=== PATIENT | male | born 1930 | race Two or more races ===

== ENCOUNTER 2016-09-01 13:35 | Inpatient (IN) | payer MEDICARE, OTHER ==
[~2016-09-01] VITALS: Ht 167.6 cm; Wt 75.0 kg
[~2016-09-01 13:35] MED LIST: ACET-2047 PO; ASPI81TA3 PO; CHOL2000 PO; CYAN500T46 PO; DOCU-144 PO; FER325 PO; FURO20TA3 PO; HYDR-3672 PO; INSU100V23 SC; LANT3I SC; LEVO25TA59 PO; METO-448 PO; MIRT15TA5 PO; MULT1CAP20 PO; NIFE30TA60 PO; ONDA4TAB8 PO; PANT40TA4 PO; POLY15DR42 BOTH EYES; SITA50TA2 PO; TAMS0.4C2 PO; ZOLP5TAB7 PO
--- NOTE | 2016-09-01 15:12 | ERA ---
ER Documentation Chief Complaint Date/Time DATE: 09/01/16 TIME: 15:12 Chief Complaint LOW H&H SENT FROM [facility] The patient is a 85-year-old male, presenting to the ER because of low hemoglobin 7, low hematocrit 21.3 from the detention. 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 Medications Home Meds Reported Medications Acetaminophen* (Acetaminophen*) 325 Mg Tablet, 650 MG PO Q6H Y for PAIN, #30 TAB FOR TEMP>100 DEGREES 09/01/16 Aripiprazole* (Abilify*) 2 Mg Tablet, 2 MG PO QHS, #30 TAB 09/01/16 Hydralazine Hcl* (Hydralazine Hcl*) 100 Mg Tablet, 100 MG PO Q8, #90 TAB HOLD FOR SBP<120 09/01/16 Metoprolol Tartrate* (Lopressor*) 25 Mg Tab, 25 MG PO BID, #60 TAB HOLD FOR SBP<120 HR<60 09/01/16 Diltiazem Hcl* (Cardizem CD*) 120 Mg Cap.sr.24h, 120 MG PO DAILY, #30 CAP HOLD IF SBP<120 HR<60 09/01/16 Levothyroxine Sodium* (Levothyroxine Sodium*) 25 Mcg Tablet, 25 MCG PO BEFORE BREAKFAST, #30 TAB 09/01/16 Omeprazole* (Omeprazole*) 20 Mg Capsule.dr, 20 MG PO QAM, #30 CAP 09/01/16 Ferrous Sulfate* (Ferrous Sulfate*) 325 Mg Tabec, 325 MG PO DAILY, TAB 09/01/16 Linagliptin (TRADJENTA) 5 Mg Tablet, 5 MG PO DAILY, TAB 09/01/16 Cyanocobalamin* (Vitamin B-12*) 1,000 Mcg Tablet.sa, 1000 MCG PO DAILY, TAB 09/01/16 Mirtazapine* (Mirtazapine*) 15 Mg Tablet, 15 MG PO HS, TAB 09/10/15 Artificial Tears* (Artificial Tears* Ophth) 15 ml Opht, 1 DROP BOTH EYES BID, EA 09/10/15 Docusate Sodium* (Colace*) 100 Mg Capsule, 100 MG PO Q12H Y for CONSTIPATION, # 30 CAP 09/10/15 Aspirin* (Aspirin* Chew) 81 Mg Tab.chew, 81 MG PO DAILY, TAB.CHEW 09/10/15 Ondansetron Hcl* (Zofran*) 4 Mg Tablet, 4 MG PO Q6H Y for NAUSEA AND OR VOMITING , TAB 04/02/15 Multivitamins* (Multivitamin*) 1 Udcap Capsule, 1 TAB PO DAILY, TAB 04/02/15 Cholecalciferol* (Vitamin D3*) 2,000 Unit Cap, 2000 UNIT PO DAILY, CAP 03/07/14 Zolpidem Tartrate* (Zolpidem Tartrate*) 5 Mg Tablet, 5 MG PO HS Y, TAB 03/07/14 Tamsulosin Hcl* (Tamsulosin Hcl*) 0.4 Mg Cap.er.24h, 0.4 MG PO BID, CAP 03/07/14 Discontinued Reported Medications Acetaminophen* (Acetaminophen*) 650 Mg Tablet, 650 MG PO Q6H Y for MILD PAIN LEVEL 1-3, #30 TAB 09/10/15 Insulin Glargine* (Lantus*) 100 Unit/Ml Soln, 20 UNIT SC DAILY, #1 VIAL 09/10/15 Ferrous Sulfate* (Ferrous Sulfate*) 325 Mg Tabec, 325 MG PO BID, TAB 09/10/15 Metoprolol Tartrate* (Lopressor*) 25 Mg Tab, 25 MG PO BID, #60 TAB 09/10/15 Levothyroxine Sodium* (Synthroid*) 25 Mcg Tablet, 25 MCG PO BEFORE BREAKFAST, # 30 TAB 09/10/15 Cyanocobalamin* (Vitamin B12*) 500 Mcg Tab, 1000 MCG PO DAILY, TAB 09/10/15 Sitagliptin* (Januvia*) 50 Mg Tablet, 50 MG PO DAILY, #30 TAB 09/10/15 Nifedipine* (Nifedipine ER*) 30 Mg Tablet.sa, 30 MG PO DAILY, TAB.SA 09/10/15 Furosemide* (Furosemide*) 20 Mg Tablet, 20 MG PO DAILY, #60 TAB 09/10/15 Insulin Regular, Human* (Novolin R*) 100 U/Ml Vial, 0 SC SLIDING SCALE AC, VIAL 09/10/15 Hydralazine Hcl* (Hydralazine Hcl*) 50 Mg Tab, 50 MG PO Q8, #90 TAB 04/02/15 Pantoprazole* (Pantoprazole*) 40 Mg Tablet.dr, 40 MG PO DAILY, TAB 04/02/15 Allergies Allergies: Coded Allergies: No Known Allergy (Unverified , 09/01/16) PMhx/Soc History of Surgery: Yes (UTI, ESBL, CVA, DM, HTN, DLP, ANEMIA, CKD, DIABETIC NEUROPATHY, RT KNEE SX.) Anesthesia Reaction: No Hx Neurological Disorder: Yes (CONFUSED) Hx Respiratory Disorders: Yes (PNEUMONIA) Hx Cardiac Disorders: Yes (CHF,) Hx Psychiatric Problems: Yes Hx Miscellaneous Medical Probl: Yes (UTI, ESBL, CVA, DM, HTN, DLP, ANEMIA, CKD , DIABETIC NEUROPATHY, RT KNEE SX.) Hx Alcohol Use: No Hx Substance Use: No Hx Tobacco Use: No Physical Exam Vitals Vital Signs Date Time Temp Pulse Resp B/P Pulse Ox O2 Delivery O2 Flow Rate FiO2 09/01/16 17:00 47 16 142/51 100 Room Air 09/01/16 16:19 45 17 143/50 100 Room Air 09/01/16 13:38 97.4 43 17 127/59 97 Physical Exam Const: No acute distress. Head: Atraumatic. Eyes: Normal Conjunctiva. ENT: Normal External Ears, Nose and Mouth. Neck: Full range of motion. No meningismus. Resp: Clear to auscultation bilaterally. Cardio: Irregularly irregular bradycardic Abd: Soft, non distended, normal bowel sounds, non tender. Skin: No petechiae or rashes. Back: No midline or flank tenderness. Ext: No cyanosis, or edema. Neur: Limited due to his condition Psych: Limited due to his condition Result Diagram: 09/01/16 1530 09/01/16 1530 Results 24 hrs Laboratory Tests Test 09/01/16 15:30 White Blood Count 7.910^3/ul Red Blood Count 2.9410^6/ul Hemoglobin 7.8g/dl Hematocrit 24.9% Mean Corpuscular Volume 84.7fl Mean Corpuscular Hemoglobin 26.5pg Mean Corpuscular Hemoglobin Concent 31.3g/dl Red Cell Distribution Width 17.6% Platelet Count 46437^3/UL Mean Platelet Volume 10.1fl Neutrophils % 73.5% Lymphocytes % 15.7% Monocytes % 8.2% Eosinophils % 1.7% Basophils % 0.5% Nucleated Red Blood Cells % 0.0/100WBC Neutrophils # 5.810^3/ul Lymphocytes # 1.210^3/ul Monocytes # 0.610^3/ul Eosinophils # 0.110^3/ul Basophils # 0.010^3/ul Nucleated Red Blood Cells # 0.010^3/ul Prothrombin Time 14.5Sec Prothrombin Time Ratio 1.1 INR International Normalized Ratio 1.13 Activated Partial Thromboplast Time 29.5Sec Sodium Level 138mmol/L Potassium Level 4.2mmol/L Chloride Level 111mmol/L Carbon Dioxide Level 20mmol/L Anion Gap 11 Blood Urea Nitrogen 51mg/dl Creatinine 4.40mg/dl Glucose Level 182mg/dl Calcium Level 7.8mg/dl Total Bilirubin 0.0mg/dl Direct Bilirubin 0.00mg/dl Indirect Bilirubin 0.0mg/dl Aspartate Amino Transf (AST/SGOT) < 8IU/L Alanine Aminotransferase (ALT/SGPT) 22IU/L Alkaline Phosphatase 131IU/L Troponin I < 0.012ng/ml Total Protein 6.2g/dl Albumin 3.3g/dl Globulin 2.90g/dl Albumin/Globulin Ratio 1.13 Current Medications Medications (Trade) Dose Ordered Sig/Ant Route PRN Reason Start Time Stop Time Status Last Admin Dose Admin IV Flush (NS 3 ml) 3 ml PER PROTOCOL IV 09/01/16 18:30 UNV Ondansetron HCl (Zofran Inj) 4 mg Q6H PRN IV NAUSEA AND/OR VOMITING 09/01/16 18:30 UNV Acetaminophen (Tylenol Tab) 650 mg Q6H PRN PO PAIN LEVEL 1-3 OR FEVER 09/01/16 18:30 UNV Docusate Sodium (Colace) 100 mg Q12H PRN PO CONSTIPATION 09/01/16 18:30 UNV Magnesium Hydroxide (Milk Of Mag) 30 ml DAILY PRN PO CONSTIPATION 09/01/16 18:30 UNV Pantoprazole (Protonix Tab) 40 mg DAILY@06 PO 09/02/16 06:00 UNV Acetaminophen (Tylenol Tab) 650 mg Q6H PRN PO PAIN 09/01/16 18:30 UNV Aripiprazole (Abilify) 2 mg QHS PO 09/01/16 21:00 UNV Eye Lubricant (Artificial Tears Oph) 1 drop BID BOTH EYES 09/01/16 21:00 UNV Aspirin (Aspirin) 81 mg DAILY PO 09/02/16 09:00 UNV Cholecalciferol (Vitamin D) 2,000 unit DAILY PO 09/02/16 09:00 UNV Cyanocobalamin (Vitamin B12) 1,000 mcg DAILY PO 09/02/16 09:00 UNV Diltiazem HCl (Cardizem Cd) 120 mg DAILY PO 09/02/16 09:00 UNV Docusate Sodium (Colace) 100 mg Q12H PRN PO CONSTIPATION 09/01/16 18:30 UNV Ferrous Sulfate (Ferrous Sulfate (Ec)) 325 mg DAILY PO 09/02/16 09:00 UNV Hydralazine HCl (Apresoline) 100 mg Q8 PO 09/01/16 22:00 UNV Levothyroxine Sodium (Synthroid) 25 mcg BEFORE BREAKFAST PO 09/02/16 07:00 UNV Linagliptin (Tradjenta) 5 mg DAILY PO 09/02/16 09:00 UNV Metoprolol Tartrate (Lopressor) 25 mg BID PO 09/01/16 21:00 UNV Mirtazapine (Remeron) 15 mg HS PO 09/01/16 21:00 UNV Multivitamins Therapeutic (Theragran) 1 tab DAILY PO 09/02/16 09:00 UNV Tamsulosin HCl (Flomax) 0.4 mg BID PO 09/01/16 21:00 UNV Zolpidem Tartrate (Ambien) 5 mg HS PRN PO insomnia 09/01/16 18:30 UNV Insulin Aspart (Novolog Insulin Pen) NOVOLOG *MILD* ALGORITHM WITH MEALS BEDTIME SC 09/01/16 21:00 UNV Miscellaneous Information (* Miscellaneous Pharmacy Order) HYPOGLYCEMIA PROTOCOL w... ONCE ONCE XX 09/01/16 19:00 09/01/16 19:01 UNV Miscellaneous Information (* Miscellaneous Pharmacy Order) Discontinue Glyburide, Glipizide,... ONCE ONCE XX 09/01/16 19:00 09/01/16 19:01 UNV Miscellaneous Information (* Miscellaneous Pharmacy Order) Discontinue all previ... ONCE ONCE XX 09/01/16 19:00 09/01/16 19:01 UNV Procedures/MDM EK hrs. read by emergency physician Rate/Rhythm: Atrial fibrillation 41 beats/min QRS, ST, T-waves: No ST elevation, no T inversion Impression: Abnormal EKG EK hrs. read by emergency physician Rate/Rhythm: Atrial fibrillation 44 beats/min QRS, ST, T-waves: No ST elevation, no T inversion Impression: Abnormal EKG MEDICAL MAKING DECISION: The patient is a 85-year-old male, presenting with probable acute GI bleed, acute bradycardia arrhythmia, acute on chronic kidney disease, acute atrial fibrillation. He was treated with 1 unit of packed red blood cells over 4 hours due to probable acute GI bleed. The differential diagnoses considered include but are not limited to gastritis, peptic ulcer disease, esophageal varices, Sherlyn-Chaparro tear, carcinoma, polyp, hemorrhoid, fissure, diverticulosis, angiodysplasia. Departure Diagnosis: Primary Impression: GI bleed Additional Impressions: Bradyarrhythmia Acute kidney injury superimposed on chronic kidney disease Atrial fibrillation Condition: Stable Comments I discussed the findings with the patient. I discussed the patient with his physician Dr. Montes at 5 PM who was made aware of the lab, the treatment, the patient condition. The patient is admitted to [facility] Dasilva MD Sep 01, 2016 15:12
[2016-09-01 15:43] LABS: ADD SCAN DIFF NO
[2016-09-01 15:47] LABS: BASOPHILS % 0.5 % (0.0-2.0); EOSINOPHILS # 0.1 10^3/ul (0.0-0.5); EOSINOPHILS % 1.7 % (0.0-7.0); HEMATOCRIT 24.9 % (42.0-52.0); HEMOGLOBIN 7.8 g/dl (14.0-18.0); LYMPHOCYTES # 1.2 10^3/ul (0.8-2.9); LYMPHOCYTES % 15.7 % (15.0-51.0); MEAN CORPUSCULAR HEMOGLOBIN 26.5 pg (29.0-33.0); MEAN CORPUSCULAR HGB CONC 31.3 g/dl (32.0-37.0); MEAN CORPUSCULAR VOLUME 84.7 fl (82.0-101.0); MEAN PLATELET VOLUME 10.1 fl (7.4-10.4); MONOCYTE # 0.6 10^3/ul (0.3-0.9); MONOCYTES % 8.2 % (0.0-11.0); NEUTROPHIL # 5.8 10^3/ul (1.6-7.5); NEUTROPHILS % 73.5 % (39.0-77.0); PLATELET COUNT 142 10^3/UL (140-415); RED BLOOD COUNT 2.94 10^6/ul (4.70-6.10); RED CELL DISTRIBUTION WIDTH 17.6 % (11.5-14.5); WHITE BLOOD COUNT 7.9 10^3/ul (4.8-10.8)
[2016-09-01] MEDS ORDERED: CYAN100080 PO (15:52)
[2016-09-01] MEDS ORDERED: LINA5TAB PO (15:53)
[2016-09-01] MEDS ORDERED: FER325 PO (15:53)
[2016-09-01] MEDS ORDERED: OMEP20CA16 PO (15:54)
[2016-09-01] MEDS ORDERED: LEVO25TA53 PO (15:54)
[2016-09-01] MEDS ORDERED: DILT120C77 PO (15:56)
[2016-09-01] MEDS ORDERED: HYDR100T7 PO (15:57)
[2016-09-01] MEDS ORDERED: METO-448 PO (15:57)
[2016-09-01] MEDS ORDERED: ARIP2TAB8 PO (15:58)
[2016-09-01] MEDS ORDERED: ACET325T45 PO (16:01)
[2016-09-01 16:02] LABS: INR 1.13; PROTIME 14.5 Sec (12.2-14.2); PT RATIO 1.1
[2016-09-01 16:03] LABS: PARTIAL THROMBOPLASTIN TIME 29.5 Sec (25.0-35.0)
[2016-09-01 16:05] LABS: ALANINE AMINOTRANSFERASE 22 IU/L (13-69); ALBUMIN 3.3 g/dl (3.3-4.9); ALBUMIN/GLOBULIN RATIO 1.13; ALKALINE PHOSPHATASE 131 IU/L (42-121); ANION GAP 11 (8-16); ASPARTATE AMINO TRANSFERASE < 8 IU/L (15-46); BLOOD UREA NITROGEN 51 mg/dl (7-20); CALCIUM 7.8 mg/dl (8.4-10.2); CARBON DIOXIDE 20 mmol/L (21-31); CHLORIDE 111 mmol/L (97-110); GLUCOSE 182 mg/dl (70-220); POTASSIUM 4.2 mmol/L (3.5-5.1); SODIUM 138 mmol/L (135-144); TOTAL PROTEIN 6.2 g/dl (6.1-8.1)
[2016-09-01 16:21] LABS: TROPONIN-I < 0.012 ng/ml (0.00-0.12)
[2016-09-01] MEDS ORDERED: NACL 0.9% 3 ML SYG IV SCH (18:30)
[2016-09-01] MEDS ORDERED: DOCUSATE SODIUM 100 MG CAP PO PRN ×2 (18:30)
[2016-09-01] MEDS ORDERED: ONDANSETRON 4 MG INJ IV PRN (18:30)
[2016-09-01] MEDS ORDERED: ACETAMINOPHEN 325 MG TAB PO PRN (18:30)
[2016-09-01] MEDS ORDERED: ZOLPIDEM 5 MG TAB PO PRN (18:30)
--- NOTE | 2016-09-01 19:36 | RADRPT ---
PROCEDURE: Portable chest x-ray. CLINICAL INDICATION: CHF. TECHNIQUE: Portable AP view of the chest. COMPARISON: 12/29/2015. FINDINGS: There are mildly prominent interstitial lung markings, not significantly changed. Subtle patchy biba silar opacities are noted. The cardiac silhouette is magnified. There are aortic calcifications. N o pleural effusion is seen. There is no pneumothorax. There is degenerative arthrosis of the right glenohumeral joint. IMPRESSION: 1. Mildly prominent interstitial lung markings, not significantly changed. These are nonspecific bu t could represent interstitial edema, a viral chest infection, and/or chronic lung changes. 2. Subtle patchy bibasilar opacities, possibly representing atelectasis, edema, and/or pneumonia. 3. Aortic atherosclerosis. RPTAT: HTAR .Sebastien Delgado MD, Date Time Electronically viewed and signed by .Sebastien Delgado MD, on 09/01/2016 19:36 .R/
[2016-09-01] MEDS ORDERED: GLUCOSE GEL 15 GRAM TUBE PO PRN ×2 (20:00)
[2016-09-01] MEDS ORDERED: GLUCOSE GEL 15 GRAM TUBE BUCCAL PRN (20:00)
[2016-09-01] MEDS ORDERED: GLUCAGON 1 MG INJ IM PRN (20:00)
[2016-09-01] MEDS ORDERED: DEXTROSE 50% 50 ML SYRINGE IV PRN ×2 (20:00)
--- NOTE | 2016-09-01 20:08 | HP ---
DATE OF ADMISSION: 09/01/2016 REASON FOR ADMISSION: Anemia, acute on chronic renal failure, bradycardia. HISTORY OF PRESENT ILLNESS: The patient is an 85-year-old male very well known to me, over all debilitated, not ambulatory, who currently resides at [facility]. Previously admitted for ESBL UTI bacteremia. He has a history of diabetes mellitus, hypertension, dyslipidemia, anemia, CKD stage IV, diabetic neuropathy, osteoarthritis, arteriosclerotic cardiovasc ular disease, BPH, depression, hypothyroidism, diastolic dysfunction heart failure. The patient on followup labs at the facility was noted to have hemoglobin of 7 and increasing BUN and creatinine wi th a BUN of 50 and a creatinine around 4.2. This is definitely worse than baseline. I did start hi m recently on Epogen for anemia of chronic disease, but despite that, his hemoglobin has been worsen ing. We decided to send him to the emergency department for evaluation and possible transfusion. I n the ER, initial vital signs showed a temperature of 97.4, patient bradycardic to the low 40s, resp irations 17, blood pressure 127/59, saturation 97% on room air. The patient was found to be in AFib with slow ventricular rate on EKG, and labs revealed hemoglobin slightly better than the nursing ho me at 7.8 with hematocrit of 24.9, BUN and creatinine elevated at 51 over 4.4. Overall, it was deci ded to admit the patient for further care as patient will be transfused. The patient is very close to being on dialysis, especially in the setting of a history of CHF and fluid overload state in the past. Upon questioning, the patient denies any fever or chills. He denies any chest pain or shortn ess of breath. The patient is somewhat poor historian as he does have mild vascular dementia. The patient is nonambulatory. PAST MEDICAL HISTORY: Includes diabetes mellitus, history of CVA, hypertension, dyslipidemia, anemi a, CKD, diabetic neuropathy, osteoarthritis, arteriosclerotic cardiovascular disease, BPH, depressio n, hypothyroidism, diastolic dysfunction heart failure. ALLERGIES: NO KNOWN DRUG ALLERGIES. SOCIAL HISTORY: The patient denies tobacco, alcohol, IV drug use. The patient is . He is originally from [place]. The patient is nonambulatory. FAMILY HISTORY: Noncontributory. MEDICATIONS: The patient's medications include the followin. His diet mechanical soft, finely chopped, low-carb and renal diet with nectar-thickened liquid. 2. Hypoglycemia protocol. 3. Insulin sliding scale. 4. Aspirin 81 mg daily. 5. Vitamin D 2000 units daily. 6. Vitamin B12 1000 daily. 7. Multivitamin 1 tablet daily. 8. Tradjenta 5 mg daily. 9. Ferrous sulfate 325 daily. 10. Omeprazole 20 mg daily. 11. Synthroid 25 mcg daily. 12. Cardizem-CD 120 mg daily. 13. Metoprolol tartrate 25 b.i.d. 14. Artificial tears as directed. 15. Flomax 0.4 b.i.d. 16. Hydralazine 100 mg q.8 hours with always holding parameters. 17. Procrit 10,000 units every Sunday, Sunday and Sunday. 18. Albuterol as directed. 19. Colace 100 q.12 p.r.n. 20. Ipratropium p.r.n. 21. Zofran p.r.n. 22. Mirtazapine 15 mg at bedtime. 23. Zolpidem 5 mg at bedtime p.r.n. for insomnia. REVIEW OF SYSTEMS: See above. PHYSICAL EXAMINATION: VITAL SIGNS: Temperature 97.4, pulse 47, respirations 16, blood pressure 142/51. Saturation is 100 %. GENERAL: The patient is in no acute distress. HEENT: The patient is pale. No facial ____. Decreased dentition. CARDIOVASCULAR: Positive S1 and S2, slow rate. LUNGS: Actually clear bilaterally. ABDOMEN: Soft, nontender. EXTREMITIES: +1 edema, left greater than right. I would say left is +1, right is trace edema. Upp er extremities, no edema. LABORATORY DATA: White count is 7.9, hemoglobin 7.8, hematocrit 25, platelet count is 142. Neutrop hils 74%, lymphocytes 16%. Chemistry: Sodium 138, potassium 4.2, chloride 111, bicarbonate 20, BUN is 51, creatinine 4.4, glucose of 182, AST is less than 80, ALT 22, alkaline phosphatase 131. Trop onin negative. Albumin is 3.3. INR is 1.13. IMAGING: Renal ultrasound done last year at this hospital on 09/10/2015 at that time showed mild bi lateral cortical thinning and echogenicity suggestive of medical renal disease, no hydronephrosis. Layering debris within the bladder may suggest cystitis. Carotid Doppler back in 2013 shows no evidence of hemodynamically significant stenosis. He also had a swallow evaluation on 04/08/2015, showed silent aspiration during swallowing of thin l iquid. EKG, again, shows AFib with slow ventricular rate in the 40s. No radiographic imaging was done today. Urine studies were not done as well. ASSESSMENT AND PLAN: This is an 85-year-old male with history of diabetes mellitus, hypert ension, dyslipidemia, cerebrovascular accident, atherosclerotic cardiovascular disease, atrial fibri llation, osteoarthritis, diabetic neuropathy, anemia, dyslipidemia, hypothyroidism, benign prostatic hypertrophy, chronic kidney disease who presented with anemia, acute on chronic renal insufficiency and atrial fibrillation with slow ventricular rate. 1. Respiratory. Stable, will obtain a baseline chest x-ray. The patient does have history of prev ious methicillin-resistant Staphylococcus aureus of the nares. Continue aspiration precautions as p atient will be placed on soft, finely chopped food with nectar-thickened liquid. Will monitor. 2. Cardiovascular: The patient with slow ventricular rate. As the patient is on calcium channel b locker and beta blockers which may slowly his heart rate, may hold it and put him on holding paramet ers. The patient does not appear to be in congestive heart failure exacerbation. Will continue asp irin, hold full anticoagulation secondary to his severe anemia. 3. Anemia. This may be just anemia of chronic disease. Check iron panel, B12, folic acid, retic a nd send stool for occult blood. 4. Hypothyroidism. Continue Synthroid. Follow up TSH level. 5. Depression. Continue Remeron. 6. Diabetes mellitus. Previously has been overall controlled, observe. In the meantime, put on in sulin sliding scale mild algorithm secondary to his renal insufficiency. 7. The patient will be placed on gastrointestinal prophylaxis. 8. Benign prostatic hypertrophy. Continue Flomax. Again, will make sure he does not have any rete ntion. Follow up with urine studies including UA and urine culture. The patient will be monitored closely in the telemetry unit secondary to atrial fibrillation with slow ventricular rate. 9. Acute on chronic renal insufficiency. This is progressing. The patient may need dialysis in e near future. Nephrology will be consulted. Follow up urine studies. Previously he had significa nt proteinuria. 10. For the anemia, again will transfuse 2 units of PRBC and may continue Epogen as an outpatient. Again, will rule out any acute bleed. We will follow. Dictated By: ERIC PHILLPIS/ALLAN Conf#: [id number] DID#: [id number]
[2016-09-01 20:40] VITALS: TEMP 98.4
[2016-09-01] MEDS: ARTIFICIAL TEARS 15 ML OPH BOTH EYES SCH (21:00)
[2016-09-01] MEDS: ARIPIPRAZOLE 2 MG TAB PO SCH (21:00)
[2016-09-01] MEDS: INSULIN ASPART [NOVOLOG] 3 ML PEN SC SCH (21:00)
[2016-09-01 21:30] VITALS: PULSE 54
[2016-09-01 22:00] VITALS: Ht 167.6 cm; Wt 75.0 kg
[2016-09-01 22:18] VITALS: PULSE 49
[2016-09-01] MEDS: MIRTAZAPINE 15 MG TAB PO SCH (22:39)
[2016-09-01] MEDS: TAMSULOSIN (SR) 0.4 MG CAP PO SCH (22:39)
[2016-09-01] MEDS: METOPROLOL 25 MG TAB PO SCH (22:40)
[2016-09-02] VITALS (14 sets, daily range): BP systolic 168–205; BP diastolic 68–98; PULSE 50–62; RESP 17–19
[2016-09-02] MEDS: ACCUCHECK AT 2AM (Patients on SS coverage) XX SCH (01:37)
[2016-09-02] MEDS: PANTOPRAZOLE (EC) 40 MG TAB PO SCH (05:58)
[2016-09-02] MEDS: LEVOTHYROXINE 25 MCG TAB PO SCH (06:10)
[2016-09-02 06:55] LABS: ADD SCAN DIFF NO
[2016-09-02 07:02] LABS: BASOPHIL # 0.1 10^3/ul (0.0-0.1); EOSINOPHILS # 0.2 10^3/ul (0.0-0.5); EOSINOPHILS % 2.5 % (0.0-7.0); HEMATOCRIT 29.1 % (42.0-52.0); HEMOGLOBIN 9.3 g/dl (14.0-18.0); LYMPHOCYTES % 14.7 % (15.0-51.0); MEAN CORPUSCULAR VOLUME 84.6 fl (82.0-101.0); MEAN PLATELET VOLUME 10.3 fl (7.4-10.4); MONOCYTE # 0.7 10^3/ul (0.3-0.9); MONOCYTES % 9.6 % (0.0-11.0); NEUTROPHIL # 5.1 10^3/ul (1.6-7.5); NEUTROPHILS % 71.6 % (39.0-77.0); PLATELET COUNT 145 10^3/UL (140-415); RED BLOOD COUNT 3.44 10^6/ul (4.70-6.10); RED CELL DISTRIBUTION WIDTH 16.5 % (11.5-14.5); WHITE BLOOD COUNT 7.1 10^3/ul (4.8-10.8)
[2016-09-02 07:13] LABS: ALBUMIN 3.3 g/dl (3.3-4.9); ALBUMIN/GLOBULIN RATIO 1.1; CALCIUM 8.2 mg/dl (8.4-10.2); CREATININE 4.29 mg/dl (0.61-1.24); TOTAL PROTEIN 6.3 g/dl (6.1-8.1)
[2016-09-02 07:15] LABS: POTASSIUM 4.1 mmol/L (3.5-5.1)
[2016-09-02 07:43] LABS: THYROID STIMULATING HORMONE 2.6 MIU/L (0.465-4.680)
[2016-09-02] MEDS: INSULIN ASPART [NOVOLOG] 3 ML PEN SC SCH ×4 (07:55→20:58)
[2016-09-02 08:16] LABS: IRON 34 ug/dl (35-150)
[2016-09-02 08:25] LABS: TOTAL IRON BINDING CAPACITY 210 ug/dl (241-421)
[2016-09-02] MEDS: ASPIRIN 81 MG TAB PO SCH (09:13)
[2016-09-02] MEDS: CYANOCOBALAMIN 500 MCG TAB PO SCH (09:13)
[2016-09-02] MEDS: LINAGLIPTIN 5 MG TABLET PO SCH (09:14)
[2016-09-02] MEDS: TAMSULOSIN (SR) 0.4 MG CAP PO SCH ×2 (09:14→20:48)
[2016-09-02] MEDS: METOPROLOL 25 MG TAB PO SCH ×2 (09:14→20:47)
[2016-09-02] MEDS: CHOLECALCIFEROL 2,000 UNIT CAP PO SCH (09:14)
[2016-09-02] MEDS: FERROUS SULFATE (EC) 325 MG TAB PO SCH (09:14)
[2016-09-02] MEDS: DILTIAZEM (CD) 120 MG CAP PO SCH (09:14)
[2016-09-02] MEDS: MULTIVITAMINS THERAPEUTIC TAB PO SCH (09:14)
[2016-09-02] MEDS: ARTIFICIAL TEARS 15 ML OPH BOTH EYES SCH ×2 (09:15→20:48)
--- NOTE | 2016-09-02 12:18 | RADRPT ---
PROCEDURE: Retroperitoneal US. CLINICAL INDICATION: Renal insufficiency TECHNIQUE: Multiple sonographic images of the kidneys and retroperitoneum were obtained. The imag es were reviewed on a PACS workstation. COMPARISON: 09/10/2015 FINDINGS: The right kidney measures 10.7 cm. The left kidney measures 9.8 cm. There is increased echogenicity of the kidneys. There is no evidence of hydronephrosis. The urinary bladder has a lobulated wall with multiple diverticula. The visualized portions of the aorta and IVC are within normal limits. IMPRESSION: Echogenic kidneys, consistent with medical renal disease. No evidence of hydronephrosis. Lobulated wall of the urinary bladder with multiple small diverticula. RPTAT: AA .Jesus Rosen MD, MD Date Time Electronically viewed and signed by .Jesus Rosen MD, MD on 09/02/2016 12:18 .S/
[2016-09-02] MEDS: CLONIDINE 0.1 MG/24 HR PATCH TRANSDERM SCH (15:51)
[2016-09-02] MEDS: ACETAMINOPHEN 325 MG TAB PO PRN (15:54)
[2016-09-02] MEDS ORDERED: hydrALAzine 20 MG INJ IV ONE (18:30)
[2016-09-02] MEDS: MIRTAZAPINE 15 MG TAB PO SCH (20:47)
[2016-09-02] MEDS: ARIPIPRAZOLE 2 MG TAB PO SCH (20:48)
[2016-09-02] MEDS ORDERED: hydrALAzine 20 MG INJ IV STA (21:58)
[2016-09-03] VITALS (13 sets, daily range): BP systolic 166–189; BP diastolic 55–91; PULSE 51–57; RESP 15–20
[2016-09-03 01:31] LABS: ADD UMIC YES; UR BILIRUBIN (Dip) NEGATIVE (NEGATIVE); UR BLOOD (Dip) TRACE (NEGATIVE); UR CLARITY CLEAR (CLEAR); UR COLOR LT. YELLOW (YELLOW); UR GLUCOSE (Dip) NEGATIVE (NEGATIVE); UR KETONES (Dip) NEGATIVE (NEGATIVE); UR LEUKOCYTE ESTERASE (Dip) NEGATIVE (NEGATIVE); UR NITRITE (Dip) NEGATIVE (NEGATIVE); UR TOTAL PROTEIN (Dip) 2+ (NEGATIVE); UR UROBILINOGEN (Dip) 0.2 E.U./dL (0.1-1.0)
[2016-09-03 01:45] LABS: UR SQUAMOUS EPITHELIAL CELL OCCASIONAL
[2016-09-03] MEDS: ACCUCHECK AT 2AM (Patients on SS coverage) XX SCH (02:00)
[2016-09-03 02:39] LABS: PROTEIN/CREAT RATIO 10.21 RATIO
[2016-09-03] MEDS: LEVOTHYROXINE 25 MCG TAB PO SCH (06:16)
[2016-09-03] MEDS: PANTOPRAZOLE (EC) 40 MG TAB PO SCH (06:16)
[2016-09-03 07:10] LABS: ADD SCAN DIFF NO
[2016-09-03 07:20] LABS: BASOPHIL # 0.1 10^3/ul (0.0-0.1); BASOPHILS % 0.7 % (0.0-2.0); EOSINOPHILS # 0.1 10^3/ul (0.0-0.5); EOSINOPHILS % 1.3 % (0.0-7.0); HEMATOCRIT 30.1 % (42.0-52.0); HEMOGLOBIN 9.7 g/dl (14.0-18.0); LYMPHOCYTES # 0.9 10^3/ul (0.8-2.9); LYMPHOCYTES % 10.6 % (15.0-51.0); MEAN CORPUSCULAR HEMOGLOBIN 27.5 pg (29.0-33.0); MEAN CORPUSCULAR HGB CONC 32.2 g/dl (32.0-37.0); MEAN CORPUSCULAR VOLUME 85.3 fl (82.0-101.0); MEAN PLATELET VOLUME 9.9 fl (7.4-10.4); MONOCYTE # 0.6 10^3/ul (0.3-0.9); MONOCYTES % 7.5 % (0.0-11.0); NEUTROPHIL # 6.6 10^3/ul (1.6-7.5); NEUTROPHILS % 79.5 % (39.0-77.0); PLATELET COUNT 160 10^3/UL (140-415); RED BLOOD COUNT 3.53 10^6/ul (4.70-6.10); RED CELL DISTRIBUTION WIDTH 17.2 % (11.5-14.5); WHITE BLOOD COUNT 8.3 10^3/ul (4.8-10.8)
[2016-09-03 07:31] LABS: PHOSPHORUS 4.2 mg/dl (2.5-4.9)
[2016-09-03 07:32] LABS: CALCIUM 8.4 mg/dl (8.4-10.2); CREATININE 4.24 mg/dl (0.61-1.24); POTASSIUM 4.2 mmol/L (3.5-5.1)
[2016-09-03] MEDS: ASPIRIN 81 MG TAB PO SCH (08:35)
[2016-09-03] MEDS: CYANOCOBALAMIN 500 MCG TAB PO SCH (08:35)
[2016-09-03] MEDS: TAMSULOSIN (SR) 0.4 MG CAP PO SCH ×2 (08:35→20:39)
[2016-09-03] MEDS: DILTIAZEM (CD) 120 MG CAP PO SCH (08:35)
[2016-09-03] MEDS: METOPROLOL 25 MG TAB PO SCH ×2 (08:36→20:45)
[2016-09-03] MEDS: MULTIVITAMINS THERAPEUTIC TAB PO SCH (08:36)
[2016-09-03] MEDS: ARTIFICIAL TEARS 15 ML OPH BOTH EYES SCH ×2 (08:36→23:40)
[2016-09-03] MEDS: LINAGLIPTIN 5 MG TABLET PO SCH (08:36)
[2016-09-03] MEDS: FERROUS SULFATE (EC) 325 MG TAB PO SCH (08:36)
[2016-09-03] MEDS: CHOLECALCIFEROL 2,000 UNIT CAP PO SCH (08:36)
[2016-09-03] MEDS: INSULIN ASPART [NOVOLOG] 3 ML PEN SC SCH ×4 (08:44→20:44)
--- NOTE | 2016-09-03 09:31 | CONS ---
Date/Time of Note Date/Time of Note DATE: 09/03/16 TIME: 09:21 Consult Date/Type/Reason Admit Date/Time Sep 01, 2016 at 17:29 Initial Consult Date Subjective 85-year-old male with history of diabetes mellitus, hypertension, dyslipidemia, cerebrovascular accident, atherosclerotic cardiovascular disease, atrial fibrillation, osteoarthritis, diabetic neuropathy, anemia, dyslipidemia, hypothyroidism, benign prostatic hypertrophy, chronic kidney disease who presented with anemia, acute on chronic renal insufficiency and atrial fibrillation with slow ventricular rate. continues adequate uo. bp has been difficult to control. POC reviewed with dr. reed. Objective Vital Signs Date Time Temp Pulse Resp B/P Pulse Ox O2 Delivery O2 Flow Rate FiO2 09/03/16 08:06 54 09/03/16 07:28 97.8 20 188/84 96 09/01/16 20:40 Room Air Intake and Output 09/02/16 09/02/16 09/03/16 15:00 23:00 07:00 Intake Total 250 ml 300 ml Balance 250 ml 300 ml Results/Medications Result Diagram: 09/03/16 0603 09/03/16 0603 Results 24 hrs Laboratory Tests Test 09/02/16 11:58 09/02/16 17:21 09/02/16 18:20 09/02/16 20:56 Bedside Glucose 110 177 125 Urine Color LT. YELLOW Urine Clarity CLEAR Urine pH 5.5 Urine Specific [place] 1.020 Urine Ketones NEGATIVE Urine Nitrite NEGATIVE Urine Bilirubin NEGATIVE Urine Urobilinogen 0.2 E.U./dL Urine Leukocyte Esterase NEGATIVE Urine Microscopic RBC 5-10 Urine Microscopic WBC 0-2 Urine Squamous Epithelial Cells OCCASIONAL Urine Hyaline Casts OCCASIONAL Urine Hemoglobin TRACE Urine Random Creatinine 40.53 Urine Protein/Creatinine Ratio 10.21 Urine Glucose NEGATIVE Urine Total Protein 2+ H Test 09/03/16 06:03 09/03/16 07:47 White Blood Count 8.3 Red Blood Count 3.53 L Hemoglobin 9.7 L Hematocrit 30.1 L Mean Corpuscular Volume 85.3 Mean Corpuscular Hemoglobin 27.5 L Mean Corpuscular Hemoglobin Concent 32.2 Red Cell Distribution Width 17.2 H Platelet Count 160 Mean Platelet Volume 9.9 Neutrophils % 79.5 H Lymphocytes % 10.6 L Monocytes % 7.5 Eosinophils % 1.3 Basophils % 0.7 Nucleated Red Blood Cells % 0.0 Neutrophils # 6.6 Lymphocytes # 0.9 Monocytes # 0.6 Eosinophils # 0.1 Basophils # 0.1 Nucleated Red Blood Cells # 0.0 Sodium Level 140 Potassium Level 4.2 Chloride Level 111 H Carbon Dioxide Level 20 L Anion Gap 13 Blood Urea Nitrogen 50 H Creatinine 4.24 H Glucose Level 120 Calcium Level 8.4 Phosphorus Level 4.2 Magnesium Level 2.0 Bedside Glucose 197 Medications Current Medications Ondansetron HCl (Zofran Inj) 4 mg Q6H PRN IV NAUSEA AND/OR VOMITING; Start 09/01 at 18:30 Acetaminophen (Tylenol Tab) 650 mg Q6H PRN PO PAIN LEVEL 1-3 OR FEVER Last administered on 09/02/16 15:54; Admin Dose 650 MG; Start 09/01/16 at 18:30 Docusate Sodium (Colace) 100 mg Q12H PRN PO CONSTIPATION; Start 09/01/16 at 18: 30 Magnesium Hydroxide (Milk Of Mag) 30 ml DAILY PRN PO CONSTIPATION; Start at 18:30 Pantoprazole (Protonix Tab) 40 mg DAILY@06 PO Last administered on 09/03/16 06: 16; Admin Dose 40 MG; Start 09/02/16 at 06:00 Acetaminophen (Tylenol Tab) 650 mg Q6H PRN PO PAIN; Start 09/01/16 at 18:30 Aripiprazole (Abilify) 2 mg QHS PO Last administered on 09/02/16 20:48; Admin Dose 2 MG; Start 09/01/16 at 21:00 Eye Lubricant (Artificial Tears Oph) 1 drop BID BOTH EYES Last administered on 09/03/16 08:36; Admin Dose 1 DROP; Start 09/01/16 at 21:00 Aspirin (Aspirin) 81 mg DAILY PO Last administered on 09/03/16 08:35; Admin Dose 81 MG; Start 09/02/16 at 09:00 Cholecalciferol (Vitamin D) 2,000 unit DAILY PO Last administered on 09/03/16 08:36; Admin Dose 2,000 UNIT; Start 09/02/16 at 09:00 Cyanocobalamin (Vitamin B12) 1,000 mcg DAILY PO Last administered on 09/03/16 08:35; Admin Dose 1,000 MCG; Start 09/02/16 at 09:00 Diltiazem HCl (Cardizem Cd) 120 mg DAILY PO Last administered on 09/03/16 08:35 ; Admin Dose 120 MG; Start 09/02/16 at 09:00 Docusate Sodium (Colace) 100 mg Q12H PRN PO CONSTIPATION; Start 09/01/16 at 18: 30 Ferrous Sulfate (Ferrous Sulfate (Ec)) 325 mg DAILY PO Last administered on 09/03 08:36; Admin Dose 325 MG; Start 09/02/16 at 09:00 Hydralazine HCl (Apresoline) 100 mg Q8 PO Last administered on 09/03/16 06:16; Admin Dose 100 MG; Start 09/01/16 at 22:00 Linagliptin (Tradjenta) 5 mg DAILY PO Last administered on 09/03/16 08:36; Admin Dose 5 MG; Start 09/02/16 at 09:00 Metoprolol Tartrate (Lopressor) 25 mg BID PO Last administered on 09/03/16 08: 36; Admin Dose 25 MG; Start 09/01/16 at 21:00 Mirtazapine (Remeron) 15 mg HS PO Last administered on 09/02/16 20:47; Admin Dose 15 MG; Start 09/01/16 at 21:00 Multivitamins Therapeutic (Theragran) 1 tab DAILY PO Last administered on 08:36; Admin Dose 1 TAB; Start 09/02/16 at 09:00 Tamsulosin HCl (Flomax) 0.4 mg BID PO Last administered on 09/03/16 08:35; Admin Dose 0.4 MG; Start 09/01/16 at 21:00 Zolpidem Tartrate (Ambien) 5 mg HS PRN PO insomnia; Start 09/01/16 at 18:30 Diagnostic Test (Pha) (Accu-Chek) 1 ea 02 XX ; Start 09/02/16 at 02:00 Miscellaneous Information 1 ea NOTE XX ; Start 09/01/16 at 20:00 Glucose (Glutose) 15 gm Q15M PRN PO DECREASED GLUCOSE; Start 09/01/16 at 20:00 Glucose (Glutose) 22.5 gm Q15M PRN PO DECREASED GLUCOSE; Start 09/01/16 at 20:00 Dextrose (D50w Syringe) 25 ml Q15M PRN IV DECREASED GLUCOSE; Start 09/01/16 at 20:00 Dextrose (D50w Syringe) 50 ml Q15M PRN IV DECREASED GLUCOSE; Start 09/01/16 at 20:00 Glucagon (Glucagen) 1 mg Q15M PRN IM DECREASED GLUCOSE; Start 09/01/16 at 20:00 Glucose (Glutose) 15 gm Q15M PRN BUCCAL DECREASED GLUCOSE; Start 09/01/16 at 20: 00 Epoetin Pierce (Epogen (Non Esrd/Non Oncology)) 8,000 units MoWeFr@17 SC ; Start 09/04/16 at 17:00 Clonidine HCl (Catapres-Tts 1 Patch) 1 patch Q7D TRANSDERM Last administered on 09/02/16t 15:51; Admin Dose 1 PATCH; Start 09/02/16 at 15:30 Clonidine (Catapres) 0.1 mg Q4 PRN PO FOR SYSTOLIC BP >160; Start 09/02/16 at 22 :00 Assessment/Plan Chief Complaint/Hosp Course 85-year-old male with history of diabetes mellitus, hypertension, dyslipidemia, cerebrovascular accident, atherosclerotic cardiovascular disease, atrial fibrillation, osteoarthritis, diabetic neuropathy, anemia, dyslipidemia, hypothyroidism, benign prostatic hypertrophy, chronic kidney disease who presented with anemia, acute on chronic renal insufficiency and atrial fibrillation with slow ventricular rate. 1. Nonoliguric acute kidney injury with previous baseline creatinine around 2 mg/dL in 01/15. Etiology of acute kidney injury is secondary to hemodynamics vs progression of underlying disease (likely dm nephropathy). Renal qasim shows Echogenic kidneys, consistent with medical renal disease. No evidence of hydronephrosis. - estimated 10 gms of proteinuria. - no acute indication for hd but nearing - Continue supportive care, renally dose all medications and avoid nephrotoxins. 2. atrial fibrillation with slow ventricular rate. cards fu. consider dcing b -lauro and/or cardizem. 3. Hypoxemic respiratory failure - mild chf on cxray. 4. Acute congestive heart failure exacerbation. The patient near euvolemic status. The patient is status post diuretic therapy, continue to monitor. 5. Anemia. Continue to monitor hemoglobin and hematocrit levels. sp prbc. cont epo as outpatient. 6. Mineral bone disorder. Continue to monitor calcium and phosphorus levels. 7. Hypothyroidism. Continue Synthroid. 8. Diabetes, continue Accu-Cheks and insulin sliding scale. 9. Depression. Continue Remeron. 10. Gastrointestinal and deep vein thrombosis prophylaxis. Continue proton pump inhibitor and heparin. 11. Hypertension. Blood pressure remains elevated, will discontinue Norvasc, start Procardia 30 XL b.i.d. and will continue hydralazine, consider adding Imdur. Problems: KAMARI JACOB MD Sep 03, 2016 09:31
[2016-09-03] MEDS: ISOSORBIDE MONONITRATE(SR)30 MG TAB PO SCH (12:40)
--- NOTE | 2016-09-03 16:08 | PN ---
DATE: 09/03/2016 Appreciate nephrology input. SUBJECTIVE: The patient's blood pressure has been running high up to the 200s. It has been challen ging to control it. Patient overall with no specific complaints. I spoke yesterday with the hayen mark's family in detail regarding the patient's condition. As I informed them, the patient is nearing a need for dialysis. PHYSICAL EXAMINATION: VITAL SIGNS: Temperature 98, pulse 60, respirations 18, blood pressure 176/79, saturation 98%. GENERAL: The patient is in no acute distress. The patient is pale. CARDIOVASCULAR: S1, S2, regular rate. LUNGS: Decreased bilaterally. ABDOMEN: Soft, obese. EXTREMITIES: Trace edema lower extremities. LABORATORY DATA: White count is 8.3, hemoglobin 9.7, hematocrit 30, platelet count is 116, neutroph ils 80%, lymphocytes at 11%. Chemistry: Sodium is 140, potassium is 4.2, chloride 111, bicarbonate 20, BUN is 50, creatinine 4.24 and glucose of 120. Last glucose level was 197. UA essentially did show +2 protein, quantification of the protein is 414. MEDICATIONS: Include: 1. Epogen 8000 every Sunday, Sunday and Sunday. 2. Clonidine patch TTS 1 q. weekly. 3. Clonidine 0.1 q.4h. for systolic greater than 160. 4. Aspirin 81 mg daily. 5. Vitamin D 2000 units daily. 6. Vitamin B12 1000 mg daily. 7. Cardizem-CD 120 mg daily. 8. daily. 9. Tradjenta 5 mg daily. 10. Multivitamin 1 tablet daily. 11. Synthroid 25 mcg daily. 12. Protonix 40 mg daily. 13. Accu-Chek q.a.c. and at bedtime. 14. Hydralazine 100 mg q.8 hours. 15. Abilify 2 mg at bedtime. 16. Eye lubricants b.i.d. to the eyes. 17. Lopressor 25 b.i.d. 18. Remeron 15 at bedtime. 19. Flomax 0.4 b.i.d. 20. Hypoglycemia protocol as directed. 21. Tylenol p.r.n. 22. Milk of magnesia p.r.n. 23. Colace p.r.n. 24. Ambien p.r.n. ASSESSMENT AND PLAN: This is an 85-year-old male with history of diabetes mellitus, hypert ension, dyslipidemia, CVA, atherosclerotic cardiovascular disease, atrial fibrillation, osteoarthrit is, diabetic neuropathy, anemia, dyslipidemia, hypothyroidism, BPH, CKD, who presented with anemia, worsening kidney function and atrial fibrillation with slow ventricular rate. 1. Respiratory. Stable. No roselyn evidence of fluid overload status. The patient denies any short ness of breath. Continue O2 support. Continue aspiration precautions. 2. Cardiovascular. Continue above medications. Add Imdur, titrate clonidine up and observe. Avoi d nephrotoxic medication. Patient slightly bradycardic but not that significant maybe to hold his b eta blockers or Cardizem 4. Anemia, status post 2 units of PRBC. This is likely anemia of chronic disease secondary to system admin lady kidney and due to iron deficiency anemia. Stool occult blood is pending. The patient to be pre scribed iron supplements as well. 5. Acute on chronic renal insufficiency. The patient is nearing dialysis and he is in stage IV to V. I would say his GFR is below 10. The family was informed. Nephrology is following. Overall, c urrently no urgent indication for dialysis. 6. Diabetes mellitus. Patient with hemoglobin A1c of 6.0, previously controlled with diet. Contin ue to monitor. 7. Benign prostatic hypertrophy. Continue Flomax. 8. Goal is to control his blood pressure, monitor his kidney function and discharge planning soon b ack to the care home facility. We will follow. Dictated By: ERIC PHILLIPS/ALLAN Conf#: [id number] DID#: [id number]
[2016-09-03] MEDS: ARIPIPRAZOLE 2 MG TAB PO SCH (20:39)
[2016-09-03] MEDS: MIRTAZAPINE 15 MG TAB PO SCH (20:45)
[2016-09-03] MEDS: hydrALAzine 20 MG INJ IV PRN (23:44)
[2016-09-04] VITALS (17 sets, daily range): BP systolic 154–228; BP diastolic 69–91; PULSE 40–51; RESP 18–19
[2016-09-04] MEDS: ACCUCHECK AT 2AM (Patients on SS coverage) XX SCH (02:00)
--- NOTE | 2016-09-04 05:03 | CONS ---
DATE OF ADMISSION: 09/01/2016 DATE OF CONSULTATION: 09/02/2016 RENAL CONSULTATION HISTORY OF PRESENT ILLNESS: The patient is an 85-year-old male with past medical history o f diabetes, hypertension, dyslipidemia, cerebrovascular accident, atherosclerotic cardiovascular dis ease, atrial fibrillation, osteoarthritis, diabetic neuropathy, anemia, dyslipidemia, benign prostat ic hypertrophy, and chronic kidney disease. The patient presents with anemia, acute on chronic, and atrial fibrillation with slow ventricular rate. The patient's previous baseline creatinine was beth und 2 in January 2016. He has been proteinuric in the past. Denies history of frequent urinary tra ct infections or kidney stones. He is noted to have significant high blood pressure. There may hav e been some progression to his kidney disease in the interim as he has been staying in a facility. Labs are unavailable to me. The patient has been compliant with taking his diabetic medications but is unaware if he has diabetic retinopathy. PAST MEDICAL HISTORY: Significant for the above. MEDICATIONS: From home include: 1. Tylenol. 2. Abilify. 3. Hydralazine. 4. Metoprolol. 5. Diltiazem. 6. Synthroid. 7. Omeprazole. 8. Ferrous sulfate. 9. Tradjenta. 10. Vitamin B12. 11. Remeron. 12. Colace. 13. Aspirin. 14. Zofran. 15. Vitamin D3. 16. Ambien. ALLERGIES: THE PATIENT HAS NO KNOWN ALLERGIES. SOCIAL HISTORY: Does not smoke, drink, or use IV drugs. FAMILY HISTORY: History of kidney disease. REVIEW OF SYSTEMS: A 14-point review of systems is attempted and negative. PHYSICAL EXAMINATION: VITAL SIGNS: We see temperature 97.4, blood pressure 166/88. HEENT: Normocephalic, atraumatic. Pupils equal and reactive to light. Oropharynx shows moist muco us membranes. NECK: Supple. HEART: Johnny but regular. LUNGS: Clear to auscultation. ABDOMEN: Soft, nontender, nondistended. Bowel sounds present. EXTREMITIES: No clubbing, cyanosis, or edema. LABORATORY EVALUATION: White count 7.1, hemoglobin 9.3, hematocrit 29. Sodium is 141, potassium 4. 1, BUN 50, creatinine 4.29. T sat of 16%. TSH is 2.6. UA is reviewed on microscopy. Chest x-ray is reviewed with the radiologist showing prominent interstitial markings, a little patchy bibasilar opacities, aortic atherosclerosis. IMPRESSION: 1. Renal failure, acute, underlying chronic with worsening from previous laboratory here at [facility]. By report, may have been progressing as an outpatient. The patient has significant p roteinuria, probably consistent with diabetes. Consideration to glomerulonephritis is possible. I also had a discussion with family regarding starting dialysis. Consider kidney biopsy, but would child ve limited interventions. ____ appropriately for renal function. 2. Atrial fibrillation with slow ventricular rate, on beta lauro and Cardizem, may be medication related. Consider stopping one or the other. Consider cardiology evaluation. 3. Hypoxemic respiratory failure with mild CHF on chest x-ray. Gentle diuresis may be indicated. We will hold for now in light of worsening renal insufficiency. 4. Acute congestive heart failure, ____ systolic. The patient has received diuretics already, appe ars fairly euvolemic at the present time. 5. Anemia, status post packed red blood cells. Continue Epogen as an outpatient. 6. Mineral bone disorder. Continue to monitor calcium, phosphorus, and PTH ____. ____ within norm al. Continue to monitor on Synthroid. 7. Diabetes. Continue Accu-Chek and insulin sliding scale. 8. Depression. Continue ____. 9. Hypertension. Started on Procardia. Agree with potentially adding Imdur. Dictated By: KAMARI JACOB MD DF/NTS Conf#: [id number] DID#: [id number]
[2016-09-04] MEDS: hydrALAzine 20 MG INJ IV PRN ×3 (05:13→16:06)
[2016-09-04] MEDS: LEVOTHYROXINE 25 MCG TAB PO SCH (05:17)
[2016-09-04] MEDS: PANTOPRAZOLE (EC) 40 MG TAB PO SCH (05:17)
[2016-09-04 06:57] LABS: ADD SCAN DIFF NO
[2016-09-04 07:07] LABS: BASOPHIL # 0.1 10^3/ul (0.0-0.1); BASOPHILS % 1.1 % (0.0-2.0); EOSINOPHILS # 0.2 10^3/ul (0.0-0.5); EOSINOPHILS % 3.2 % (0.0-7.0); HEMATOCRIT 29.4 % (42.0-52.0); HEMOGLOBIN 9.4 g/dl (14.0-18.0); LYMPHOCYTES # 1.1 10^3/ul (0.8-2.9); LYMPHOCYTES % 16.8 % (15.0-51.0); MEAN CORPUSCULAR HEMOGLOBIN 26.9 pg (29.0-33.0); MEAN CORPUSCULAR VOLUME 84.2 fl (82.0-101.0); MEAN PLATELET VOLUME 9.8 fl (7.4-10.4); MONOCYTE # 0.6 10^3/ul (0.3-0.9); MONOCYTES % 9.5 % (0.0-11.0); NEUTROPHIL # 4.6 10^3/ul (1.6-7.5); NEUTROPHILS % 68.9 % (39.0-77.0); PLATELET COUNT 152 10^3/UL (140-415); RED BLOOD COUNT 3.49 10^6/ul (4.70-6.10); RED CELL DISTRIBUTION WIDTH 17.3 % (11.5-14.5); WHITE BLOOD COUNT 6.6 10^3/ul (4.8-10.8)
[2016-09-04 07:19] LABS: PHOSPHORUS 4.2 mg/dl (2.5-4.9)
[2016-09-04 07:29] LABS: CALCIUM 8.4 mg/dl (8.4-10.2); CREATININE 4.19 mg/dl (0.61-1.24); POTASSIUM 4.1 mmol/L (3.5-5.1)
[2016-09-04] MEDS: INSULIN ASPART [NOVOLOG] 3 ML PEN SC SCH ×4 (07:55→20:27)
[2016-09-04] MEDS: FERROUS SULFATE (EC) 325 MG TAB PO SCH (09:00)
[2016-09-04] MEDS: MULTIVITAMINS THERAPEUTIC TAB PO SCH (09:00)
[2016-09-04] MEDS: CHOLECALCIFEROL 2,000 UNIT CAP PO SCH (09:00)
[2016-09-04] MEDS: TAMSULOSIN (SR) 0.4 MG CAP PO SCH ×2 (09:00→20:29)
[2016-09-04] MEDS: ASPIRIN 81 MG TAB PO SCH (09:00)
[2016-09-04] MEDS: METOPROLOL 25 MG TAB PO SCH ×2 (09:00→20:29)
[2016-09-04] MEDS: DILTIAZEM (CD) 120 MG CAP PO SCH ×2 (09:00→11:30)
[2016-09-04] MEDS: ISOSORBIDE MONONITRATE(SR)30 MG TAB PO SCH ×2 (09:00→11:29)
[2016-09-04] MEDS: LINAGLIPTIN 5 MG TABLET PO SCH (09:00)
[2016-09-04] MEDS: CYANOCOBALAMIN 500 MCG TAB PO SCH (09:00)
--- NOTE | 2016-09-04 09:04 | PN ---
DATE: 09/01/2016 The patient is seen. No specific complaints. Kidney function is slightly improved as he is status post 2 units of packed red blood cells. Hemoglobin went up from 7.8 to 9.3. PHYSICAL EXAMINATION: VITAL SIGNS: Temperature 98.6, pulse 58, respirations 19, blood pressure is elevated at 181/93. Sa turation 98%. GENERAL: The patient is in no acute distress. The patient is pale. NECK: Slight JVD, about 3 cm. LUNGS: Clear. ABDOMEN: Soft, nontender. EXTREMITIES: Trace edema, lower extremities. The patient is moving all extremities. LABORATORY: White count is 7.1, hemoglobin 9.3, hematocrit 29.1, platelet count 145, neutrophils 72 %, lymphocytes 15%. Chemistry: Sodium is 141, potassium 4.1, chloride 112, bicarbonate 22, BUN is 50, creatinine 4.29, glucose of 89. Cholesterol 106, LDL 67, HDL 26. TSH is 2.6, INR is 1.13. Chest x-ray was read as follows: Mild prominent interstitial lung markings, not significantly hope ed. These are nonspecific, but could represent interstitial edema or chronic lung changes. __ ___ bibasilar opacities, possibly representing atelectasis, edema and/or pneumonia. There is aortic atherosclerosis. Renal ultrasound shows echogenic kidneys consistent with medical renal disease. No evidence of hydronephrosis. There is lobulated of the urinary bladder with multiple small d iverticula. MEDICATIONS: 1. Aspirin 81 mg daily. 2. Vitamin D 2000 mg daily. 3. Vitamin B12 1000 daily. 4. Cardizem-CD 120 daily. 5. Ferrous sulfate 25 daily. 6. Tradjenta 5 mg daily. 7. Multivitamin 1 tablet daily. 8. Synthroid 25 daily. 9. Protonix 20 mg daily. 10. Accu-Chek before meals and at bedtime. 11. Hydralazine 100 mg q.8 hours. 12. Abilify 2 mg at bedtime. 13. Eye lubricant b.i.d. 14. Lopressor 25 b.i.d. 15. Remeron 15 at bedtime. 16. Flomax 0.4 b.i.d. 17. Insulin Aspart per sliding scale and hypoglycemia protocol. 18. Zofran p.r.n. 19. Tylenol p.r.n. 20. Colace p.r.n. 21. Milk of Magnesia p.r.n. ASSESSMENT AND PLAN: This is an 85-year-old male with a history of diabetes mellitus, hype rtension, dyslipidemia, CVA, atherosclerotic cardiovascular disease, atrial fibrillation, osteoarthr itis, diabetic neuropathy, anemia, dyslipidemia, hypothyroidism, BPH, CKD, who presented with anemia and also was found to have acute on chronic renal insufficiency and atrial fibrillation with slow v entricular rate. 1. Respiratory. Stable. Noted chest x-ray results. Will watch for now, unless he has any fever o r symptoms of pneumonia, then we may consider antibiotics. Will monitor for fluid overload. Hold di uretic therapy in the setting of ongoing worsening kidney function, as the patient appears to be lexii athing comfortably. Continue aspiration precautions with soft mechanical nectar thickened liquids. 2. Cardiovascular. Patient with atrial fibrillation with slow ventricular rate, likely attributed partly to his Cardizem and beta blockers. Will titrate medication up. May consider a clonidine patc h. 3. Anemia. This is secondary to anemia of chronic disease and iron deficiency anemia. Will obtain stool occult blood. Again, status post 2 units of PRBC. May benefit from Epogen. 4. Hypothyroidism. Continue Synthroid. TSH is 2.6. 5. Diabetes mellitus. Controlled off medications. Glucose is good 110, 113 and 102. 6. Benign prostatic hypertrophy. Continue Flomax. No evidence of hydronephrosis or urinary retent ion on ultrasound. Awaiting urine studies, especially in the setting of worsening kidney function. Would like to quantify his protein in the urine as well 7. Again, I would like his blood pressure to be better controlled and nephrology to follow. Dictated By: ERIC PHILLIPS/ALLAN Conf#: [id number] DID#: [id number]
[2016-09-04] MEDS: ARTIFICIAL TEARS 15 ML OPH BOTH EYES SCH ×2 (09:40→20:29)
--- NOTE | 2016-09-04 11:55 | PN ---
DATE: 09/04/2016 SUBJECTIVE: The patient this morning is lethargic, arousable only to only deep painful stimuli. Pe r sitter the patient has been lethargic all evening. No other acute events noted. No hemoptysis, he matemesis, hematochezia. OBJECTIVE: VITAL SIGNS: Blood pressure 183/75, respirations 19, pulse 54, temperature 98.2. HEENT: Head is normocephalic. NECK: Supple. HEART: Regular rate. LUNGS: Show diminished breath sounds at the base. ABDOMEN: Soft, nontender to palpation. No rebound or guarding. EXTREMITIES: Negative for clubbing, cyanosis, no edema. DERMATOLOGIC: No rashes. MUSCULOSKELETAL: No joint effusions. NEUROLOGIC: Limited exam due to lack of patient cooperation. MEDICATIONS: Have been reviewed. LABORATORY DATA: Shows sodium 141, potassium 4.1, BUN 48, creatinine 4.19. White count 6.6, hemogl obin 9.4, hematocrit 29.4, platelet count 152. ASSESSMENT AND PLAN: 1. Nonoliguric acute kidney injury on top of chronic kidney disease stage IV with previous baseline creatinine around 2.6 mg/dL in December of 2015. The patient currently appears to be in acute kid melina injury with possible progression of underlying CKD. The patient's urinalysis shows evidence of hyaline casts and the patient has significant proteinuria with approximately 4 grams per gram of cre atinine. Renal ultrasound shows no evidence of obstructions and increased echogenicity consistent w ith chronic kidney disease. The patient is confused, unclear if this is due to medications or uremi c symptoms. I attempted to contact the patient's family in order to ascertain if they are agreeable to initiate hemodialysis. Plan at this point would be to continue current treatment plan. Continu e supportive care, renally dose meds, avoid nephrotoxins. Will discuss the case with Dr. Montes, the patient's primary care physician and will try again to get in touch with the patient's family to di scuss goals of care. 2. Hypertension. Continue current blood pressure regimen. We will adjust medications as needed. 3. Anemia of chronic disease. Continue to monitor H and H levels. Continue Epogen. 4. Mineral bone disorder. Continue to monitor calcium and phosphorus levels. Will give phosphate binders as needed. 5. Encephalopathy, unclear if this is a component of uremia, toxic metabolic. Will continue to mon itor closely. 6. Atrial fibrillation, currently rate controlled. Continue medical management. 7. Diabetes. Continue Accu-Cheks and insulin sliding scale. 8. Benign prostatic hypertrophy. Continue Flomax. 9. History of coronary artery disease. Continue medical management. Dictated By: TRACE PETE DO NR/NTS Conf#: [id number] DID#: [id number]
[2016-09-04] MEDS ORDERED: hydrALAzine 20 MG INJ IV ONE (12:00)
[2016-09-04] MEDS ORDERED: ERTAPENEM SODIUM 0.5 GM in SOD CHLORIDE 0.9% 100 ML IVPB SCH (14:30)
--- NOTE | 2016-09-04 14:32 | PN ---
DATE: 09/04/2016 SUBJECTIVE: The patient seen, unfortunately we are struggling to control his blood pressure as we a re tightening his medications. The patient was noted to be slightly more lethargic this morning, bu t now is back to himself. Daughter is at bedside. I noted that the patient's urine culture came ba ck positive with 2 organisms, one gram-negative rods greater than 100,000. Previously had history o f ESBL E coli urinary tract infection. I appreciate nephrology input as the patient is very close t o being on dialysis. Family and patient wants to defer it as much as possible. The patient with ba seline bradycardia and he is taking medication that may cause it. PHYSICAL EXAMINATION: VITAL SIGNS: Temperature 98.2, pulse 61, respirations 19, blood pressure 199/84, saturation 95% on room air. The patient's current blood pressure is in the 160s as we checked it at bedside. GENERAL: The patient is pale. CARDIOVASCULAR: S1 and S2. LUNGS: Decreased bilaterally. ABDOMEN: Soft, nontender. EXTREMITIES: No clubbing, cyanosis, or edema of the lower extremities. LABORATORIES: White count is 6.6, hemoglobin 9.4, hematocrit 29, platelet count is 152, neutrophils 69%, lymphocytes 17%. Chemistry: Sodium 141, potassium 4.1, chloride 112, bicarbonate 20, BUN is 48, creatinine 4.19, and glucose of 99, last glucose level is 109, 120, 112. Again, urine culture i s positive. MEDICATIONS: 1. Epogen 8000 units every Sunday, Sunday, and Sunday. 2. Imdur 30 mg daily. 3. Hydralazine 10 mg IV q.4h. p.r.n. 4. Clonidine 0.1 q.4h. p.r.n. 5. Clonidine patch q.7 hours. 6. TTS 1. 7. Aspirin 81 mg daily. 8. The patient refused Vitamin D 1000 daily. 9. Vitamin B12 1000 daily. 10. Cardizem-CD 120 mg daily. 11. Ferrous sulfate 325 daily. 12. Tradjenta 5 mg daily. 13. Multivitamin 1 tablet daily. 14. Synthroid 25 mcg daily. 15. Protonix 40 mg daily. 16. Accu-Chek before every meal and at bedtime. 17. Hydralazine 100 q.8 hours. 18. Abilify 2 mg at bedtime. 19. Lopressor 25 b.i.d. 20. Remeron 15 at bedtime. 21. Flomax 0.4 b.i.d. 22. Hypoglycemia protocol. 23. Insulin sliding scale as directed. ASSESSMENT AND PLAN: This is an 85-year-old male with history of diabetes mellitus, hypert ension, dyslipidemia, cerebrovascular accident, atherosclerotic cardiovascular disease, atrial fibri llation, osteoarthritis, diabetic neuropathy, anemia, dyslipidemia, hypothyroidism, BPH, chronic kid melina disease who presented with anemia, also was found to have acute on chronic renal insufficiency, atrial fibrillation with slow ventricular rate. 1. Anemia, status post 2 units of PRBCs. The patient has anemia of chronic disease and iron defici ency anemia. Awaiting stool occult blood. Hemoglobin and hematocrit is now stable. Continue Epoge n. Continue iron supplements. 2. Respiratory. The patient is coughing at times. The patient is high risk for aspiration as he i s placed on a puree thickened liquids. The patient will be treated for urinary tract infection. Co ntinue oxygen support as needed and observe. 3. Cardiovascular. The patient with atrial fibrillation with slow ventricular rate and hypertensio n. Continue titrating medication up. We will consult cardiology. Remains on aspirin for cardiac p rotection. Consider starting him on Eliquis for anticoagulation, but we have to again be concerned somewhat because of his frequent anemia. Cardiology to give their input. 4. Diabetes mellitus, controlled off medication. Continue insulin sliding scale. 5. Hypothyroidism. Continue Synthroid. TSH is 2.6. 6. Benign prostatic hypertrophy. Continue Flomax. 7. Infectious disease. The patient with urinary tract infection despite negative UA. The patient has been somewhat more weak this morning, so I am concerned about possible infection causing all thi s. The patient was started on ertapenem 0.5 IV daily, dose renally. Follow up urine culture result s. 8. Continue Protonix for gastrointestinal prophylaxis. I spoke with the daughter at bedside. Her phone number is [phone] or [phone]. She is aware of patient's condition. 9. Acute renal failure. The patient is predialysis. Currently, no indication for urgent dialysis as the patient family want to defer it as much as possible. Again, will continue to follow. Monito r electrolytes, monitor acidosis, and fluid overload state. We will follow. Dictated By: ERIC PHILLIPS/ALLAN Conf#: [id number] DID#: [id number]
[2016-09-04] MEDS ORDERED: AMLODIPINE 5 MG TAB PO SCH (15:30)
[2016-09-04] MEDS: EPOETIN 4000 UNITS/ML (NON ESRD/NON ONCOLOGY) SC SCH (17:12)
--- NOTE | 2016-09-04 18:07 | RADRPT ---
Echocardiogram Report Patient Name: SUMMER ARTHUR Gender: Male Date: 1930 Study Date: 04-Sep-2016 Gelatin Powder Mixer: Enio De Paz [facility] Location: 505 Ref. Physician: ISH LAINEZ Quality: Good Procedures: Transthoracic echocardiogram with complete 2D, M-Mode, and doppler examination. Indications: Atrial Fibrillation. 2D/M Mode Doppler Measurement Value Normal Ranges Measurement Value Normal Ranges LVIDd 2D 4.9 3.5 - 5.6 cm AV Peak Tye 1.3 m/sec LVIDs 2D 2.3 2.1 - 4.1 cm AV Peak PG 7.2 mmHg LVPWd 2D 1.1 0.6 - 1.1 cm AI Peak PG 23.2 mmHg IVSd 2D 1.1 0.6 - 1.1 cm AI Peak Tye 2.4 m/sec AoR Diam 2D 2.7 2.0 - 3.7 cm AI PHT 642.6 msec EDV 2D 113.4 cm3 LVOT Peak Tye 1.1 m/sec ESV 2D 12.4 cm3 LVOT Peak PG 5.1 mmHg LA Dimen 2D 3.7 2.3 - 4.0 cm MV E Peak Tye 1.0 m/sec MV A Peak Tye 0.6 m/sec MV E/A 1.6 MV Decel Time 277 msec MV Decel Montgomery 4 MV E/A 1.6 TR Peak Tye 3.0 m/sec TR Peak PG 36.1 mmHg RVSP 39.1 mmHg Findings Left Ventricle: Mild concentric left ventricular hypertrophy. Ejection fraction is visually estimated at 55 %. Tissue Doppler/Mitral Doppler indices are consistent with impaired relaxation (Stage I diastolic dysfunction). Right Ventricle: Normal right ventricular size. Normal right ventricular systolic function. Left Atrium: The left atrium is normal in size. Right Atrium: The right atrium is normal in size. Mitral Valve: Mitral valve leaflets appear mildly thickened. Mild mitral annular calcification. Mild to moderate mitral valve regurgitation. Aortic Valve: Aortic sclerosis without stenosis. Trace aortic valve regurgitation. Tricuspid Valve: Normal appearance and function of the tricuspid valve with trace physiologic regurgitation. Estimated peak PA systolic pressure 46 mmHg. Pulmonic Valve: Pulmonic valve not well visualized. There is trace to mild pulmonic regurgitation. Pericardium: Pleural effusion seen. Aorta: Normal aortic root. IVC: Normal size and normal respiratory collapse consistent with normal right atrial pressure. Conclusions 1.Mild concentric left ventricular hypertrophy. Ejection fraction is visually estimated at 55 %. Tissue Doppler/Mitral Doppler indices are consistent with impaired relaxation (Stage I diastolic dysfunction). 2.The left atrium is normal in size. 3.Mitral valve leaflets appear mildly thickened. Mild mitral annular calcification. Mild to moderate mitral valve regurgitation. 4.Aortic sclerosis without stenosis. Trace aortic valve regurgitation. 5.Normal appearance and function of the tricuspid valve with trace physiologic regurgitation. Estimated peak PA systolic pressure 46 mmHg. Electronically Signed By: Ish Lainez 04-Sep-2016 18:06:17 -0700 Patient Name: SUMMER ARTHUR Study Date: 04-Sep-2016 [id number]
[2016-09-04] MEDS: MIRTAZAPINE 15 MG TAB PO SCH (20:29)
[2016-09-04] MEDS: ARIPIPRAZOLE 2 MG TAB PO SCH (20:29)
[2016-09-05] VITALS (15 sets, daily range): BP systolic 147–188; BP diastolic 69–86; PULSE 34–54; RESP 13–21
[2016-09-05] MEDS: ACCUCHECK AT 2AM (Patients on SS coverage) XX SCH (02:00)
[2016-09-05] MEDS: LEVOTHYROXINE 25 MCG TAB PO SCH (04:12)
[2016-09-05] MEDS: PANTOPRAZOLE (EC) 40 MG TAB PO SCH (04:12)
--- NOTE | 2016-09-05 06:20 | CONS ---
DATE OF ADMISSION: 09/01/2016 DATE OF CONSULTATION: 09/04/2016 REASON FOR CONSULTATION: Bradycardia, hypertension. CHIEF COMPLAINT: Anemia, renal failure and bradycardia. HISTORY OF PRESENT ILLNESS: Thank you for this referral. History obtained from the patient's chart mostly, review of the old chart, discussion with staff and physicians. The patient himself is erich curry. The patient is an 85-year-old gentleman with multiple complicated medical history, overall d ebilitated. He lives in a care home. Patient was brought in because of above complaints with re nal failure, worsening renal function, anemia, severe bradycardia and was also noted to be severely hypertensive. The blood pressure has been as high as 200. The patient denies any chest pain or pre ssure to me. Denies any palpitation to me. Denies any syncope or presyncope. He has mostly been l callie in bed. Rhythm strip was reviewed, initially was atrial fibrillation with slow ventricular res ponse and has converted to sinus rhythm, sinus bradycardia with____. There is no report of clear bl eeding; however, again, patient is a poor historian and cannot report history to me. 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 ALLERGIES: NO REPORTED ALLERGIES. SOCIAL HISTORY: Does not smoke or drink. Origin from [place]. He is . Lives in a care home. FAMILY HISTORY: No reported coronary artery disease. MEDICATIONS PRIOR TO ADMISSION: Includes: 1. Insulin sliding scale. 2. Aspirin. 3. Vitamins. 4. Tradjenta. 5. Iron. 6. Synthroid 25. 7. Cardizem-CD 120. 8. Metoprolol 25 b.i.d. 9. Flomax. 10. Hydralazine 100 q.8h. 11. Colace. 12. Zolpidem p.r.n. REVIEW OF SYSTEMS: As above mentioned. Otherwise, all negative except for above-mentioned. PHYSICAL EXAMINATION: VITAL SIGNS: Temperature 98.4, heart rate of 50, blood pressure 160/72, respiration rate of 19, sat urating 95%. HEENT: Normocephalic, atraumatic. Elderly gentleman in no acute distress. Pupils equal and round. CARDIOVASCULAR: Bradycardic, systolic murmur. PULMONARY: Anteriorly with no wheezes. GASTROINTESTINAL: Soft, nontender. EXTREMITIES: With trivial lower extremity edema. NEUROLOGIC: Awake, slightly drowsy. Responds appropriately. Alert to person. Could not tell me t he place. PSYCHIATRIC: Appears to be calm. DIAGNOSTIC DATA: The old chart showed echocardiogram done a year ago which showed normal ejection f raction of 60% with grade I diastolic dysfunction. LABORATORY: WBC of 6.6, hemoglobin 9.4, platelet 152. Hemoglobin initially was 7.8. Sodium 141, p otassium 4.1, BUN of 48, creatinine of 4.19, glucose of 99. Chest x-ray on admission showed mild pr ominent interstitial lung markings, not significantly changed. EKG was personally reviewed, showed atrial fibrillation with slow ventricular response. ASSESSMENT AND PLAN: 1. Hypertension level. 2. Marked bradycardia including atrial fibrillation with slow ventricular response and intermittent sinus bradycardia. 3. Renal failure, acute on chronic. 4. Anemia, questionable gastrointestinal bleed. 5. Diabetes. 6. Dyslipidemia. 7. Thyroid disorder. RECOMMENDATIONS: I will add Norvasc to his regimen. I will discontinue the metoprolol due to his m arked bradycardia. Follow the renal recommendations regarding renal workup. TSH was checked on which was normal at 2.6. Echocardiogram will be ordered and reviewed as well. Will continu e to monitor on telemetry. Dictated By: ISH DICKEY/ALLAN Conf#: [id number] DID#: [id number]
[2016-09-05 07:32] LABS: ADD SCAN DIFF NO
[2016-09-05 07:39] LABS: BASOPHIL # 0.1 10^3/ul (0.0-0.1); BASOPHILS % 0.8 % (0.0-2.0); EOSINOPHILS # 0.2 10^3/ul (0.0-0.5); EOSINOPHILS % 2.3 % (0.0-7.0); HEMATOCRIT 30.1 % (42.0-52.0); HEMOGLOBIN 9.5 g/dl (14.0-18.0); LYMPHOCYTES # 0.9 10^3/ul (0.8-2.9); LYMPHOCYTES % 11.3 % (15.0-51.0); MEAN CORPUSCULAR HGB CONC 31.6 g/dl (32.0-37.0); MEAN CORPUSCULAR VOLUME 85.5 fl (82.0-101.0); MEAN PLATELET VOLUME 10.1 fl (7.4-10.4); MONOCYTE # 0.6 10^3/ul (0.3-0.9); MONOCYTES % 7.8 % (0.0-11.0); NEUTROPHIL # 6.2 10^3/ul (1.6-7.5); NEUTROPHILS % 77.4 % (39.0-77.0); PLATELET COUNT 157 10^3/UL (140-415); RED BLOOD COUNT 3.52 10^6/ul (4.70-6.10); RED CELL DISTRIBUTION WIDTH 17.3 % (11.5-14.5)
[2016-09-05] MEDS: INSULIN ASPART [NOVOLOG] 3 ML PEN SC SCH ×4 (07:55→21:57)
[2016-09-05 08:11] LABS: CALCIUM 8.1 mg/dl (8.4-10.2); CREATININE 4.26 mg/dl (0.61-1.24); MAGNESIUM 2.1 mg/dl (1.7-2.5); PHOSPHORUS 4.8 mg/dl (2.5-4.9)
[2016-09-05] MEDS: ASPIRIN 81 MG TAB PO SCH (08:55)
[2016-09-05] MEDS: ARTIFICIAL TEARS 15 ML OPH BOTH EYES SCH ×2 (08:55→21:51)
[2016-09-05] MEDS: MULTIVITAMINS THERAPEUTIC TAB PO SCH (08:55)
[2016-09-05] MEDS: CYANOCOBALAMIN 500 MCG TAB PO SCH (08:55)
[2016-09-05] MEDS: METOPROLOL 25 MG TAB PO SCH (08:56)
[2016-09-05] MEDS: FERROUS SULFATE (EC) 325 MG TAB PO SCH (08:56)
[2016-09-05] MEDS: CHOLECALCIFEROL 2,000 UNIT CAP PO SCH (08:56)
[2016-09-05] MEDS: TAMSULOSIN (SR) 0.4 MG CAP PO SCH ×2 (08:56→21:50)
[2016-09-05] MEDS: ISOSORBIDE MONONITRATE(SR)30 MG TAB PO SCH (08:56)
[2016-09-05] MEDS: hydrALAzine 20 MG INJ IV PRN ×2 (08:57→17:12)
[2016-09-05] MEDS: DILTIAZEM (CD) 120 MG CAP PO SCH (09:02)
[2016-09-05] MEDS: LINAGLIPTIN 5 MG TABLET PO SCH (09:53)
--- NOTE | 2016-09-05 09:55 | PN ---
DATE: 09/05/2016 SUBJECTIVE: The patient is stable, no acute events overnight. No fevers, chills, nausea, vomiting. Please note I spoke with the patient's daughter, discussing dialysis, and per patient and patient' s family, they wish to defer dialysis until absolutely necessary. No other events noted. OBJECTIVE: VITAL SIGNS: Blood pressure is 180/84, respirations 18, pulse 48, temperature 98.7. HEENT: Head is normocephalic. NECK: Supple. HEART: Regular rate. LUNGS: Show diminished breath sounds at the base. ABDOMEN: Soft, nontender to palpation. No rebound or guarding. EXTREMITIES: Negative for clubbing, cyanosis, no edema. DERMATOLOGIC: No rashes. MUSCULOSKELETAL: No joint effusions. NEUROLOGIC: No change in exam. MEDICATIONS: The patient's medications have been reviewed. LABORATORY DATA: Shows a white count of 8.0, hemoglobin 9.5, hematocrit 30.1, platelet count is 57. Sodium 140, potassium 4.0, BUN 50, creatinine 4.26. ASSESSMENT AND PLAN: 1. Nonoliguric acute kidney injury on top of chronic kidney disease stage IV with previous baseline creatinine around 2.6 mg/dL. Etiology of acute kidney injury appears to be hemodynamics with possi ble underlying progression of chronic kidney disease. The patient's renal function appears to be st abilizing around a creatinine of 4.2 mg/dL. At this point, the patient may have some possible uremi c symptoms, mild. I did speak with the patient's family and daughter regarding dialysis. They woul d like to defer until absolutely necessary. Would otherwise continue supportive care, renally dose all medications, avoid nephrotoxins. 2. Hypertension. Blood pressure remains elevated. Will increase Norvasc to 5 mg b.i.d. Continue c urrent blood pressure regimen. 3. Anemia of chronic disease. Monitor hemoglobin and hematocrit levels. Continue Epogen. 4. Mineral bone disorder. Continue to monitor calcium and phosphorus levels. Will give phosphate binders as needed. 5. Encephalopathy, possibly secondary to urinary tract infection. Continue current antibiotic eneida men. There may also be a component of uremia, monitor closely. 6. Atrial fibrillation, rate controlled. Continue medical management. 7. Diabetes. Continue Accu-Cheks and insulin sliding scale. 8. BPH. Continue Flomax. 9. History of coronary artery disease. Continue current treatment plan. Dictated By: TRACE LEVI/ALLAN Conf#: [id number] DID#: [id number]
--- NOTE | 2016-09-05 12:22 | PN ---
DATE: 09/05/2016 CARDIOLOGY FOLLOWUP SUBJECTIVE: Discussed with the staff. Rhythm strip was reviewed. The patient is still confused an d unable to provide much of a history to me. He denies any chest pain or pressure. Denies shortnes s of breath, palpitation. He remains in sinus rhythm, sinus bradycardia. No more atrial fibrillati on. No long pauses, but he has been mostly tristan. MEDICATIONS: Reviewed, which include: 1. Amlodipine 5 b.i.d. 2. Imdur 30. 3. Clonidine patch 0.1. 4. Aspirin. 5. Vitamins. 6. Cardizem-CD 120. 7. Tradjenta. 8. Multivitamins. 9. Synthroid. 10. Protonix. 11. Hydralazine 100 q.8h. 12. Abilify. 13. Metoprolol, which had to be held. 14. Insulin. PHYSICAL EXAMINATION: VITAL SIGNS: Temperature 98.7, heart rate of 52, blood pressure 178/69, respiratory rate of 18. HEENT: Normocephalic, atraumatic. No acute distress. Thin gentleman, elderly. CARDIOVASCULAR: Bradycardic. PULMONARY: With no wheezes or rhonchi. GASTROINTESTINAL: Soft, nontender. EXTREMITIES: No significant edema. NEUROLOGIC: Awake, oriented to person. PSYCHIATRIC: Appears to be calm. LABORATORY DATA: WBC of 8, hemoglobin 9.5, platelet 157. Sodium 140, potassium 4, BUN of 50, creat inine 4.26, glucose 106. Echocardiogram was done and personally reviewed, which showed ejection fraction about 55%. PA press ure elevated at 46 mmHg. ASSESSMENT AND PLAN: 1. Hypertension. 2. Marked sinus bradycardia. 3. Sick sinus syndrome with episode of marked bradycardia. 4. Paroxysmal atrial fibrillation. 5. Renal failure, acute on chronic. 6. Anemia, question overt gastrointestinal bleed. 7. Diabetes. 8. Thyroid disorder. RECOMMENDATIONS: I will continue with the Norvasc b.i.d. We will discontinue the metoprolol given his marked bradycardia, it had to be held anyway. We will add clonidine p.r.n. as well. Continue t o monitor on telemetry. Follow renal recommendations. Dictated By: IHS DICKEY/ALLAN Conf#: [id number] DID#: [id number] CC: ERIC STEVENS MD;*[facility]*
[2016-09-05] MEDS: CEFTRIAXONE 1 GM/50 ML (PMX) 50 ML IVPB SCH (14:49)
--- NOTE | 2016-09-05 15:11 | PN ---
DATE: 09/05/2016 SUBJECTIVE: The patient unfortunately had urinary retention about 600 mL was bladder scanned and we decided to put a Bradley in the setting of renal failure, UTI. Urine culture came back positive as c ultures and sensitivities were reviewed. Daughter is at bedside. Case discussed. I also spoke wit h Dr. De La Paz, the brewery representative, as we asked the family history if we could initiate dialysis but marci mancera wants to defer that unless it is urgent, which it is not. PHYSICAL EXAMINATION: VITAL SIGNS: Temperature 97.6, pulse 51, respirations 13, blood pressure remains elevated at 170/76 , saturation 96%. GENERAL: Patient is in no acute distress. HEENT: Patient is frail, pale. CARDIOVASCULAR: S1 and S2. LUNGS: Decreased bilaterally. ABDOMEN: Soft. EXTREMITIES: Trace edema lower extremities. LABORATORY DATA: White count is 8, hemoglobin 9.5, hematocrit 30, platelets 157, neutrophils 77, ly mphocytes 11%. Chemistry: Sodium is 140, potassium 4.0, chloride 110, bicarbonate 22, BUN is 50, c reatinine 4.26, glucose of 106. Last glucose level 173 and 182 and 128. Urine culture shows Provid encia stuartii and Klebsiella pneumonia, both sensitive to cefotaxime. MEDICATIONS: 1. Amlodipine 5 mg t.i.d. 2. Rocephin just switched from ertapenem to Rocephin 1 gram q.24h. 3. Clonidine 0.1 q.6h. p.r.n. 4. Epogen 8000 every Sunday, Sunday and Sunday. 5. Imdur 30 mg daily. 6. Hydralazine 10 mg p.r.n. 7. Catapres p.r.n. 8. Clonidine TTS 1 weekly. 9. Aspirin 81 mg daily. 10. Vitamin D 2000 daily. 11. Vitamin B12 1000 daily. 12. Cardizem-CD 120 daily. 13. Ferrous sulfate 325 daily. 14. Tradjenta 5 mg daily. 15. Multivitamin 1 tablet daily. 16. Synthroid 25 mcg daily. 17. Protonix 40 mg daily. 18. Accu-Chek q.a.c. and at bedtime. 19. Hydralazine on a q.8h. 20. Abilify 2 mg q.h.s. 21. Eye lubricant b.i.d. 22. Remeron 15 mg at bedtime. 23. Flomax 0.4 b.i.d. 24. Hypoglycemia protocol. 25. Zofran p.r.n. 26. Tylenol p.r.n. 27. Colace p.r.n. 28. Milk of magnesia p.r.n. 29. Tylenol ____ p.r.n. Echocardiogram shows preserved ejection fraction of 55% with grade I diastolic dysfunction. See rep ort. ASSESSMENT AND PLAN: This is an unfortunate 85-year-old male with history of diabetes jaime itus, hypertension, dyslipidemia, CVA, atherosclerotic cardiovascular disease, atrial fibrillation, osteoarthritis, diabetic neuropathy, anemia, dyslipidemia, hypothyroidism, BPH, CKD, who presented w ith anemia, was found to have also acute on chronic renal failure, UTI, atrial fibrillation with slo w ventricular rate, and hypertension, difficult to manage. 1. Anemia, status post 2 units of PRBC. Continue with Epogen. H and H remain stable. No evidence of bleeding. Awaiting stool occult blood. 2. Respiratory. Continue aspiration precautions. Continue puree thickened liquid diet. O2 support as needed. 3. Cardiovascular. Patient with atrial fibrillation with slow ventricular rate. Beta blockers sebas l stop. Remains hypertensive. I will add minoxidil 2.5 mg daily and titrate medication up as need ed, off blood thinners because of his anemia. 4. Acute on chronic renal failure. No evidence of hydronephrosis. Overall, will likely need to me started on dialysis soon. Continue to monitor electrolytes, monitor for any fluid overload state o r uremic symptoms. Patient for nephrology input. 5. Urinary retention. Bradley currently in place. Continue Flomax. Will consult urology, treat unde rlying urinary tract infection. 6. Urinary tract infection. Start the patient on Rocephin. Follow up all other cultures, adjust a ntibiotics as needed. 7. Case discussed with family members. 8. Diabetes mellitus. Continue Tradjenta and insulin sliding scale. Glucose levels are in the 100 s. 9. Depression. Continue Remeron. We will follow. Dictated By: ERIC PHILLIPS/ALLAN Conf#: [id number] DID#: [id number]
[2016-09-05] MEDS: MINOXIDIL 2.5 MG TAB PO SCH (17:11)
[2016-09-05] MEDS: AMLODIPINE 5 MG TAB PO SCH ×2 (21:00→22:15)
[2016-09-05] MEDS: MIRTAZAPINE 15 MG TAB PO SCH (21:49)
[2016-09-05] MEDS: ARIPIPRAZOLE 2 MG TAB PO SCH (21:50)
[2016-09-06] VITALS (12 sets, daily range): BP systolic 150–170; BP diastolic 66–76; PULSE 50–65; RESP 17–20
[2016-09-06] MEDS: hydrALAzine 20 MG INJ IV PRN (01:19)
[2016-09-06] MEDS: ACCUCHECK AT 2AM (Patients on SS coverage) XX SCH (01:27)
[2016-09-06] MEDS: PANTOPRAZOLE (EC) 40 MG TAB PO SCH (05:45)
[2016-09-06] MEDS: LEVOTHYROXINE 25 MCG TAB PO SCH (06:08)
[2016-09-06 07:04] LABS: ADD SCAN DIFF NO
--- NOTE | 2016-09-06 07:07 | CONS ---
DATE OF ADMISSION: 09/01/2016 DATE OF CONSULTATION: UROLOGY CONSULTATION REQUESTING PHYSICIAN: Eric Stevens MD Dear Eric: Thank you for asking me to see this patient in urological consultation. HISTORY OF PRESENT ILLNESS: This is an 85-year-old male who was admitted to the hospital because of anemia and acute on chronic renal failure and bradycardia. The patient has a high creatinine of about 4.4 and the assisted where he lives he had a creatinine of 4.2 and his hemoglobin was about 7, therefore the patient was admitted and is being treated. It appears yesterday he was noted to be lethargic and he was more lethargic than before and he was noted to have a urinary retention and when the Bradley catheter was inserted he had over 600 mL were seen on the bladder scan and therefore a Bradley catheter was put in. The patient also did have a urine culture that was positive and therefore the patient has been on antibiotic for that. A urological consultation was requested. The patient himself is not capable of giving any accurate history. I, however, did review his record and his past medical history and the patient does have a history of diabetes mellitus, history of cerebrovascular accident, hypertension, dyslipidemia, anemia, chronic kidney disease, acute kidney disease, and diabetic neuropathy, osteoarthritis, arteriosclerotic heart disease, atrial fibrillation,a history of depression, hypothyroidism and diastolic heart failure. There is also a history of BPH. The patient was admitted to this hospital on different occasions and last year he did have a renal ultrasound which showed that both kidneys are echogenic suggestive of chronic kidney disease. The bladder was not distended, but was full and it has some sediment in it which basically may indicate that he has had a urinary tract infection. ALLERGIES: THE PATIENT HAS NO KNOWN DRUG ALLERGIES. SOCIAL HISTORY: Includes no history of drug abuse. No alcohol and no smoking. MEDICATIONS: That he is presently on includes: 1. Amlodipine. 2. Minoxidil. 3. Ceftriaxone. 4. Epogen. 5. Imdur. 6. Hydralazine 10mg. q4h prn 7. Clonidine 0.1 mg p.r.n. and also is on clonidine patch. 8. Aspirin 81 mg. 9. Vitamin D 2000 units. 10. Vitamin B12 1000 mcg p.o. daily. 11. Cardizem 120 mg p.o. daily. 12. Ferrous sulfate 325 mg daily. 13. Tradjenta 5 mg daily. 14. Multivitamin. 15. Synthroid 25 mcg daily. 16. Protonix 40 mg daily. 17. hydralazine 100mg q 8h. 18. Abilify 2 mg at bedtime. 19. Eye lubricant. 20. He is also on Remeron 15 mg. 21. Tamsulosin 0.4 mg twice a day. 22. Insulin coverage. 23. Zofran p.r.n. 24. Tylenol p.r.n. 25. Colace 100 mg twice a day p.r.n. 26. Ambien 5 mg p.r.n. PHYSICAL EXAMINATION: GENERAL: Reveals an elderly male. He has a sitter because he was confused. His weight, he weighs 75 kilograms. He is 66 inches tall. VITAL SIGNS: His temperature is 97.9, the pulse is 49, respiration 14, blood pressure 164/75. ABDOMEN: Soft. There is no abdominal mass palpable. EXTERNAL GENITALIA: Normal. He does have an indwelling Bradley catheter that is draining clear urine. RECTAL: Examination revealed a mildly enlarged prostate. EXTREMITIES: Revealed no edema. LABORATORY DATA: His CBC today shows a white count of 8.0, hemoglobin 9.5, hematocrit 30.1. BUN is 50, creatinine of 4.26. His creatinine has been running between 4.40 on admission and now 4.26. The sodium 140, potassium 4.0, chloride 110, CO2 22, BUN is 20 and the BUN has been stable between 51 to 48. A urine culture did show Providencia stuartii and Klebsiella pneumoniae, both are sensitive to cefotaxime and he is on ceftriaxone. IMPRESSION: Urinary retention and urinary tract infection. Prostate is enlarged, but is not much to explain his retention. His retention could be also related to his encephalopathy and also the fact that he is in bedrest and also diabetic neuropathy. PLAN: To keep the Bradley catheter in for now. Continue him on the Flomax and see if his renal function does improve at all and then we may discontinue the Bradley catheter in a day or two and then do a pelvic ultrasound again to reassess his prostate as well as his pre and post-void bladder volume. I will follow his urological problem with you. I do thank you for allowing me to help in his care. Dictated By: PAULIE BAILEY MD BB/ALLAN Conf#: [id number] DID#: [id number] CC: ERIC STEVENS MD; PAULIE BAILEY MD;*End[facility]* MTDD
[2016-09-06 07:10] LABS: BASOPHIL # 0.1 10^3/ul (0.0-0.1); BASOPHILS % 0.9 % (0.0-2.0); EOSINOPHILS # 0.2 10^3/ul (0.0-0.5); EOSINOPHILS % 2.5 % (0.0-7.0); HEMATOCRIT 30.8 % (42.0-52.0); HEMOGLOBIN 9.8 g/dl (14.0-18.0); LYMPHOCYTES # 0.9 10^3/ul (0.8-2.9); LYMPHOCYTES % 11.2 % (15.0-51.0); MEAN CORPUSCULAR HEMOGLOBIN 27.1 pg (29.0-33.0); MEAN CORPUSCULAR HGB CONC 31.8 g/dl (32.0-37.0); MEAN CORPUSCULAR VOLUME 85.3 fl (82.0-101.0); MEAN PLATELET VOLUME 9.4 fl (7.4-10.4); MONOCYTE # 0.6 10^3/ul (0.3-0.9); NEUTROPHIL # 5.8 10^3/ul (1.6-7.5); NEUTROPHILS % 77.1 % (39.0-77.0); PLATELET COUNT 156 10^3/UL (140-415); RED BLOOD COUNT 3.61 10^6/ul (4.70-6.10); RED CELL DISTRIBUTION WIDTH 17.2 % (11.5-14.5); WHITE BLOOD COUNT 7.6 10^3/ul (4.8-10.8)
[2016-09-06] MEDS: INSULIN ASPART [NOVOLOG] 3 ML PEN SC SCH ×4 (07:41→20:55)
[2016-09-06 07:44] LABS: CALCIUM 8.1 mg/dl (8.4-10.2); CREATININE 4.29 mg/dl (0.61-1.24); PHOSPHORUS 5.1 mg/dl (2.5-4.9); POTASSIUM 3.9 mmol/L (3.5-5.1)
[2016-09-06] MEDS: ARTIFICIAL TEARS 15 ML OPH BOTH EYES SCH ×2 (08:37→20:48)
[2016-09-06] MEDS: ASPIRIN 81 MG TAB PO SCH (08:38)
[2016-09-06] MEDS: CYANOCOBALAMIN 500 MCG TAB PO SCH (08:38)
[2016-09-06] MEDS: ISOSORBIDE MONONITRATE(SR)30 MG TAB PO SCH (08:38)
[2016-09-06] MEDS: CHOLECALCIFEROL 2,000 UNIT CAP PO SCH (08:38)
[2016-09-06] MEDS: TAMSULOSIN (SR) 0.4 MG CAP PO SCH ×2 (08:39→20:47)
[2016-09-06] MEDS: FERROUS SULFATE (EC) 325 MG TAB PO SCH (08:39)
[2016-09-06] MEDS: AMLODIPINE 5 MG TAB PO SCH ×2 (08:39→20:47)
[2016-09-06] MEDS: MULTIVITAMINS THERAPEUTIC TAB PO SCH (08:39)
[2016-09-06] MEDS: DILTIAZEM (CD) 120 MG CAP PO SCH (08:40)
[2016-09-06] MEDS: MINOXIDIL 2.5 MG TAB PO SCH (08:40)
[2016-09-06] MEDS: LINAGLIPTIN 5 MG TABLET PO SCH (08:45)
--- NOTE | 2016-09-06 09:38 | PN ---
DATE: 09/06/2016 SUBJECTIVE: The patient is stable. No acute events overnight. No hemoptysis, hematemesis or hemat ochezia. The patient this morning is alert and oriented x2, mildly confused. No other events noted . The patient was seen by Dr. Ramirez yesterday for urinary retention. OBJECTIVE: VITAL SIGNS: Blood pressure 150/71, respiration is 20, pulse 65, temperature 97.8. HEENT: Head is normocephalic. NECK: Supple. HEART: Regular rate. LUNGS: Show diminished breath sounds at base. ABDOMEN: Soft, nontender to palpation. No rebound or guarding. EXTREMITIES: Negative for clubbing, cyanosis, or edema. DERMATOLOGIC: No rashes. MUSCULOSKELETAL: No joint effusions. NEUROLOGIC: No change in exam. MEDICATIONS: The patient's medications have been reviewed. LABORATORY DATA: Shows sodium 137, potassium 3.9, chloride 108, BUN 48, creatinine 4.29, calcium 8. 1, phosphorus 5.1. White count 7.6, hemoglobin 9, hematocrit 30.8, platelet count 156. ASSESSMENT AND PLAN: 1. Nonoliguric acute kidney injury on top of chronic kidney disease stage IV with previous baseline creatinine around 2.6 mg/dL. Etiology of current acute kidney injury may be secondary to tubular i njury versus progression of underlying chronic kidney disease. The patient's renal function appears to be stabilized around a creatinine of 1.2 to 1.3 mg/dL. This gives an estimated EGFR around 13 m L per minute. Please note, I spoke with the patient's daughter about dialysis. The patient's famil y wishes to defer dialysis until absolutely necessary. At this point, will continue to monitor. Co ntinue supportive care, renally dose all medications. 2. Hypertension. Blood pressure better controlled. Continue current blood pressure regimen. 3. Anemia of chronic disease. Continue to monitor hemoglobin and hematocrit levels. Continue Epog en. 4. ____. Continue to monitor calcium and phosphorus levels. Will consider starting phosphate bind ers. 5. Encephalopathy secondary to urinary tract infection and possible mild uremia. At this point, co ntinue to monitor closely. Continue current antibiotic regimen. 6. Atrial fibrillation, rate controlled. Continue medical management. 7. Diabetes. Continue Accu-Cheks and sliding scale. 8. Benign prostatic hypertrophy. Continue Flomax. 9. History of coronary artery disease. Continue current treatment plan. 10. Urinary retention. The patient has been seen by Dr. Ramirez. Bradley catheter in place. Jono gill follow up recommendations. Dictated By: TRACE LEVI/ALLAN Conf#: [id number] DID#: [id number]
[2016-09-06] MEDS: CEFTRIAXONE 1 GM/50 ML (PMX) 50 ML IVPB SCH (14:14)
--- NOTE | 2016-09-06 14:21 | PN ---
DATE: 09/06/2016 SUBJECTIVE: Urinary retention. The patient had a Bradley catheter put in yesterday, and the catheter is draining clear urine. The patient himself is comfortable, and the patient has a sitter because he also has been confused. The patient is already on tamsulosin 0.4 mg twice a day. LABORATORY DATA: CBC shows a white count of 7.6, hemoglobin 9.8, hematocrit 30.8, platelet count 15 6,000. BUN is 48 and creatinine is 4.29. The patient does have an acute on chronic kidney injury. The urine culture did show Providencia stuartii and Proteus mirabilis, and a bolus is sensitive to cefotaxime, and the patient is on ceftriaxone for that. IMPRESSION: Urinary tract infection and urinary retention. PLAN: To continue his tamsulosin and also keep the Bradley catheter in and maybe in a day or two will take the catheter out and see if he is able to urinate on his own. Dictated By: PAULIE LARIOS/ALLAN Conf#: [id number] DID#: [id number]
--- NOTE | 2016-09-06 16:36 | PN ---
DATE: 09/06/2016 SUBJECTIVE: Patient seen, and he does not like the food much. I appreciate Dr. Ramirez's inputs. The patient has urinary retention. An attempt to remove the Bradley will be attempted and to monitor his post void residual. The patient's blood pressure is slightly better controlled, as we added Min oxidil. PHYSICAL EXAMINATION: VITAL SIGNS: Temperature 98.1, pulse 65, respirations 20, blood pressure 165/74, saturation 98%. GENERAL: The patient is in no acute distress. The patient is pale. CARDIOVASCULAR: S1 and S2, regular rate. LUNGS: Clear. ABDOMEN: Soft, nontender. EXTREMITIES: Trace edema, right upper extremity, likely from recent IV line. LABORATORY DATA: White count is 7.6, hemoglobin 9.8, hematocrit 31, platelet count is 156, neutroph ils 77%, lymphocytes 11%. Chemistry: Sodium is 137, potassium 3.9, chloride 108, bicarbonate 22, B UN is 48, creatinine 4.29 and glucose 131. Last glucose levels 193 and 123. Urine culture showed 3 organisms, Proteus mirabilis, Klebsiella pneumoniae and Providencia stuartii, all sensitive to cefo taxime. The patient is on Rocephin. MEDICATIONS: 1. Amlodipine 5 mg b.i.d. 2. Minoxidil 2.5 daily. 3. Rocephin 1 gram q.24h. 4. Catapres p.r.n. 5. Epogen 8000 q. Sunday, Sunday and Sunday. 6. Imdur 30 mg daily. 7. Hydralazine 10 q.4h. p.r.n. 8. Clonidine patch TTS 1 q. weekly. 9. Aspirin 81 mg daily. 10. Vitamin D 2000 daily. 11. Vitamin B12 1000 daily. 12. Cardizem-CD 120 daily. 13. Ferrous sulfate 325 daily. 14. Tradjenta 5 mg daily. 15. Multivitamin 1 tablet daily. 16. Synthroid 25 daily. 17. Protonix 40 mg daily. 18. Accu-Chek q.a.c. and at bedtime. 19. Hydralazine 100 q.8h. 20. Abilify 2 mg. 21. Artificial tears b.i.d. 22. Remeron 15 mg at bedtime. 23. Flomax 0.4 b.i.d. 24. Insulin aspart per sliding scale. 25. Hypoglycemia protocol as directed. ASSESSMENT AND PLAN: This is an unfortunate 85-year-old male with history of diabetes jaime itus, hypertension, dyslipidemia, cerebrovascular accident, arteriosclerotic cardiovascular disease, atrial fibrillation, osteoarthritis, diabetic neuropathy, anemia, dyslipidemia, hypothyroidism, keily ign prostatic hypertrophy, chronic kidney disease, who presented with anemia, was found to have also acute on chronic renal insufficiency, and also urinary tract infection, atrial fibrillation with s low ventricular rate, and elevated blood pressure. Overall, difficult to manage the blood pressure. 1. Anemia, status post 2 units of packed red blood cells, hemoglobin and hematocrit stable. Contin ue Epogen. 2. Respiratory stable, no evidence of respiratory distress. Continue aspiration precautions. The patient is in a special dysphagia diet. 3. Cardiovascular. Patient with atrial fibrillation. Blood thinners are on hold because of his ane vito. Cardiology is following. Titrate blood pressure medication up. Will increase Minoxidil to 5 mg daily. 4. Acute on chronic renal insufficiency. Kidney function remains the same overall as his glomerul ar filtration rate calculated at 13, patient is predialysis. Family wants to defer it for now. José Miguel l continue to monitor. 5. Urinary retention. Bradley to be attempted to be removed. Continue Flomax for now. 6. Urinary tract infection. Continue Rocephin. 7. We will arrange physical therapy. 8. Depression. Continue Remeron. 9. Diabetes mellitus. Continue insulin sliding scale. Continue Tradjenta. DISPOSITION: Back to [facility] facility soon. Dictated By: ERIC PHILLIPS/ALLAN Conf#: [id number] DID#: [id number]
[2016-09-06] MEDS: EPOETIN 4000 UNITS/ML (NON ESRD/NON ONCOLOGY) SC SCH (18:16)
[2016-09-06] MEDS: ARIPIPRAZOLE 2 MG TAB PO SCH (20:46)
[2016-09-06] MEDS: MIRTAZAPINE 15 MG TAB PO SCH (20:47)
[2016-09-07] VITALS (12 sets, daily range): BP systolic 114–148; BP diastolic 52–67; PULSE 54–70; RESP 2–65
[2016-09-07] MEDS: ACCUCHECK AT 2AM (Patients on SS coverage) XX SCH (02:00)
[2016-09-07] MEDS: PANTOPRAZOLE (EC) 40 MG TAB PO SCH (05:38)
[2016-09-07] MEDS: LEVOTHYROXINE 25 MCG TAB PO SCH (06:00)
--- NOTE | 2016-09-07 06:28 | PN ---
DATE: 09/06/2016 CARDIOLOGY FOLLOWUP PROGRESS NOTE SUBJECTIVE: Discussed with the staff. Rhythm strip was reviewed. The patient remains in sinus rhy thm. Heart rate has remained stable without reported fever, chills, chest pressure. MEDICATIONS: Reviewed. PHYSICAL EXAMINATION: VITAL SIGNS: Temperature 97.8, heart rate of 65, blood pressure 150/71, respiration rate of 20, sat urating 98%. HEENT: Normocephalic, atraumatic. No acute distress. CARDIOVASCULAR: Regular rate and rhythm. Systolic murmur. PULMONARY: With no wheezes and rhonchi. GASTROINTESTINAL: Soft, nontender. EXTREMITIES: With no significant lower extremity edema. NEUROLOGIC: Awake, oriented to person. PSYCHIATRIC: Appears to be calm. LABORATORY: Sodium 137, potassium 3.9, BUN of 48, creatinine of 4.29, glucose 131. ASSESSMENT AND PLAN: 1. Resistant hypertension. 2. Renal failure, acute on chronic. 3. Marked sinus bradycardia. 4. Sick sinus syndrome with paroxysmal atrial fibrillation. 5. Anemia from possible gastrointestinal bleed. 6. Diabetes. 7. History of thyroid disorder. RECOMMENDATIONS: Blood pressure currently better controlled. Amlodipine will be continued 2.5 mg b .i.d. Minoxidil will be continued daily, and increase as needed. Clonidine as needed will be given as well. Off beta lauro due to bradycardia. Cardizem will be continued for now. Isordil will b e continued. Follow the renal function. ____ will be continued as well. Dictated By: ISH DICKEY/ALLAN Conf#: [id number] DID#: [id number]
[2016-09-07 06:45] LABS: CALCIUM 8.2 mg/dl (8.4-10.2); CREATININE 4.59 mg/dl (0.61-1.24); PHOSPHORUS 4.8 mg/dl (2.5-4.9); POTASSIUM 3.6 mmol/L (3.5-5.1)
[2016-09-07] MEDS: INSULIN ASPART [NOVOLOG] 3 ML PEN SC SCH ×4 (07:48→21:00)
[2016-09-07] MEDS: TAMSULOSIN (SR) 0.4 MG CAP PO SCH ×2 (08:27→21:26)
[2016-09-07] MEDS: FERROUS SULFATE (EC) 325 MG TAB PO SCH (08:28)
[2016-09-07] MEDS: AMLODIPINE 5 MG TAB PO SCH ×2 (08:29→21:26)
[2016-09-07] MEDS: ASPIRIN 81 MG TAB PO SCH (08:30)
[2016-09-07] MEDS: DILTIAZEM (CD) 120 MG CAP PO SCH (08:31)
[2016-09-07] MEDS: LINAGLIPTIN 5 MG TABLET PO SCH (08:31)
[2016-09-07] MEDS: CHOLECALCIFEROL 2,000 UNIT CAP PO SCH (08:32)
[2016-09-07] MEDS: CYANOCOBALAMIN 500 MCG TAB PO SCH (08:32)
[2016-09-07] MEDS: ISOSORBIDE MONONITRATE(SR)30 MG TAB PO SCH (08:33)
[2016-09-07] MEDS: MULTIVITAMINS THERAPEUTIC TAB PO SCH (08:34)
[2016-09-07] MEDS: MINOXIDIL 2.5 MG TAB PO SCH (08:34)
[2016-09-07] MEDS: ARTIFICIAL TEARS 15 ML OPH BOTH EYES SCH ×2 (08:36→21:27)
--- NOTE | 2016-09-07 09:47 | PN ---
DATE: 09/07/2016 SUBJECTIVE: The patient is stable . I spoke with the patient today. I asked him if necessary would he want hemodialysis. He agreed to dialysis, when and if necessary. No other acute events n oted. OBJECTIVE: VITAL SIGNS: Blood pressure 135/61, respirations 20, pulse 73, temperature 98.4. HEENT: Head is normocephalic. NECK: Supple. HEART: Regular rate. LUNGS: Show diminished breath sounds at the bases. ABDOMEN: Soft, nontender to palpation. No rebound or guarding. EXTREMITIES: Negative for clubbing, cyanosis. No edema. DERMATOLOGIC: No rashes. MUSCULOSKELETAL: No joint effusions. NEUROLOGIC: No change in exam. MEDICATIONS: The patient's medications have been reviewed. LABORATORY DATA: Shows sodium 139, potassium 3.6, BUN 50, creatinine 4.51. White count 7.6, hemogl obin 9.8, hematocrit 30.8, platelet count is 156. ASSESSMENT AND PLAN: 1. Nonoliguric acute kidney injury on top of chronic kidney disease stage IV with a previous baseli ne creatinine of 2.6 mg/dL. Etiology of acute kidney injury is secondary to tubular injury was poss ible progression of underlying CKD. The patient's renal function appears to have stabilized around a creatinine of 4.3 mg/dL. The patient's creatinine is mildly higher today. Overall, patient's EGF R is around 13 mL/minute. The patient and the patient's family are agreeable to dialysis when neces abril. At this point, we will monitor closely. 2. Access. We will place a vascular surgery consult with Dr. Hannah to evaluate for possible AV fistula placement if okay with Dr. Montes. 3. Hypertension. Continue current blood pressure regimen. 4. Anemia. Continue to monitor hemoglobin and hematocrit levels. 5. Mineral bone disorder. Continue to monitor calcium and phosphorus levels. 6. Encephalopathy. Etiology is multifactorial secondary to urinary tract infection, possible mild uremia. At this point, continue to monitor closely. 7. Atrial fibrillation, rate controlled. Continue medical management. 8. Diabetes. Continue Accu-Cheks and insulin sliding scale. 9. Benign prostatic hypertrophy. Continue Flomax. 10. Coronary artery disease. Continue current treatment plan. 11. Urinary retention. We will continue to monitor. Follow up with Dr. Ramirez. Dictated By: TRACE LEVI/ALLAN Conf#: [id number] DID#: [id number]
--- NOTE | 2016-09-07 13:55 | PN ---
DATE: 09/07/2016 SUBJECTIVE: The patient's kidney function unfortunately continues to worsen as his creatinine is no w 4.59. Bradley was removed. Per nursing staff, the patient is having difficulty urinating. Patient to be monitored closely and he will have a possible in and out catheter placed. Neurology is follo wing closely. PHYSICAL EXAMINATION: VITAL SIGNS: Temperature 97.8, pulse 64, respirations 20, blood pressure 148/65, saturation 92%. GENERAL: The patient is in no acute distress. The patient is pale. CARDIOVASCULAR: S1 and S2. LUNGS: Decreased bilaterally. ABDOMEN: Soft, nontender. EXTREMITIES: No clubbing, cyanosis or edema. LABORATORY: White count is 7.6, hemoglobin 9.8; that was yesterday. Sodium 138, potassium 3.6, chl oride 109, bicarbonate 21, BUN is 50, creatinine 4.59 and glucose of 111. Last glucose levels of 16 5 and 119. Urine culture shows 3 organisms, Providencia stuartii, Klebsiella pneumoniae and Proteus mirabilis, all sensitive to cefotaxime. MEDICATIONS: 1. Minoxidil 5 mg daily. 2. Norvasc 5 b.i.d. 3. Rocephin 1 g q.24h. 4. Clonidine p.r.n. 5. Epogen every Sunday, Sunday, Sunday. 6. Imdur 30 mg daily. 7. Hydralazine p.r.n. 8. Catapres p.r.n. 9. Clonidine TTS 1 q. weekly. 10. Aspirin 81 mg daily. 11. Vitamin D 2000 daily. 12. Vitamin B12 1000 daily. 13. Cardizem-CD 120 daily. 14. Ferrous sulfate daily. 15. Tradjenta 5 mg daily. 16. Multivitamin 1 tablet daily. 17. Synthroid 25 mcg daily. 18. Protonix 40 mg daily. 19. Accu-Chek before meals and at bedtime. 20. Hydralazine 100 q.8h. 21. Abilify 10 mg at bedtime. 22. Eye lubricant as directed. 23. Remeron 15 at bedtime. 24. Flomax 0.4 b.i.d. 25. Hypoglycemia protocol as directed. P.r.n. meds were reviewed. ASSESSMENT AND PLAN: This is an unfortunate 85-year-old male with a history of diabetes me llitus, hypertension, dyslipidemia, CVA, atherosclerotic cardiovascular disease, atrial fibrillation , osteoarthritis, diabetic neuropathy, anemia, dyslipidemia, hypothyroidism, BPH, and chronic kidney disease who presented with anemia and was found to have also acute on chronic renal insufficiency, a UTI, atrial fibrillation with slow ventricular rate, and elevated blood pressure. 1. Anemia, stable. Continue Epogen. 2. Respiratory. No evidence of fluid overload. Stay to observe. 3. Dysphagia. Continue aspiration precautions. The patient is a very picky on what to eat. 4. Cardiovascular. Patient with atrial fibrillation, rate controlled. Blood pressure is now contr olled as I added Minoxidil. The patient is currently taking 2 calcium channel blockers. May need to discontinue one. 5. Acute on chronic renal insufficiency. Patient will undergo vein napping. Discussed with Dr. Enio lopez. May consider placement of AV fistula. Monitor electrolytes. May consider fluid challenge in the setting of acute renal failure. 6. Urinary retention. The patient may need to have his Bradley placed back in. Urology to follow. 7. Urinary tract infection. Continue Rocephin. 8. Physical therapy as tolerated. 9. Depression. Continue Remeron. 10. Diabetes mellitus. Glucose levels are in the low 100s. Continue Tradjenta. I spoke yesterday with the daughter and I informed her of the patient's plan of care. Dictated By: ERIC PHILLIPS/ALLAN Conf#: [id number] DID#: [id number]
[2016-09-07] MEDS: CEFTRIAXONE 1 GM/50 ML (PMX) 50 ML IVPB SCH (14:14)
--- NOTE | 2016-09-07 20:31 | HP ---
DATE OF ADMISSION: 09/01/2016 Dear Doctors: Mr. Paz is an 85-year-old gentleman with a plethora of medical conditions who has had chronic kidney disease stage IV, has been progressing to end-stage renal disease. Patient need s to be admitted for bradycardia, anemia and acute on chronic renal failure that seems his renal fun ction has worsened, requiring likely dialysis. Vascular surgery consultation was obtained for evalu ation of access creation. At the moment, it seems the patient is not able to comprehend with a cert ified loop tender and answering questions correctly, therefore will plan to schedule the patient for a family discussion in terms of eventual access creation. REVIEW OF SYSTEMS: A 14-point review was attempted; however, unable to ascertain as the patient is not able to answer questions; however, the patient reports not in any discomfort. PAST MEDICAL HISTORY: Entails diabetes, stroke, hypertension, dyslipidemia, anemia of chronic disea se, chronic kidney disease stage IV, diabetic neuropathy, diabetic nephropathy, osteoarthritis, spenser nary artery disease, BPH, depression, hypothyroidism, diastolic congestive heart failure. PAST SURGICAL HISTORY: None has been reported so far. ALLERGIES: NO KNOWN DRUG ALLERGIES. SOCIAL HISTORY: Denies current tobacco, alcohol or illicit drug use. FAMILY HISTORY: Hypertension. PHYSICAL EXAMINATION: GENERAL: Patient is awake and alert to questions; however, unable to respond to time and place. HEENT: Normocephalic, atraumatic. EOMI. Poor dentition. Mucosa moist. NECK: Supple. No carotid bruit. CARDIOVASCULAR: S1, S2 present. Irregularly irregular. PULMONARY: Clear to auscultation bilaterally. No crackles. ABDOMEN: Soft, nontender, nondistended. Bowel sounds positive. EXTREMITIES: Right lower extremity palpable femoral pulse, nonpalpable pedal pulse. Motor, sensory intact. Cap refill 3 seconds. Left lower extremity palpable femoral pulse, nonpalpable pedal puls e. Motor, sensory intact. Capillary refill 3 seconds. Bilateral lower extremities 1+ edema. ASSESSMENT AND PLAN: Chronic kidney disease stage IV, impending end-stage renal disease: It seems the patient's renal function has worsened and will likely require an access creation. We will plan to obtain noninvasive vascular studies in order to delineate which superficial vein can be used for his access. We will also plan to schedule the patient for permanent catheter. We will discuss our findings with our nephrology colleagues and plan accordingly. We will likely inquire cardiology laurita arance prior to an intervention. Optimize vascular status (BP meds, diet, nutrition, exercise, sugar control, antiplatelets). Discuss findings, plan and management with the patient, schedule with the patient's research professor of biostatistics, wi ll schedule a family discussion. Thank you for allowing us to partake in the care of your patient. Please call with any questions. Dictated By: SAMSON MUNOZ/ALLAN Conf#: [id number] DID#: [id number]
[2016-09-07] MEDS: MIRTAZAPINE 15 MG TAB PO SCH (21:26)
[2016-09-07] MEDS: ARIPIPRAZOLE 2 MG TAB PO SCH (21:26)
[2016-09-08] VITALS (11 sets, daily range): BP systolic 121–161; BP diastolic 58–71; PULSE 63–72; RESP 17–20
--- NOTE | 2016-09-08 00:51 | PN ---
DATE: 09/07/2016 SUBJECTIVE: The patient has had an indwelling Bradley catheter, and that was removed this morning. Arpit guevara has been watched to see if he voids, and he has not voided all day. A bladder scan was done and s howed that he only had a small amount of urine, but he was catheterized and only about 100 mL were d rained. The patient's renal function is bad and his creatinine is high, and plan is being made to g et him on hemodialysis. OBJECTIVE FINDINGS: VITAL SIGNS: Temperature is 97.8, pulse is 64, respirations 20, blood pressure 129/59. ABDOMEN: Soft. LABORATORY DATA: CBC shows a white count of 7.6, hemoglobin 9.8, and hematocrit 30.8. BUN is 50, c reatinine 4.59. Sodium 138, potassium 3.6, chloride 109, CO2 of 21. IMPRESSION: Acute renal failure, and the patient is not making much urine; he made all day long, ab out 100 mL; therefore, he is being prepared to undergo hemodialysis. Dictated By: PAULIE LARIOS/ALLAN Conf#: [id number] DID#: [id number]
[2016-09-08] MEDS: ACCUCHECK AT 2AM (Patients on SS coverage) XX SCH (02:55)
[2016-09-08] MEDS: LEVOTHYROXINE 25 MCG TAB PO SCH (06:44)
[2016-09-08] MEDS: PANTOPRAZOLE (EC) 40 MG TAB PO SCH (06:44)
--- NOTE | 2016-09-08 07:39 | PN ---
DATE: 09/07/2016 CARDIOLOGY FOLLOWUP SUBJECTIVE: Discussed with the staff. Rhythm strip was reviewed. The patient has converted back t o atrial fibrillation overnight. Has been in and out of atrial fibrillation. Heart rate overall on the low side but appeared to be stable. Denies any chest pain or pressure. MEDICATIONS: Reviewed. PHYSICAL EXAMINATION: VITAL SIGNS: Temperature 98.4, heart rate of 54, blood pressure 135/61, respiration rate of 20, sat urating 96%. HEENT: Normocephalic, atraumatic. Thin gentleman in no acute distress. Pupils equal, round. CARDIOVASCULAR: Irregularly irregular, systolic murmur. PULMONARY: With no wheezes heard. GASTROINTESTINAL: Soft, nontender. EXTREMITIES: With no significant lower extremity edema. NEUROLOGIC: Awake. Does not answer my questions. LABORATORY: Sodium 138, potassium 3.6, BUN of 50, creatinine of 4.59, glucose 111. ASSESSMENT AND PLAN: 1. Hypertension, currently better controlled. 2. Renal failure, acute on chronic. 3. Sinus bradycardia, sick sinus syndrome with episodes of marked sinus bradycardia as well as atri al fibrillation with slow ventricular response, but currently stable. 4. Paroxysmal atrial fibrillation. 5. Anemia and possible gastrointestinal bleed. 6. Encephalopathy. RECOMMENDATIONS: Continue with the current blood pressure medication. Aspirin as long as he can to lerate it. Given the concern about GI bleed and severe anemia, the patient is not fully anticoagula hansa. Monitor on telemetry. Dictated By: ISH CARDENAS MD AV/ALLAN Conf#: [id number] DID#: [id number] CC: ERIC STEVENS MD;*End*
[2016-09-08] MEDS: INSULIN ASPART [NOVOLOG] 3 ML PEN SC SCH ×4 (07:55→22:25)
--- NOTE | 2016-09-08 08:14 | RADRPT ---
PROCEDURE: US upper extremity arterial. CLINICAL INDICATION: Pain, ESRD TECHNIQUE: Multiple sonographic images of the bilateral upper extremity arteries was obtained util izing grayscale, color-flow, compressive sonography and doppler imaging. The images were reviewed o n a PACS workstation. COMPARISON: None. FINDINGS: Velocities and waveforms were obtained as described below. Right arm Right subclavian artery: 119 cm/s; biphasic waveforms Right axillary artery: 109 cm/s; triphasic waveforms Right brachial artery: 164 cm/s; triphasic waveforms Right radial artery: 102 cm/s; triphasic waveforms Right ulnar artery: 103 cm/s; triphasic waveforms Left arm Left subclavian artery: 112 cm/s; biphasic waveforms Left axillary artery: 136 cm/s; biphasic waveforms Left brachial artery: 126 cm/s; biphasic waveforms Left radial artery: 93 cm/s; biphasic waveforms Left ulnar artery: 116 cm/s; triphasic waveforms IMPRESSION: Unremarkable bilateral upper extremity arterial Doppler ultrasound. RPTAT: AA .Jesus Rosen MD, MD Date Time Electronically viewed and signed by .Jesus Rosen MD, on 09/08/2016 08:14 .S/
--- NOTE | 2016-09-08 08:15 | RADRPT ---
PROCEDURE: US bilateral upper extremity Venous. CLINICAL INDICATION: End-stage renal disease, vein mapping TECHNIQUE: Multiple sonographic images of the bilateral upper lower extremity deep an superficial venous system was obtained utilizing grayscale, color-flow, compressive sonography and doppler imagi ng with augmentation. Measurements were performed. The images were reviewed on a PACS workstation. COMPARISON: None. FINDINGS: RIGHT Right basilic vein size: Proximal: 4.7 mm Mid aspect: 2.0 mm Distal: 3.0 mm Right basilic vein size in the forearm: Proximal: 2.4 mm Mid aspect: 2.1 mm Distal: 2.2 mm Right cephalic vein size: Proximal: 3.2 mm Mid aspect: 3.7 mm Distal: 3.4 mm Right cephalic vein size in the forearm: Proximal: 3.2 mm Mid aspect: 3.7 mm Distal: 2.5 mm LEFT Left basilic vein size: Proximal: 3.6 mm Mid aspect: 2.7 mm Distal: 2.2 mm Left basilic vein size in the forearm: Proximal: 1.7 mm Mid aspect: 1.5 mm Distal: 1.3 mm Left cephalic vein size: Proximal: 2.3 mm Mid aspect: 3.3 mm Distal: 2.4 mm Left cephalic vein size in the forearm: Proximal: 2.1 mm Mid aspect: 2.6 mm Distal: 1.7 mm IMPRESSION: Vein mapping as described. RPTAT: AA .Jesus Rosen MD, Date Time Electronically viewed and signed by .Jesus Rosen MD, on 09/08/2016 08:15 .S/
--- NOTE | 2016-09-08 08:59 | PN ---
DATE: 09/08/2016 SUBJECTIVE: Yesterday I spoke with the patient's daughter, informing her about pending dialysis and recommendations for venous mapping and placement of AV fistula. The patient's daughter agreed. I also spent a great amount of time discussing the various options for the patient including to defer dialysis until necessary as well as to not to do dialysis. The patient's daughter appears to unders tand and is aware that the patient will likely need to be placed on dialysis in the upcoming weeks a nd months if not possibly sooner. No other acute events noted overnight. No hemoptysis, hematemesis, or hematochezia. OBJECTIVE: VITAL SIGNS: Blood pressure is 159/71, respirations 18, pulse 78, temperature 98.0. HEENT: Head is normocephalic. NECK: Supple. HEART: Regular rate. LUNGS: Show diminished breath sounds at the base. ABDOMEN: Soft, nontender to palpation, no rebound or guarding. EXTREMITIES: Negative for clubbing, cyanosis. No edema. DERMATOLOGIC: No rashes. MUSCULOSKELETAL: No joint effusions. NEUROLOGIC: No change in exam. MEDICATIONS: The patient's medications have been reviewed. LABORATORY DATA: Pending. ASSESSMENT AND PLAN: 1. Nonoliguric acute kidney injury on top of chronic kidney disease stage IV with previous baseline creatinine of 2.6 mg/dL. Etiology of acute kidney injury is secondary to tubular injury with possi ble progression of underlying chronic kidney disease. The patient's renal function has declined in the last 24 hours. This may be due to hemodynamics. Awaiting renal panel this morning. If there i s worsening renal function, would consider fluid challenge. Otherwise, continue supportive care, re desire dose all meds. 2. Access. The patient was evaluated by Dr. Hannah, is undergoing venous mapping for possible a rteriovenous fistula placement. Continue to monitor. 3. Hypertension. Continue current blood pressure regimen. 4. Anemia. Continue to monitor H and H levels. 5. Mineral bone disorder. Continue to monitor calcium and phosphorus levels. 6. Encephalopathy, etiology is toxic metabolic, possible mild uremic. Continue to monitor. 7. Atrial fibrillation, currently rate controlled. Continue medical management. 8. Diabetes, continue Accu-Cheks and insulin sliding scale. 9. BPH. Continue Flomax. Ascaris 10. Coronary artery disease. Continue current treatment plan. 11. Urinary retention. Continue medical management. Follow up with Dr. Ramirez. Dictated By: TRACE LEVI/ALLAN Conf#: [id number] DID#: [id number]
[2016-09-08] MEDS: ASPIRIN 81 MG TAB PO SCH (09:48)
[2016-09-08] MEDS: TAMSULOSIN (SR) 0.4 MG CAP PO SCH ×2 (09:49→21:33)
[2016-09-08] MEDS: ARTIFICIAL TEARS 15 ML OPH BOTH EYES SCH ×2 (09:49→21:33)
[2016-09-08] MEDS: AMLODIPINE 5 MG TAB PO SCH ×2 (09:49→21:41)
[2016-09-08] MEDS: DILTIAZEM (CD) 120 MG CAP PO SCH (09:49)
[2016-09-08] MEDS: MINOXIDIL 2.5 MG TAB PO SCH (09:49)
[2016-09-08] MEDS: FERROUS SULFATE (EC) 325 MG TAB PO SCH (09:49)
[2016-09-08] MEDS: MULTIVITAMINS THERAPEUTIC TAB PO SCH (09:50)
[2016-09-08] MEDS: CYANOCOBALAMIN 500 MCG TAB PO SCH (09:50)
[2016-09-08] MEDS: ISOSORBIDE MONONITRATE(SR)30 MG TAB PO SCH (09:50)
[2016-09-08] MEDS: CHOLECALCIFEROL 2,000 UNIT CAP PO SCH (09:50)
[2016-09-08] MEDS: LINAGLIPTIN 5 MG TABLET PO SCH (09:50)
[2016-09-08 10:22] LABS: CALCIUM 8.3 mg/dl (8.4-10.2); CREATININE 4.58 mg/dl (0.61-1.24); POTASSIUM 3.7 mmol/L (3.5-5.1)
--- NOTE | 2016-09-08 14:00 | PN ---
Date/Time of Note Date/Time of Note DATE: 09/08/16 TIME: 13:52 Assessment/Plan Lines/Catheters IV Catheter Type (from [facility]): Saline Lock Bradley in Place (from [facility]): Yes Assessment/Plan Chief Complaint/Hosp Course -Chronic kidney disease stage IV, impending end-stage renal disease: It seems the patient's renal function has worsened and will likely require an access creation. Upon his noninvasive vascular studies will plan to create a Brachio- cephalic/basilic fistula on Sunday. Further will schedule for Perm Catheter in the near future if needed -Will await cardiology clearance prior to an intervention. Will perform surgery on Regional block -Optimize vascular status (BP meds, diet, nutrition, exercise, sugar control, antiplatelets). -Discuss findings, plan and management with the patient's rural mail carrier, will schedule a family discussion for further questions -Thank you for allowing us to partake in the care of your patient. Please call with any questions. Problems: Subjective 24 Hr Interval Summary no new vascular events overnight Exam/Review of Systems Vital Signs Vitals Vital Signs Date Time Temp Pulse Resp B/P Pulse Ox O2 Delivery O2 Flow Rate FiO2 09/08/16 12:12 71 09/08/16 11:50 99.0 17 121/58 99 Intake and Output 09/07/16 09/07/16 09/08/16 15:00 23:00 07:00 Intake Total 400 ml Output Total 130 ml 630 ml Balance -130 ml -230 ml Exam Free Text/Dictation GENERAL: Patient is awake and alert to questions; however, unable to respond to time and place. CARDIOVASCULAR: S1, S2 present. Irregularly irregular. PULMONARY: Clear to auscultation bilaterally ABDOMEN: Soft, nontender, nondistended. Bowel sounds positive. EXTREMITIES: Right lower extremity palpable femoral pulse, nonpalpable pedal pulse. Motor, sensory intact. Cap refill 3 seconds. Left lower extremity palpable femoral pulse, nonpalpable pedal pulse. Motor, sensory intact. Capillary refill 3 seconds. Bilateral lower extremities 1+ edema. Results Result Diagram: 09/06/16 0618 09/08/16 0930 SAMSON MOELLER MD Sep 08, 2016 14:00
[2016-09-08] MEDS: CEFTRIAXONE 1 GM/50 ML (PMX) 50 ML IVPB SCH (14:18)
[2016-09-08] MEDS: SOD CHLORIDE 0.9% 1,000 ML IV SCH (15:49)
--- NOTE | 2016-09-08 15:49 | PN ---
DATE: 09/08/2016 SUBJECTIVE: The patient did not make much urine per report and patient did not have high postvoid r esidual. The patient also, appetite is not very good, eating about less than 40% of his meal the . We will the nephrology input as we are trying to possibly initiate hemodialysis as po ssible placement of AV fistula. Further decision per family. We will try fluid challenge to see if kidney function improves and maybe his appetite will improve as well. The patient maybe clinically dry but again we are concerned about fluid overload state. PHYSICAL EXAMINATION: VITAL SIGNS: The patient's temperature is 99. Pulse is 71, respirations 17, blood pressure 121/58, saturation 99%. GENERAL: The patient is frail, pale, slightly confused. CARDIOVASCULAR: S1 and S2. LUNGS: Faint rhonchi bilaterally. ABDOMEN: Soft. EXTREMITIES: There is no clubbing, cyanosis, or edema. LABORATORY DATA: White count is 7.6 and hemoglobin 9.8 that was on 09/06/2016. Today, sodium is 13 6, potassium 3.7, chloride 106, bicarb 20. BUN is 50, creatinine 4.5, and then glucose of 120. Las t glucose level 131. Upper extremity arterial ultrasound shows unremarkable bilateral upper extremi ty arterial Doppler ultrasound. Venous ultrasound shows vein mapping as described, this was done. MEDICATIONS: 1. Minoxidil 5 mg daily. Since we started that blood pressure is controlled. 2. Norvasc 5 mg b.i.d. 3. Rocephin 1 gram q.24 hours. 4. Clonidine patch p.r.n. 5. Epogen 10,000 units every Sunday, Sunday, and Sunday. 6. Imdur 30 mg daily. 7. Hydralazine p.r.n. 8. Catapres p.r.n. 9. Clonidine every 7 days. 10. Aspirin 81 mg daily. 11. Vitamin D 2000 daily. 12. Vitamin B12 1000 daily. 13. Cardizem CD 120 daily. 14. Ferrous sulfate 325 daily. 15. Tradjenta 5 mg daily. 16. Multivitamin 1 tablet daily. 17. Synthroid 25 mcg daily. 18. Protonix 40 mg daily. 19. Accu-Chek q.a.c. and at bedtime. 20. Abilify 2 mg at bedtime. 21. Hydralazine 100 q.8. 22. Remeron 15 at bedtime, 23. Eye lubricant b.i.d. 24. Flomax 0.5 b.i.d. 25. Hypoglycemia protocol as directed P.r.n. meds were all reviewed. ASSESSMENT AND PLAN: This is an 85-year-old male with history of diabetes mellitus, hypert ension, dyslipidemia, cerebrovascular accident, atherosclerotic cardiovascular disease, atrial fibri llation, osteoarthritis, diabetic neuropathy, anemia, dyslipidemia, hypothyroidism, benign prostatic hypertrophy, chronic kidney disease, who presented with anemia, was found to have also acute on chr onic renal insufficiency, urinary tract infection, atrial fibrillation with slow ventricular rate an d elevated blood pressure. 1. Anemia. Continue Epogen. Monitor H and H. 2. Respiratory: Currently, no evidence clinical fluid overload state. Again, we will give him a f luid challenge, observe, oxygen support p.r.n. 3. Dysphagia. Continue current diet. 4. Cardiovascular: Blood pressure is now under control. May stop one of the calcium channel block ers. 5. Acute on chronic renal insufficiency. We will try fluid challenge. Anyway, I think the patient probably needs to be initiated on dialysis or at least place an arteriovenous fistula. I appreciat e vascular and nephrology input and recommendations. 6. Urinary tract infection. Remains on Rocephin. 7. Physical therapy as tolerated. 8. The patient needs close monitoring and he needs feeding. He is full assistance. 9. Depression, on Remeron. 10. Diabetes mellitus, controlled. Currently on Tradjenta. 11. Disposition: Soon back to the [facility] facility. 12. Urinary retention. Continue to monitor postvoid residual. In and out catheterization will be done p.r.n. We will follow. Dictated By: ERIC PHILLIPS/ALLAN Conf#: [id number] DID#: [id number]
[2016-09-08] MEDS: EPOETIN 4000 UNITS/ML (NON ESRD/NON ONCOLOGY) SC SCH (17:30)
--- NOTE | 2016-09-08 20:12 | PN ---
DATE: 09/08/2016 SUBJECTIVE: Urinary retention. The patient is in renal failure, and he initially had hematuria and urinary retention. However, after the Bradley was removed and the patient has been put on intermitte nt catheterization, he has not been making much urine. He appeared to be comfortable. OBJECTIVE: VITAL SIGNS: His temperature is 99.0, pulse 73, respiration 18, blood pressure 127/61. ABDOMEN: Soft. GENITOURINARY: The patient's urine output is very little. He had about 30 mL. The bladder scan on ly was 230 mL, and prior to that it was 230, then later on was 100, therefore not requiring any in-a nd-out catheterization. His CBC shows a white count of 7.6, hemoglobin 9.8. The BUN is 50, creatinine 4.58, sodium 136, po tassium 3.7, chloride 106, CO2 20. IMPRESSION: Renal failure and the patient has not been able to urinate, but he is not making much u rine now that he will need intermittent catheterization. However, we shall continue monitoring his voiding if he does, and if he does urinate and the postvoid residual on the bladder scan is over 300 mL will do in-and-out catheterization, and if he does not urinate and the bladder volume is over 50 0, do also straight catheterization on him. Dictated By: PAULIE LARIOS/ALLAN Conf#: [id number] DID#: [id number]
[2016-09-08] MEDS: ARIPIPRAZOLE 2 MG TAB PO SCH (21:33)
[2016-09-08] MEDS: MIRTAZAPINE 15 MG TAB PO SCH (21:33)
[2016-09-09] MEDS: ACCUCHECK AT 2AM (Patients on SS coverage) XX SCH (02:00)
[2016-09-09 02:09] VITALS: BP 137/65; RESP 20
[2016-09-09] MEDS: SOD CHLORIDE 0.9% 1,000 ML IV SCH ×3 (06:03→20:58)
[2016-09-09] MEDS: PANTOPRAZOLE (EC) 40 MG TAB PO SCH (06:04)
[2016-09-09] MEDS: LEVOTHYROXINE 25 MCG TAB PO SCH (06:05)
[2016-09-09 06:06] LABS: ADD SCAN DIFF NO
[2016-09-09 06:27] LABS: BASOPHIL # 0.1 10^3/ul (0.0-0.1); BASOPHILS % 0.7 % (0.0-2.0); EOSINOPHILS # 0.2 10^3/ul (0.0-0.5); EOSINOPHILS % 1.8 % (0.0-7.0); HEMATOCRIT 28.2 % (42.0-52.0); LYMPHOCYTES # 1.2 10^3/ul (0.8-2.9); LYMPHOCYTES % 14.2 % (15.0-51.0); MEAN CORPUSCULAR HEMOGLOBIN 27.1 pg (29.0-33.0); MEAN CORPUSCULAR HGB CONC 31.9 g/dl (32.0-37.0); MEAN CORPUSCULAR VOLUME 84.9 fl (82.0-101.0); MEAN PLATELET VOLUME 9.5 fl (7.4-10.4); MONOCYTE # 0.6 10^3/ul (0.3-0.9); MONOCYTES % 7.8 % (0.0-11.0); NEUTROPHIL # 6.1 10^3/ul (1.6-7.5); PLATELET COUNT 146 10^3/UL (140-415); RED BLOOD COUNT 3.32 10^6/ul (4.70-6.10); RED CELL DISTRIBUTION WIDTH 16.8 % (11.5-14.5); WHITE BLOOD COUNT 8.2 10^3/ul (4.8-10.8)
[2016-09-09 07:49] VITALS: BP 131/63; RESP 18
--- NOTE | 2016-09-09 07:57 | PN ---
Date/Time of Note Date/Time of Note DATE: 09/09/16 TIME: 07:54 Assessment/Plan VTE Prophylaxis VTE Prophylaxis Intervention: ambulation Lines/Catheters IV Catheter Type (from [facility]): Saline Lock Urinary Cath still in place: Yes Reason Cath still needed: urinary retention Assessment/Plan Assessment/Plan 1. Nonoliguric acute kidney injury on top of chronic kidney disease stage IV with previous baseline creatinine of 2.6 mg/dL. Etiology of acute kidney injury is secondary to tubular injury with possible progression of underlying chronic kidney disease. The patient's renal function has declined in the last 24 hours. This may be due to hemodynamics. - currently on fluid challenge -f/u renal panel -Otherwise, continue supportive care, renally dose all meds. 2. Access. The patient was evaluated by Dr. Hannah, is undergoing venous mapping for possible arteriovenous fistula placement. Continue to monitor. 3. Hypertension. Continue current blood pressure regimen. 4. Anemia. Continue to monitor H and H levels. give epogen as needed 5. Mineral bone disorder. Continue to monitor calcium and phosphorus levels. 6. Encephalopathy, etiology is toxic metabolic, possible mild uremic. Continue to monitor. 7. Atrial fibrillation, currently rate controlled. Continue medical management. 8. Diabetes, continue Accu-Cheks and insulin sliding scale. 9. BPH. Continue Flomax. Ascaris 10. Coronary artery disease. Continue current treatment plan. 11. Urinary retention. Continue medical management. Follow up with Dr. Ramirez. Subjective 24 Hr Interval Summary Free Text/Dictation Pt is stable. no acute events overnight. Pt on fluid challenge. Pending possible avf placement Exam/Review of Systems Vital Signs Vitals Vital Signs Date Time Temp Pulse Resp B/P Pulse Ox O2 Delivery O2 Flow Rate FiO2 09/09/16 07:49 97.6 66 18 131/63 96 Intake and Output 09/08/16 09/08/16 09/09/16 15:00 23:00 07:00 Intake Total 1660 ml 860 ml Output Total 200 ml 50 ml Balance -200 ml 1610 ml 860 ml Exam HEENT: Head is normocephalic. NECK: Supple. HEART: Regular rate. LUNGS: Show diminished breath sounds at the base. ABDOMEN: Soft, nontender to palpation, no rebound or guarding. EXTREMITIES: Negative for clubbing, cyanosis. No edema. DERMATOLOGIC: No rashes. MUSCULOSKELETAL: No joint effusions. NEUROLOGIC: No change in exam. Results Result Diagram: 09/09/16 0545 09/08/16 0930 Results 24 hrs Laboratory Tests Test 09/08/16 08:01 09/08/16 09:30 09/08/16 12:16 09/08/16 17:28 Bedside Glucose 118 131 176 Sodium Level 136 Potassium Level 3.7 Chloride Level 106 Carbon Dioxide Level 20 L Anion Gap 14 Blood Urea Nitrogen 50 H Creatinine 4.58 H Glucose Level 120 Calcium Level 8.3 L Test 09/08/16 21:40 09/09/16 02:54 09/09/16 05:45 Bedside Glucose 238 H 109 White Blood Count 8.2 Red Blood Count 3.32 L Hemoglobin 9.0 L Hematocrit 28.2 L Mean Corpuscular Volume 84.9 Mean Corpuscular Hemoglobin 27.1 L Mean Corpuscular Hemoglobin Concent 31.9 L Red Cell Distribution Width 16.8 H Platelet Count 146 Mean Platelet Volume 9.5 Neutrophils % 75.0 Lymphocytes % 14.2 L Monocytes % 7.8 Eosinophils % 1.8 Basophils % 0.7 Nucleated Red Blood Cells % 0.0 Neutrophils # 6.1 Lymphocytes # 1.2 Monocytes # 0.6 Eosinophils # 0.2 Basophils # 0.1 Nucleated Red Blood Cells # 0.0 Medications Medications Current Medications Ondansetron HCl (Zofran Inj) 4 mg Q6H PRN IV NAUSEA AND/OR VOMITING; Start 09/01 at 18:30 Acetaminophen (Tylenol Tab) 650 mg Q6H PRN PO PAIN LEVEL 1-3 OR FEVER Last administered on 09/02/16 15:54; Admin Dose 650 MG; Start 09/01/16 at 18:30 Docusate Sodium (Colace) 100 mg Q12H PRN PO CONSTIPATION; Start 09/01/16 at 18: 30 Magnesium Hydroxide (Milk Of Mag) 30 ml DAILY PRN PO CONSTIPATION; Start at 18:30 Pantoprazole (Protonix Tab) 40 mg DAILY@06 PO Last administered on 09/09/16 06 :04; Admin Dose 40 MG; Start 09/02/16 at 06:00 Acetaminophen (Tylenol Tab) 650 mg Q6H PRN PO PAIN; Start 09/01/16 at 18:30 Aripiprazole (Abilify) 2 mg QHS PO Last administered on 09/08/16 21:33; Admin Dose 2 MG; Start 09/01/16 at 21:00 Eye Lubricant (Artificial Tears Oph) 1 drop BID BOTH EYES Last administered on 09/08/16 21:33; Admin Dose 1 DROP; Start 09/01/16 at 21:00 Aspirin (Aspirin) 81 mg DAILY PO Last administered on 09/08/16 09:48; Admin Dose 81 MG; Start 09/02/16 at 09:00 Cholecalciferol (Vitamin D) 2,000 unit DAILY PO Last administered on 09/08/16 09:50; Admin Dose 2,000 UNIT; Start 09/02/16 at 09:00 Cyanocobalamin (Vitamin B12) 1,000 mcg DAILY PO Last administered on 09/08/16 09:50; Admin Dose 1,000 MCG; Start 09/02/16 at 09:00 Diltiazem HCl (Cardizem Cd) 120 mg DAILY PO Last administered on 09/08/16 09:49 ; Admin Dose 120 MG; Start 09/02/16 at 09:00 Docusate Sodium (Colace) 100 mg Q12H PRN PO CONSTIPATION; Start 09/01/16 at 18: 30 Ferrous Sulfate (Ferrous Sulfate (Ec)) 325 mg DAILY PO Last administered on 09/08 09:49; Admin Dose 325 MG; Start 09/02/16 at 09:00 Hydralazine HCl (Apresoline) 100 mg Q8 PO Last administered on 09/09/16 06:05 ; Admin Dose 100 MG; Start 09/01/16 at 22:00 Linagliptin (Tradjenta) 5 mg DAILY PO Last administered on 09/08/16 09:50; Admin Dose 5 MG; Start 09/02/16 at 09:00 Mirtazapine (Remeron) 15 mg HS PO Last administered on 09/08/16 21:33; Admin Dose 15 MG; Start 09/01/16 at 21:00 Multivitamins Therapeutic (Theragran) 1 tab DAILY PO Last administered on 09:50; Admin Dose 1 TAB; Start 09/02/16 at 09:00 Tamsulosin HCl (Flomax) 0.4 mg BID PO Last administered on 09/08/16 21:33; Admin Dose 0.4 MG; Start 09/01/16 at 21:00 Zolpidem Tartrate (Ambien) 5 mg HS PRN PO insomnia Last administered on 22:37; Admin Dose 5 MG; Start 09/01/16 at 18:30 Diagnostic Test (Pha) (Accu-Chek) 1 ea 02 XX Last administered on 09/08/16 02: 55; Admin Dose 1 EA; Start 09/02/16 at 02:00 Miscellaneous Information 1 ea NOTE XX ; Start 09/01/16 at 20:00 Glucose (Glutose) 15 gm Q15M PRN PO DECREASED GLUCOSE; Start 09/01/16 at 20:00 Glucose (Glutose) 22.5 gm Q15M PRN PO DECREASED GLUCOSE; Start 09/01/16 at 20:00 Dextrose (D50w Syringe) 25 ml Q15M PRN IV DECREASED GLUCOSE; Start 09/01/16 at 20:00 Dextrose (D50w Syringe) 50 ml Q15M PRN IV DECREASED GLUCOSE; Start 09/01/16 at 20:00 Glucagon (Glucagen) 1 mg Q15M PRN IM DECREASED GLUCOSE; Start 09/01/16 at 20:00 Glucose (Glutose) 15 gm Q15M PRN BUCCAL DECREASED GLUCOSE; Start 09/01/16 at 20: 00 Epoetin Pierce (Epogen (Non Esrd/Non Oncology)) 8,000 units MoWeFr@17 SC Last administered on 09/08/16 17:30; Admin Dose 8,000 UNITS; Start 09/04/16 at 17:00 Clonidine HCl (Catapres-Tts 1 Patch) 1 patch Q7D TRANSDERM Last administered on 09/02/16 15:51; Admin Dose 1 PATCH; Start 09/02/16 at 15:30 Clonidine (Catapres) 0.1 mg Q4 PRN PO FOR SYSTOLIC BP >160 Last administered on 09/05/16 11:13; Admin Dose 0.1 MG; Start 09/02/16 at 22:00 Isosorbide Mononitrate (Imdur) 30 mg DAILY PO Last administered on 09/08/16 09: 50; Admin Dose 30 MG; Start 09/03/16 at 12:30 Hydralazine HCl (Apresoline) 10 mg Q4H PRN IV hypertension Last administered on 09/06/16 01:19; Admin Dose 10 MG; Start 09/03/16 at 12:30 Amlodipine Besylate (Norvasc) 5 mg BID PO Last administered on 09/08/16 21:41; Admin Dose 5 MG; Start 09/05/16 at 21:00 Clonidine 0.1 mg 0.1 mg Q6H PRN PO sbp > 170; Start 09/05/16 at 12:00 Ceftriaxone Sodium (Rocephin) 50 ml @ 100 mls/hr Q24H IVPB Last administered on 09/08/16 14:18; Admin Dose 100 MLS/HR; Start 09/05/16 at 14:30 Minoxidil 5 mg 5 mg DAILY PO Last administered on 09/08/16 09:49; Admin Dose 5 MG; Start 09/07/16 at 09:00 Sodium Chloride (NS) 1,000 ml @ 70 mls/hr [id number] IV Last administered on 09/09 06:03; Admin Dose 70 MLS/HR; Start 09/08/16 at 15:00 TRACE PETE DO Sep 09, 2016 07:57
[2016-09-09] MEDS: INSULIN ASPART [NOVOLOG] 3 ML PEN SC SCH ×4 (08:15→22:27)
[2016-09-09 08:18] LABS: POTASSIUM 3.9 mmol/L (3.5-5.1)
[2016-09-09 08:19] LABS: CALCIUM 8.4 mg/dl (8.4-10.2); CREATININE 4.91 mg/dl (0.61-1.24); MAGNESIUM 2.1 mg/dl (1.7-2.5); PHOSPHORUS 5.3 mg/dl (2.5-4.9)
[2016-09-09] MEDS: ARTIFICIAL TEARS 15 ML OPH BOTH EYES SCH ×2 (09:00→12:12)
[2016-09-09] MEDS: MULTIVITAMINS THERAPEUTIC TAB PO SCH (09:47)
[2016-09-09] MEDS: LINAGLIPTIN 5 MG TABLET PO SCH (09:47)
[2016-09-09] MEDS: CYANOCOBALAMIN 500 MCG TAB PO SCH (09:47)
[2016-09-09] MEDS: TAMSULOSIN (SR) 0.4 MG CAP PO SCH ×2 (09:47→22:28)
[2016-09-09] MEDS: ISOSORBIDE MONONITRATE(SR)30 MG TAB PO SCH (09:47)
[2016-09-09] MEDS: CHOLECALCIFEROL 2,000 UNIT CAP PO SCH (09:47)
[2016-09-09] MEDS: ASPIRIN 81 MG TAB PO SCH (09:47)
[2016-09-09] MEDS: FERROUS SULFATE (EC) 325 MG TAB PO SCH (09:47)
[2016-09-09] MEDS: MINOXIDIL 2.5 MG TAB PO SCH (09:48)
[2016-09-09] MEDS: AMLODIPINE 5 MG TAB PO SCH ×2 (09:48→22:28)
[2016-09-09] MEDS: DILTIAZEM (CD) 120 MG CAP PO SCH (12:12)
[2016-09-09] MEDS: CEFTRIAXONE 1 GM/50 ML (PMX) 50 ML IVPB SCH (14:18)
[2016-09-09] MEDS: CLONIDINE 0.1 MG/24 HR PATCH TRANSDERM SCH (16:11)
--- NOTE | 2016-09-09 19:23 | RADRPT ---
PROCEDURE: XR Chest. CLINICAL INDICATION: Pneumonia. Rule out aspiration. TECHNIQUE: Single frontal chest x-ray. COMPARISON: 09/01/2016 FINDINGS: Low lung volumes with diffuse interstitial infiltrates are present unchanged. Bilateral basilar ate lectasis or alveolar infiltrates are present unchanged. . Calcific atherosclerosis of the aorta is present.. The cardiomediastinal silhouette is unremarkable. The osseous structures are intact. IMPRESSION: Low lung volumes with diffuse interstitial infiltrates and bibasilar alveolar infiltrates unchanged since previous exam.. RPTAT: QQ .Gigi Sanchez MD, MD Date Time Electronically viewed and signed by .Gigi Sanchez MD, MD on 09/09/2016 19:23 .L/
[2016-09-09 20:04] VITALS: BP 142/68; RESP 20
[2016-09-09 22:00] VITALS: BP 139/65; PULSE 70
[2016-09-09] MEDS: ARIPIPRAZOLE 2 MG TAB PO SCH (22:28)
[2016-09-09] MEDS: MIRTAZAPINE 15 MG TAB PO SCH (22:28)
[2016-09-10] MEDS: ACCUCHECK AT 2AM (Patients on SS coverage) XX SCH (02:00)
[2016-09-10 06:04] LABS: ADD SCAN DIFF NO
[2016-09-10 06:10] LABS: BASOPHIL # 0.1 10^3/ul (0.0-0.1); EOSINOPHILS # 0.2 10^3/ul (0.0-0.5); EOSINOPHILS % 3.1 % (0.0-7.0); HEMATOCRIT 28.1 % (42.0-52.0); HEMOGLOBIN 8.8 g/dl (14.0-18.0); LYMPHOCYTES % 16.8 % (15.0-51.0); MEAN CORPUSCULAR HEMOGLOBIN 26.8 pg (29.0-33.0); MEAN CORPUSCULAR HGB CONC 31.3 g/dl (32.0-37.0); MEAN CORPUSCULAR VOLUME 85.7 fl (82.0-101.0); MEAN PLATELET VOLUME 9.8 fl (7.4-10.4); MONOCYTE # 0.5 10^3/ul (0.3-0.9); MONOCYTES % 8.3 % (0.0-11.0); NEUTROPHIL # 4.4 10^3/ul (1.6-7.5); NEUTROPHILS % 70.5 % (39.0-77.0); PLATELET COUNT 150 10^3/UL (140-415); RED BLOOD COUNT 3.28 10^6/ul (4.70-6.10); RED CELL DISTRIBUTION WIDTH 16.9 % (11.5-14.5); WHITE BLOOD COUNT 6.2 10^3/ul (4.8-10.8)
[2016-09-10] MEDS: MAGNESIUM HYDROXIDE 30ML CUP PO PRN (06:29)
[2016-09-10] MEDS: LEVOTHYROXINE 25 MCG TAB PO SCH (06:29)
[2016-09-10] MEDS: PANTOPRAZOLE (EC) 40 MG TAB PO SCH (06:29)
[2016-09-10 06:38] LABS: CREATININE 5.25 mg/dl (0.61-1.24); MAGNESIUM 2.2 mg/dl (1.7-2.5); PHOSPHORUS 5.9 mg/dl (2.5-4.9); POTASSIUM 3.8 mmol/L (3.5-5.1)
[2016-09-10 07:36] VITALS: BP 135/64; RESP 16
[2016-09-10] MEDS: INSULIN ASPART [NOVOLOG] 3 ML PEN SC SCH ×4 (08:15→21:00)
[2016-09-10 08:45] VITALS: PULSE 82; PULSE 84
[2016-09-10] MEDS: ARTIFICIAL TEARS 15 ML OPH BOTH EYES SCH ×2 (09:20→20:57)
[2016-09-10] MEDS: FERROUS SULFATE (EC) 325 MG TAB PO SCH (09:21)
[2016-09-10] MEDS: TAMSULOSIN (SR) 0.4 MG CAP PO SCH ×2 (09:21→20:56)
[2016-09-10] MEDS: ASPIRIN 81 MG TAB PO SCH (09:21)
[2016-09-10] MEDS: LINAGLIPTIN 5 MG TABLET PO SCH (09:22)
[2016-09-10] MEDS: MINOXIDIL 2.5 MG TAB PO SCH (09:22)
[2016-09-10] MEDS: CHOLECALCIFEROL 2,000 UNIT CAP PO SCH (09:22)
[2016-09-10] MEDS: DILTIAZEM (CD) 120 MG CAP PO SCH (09:23)
[2016-09-10] MEDS: ISOSORBIDE MONONITRATE(SR)30 MG TAB PO SCH (09:23)
[2016-09-10] MEDS: AMLODIPINE 5 MG TAB PO SCH ×2 (09:23→20:57)
[2016-09-10] MEDS: MULTIVITAMINS THERAPEUTIC TAB PO SCH (09:23)
[2016-09-10] MEDS: SOD CHLORIDE 0.9% 1,000 ML IV SCH ×2 (09:24→12:13)
[2016-09-10] MEDS: CYANOCOBALAMIN 500 MCG TAB PO SCH (09:24)
--- NOTE | 2016-09-10 10:18 | PN ---
DATE: 09/10/2016 SUBJECTIVE: The patient remains lethargic and confused. The patient's renal function has continued to worsen. The patient is scheduled for AV fistula tomorrow and will also ask for Perm-A-Cath plac ement to initiate hemodialysis. No other events noted. OBJECTIVE: VITAL SIGNS: Blood pressure 135/65, respirations 16, pulse 72, temperature 97.6. HEENT: Head is normocephalic. NECK: Supple. HEART: Regular rate. LUNGS: Show diminished breath sounds at the base. ABDOMEN: Soft, nontender to palpation. No rebound or guarding. EXTREMITIES: Negative for clubbing, cyanosis. No edema. DERMATOLOGIC: No rashes. MUSCULOSKELETAL: No joint effusions. NEUROLOGIC: No change in exam. MEDICATIONS: The patient's medications have been reviewed. LABORATORY DATA: Shows white count 6.3, hemoglobin 9.8, hematocrit 28.1, platelet count is 150. So dium 137, potassium 3.8, chloride 109, BUN 50, creatinine 5.25, phosphorus 5.0, calcium 8.0. ASSESSMENT AND PLAN: 1. Nonoliguric acute kidney injury on top of chronic kidney disease stage IV with previous baseline creatinine 2.6 mg/dL. The patient's etiology of current acute kidney injury is secondary to acute tubular necrosis in conjunction with progression of underlying chronic kidney disease. The patient' s renal function is further declined. At this point, would recommend to initiate hemodialysis. José Miguel gill discuss with about placing a Perm-A-Cath for the patient in conjunction with AV fistula placement. Otherwise, continue supportive care, renally dose all medications, continue gentle fluid challenge. 2. Access. The patient is pending AV fistula placement. We will also ask for Perm-A-Cath placemen t tomorrow. 3. Hypertension. Continue current blood pressure regimen. 4. Anemia. Continue to monitor hemoglobin and hematocrit levels. 5. Mineral blood disorder. Continue to monitor calcium and phos levels. 6. Encephalopathy toxic metabolic and uremic. Continue to monitor. 7. Atrial fibrillation, rate controlled. Continue medical management. 8. Diabetes. Continue Accu-Cheks and sliding scale. 9. Benign prostatic hypertrophy. Continue current medical management. 10. Coronary artery disease. Continue current treatment plan. 11. Urinary retention. Continue to monitor. Follow up with . Dictated By: TRACE LEVI/ALLAN Conf#: [id number] DID#: [id number]
--- NOTE | 2016-09-10 10:37 | PN ---
Date/Time of Note Date/Time of Note DATE: 09/10/16 TIME: 10:35 Assessment/Plan Lines/Catheters IV Catheter Type (from [facility]): Peripheral IV Bradley in Place (from [facility]): No Assessment/Plan Chief Complaint/Hosp Course -Chronic kidney disease stage IV, impending end-stage renal disease: It seems the patient's renal function has worsened and will likely require an access creation. Upon his noninvasive vascular studies will plan to create a Brachio- cephalic/basilic fistula on Sunday. Further will also schedule for Perm Catheter -Appreciate cardiology evaluation. Will perform surgery on Regional block -Optimize vascular status (BP meds, diet, nutrition, exercise, sugar control, antiplatelets). -Discuss findings, plan and management with the patient's urologist physician, will schedule a family discussion for further questions -Thank you for allowing us to partake in the care of your patient. Please call with any questions. Problems: Subjective 24 Hr Interval Summary Constitutional: no complaints Exam/Review of Systems Vital Signs Vitals Vital Signs Date Time Temp Pulse Resp B/P Pulse Ox O2 Delivery O2 Flow Rate FiO2 09/10/16 07:36 97.6 72 16 135/64 96 09/09/16 20:00 Room Air Intake and Output 09/09/16 09/09/16 09/10/16 15:00 23:00 07:00 Intake Total 50 ml 1050 ml 640 ml Balance 50 ml 1050 ml 640 ml Exam Free Text/Dictation GENERAL: Patient is awake and alert to questions; however, unable to respond to time and place. CARDIOVASCULAR: S1, S2 present. Irregularly irregular. PULMONARY: Clear to auscultation bilaterally ABDOMEN: Soft, nontender, nondistended. Bowel sounds positive. EXTREMITIES: Right lower extremity palpable femoral pulse, nonpalpable pedal pulse. Motor, sensory intact. Cap refill 3 seconds. Left lower extremity palpable femoral pulse, nonpalpable pedal pulse. Motor, sensory intact. Capillary refill 3 seconds. Bilateral lower extremities 1+ edema. Bilateral upper extremities: palpable brachial pulse, motor/sensory intact Results Result Diagram: 09/10/16 0457 09/10/16 0457 SAMSON MOELLER MD Sep 10, 2016 10:37
[2016-09-10] MEDS: CEFEPIME 1GM/50 ML (PMX) 50 ML IVPB SCH (12:20)
--- NOTE | 2016-09-10 13:41 | PN ---
DATE: 09/10/2016 SUBJECTIVE: Unfortunately, despite fluid challenge patient's kidney function has worsened as creati nine is 5.25. In addition, the patient was seen by the speech therapist who stated that patient is coughing and there is high risk of aspiration. Diet was changed to pureed nectar thick liquids. In addition, chest x-ray shows diffuse interstitial ____ alveolar infiltrates unchanged as patient consuelo anderson upon presentation just presented with anemia with no signs or symptoms of pneumonia, but norberto use of his overall condition we will likely broaden his antibiotic spectrum as he is only on Rocephi n for UTI. OBJECTIVE: The patient lying in bed, overall comfortable. Case discussed with Dr. Brain jama the patient's worsening kidney function. VITAL SIGNS: Temperature 97.6, pulse 72, respirations 16, blood pressure 135/64, saturation 96% on room air. GENERAL: The patient is in no acute distress. Pale. CARDIOVASCULAR: S1 and S2. LUNGS: Mild rhonchi bilaterally. ABDOMEN: Soft, nontender. EXTREMITIES: Trace edema upper extremities. LABORATORY DATA: White count is 6.2, hemoglobin is 8.8, hematocrit 28, platelet count 150, neutroph ils 70%, lymphocytes 17%. Chemistry: Sodium 137, potassium 3.8, ____ 109, bicarbonate 18, BUN 50, creatinine 5.25, glucose of 99. Chest x-ray shows low lung volume with diffuse interstitial infiltr ate ____ which is unchanged since prior exam. MEDICATIONS: 1. Cefepime 1 gram q.12h. I just started that. He remains on normal saline at 50 mL an hour, whic h dose was decreased. 2. Minoxidil 5 mg daily. 3. Norvasc 5 mg b.i.d. 4. Catapres p.r.n. 5. Epogen 8008 q. Sunday, Sunday and Sunday. 6. Imdur 30 mg daily. 7. Hydralazine p.r.n. 8. Clonidine p.r.n. 9. Clonidine patch weekly. 10. Aspirin 81 mg daily. 11. Vitamin D 2000 daily. 12. Vitamin B12 1000 daily. 13. Cardizem-CD 120 daily. 14. Ferrous sulfate 325 daily. 15. Tradjenta 5 mg daily. 16. Multivitamin 1 tablet daily. 17. Synthroid 25 mcg daily. 18. Protonix 40 mg daily. 19. Accu-Chek q.a.c. and at bedtime. 20. Abilify 2 mg at bedtime. 21. Hydralazine 100 q.8h 22. Artificial tears b.i.d. 23. Remeron 15 at bedtime. 24. Flomax 0.4 b.i.d. 25. Hypoglycemic protocol as directed. 26. Zofran p.r.n. 27. Tylenol p.r.n. 28. Colace p.r.n. 29. Milk of magnesia p.r.n. ASSESSMENT AND PLAN: This is a very unfortunate 85-year-old male with history of diabetes mellitus, hypertension, dyslipidemia, CVA, atherosclerotic cardiovascular disease, atrial fibrillati on, osteoarthritis, diabetic neuropathy, anemia, dyslipidemia, hypothyroidism, BPH, CKD, who present ed with anemia and with worsening renal function. Also UTI, atrial fibrillation with slow ventricul ar rate, and elevated blood pressure. 1. Anemia. Continue Epogen as patient has anemia of chronic disease secondary to chronic kidney di sease. 2. Respiratory. The patient failed swallowing evaluation. He will be placed on a pureed nectar th ickened liquids. Will broaden ceftriaxone to more broad spectrum antibiotics to cefepime secondary to patient's immunocompromised state, retirement stay and possible treatment for aspiration pneumo noah. 3. Dysphagia. Continue current diet. 4. Cardiovascular. Blood pressure is now under control, may stop one of the calcium channel blocke r and Imdur as patient's blood pressure is now better with Minoxidil. 5. Physical therapy as tolerated. 6. Aspiration precautions. 7. Depression, on Remeron. 8. Diabetes mellitus, controlled on Tradjenta. 9. Urinary retention, observe possible residual followup is done. Dr. Ramirez is following. 10. Vascular. Patient to undergo likely Perm-A-Cath placement and AV fistula placement as patient will be initiated on dialysis and will definitely benefit from it. INDICATION: Acidosis, possible mild uremia and GFR now approaching less than 10. We will follow. Dictated By: ERIC PHILLIPS/ALLAN Conf#: [id number] DID#: [id number]
[2016-09-10 14:24] VITALS: BP 95/68; PULSE 66
[2016-09-10 14:32] VITALS: BP 122/56; PULSE 65; PULSE 66
[2016-09-10 19:09] VITALS: BP 150/67; RESP 18
[2016-09-10] MEDS: MIRTAZAPINE 15 MG TAB PO SCH (20:56)
[2016-09-10] MEDS: ARIPIPRAZOLE 2 MG TAB PO SCH (20:56)
[2016-09-11] VITALS (13 sets, daily range): BP systolic 98–163; BP diastolic 40–72; PULSE 67–86; RESP 16–20
[2016-09-11] MEDS: ACCUCHECK AT 2AM (Patients on SS coverage) XX SCH (00:34)
[2016-09-11] MEDS: PANTOPRAZOLE (EC) 40 MG TAB PO SCH (05:31)
[2016-09-11] MEDS: SOD CHLORIDE 0.9% 1,000 ML IV SCH (05:32)
[2016-09-11 05:48] LABS: ADD SCAN DIFF NO
[2016-09-11 06:07] LABS: BASOPHIL # 0.1 10^3/ul (0.0-0.1); EOSINOPHILS # 0.2 10^3/ul (0.0-0.5); EOSINOPHILS % 2.1 % (0.0-7.0); HEMATOCRIT 30.1 % (42.0-52.0); HEMOGLOBIN 9.5 g/dl (14.0-18.0); MEAN CORPUSCULAR HEMOGLOBIN 26.6 pg (29.0-33.0); MEAN CORPUSCULAR HGB CONC 31.6 g/dl (32.0-37.0); MEAN CORPUSCULAR VOLUME 84.3 fl (82.0-101.0); MEAN PLATELET VOLUME 9.5 fl (7.4-10.4); MONOCYTE # 0.6 10^3/ul (0.3-0.9); MONOCYTES % 8.5 % (0.0-11.0); NEUTROPHIL # 5.5 10^3/ul (1.6-7.5); PLATELET COUNT 183 10^3/UL (140-415); RED BLOOD COUNT 3.57 10^6/ul (4.70-6.10); RED CELL DISTRIBUTION WIDTH 16.6 % (11.5-14.5); WHITE BLOOD COUNT 7.3 10^3/ul (4.8-10.8)
[2016-09-11] MEDS: LEVOTHYROXINE 25 MCG TAB PO SCH (06:15)
[2016-09-11 06:23] LABS: CALCIUM 8.4 mg/dl (8.4-10.2); CREATININE 5.24 mg/dl (0.61-1.24); MAGNESIUM 2.5 mg/dl (1.7-2.5); PHOSPHORUS 5.6 mg/dl (2.5-4.9)
--- NOTE | 2016-09-11 06:41 | PN ---
DATE: 09/08/2016 CARDIOLOGY FOLLOWUP SUBJECTIVE: Discussed with the staff. Rhythm strip was reviewed. The patient has converted back t o sinus rhythm and remains in sinus rhythm. Heart rate has remained stable. Blood pressure has rem ained stable as well. Denies any chest pain or pressure. Denies palpitations. Discussed with the family at the bedside. MEDICATIONS: Reviewed. PHYSICAL EXAMINATION: VITAL SIGNS: Temperature 99, heart rate of 72, blood pressure 127/61, respiratory rate 18, saturati ng 98%. HEENT: Normocephalic, atraumatic. In no acute distress. CARDIOVASCULAR: Regular rate and rhythm, a systolic murmur. PULMONARY: With no wheezes or rhonchi. GASTROINTESTINAL: Soft, nontender. EXTREMITIES: No significant lower extremity edema. NEUROLOGIC: Awake, responds appropriately to person and place. PSYCHIATRIC: Appears to be calm now. LABORATORY: Sodium 136, potassium 3.7, BUN of 50, creatinine 4.58, glucose of 120. ASSESSMENT AND PLAN: 1. Renal failure, acute on chronic. 2. Hypertension. Currently better controlled, on multiple medications. 3. Paroxysmal atrial fibrillation. 4. Sick sinus syndrome, with sinus tristan. 5. Anemia. Question of upper GI bleed. 6. Encephalopathy. RECOMMENDATIONS: We will continue with the current cardiac care. He is without access and being pl anned by surgery as well. Dictated By: ISH CARDENAS MD AV/ALLAN Conf#: [id number] DID#: [id number] CC: ERIC STEVENS MD;*EndCC*
--- NOTE | 2016-09-11 06:43 | PN ---
DATE: 09/09/2016 CARDIOLOGY FOLLOWUP SUBJECTIVE: The patient has been taken off of telemetry. Denies any chest pressure or palpitation. The patient's blood pressure has remained stable. MEDICATIONS: Reviewed. PHYSICAL EXAMINATION: VITAL SIGNS: Temperature 97.6, heart rate of 66, blood pressure 131/____, respirations 18, saturati ng 96%. HEENT: Normocephalic, atraumatic. Pupils are equal. CARDIOVASCULAR: Regular rate and rhythm. PULMONARY: With no wheezes anteriorly. GASTROINTESTINAL: Soft, nontender. EXTREMITIES: With trivial edema. NEUROLOGIC: Awake, responds appropriately. Oriented to person only. PSYCHIATRIC: Appeared to be calm. LABORATORY: WBC 8.2, hemoglobin 9, platelets of 146. Sodium 137, potassium 3.9, BUN of ____, creat inine of 4.9, glucose of 93. ASSESSMENT AND PLAN: 1. Paroxysmal atrial fibrillation, currently appears to be back in sinus rhythm. 2. Hypertension, currently stable on multiple medications. 3. Acute renal failure on chronic kidney disease. 4. Sick sinus syndrome with episode of marked bradycardia, currently remains stable. 5. Anemia, possible gastrointestinal bleed, off of anticoagulation. 6. Encephalopathy. RECOMMENDATIONS: We will continue with the current blood pressure medication. Aspirin will be cont inued as tolerated. Transfusion p.r.n. will be given. Followup the renal function. Dictated By: ISH CARDENAS MD AV/ALLAN Conf#: [id number] DID#: [id number] CC: ERIC STEVENS MD;*End*
--- NOTE | 2016-09-11 06:44 | PN ---
DATE: 09/10/2016 CARDIOLOGY FOLLOWUP SUBJECTIVE: Discussed with the staff, discussed with Dr. Moeller. The patient with no reported c hest pain or pressure noted. Still confused. MEDICATIONS: Reviewed. PHYSICAL EXAMINATION: VITAL SIGNS: Temperature 97.6, heart rate of 72, blood pressure 135/64, respiratory rate 18. HEENT: Normocephalic, atraumatic. In no acute distress. Thin gentleman. CARDIOVASCULAR: Regular rate and rhythm, systolic murmur. PULMONARY: With no wheezes heard. GASTROINTESTINAL: Soft, nontender. EXTREMITIES: With no significant lower extremity edema. NEUROLOGIC: Awake, responds appropriately, oriented to person. PSYCHIATRIC: Appears to be calm. LABORATORY: WBC of 6.2, hemoglobin 8.8, platelet 150. Sodium 137, potassium 3.8, BUN of 50, creati nine of 5.25, glucose of 98. ASSESSMENT AND PLAN: 1. Cardiovascular preop evaluation for AV fistula placement. 2. Renal failure, acute on chronic. 3. Hypertension, under good control now. 4. Paroxysmal atrial fibrillation. 5. Sick sinus syndrome and episodes of bradycardia, currently stable. 6. Anemia. 7. Dementia, encephalopathy. RECOMMENDATIONS: The patient is optimized and stable from the cardiac standpoint for the AV fistula placement. No further cardiac workup would be indicated. His blood pressure currently ____ good c ontrol and no signs of fluid overload noted. No further cardiac workup would be needed prior to the AV fistula placement. Continue with the current blood pressure medication up to and including the day of surgery. Dictated By: ISH CARDENAS MD AV/NTS Conf#: [id number] DID#: [id number] CC: ERIC STEVENS MD; SAMSON MOELLER MD;*End*
--- NOTE | 2016-09-11 07:49 | PN ---
DATE: 09/09/2016 SUBJECTIVE: The patient's kidney function has improved today. I did give him a fluid challenge. In addition, the nursing staff reports that the patient did not like his soft diet, as it was too dry. Previously he had a history of dysphagia, so I will actually downgrade his diet to pureed diet, wh ich may be more pleasant for him and we will ask speech therapy to follow. I left a message with th e patient's daughter, her name is Angela, her phone number is [phone]. I left a message on this number, . I appreciate Dr. Hannah's vascular input. PHYSICAL EXAMINATION VITAL SIGNS: Temperature 97.6, pulse 66, respirations 18, blood pressure 131/63, saturation 96% on room air. GENERAL: The patient in no acute distress. The patient is pale, overweight. CARDIOVASCULAR: S1 and S2. LUNGS: Faint rhonchi at the bases. ABDOMEN: Soft, nontender. EXTREMITIES: There is trace edema of lower extremities. The patient is overall very weak in the lo wer extremity with limited mobility. LABORATORY DATA: White count is 8.2, hemoglobin is 9, hematocrit is 28, platelet count 146, neutrop hils 75%, lymphocytes 14%. Chemistry: Sodium 137, potassium 3.9, chloride 108, bicarbonate is 18, BUN is 52, creatinine 4.91 and glucose of 93. Last glucose levels 121 and 115. Again, urine cultur e shows multiple organisms, all sensitive to cefotaxime. MEDICATIONS: Reviewed, include the followin. Normal saline at 70 mL an hour. 2. Minoxidil 5 mg daily. 3. Norvasc 5 mg b.i.d. 4. Ceftriaxone 1 gram q.24h. 5. Catapres 0.1 p.r.n. 6. Epogen 8000 q. Sunday, Sunday, Sunday. 7. Imdur 30 mg daily. 8. Hydralazine p.r.n. 9. Catapres p.r.n. 10. Clonidine patch TTS 1 q.7 days. 11. Aspirin 81 mg daily. 12. Vitamin D 2000 daily. 13. Vitamin B12 1000 daily. 14. Cardizem-CD 120 daily. 15. Ferrous sulfate 325 daily. 16. Tradjenta 5 mg daily. 17. Multivitamin 1 tablet daily. 18. Synthroid 25 mcg daily. 19. Protonix 40 mg daily. 20. Hydralazine 100 t.i.d. 21. Abilify 2 mg at bedtime. 22. Eye lubricants b.i.d. 23. Remeron 15 at bedtime. 24. Flomax 0.4 b.i.d. 25. Hypoglycemia protocol as directed. 26. Zofran p.r.n. 27. Tylenol p.r.n. 28. Colace. 29. Milk of magnesia p.r.n. 30. Tylenol p.r.n. 31. Colace p.r.n. 32. Ambien p.r.n. ASSESSMENT AND PLAN: This is an 85-year-old male with history of diabetes mellitus, hypert ension, dyslipidemia, cerebrovascular accident, atherosclerotic cardiovascular disease, atrial fibri llation, osteoarthritis, diabetic neuropathy, anemia, dyslipidemia, hypothyroidism, benign prostatic hypertrophy, chronic kidney disease, who presented with anemia, was found to have acute on chronic renal insufficiency, urinary tract infection, atrial fibrillation with slow ventricular rate and catia vated blood pressure. 1. Anemia, status post transfusion, now on Epogen. Hemoglobin and hematocrit is stable, but overall since he is now receiving fluids, his H and H is dropping, so we will monitor. Currently no eviden ce of bleeding. 2. Respiratory. Monitor fluid overload status The patient is currently receiving fluid challenge. Oxygen p.r.n. as kidney function is improving. 3. Acute renal failure, likely partly secondary to diuresis and dehydration. Responded to fluids, but overall he is predialysis and definitely would benefit from AV fistula placement, as patient has a tendency for congestive heart failure and also has acidosis and possible mild uremia, etc. 4. Hypertension, now controlled with all the above medication, especially with the addition of Rusty xidil. 5. Urinary tract infection, remains on Rocephin. We will treat for at least 7 days. 6. Physical therapy as tolerated. 7. Depression, on Remeron. 8. Diabetes mellitus. Continue Tradjenta. Accu-Cheks are in the low 100s. 9. Downgrade diet to pureed diet to see if he eats it more. Case discussed with nursing staff in d etail. In addition, speech therapy to follow and to monitor for safety. Overall, long-term prognos is remains guarded. Again, patient may need to start dialysis soon. Continue to monitor him closel y. Dictated By: ERIC PHILLIPS/ALLAN Conf#: [id number] DID#: [id number]
[2016-09-11] MEDS: INSULIN ASPART [NOVOLOG] 3 ML PEN SC SCH ×4 (08:15→23:38)
--- NOTE | 2016-09-11 08:47 | PN ---
DATE: 09/11/2016 SUBJECTIVE: The patient is currently n.p.o. and scheduled for a PermCath placement and AV fistula. No other acute events noted. No hemoptysis, hematemesis, or hematochezia. OBJECTIVE: VITAL SIGNS: Blood pressure is 163/72, respirations are 18, pulse 69, temperature 98.8. HEENT: Head is normocephalic. Pupils are reactive to light. NECK: Supple. HEART: Regular rate. LUNGS: Show diminished breath sounds at the base. ABDOMEN: Soft, nontender to palpation, no rebound or guarding. EXTREMITIES: Negative for clubbing, cyanosis, no edema. DERMATOLOGIC: No rashes. MUSCULOSKELETAL: No joint effusions. NEUROLOGIC: No change in exam. MEDICATIONS: Reviewed. LABORATORY DATA: Shows sodium 138, potassium 4.0, chloride 110, BUN 33, creatinine 5.24. White cou nt 7.3, hemoglobin 9.5, hematocrit 30.1, platelet count is 183. ASSESSMENT AND PLAN: 1. Nonoliguric acute kidney injury on top of chronic kidney disease stage IV with previous baseline creatinine 1 year ago of 2.6 mg/dL. Etiology of current acute kidney injury is secondary to acute tubular necrosis with progression of underlying chronic kidney disease. The patient's current EGFR is around 10 mL per minute. Given this patient's confusion and uremic symptoms, the patient would b enefit from initiating hemodialysis. The patient is scheduled for a PermCath and AV fistula placeme nt today. Once PermCath is placed, will initiate the patient on dialysis. We will also arrange for outpatient dialysis at [facility] in front of [facility]. 2. Access. The patient is pending arteriovenous fistula placement and PermCath placement. 3. Hypertension. Continue current blood pressure regimen. 4. Anemia. Continue to monitor hemoglobin and hematocrit levels. 5. Mineral bone disorder. Continue to monitor calcium and phosphorus levels. 6. Encephalopathy, etiology is toxic-metabolic, uremic. Continue to monitor. 7. Atrial fibrillation, rate controlled. Continue medical management. 8. Diabetes. Continue Accu-Cheks and insulin sliding scale. 9. BPH. Continue to monitor. 10. Coronary artery disease. Continue current treatment plan. 11. Urinary retention. Continue to monitor. Follow up with urology. Dictated By: TRACE PETE DO NR/ALLAN Conf#: [id number] [facility]#: [id number]
[2016-09-11] MEDS: ARTIFICIAL TEARS 15 ML OPH BOTH EYES SCH ×2 (08:59→23:38)
[2016-09-11] MEDS: CHOLECALCIFEROL 2,000 UNIT CAP PO SCH (09:00)
[2016-09-11] MEDS: CYANOCOBALAMIN 500 MCG TAB PO SCH (09:00)
[2016-09-11] MEDS: DILTIAZEM (CD) 120 MG CAP PO SCH (09:01)
[2016-09-11] MEDS: FERROUS SULFATE (EC) 325 MG TAB PO SCH (09:02)
[2016-09-11] MEDS: MINOXIDIL 2.5 MG TAB PO SCH (09:02)
[2016-09-11] MEDS: LINAGLIPTIN 5 MG TABLET PO SCH (09:02)
[2016-09-11] MEDS: MULTIVITAMINS THERAPEUTIC TAB PO SCH (09:02)
[2016-09-11] MEDS: ASPIRIN 81 MG TAB PO SCH (09:02)
[2016-09-11] MEDS: TAMSULOSIN (SR) 0.4 MG CAP PO SCH ×2 (09:02→23:37)
[2016-09-11] MEDS: AMLODIPINE 5 MG TAB PO SCH ×2 (09:02→23:37)
[2016-09-11 09:44] LABS: HAAIG REFLEX REFLEX FILED
[2016-09-11] MEDS: CEFEPIME 1GM/50 ML (PMX) 50 ML IVPB SCH (12:29)
[2016-09-11 16:41] LABS: HEPATITIS B CORE ANTIBODY NEGATIVE (NEGATIVE)
[2016-09-11] MEDS ORDERED: LIDOCAINE 1% (MDV) 20 ML INJ ONE (17:39)
[2016-09-11] MEDS ORDERED: FENTAnyl 50 MCG/ML VIAL ONE (17:39)
[2016-09-11] MEDS ORDERED: LIDOCAINE 2% (SDV) 5 ML INJ ONE (17:39)
[2016-09-11] MEDS ORDERED: GELATIN SIZE 100 SPONGE ONE ×2 (17:40→18:09)
[2016-09-11] MEDS ORDERED: LIDOCAINE 1% (STERILE-PAK) 30 ML INJ ONE (17:40)
[2016-09-11] MEDS ORDERED: ROPIVACAINE 0.5 % 30 ML VIAL ONE (17:40)
[2016-09-11] MEDS ORDERED: HEPARIN 1000 UNITS/ML 10 ML INJ ONE ×2 (17:40→19:40)
[2016-09-11] MEDS ORDERED: PROPOFOL 100 ML ONE (17:40)
[2016-09-11] MEDS ORDERED: THROMBIN 5000 UNIT VIAL ONE (17:40)
[2016-09-11] MEDS ORDERED: hydrALAzine 20 MG INJ IV PRN (18:00)
[2016-09-11] MEDS ORDERED: DIPHENHYDRAMINE 50 MG INJ IV PRN (18:00)
[2016-09-11] MEDS ORDERED: EPHEDrine SULFATE 50 MG/5 ML SYG IV PRN (18:00)
[2016-09-11] MEDS ORDERED: PROCHLORPERAZINE 10 MG INJ IV PRN (18:00)
[2016-09-11] MEDS ORDERED: ONDANSETRON 4 MG INJ IV PRN (18:00)
[2016-09-11] MEDS ORDERED: LABETALOL HCL 20MG INJ IV PRN (18:00)
[2016-09-11] MEDS ORDERED: MEPERIDINE 25 MG INJ IV PRN (18:00)
[2016-09-11] MEDS ORDERED: FENTAnyl 50 MCG/ML VIAL IV PRN (18:00)
[2016-09-11] MEDS ORDERED: OXYCODONE/ACETAMINOPHEN (5/325) TAB PO PRN (18:00)
[2016-09-11] MEDS ORDERED: ROCURONIUM 50 MG INJ ONE (18:33)
[2016-09-11] MEDS ORDERED: EPHEDrine SULFATE 50 MG/5 ML SYG ONE (18:33)
[2016-09-11] MEDS ORDERED: ONDANSETRON 4 MG INJ ONE (19:15)
[2016-09-11] MEDS ORDERED: DEXAMETHASONE 4 MG/ML 1 ML INJ ONE (19:16)
[2016-09-11] MEDS ORDERED: PHENYLephrine (100 MCG/ML) 5ML SYG ONE (19:40)
[2016-09-11] MEDS ORDERED: BUPIVACAINE 0.25% (MPF) 30 ML INJ ONE (20:14)
--- NOTE | 2016-09-11 20:34 | OPR ---
Date/Time of Note Date/Time of Note DATE: 09/11/16 TIME: 20:32 Operative Report Free Text/Dictation DATE OF OPERATION: 03/07/2017 SURGEON: Tariq Moeller MD PREOPERATIVE DIAGNOSIS: Chronic kidney disease stage V, impending ESRD POSTOPERATIVE DIAGNOSIS: Tariq PROCEDURE: Creation of a left arm brachiocephalic arteriovenous fistula. ANESTHESIA: MAC and Local COMPLICATIONS: None. ESTIMATED BLOOD LOSS: Minimal. TRANSFUSIONS: None SPECIMEN: None. INDICATIONS: This is a 86-year-old male with a history of impending end-stage renal artery disease. The risks and benefits of the procedure were discussed with the patient and not limited to , [place], pneumonia, stroke, infection, thrombosis of graft and arteriovenous fistula, nerve injury, limb loss, revisions of AVF, steal and she elected to undergo surgical intervention. DESCRIPTION: The patient was placed in supine position on the operating room table. The arms were placed at 80 degrees. The normal bony prominences were padded. The anesthesia team had placed the appropriate lines and anesthesia was induced. Time out performed and the appropriate site was marked and confirmed. The patient's upper extremity prepped and draped in the usual standard sterile fashion. Preoperative antibiotics were administered prior to the skin incision since the patient already had been on antibiotics. A 6 cm transverse skin incision was then performed below the antecubital fossa. The cephalic vein was identified and dissected for a segment of nearly 5 cm. Dissection was then carried as distally as possible through that incision. Attention was then directed to the brachial artery. The tendinous aponeurosis of the biceps muscle was then incised. Location of the brachial artery was then identified by palpation. The soft tissue over the brachial artery was then incised, and the brachial artery was then confirmed. The patient was given 2500 units of heparin intravenously. The cephalic vein was then ligated at its most distal end. Yasargil clamps were then applied on the brachial artery, and a 6 mm incision in the anterior wall of the brachial artery was then performed. The cephalic vein was then gently curved and allowed to lay over the arteriotomy. The end of the vein was spatulated to match the side of the arteriotomy. The anastomosis was then performed using a running 6-0 Prolene suture. At the completion of the suture line the brachial artery was forward-flushed and then allowed to backbleed. The cephalic vein was also allowed to backbleed. The anastomosis was irrigated with heparinized saline solution. The suture was then tied and the suture line evaluated for hemostasis, which was adequate. There was evidence of excellent thrill in the cephalic vein. There was a strong pulse palpable in the brachial, radial, and ulnar arteries at the wrist. There was no evidence of any kinks. The subcutaneous tissue was then closed with a 3-0 Vicryl running suture and the skin closed with paul. There was evidence of excellent thrill in the cephalic vein after the wound closure. The patient tolerated the procedure well, was taken to the postanesthesia care unit in stable condition. All instruments, catheters, sponge, and needles were corrected x2. TARIQ MOELLER MD Sep 11, 2016 20:34
[2016-09-11] MEDS: MIRTAZAPINE 15 MG TAB PO SCH (23:37)
[2016-09-11] MEDS: ARIPIPRAZOLE 2 MG TAB PO SCH (23:38)
[2016-09-12] VITALS (26 sets, daily range): BP systolic 120–167; BP diastolic 58–89; PULSE 68–82; RESP 12–20
[2016-09-12] MEDS: PANTOPRAZOLE (EC) 40 MG TAB PO SCH (06:00)
[2016-09-12] MEDS: ACCUCHECK AT 2AM (Patients on SS coverage) XX SCH (06:05)
[2016-09-12] MEDS: SOD CHLORIDE 0.9% 1,000 ML IV SCH (06:07)
--- NOTE | 2016-09-12 06:35 | PN ---
DATE: 09/11/2016 CARDIOLOGY FOLLOWUP SUBJECTIVE: No new cardiac event. No chest pain or pressure. The patient ____ access placement. Discussed with the staff. MEDICATIONS: Reviewed. PHYSICAL EXAMINATION: VITAL SIGNS: Temperature 98.8, heart rate of 72, blood pressure 149/70, respiration rate of 16. HEENT: Normocephalic. CARDIOVASCULAR: Regular rate and rhythm. PULMONARY: With no wheezes heard. GASTROINTESTINAL: Soft, nontender. EXTREMITIES: No edema. NEUROLOGIC: Awake. PSYCHIATRIC: Calm. LABORATORY: WBC of 7.3, hemoglobin 9.5, platelets 183. Sodium 138, potassium 4, BUN of 53, creatin ine of 5.2____, glucose of 125. ASSESSMENT AND PLAN: 1. Hypertension, currently under good control. 2. Renal failure, pending dialysis. 3. Cardiovascular preoperative evaluation without access placement ____ 4. History of paroxysmal atrial fibrillation, currently in sinus rhythm, marked sinus bradycardia, currently stable. 5. Anemia. 6. Dementia 7. Encephalopathy. RECOMMENDATIONS: We will continue with the current cardiac care. The patient is awaiting hemodialy sis access placement. Blood pressure currently very good control on the current regimen. Dictated By: ISH DICKEY/ALLAN Conf#: [id number] DID#: [id number]
[2016-09-12 06:44] LABS: CALCIUM 8.5 mg/dl (8.4-10.2); CREATININE 5.48 mg/dl (0.61-1.24); MAGNESIUM 2.4 mg/dl (1.7-2.5); PHOSPHORUS 6.8 mg/dl (2.5-4.9)
[2016-09-12] MEDS: LEVOTHYROXINE 25 MCG TAB PO SCH (06:52)
--- NOTE | 2016-09-12 07:06 | PN ---
DATE: 09/11/2016 SUBJECTIVE: Patient seen. The patient is anxious as he is n.p.o. for AV fistula and hemodialysis Pe rm-A-Cath placement. Patient otherwise with no acute distress. PHYSICAL EXAMINATION: VITAL SIGNS: Temperature 98.8, pulse 67, respirations 18, blood pressure 129/70, saturation 96%. GENERAL: The patient is in no acute distress, anxious, pale. CARDIOVASCULAR: S1 and S2. LUNGS: Clear. ABDOMEN: Soft, nontender. EXTREMITIES: Trace edema lower extremities. LABORATORY DATA: White count is 7.3, hemoglobin 9.5, hematocrit 30, platelet count 183, neutrophils 75%, lymphocytes 13%. Chemistry: Sodium 138, potassium 4.0, chloride 110, bicarbonate 18, BUN 53, creatinine 5.24, glucose 125. Last glucose level 113 and 123, good glycemic control. MEDICATIONS: Reviewed include: 1. Cefepime 1 gram every 24 hours with possible pneumonia. 2. Normal saline at 60 mL an hour. 3. Minoxidil 5 mg daily. 4. Norvasc 5 mg b.i.d. 5. Catapres p.r.n. 6. Epogen 8000 units Sunday, Sunday and Sunday. 7. Hydralazine p.r.n. 8. Catapres p.r.n. 9. Clonidine patch TTS 1 every 7 days. 10. Aspirin 81 mg daily. 11. Vitamin D 2000 units daily. 12. Vitamin B12 1000 daily. 13. Cardizem-CD 120 daily. 14. Ferrous sulfate ____ daily. 15. Tradjenta 5 mg daily. 16. Multivitamin 1 tablet daily. 17. Synthroid 25 mcg daily. 18. Protonix 20 mg daily. 19. Accu-Chek q.a.c. and at bedtime. 20. Hydralazine 100 q.8h. 21. Abilify 2 mg at bedtime. 22. Eye lubricants b.i.d. 23. Remeron 15 at bedtime. 24. Flomax 0.4 b.i.d. 25. Hypoglycemia protocol p.r.n. ASSESSMENT AND PLAN: This is an 86-year-old male with history of diabetes mellitus, hypert ension, dyslipidemia, CVA, ____ cardiovascular disease, atrial fibrillation, osteoarthritis, diabet ic neuropathy, anemia, dyslipidemia, hypothyroidism, BPH, CKD, who presented with anemia, acute on c hronic renal failure, UTI, AFib and possible pneumonia. 1. Anemia, status post transfusion. Continue Epogen. 2. Acute renal failure, not improved with fluid challenge as patient unfortunately is progressing a s he is stage V CKD. The patient will be initiated on dialysis. AV fistula to be placed as well as a Perm-A-Cath. The patient has acidosis with tendency for fluid overload. 3. Hypertension. Continue above medications. Blood pressure is better controlled. 4. Urinary tract infection and pneumonia. Continue cefepime. Continue aspiration precautions, now diet is puree nectar thickened liquids secondary to dysphagia. 5. Physical therapy as tolerated. 6. Depression. Continue Remeron. 7. Diabetes mellitus, well controlled. Once dialysis was initiated and the facility is found for dialysis patient can be discharged back to the residential facility. We will follow. Dictated By: ERIC PHILLIPS/ALLAN Conf#: [id number] DID#: [id number]
[2016-09-12] MEDS: INSULIN ASPART [NOVOLOG] 3 ML PEN SC SCH ×4 (08:30→20:42)
[2016-09-12] MEDS: ARTIFICIAL TEARS 15 ML OPH BOTH EYES SCH ×2 (08:34→20:37)
[2016-09-12] MEDS: MULTIVITAMINS THERAPEUTIC TAB PO SCH (09:00)
[2016-09-12] MEDS: CYANOCOBALAMIN 500 MCG TAB PO SCH (09:00)
[2016-09-12] MEDS: MINOXIDIL 2.5 MG TAB PO SCH (09:00)
[2016-09-12] MEDS: CHOLECALCIFEROL 2,000 UNIT CAP PO SCH (09:00)
[2016-09-12] MEDS: AMLODIPINE 5 MG TAB PO SCH ×2 (09:00→22:29)
[2016-09-12] MEDS: ASPIRIN 81 MG TAB PO SCH (09:00)
[2016-09-12] MEDS: LINAGLIPTIN 5 MG TABLET PO SCH (09:00)
[2016-09-12] MEDS: TAMSULOSIN (SR) 0.4 MG CAP PO SCH ×2 (09:00→20:38)
[2016-09-12] MEDS: DILTIAZEM (CD) 120 MG CAP PO SCH (09:00)
[2016-09-12] MEDS: FERROUS SULFATE (EC) 325 MG TAB PO SCH (09:00)
--- NOTE | 2016-09-12 11:27 | PN ---
DATE: 09/12/2016 SUBJECTIVE: The patient had an AV fistula placed. The patient is pending PermCath placement follow ing which the patient will be initiated on hemodialysis. No other acute events noted. OBJECTIVE: VITAL SIGNS: Blood pressure is 138/60, respirations 20, pulse 78, temperature 98.8. HEENT: Head is normocephalic. NECK: Supple. HEART: Regular rate. LUNGS: Show diminished breath sounds at the bases. ABDOMEN: Soft, nontender to palpation. No rebound or guarding. EXTREMITIES: Negative for clubbing, cyanosis. Trace edema. DERMATOLOGIC: No rashes. MUSCULOSKELETAL: No joint effusions. NEUROLOGIC: No change in exam. MEDICATIONS: The patient's medications have been reviewed. LABORATORY DATA: Sodium 139, potassium 5.0, BUN 54, creatinine .48. White count 7.3, hemoglob in 9.5, hematocrit 30.1, platelet count is 183. ASSESSMENT AND PLAN: 1. Nonoliguric acute kidney injury on top of chronic kidney disease stage IV with previous baseline creatinine around 2.6 mg/dL. The etiology of current acute kidney injury is secondary to acute tub ular necrosis with possible progression of underlying CKD. The patient is pending hemodialysis once PermCath is placed as patient has uremic symptoms. The patient is status post AV fistula placement . Plan is for PermCath placement and will start the patient on dialysis for 2 hours once acces s is obtained. We will anticipate dialysis daily for solute clearance and volume removal. 2. Access. The patient is status post AV fistula placement, pending PermCath placement. 3. Hypertension. Continue current blood pressure regimen. 4. Anemia. Continue to monitor hemoglobin and hematocrit levels. 5. Mineral bone disorder. Continue to monitor calcium and phosphorus levels. 6. Encephalopathy. Etiology is toxic metabolic, uremic. Continue to monitor. 7. Atrial fibrillation, rate controlled. Continue medical management. 8. Diabetes. Continue Accu-Cheks and insulin sliding scale. 9. Benign prostatic hypertrophy. Continue to monitor. 10. Coronary artery disease. Continue current treatment plan. 11. Urinary retention. Follow up with urology. Dictated By: TRACE LEVI/ALLAN Conf#: [id number] DID#: [id number]
[2016-09-12] MEDS: CEFEPIME 1GM/50 ML (PMX) 50 ML IVPB SCH (12:13)
[2016-09-12] MEDS ORDERED: HEPARIN 1000 UNITS/ML 10 ML INJ ONE (15:28)
[2016-09-12] MEDS ORDERED: SOD CHLORIDE 0.9% 500 ML ONE ×2 (15:28→18:49)
[2016-09-12] MEDS ORDERED: LIDOCAINE 1% (MDV) 20 ML INJ ONE (15:28)
--- NOTE | 2016-09-12 15:37 | PN ---
DATE: 09/12/2016 Patient is status post left upper extremity brachiocephalic AV fistula. The patient tolerated the p rocedure well. Now awaiting PermCath for initiation of dialysis and after line placement, dialysis will be done. Patient placed in restraints due to danger to hurting himself, to pull his IV line. Case discussed with nursing staff. PHYSICAL EXAMINATION: VITAL SIGNS: Temperature 97.8, pulse 72, respirations 18, blood pressure 147/60, saturation 99% on 2 liters. GENERAL: The patient is in no acute distress. HEENT: Nasal cannula is in place. CARDIOVASCULAR: S1 and S2. LUNGS: Faint rhonchi bilaterally. ABDOMEN: Soft, nontender. EXTREMITIES: Upper extremity +1 edema lower extremity trace edema. LABORATORY DATA: White count is 7.3, hemoglobin is 9.5, hematocrit 30, platelet count 183 and that one was from yesterday. Today, the basic metabolic panel: Sodium 139, potassium 5.0, chloride 111, bicarbonate 14, BUN is 54, creatinine 5.4, glucose of 199. Last glucose level of 175 at 12:20 p.m. MEDICATIONS: Reviewed the followin. Cefepime 1 gram q.24h. 2. Minoxidil 5 mg daily. 3. Norvasc 5 mg b.i.d. 4. Catapres p.r.n. 5. Epogen every Sunday, Sunday and Sunday 8000 units. 6. Hydralazine 10 mg IV q.4h. p.r.n. 7. Clonidine 0.1 q.4h. p.r.n. for systolic greater than 160 and clonidine patch TTS 1 q weekly. 6. Aspirin 81 mg daily. 7. Vitamin D 2000 daily. 8. Vitamin B12 1000 daily. 9. Cardizem-CD 120 daily. 10. Ferrous sulfate 25 daily. 11. Tradjenta 5 mg daily. 12. Multivitamin 1 tablet daily. 13. Synthroid 25 mcg daily. 14. Protonix 40 mg daily. 15. Accu-Chek q.a.c. and at bedtime. 16. Remeron 15 mg at bedtime or as directed. 17. Abilify 2 mg at bedtime. 18. Hydralazine 100 mg q.8 hours. 19. Flomax 0.4 b.i.d. 20. b.i.d. 21. Hypoglycemia protocol p.r.n. meds were all reviewed. Multiple meds were held. This patient is n.p.o. for procedure and dialysis later. ASSESSMENT AND PLAN: This is an 86-year-old male with history of diabetes mellitus, hypert ension, dyslipidemia, cerebrovascular accident, atrial fibrillation, osteoarthritis, diabetic neurop athy, anemia, dyslipidemia, hypothyroidism, benign prostatic hypertrophy and chronic kidney disease who presented with anemia, acute on chronic renal failure, urinary tract infection, atrial fibrillat ion with possible pneumonia, now status post transfusion. 1. Anemia. Monitor hemoglobin and hematocrit, status post transfusion. Continue Epogen. 2. Acute renal failure, unfortunately progressed. Failed fluid challenge and now has acidosis and slight fluid overload state, possible uremia. The patient's arteriovenous fistula was placed, await ing PermCath and patient will start on dialysis. 3. Hypertension. Continue above medications. May hold prior to dialysis and procedure. 4. Urinary tract infection and pneumonia. Continue cefepime. The patient is afebrile. White coun t is normal. May followup chest x-ray in a few days after a few sessions of dialysis. 5. Depression. Continue Remeron. 6. Physical therapy as tolerated. 7. Diabetes mellitus. Continue Tradjenta, insulin sliding scale for now. DISPOSITION: Soon. Dictated By: ERIC PHILLIPS/ALLAN Conf#: [id number] DID#: [id number]
[2016-09-12] MEDS ORDERED: CEFAZOLIN 1 GM/50 ML (PMX) 50 ML IVPB ONE (16:28)
[2016-09-12] MEDS ORDERED: FENTAnyl 50 MCG/ML VIAL ONE (16:28)
[2016-09-12] MEDS ORDERED: MIDAZOLAM 1 MG/ML 2 ML INJ ONE (16:28)
--- NOTE | 2016-09-12 17:42 | RADRPT ---
PROCEDURE: PLACEMENT OF RIGHT INTERNAL JUGULAR VENOUS TUNNELED DIALYSIS CATHETER. CLINICAL INDICATION: Renal failure. TECHNIQUE: Prior to the procedure, informed consent was obtained. Risks including bleeding, infection, and pneu mothorax were explained to the patient and/or the patient's family. The patient and/or the patient's family understood and was willing to proceed. A procedural pause was performed. The patient's name, date of , and procedure to be performed were verified. The central line was inserted with all elements of maximal sterile barrier technique. All of the following were used: head covering, facial mask, sterile gown, sterile gloves, a large sterile sheet, hand hygiene, and 2% chlorhexidine for cutaneous antisepsis. The right neck and anterior/superior chest wall was prepped and draped in usu al sterile fashion. Limited sonography of the right neck was then performed. Noted is a patent right internal jugular ve in. Ultrasound images were recorded and stored in the patient's medical record. Following the local injection of Xylocaine, the right internal jugular vein was punctured under sono graphic guidance with a 20-gauge needle through which a 0.018 inch floppy tip guidewire was advanced into the superior vena cava. The tract was dilated to 5 Telugu and the wire was then replaced with a 0.035 in Amplatz guidewire. A tunnel was then created from the anterior lateral aspect of the sup erior right chest wall to the puncture site in the neck and the catheter was pulled through the trac t. Serial dilatation was then performed and a 16 Telugu peel away sheath was introduced. The 14.5 Telugu 23cm tip to cuff Angiodynamics BioFlo DuraMax dialysis catheter was advanced through the 16 F rench peel-away sheath. The tip of the catheter was confirmed in position within the right atrium. T he peel-away sheath was removed. The 2 ports were each flushed with 2.3 ml of 1:1000 heparin. The c atheter was secured to the skin with 2-0 silk. The wound in the neck was closed with 4-0 Vicryl suture using subcuticular running technique. The site was dressed. The patient tolerated the proce dure well. COMPARISON: None. FINDINGS: Final radiographic images demonstrate the tip of the catheter in the upper right atrium. A total of 19.6 seconds of fluoroscopy time was used. The ultrasound images demonstrate the needle entering t he jugular vein. Ultrasound images were recorded and stored in the patient's medical record. IMPRESSION: 1. Percutaneous insertion of right internal jugular dialysis tunneled dialysis catheter under fluoro scopic and sonographic guidance. RPTAT: QQ .Moody Corona MD, MD Date Time Electronically viewed and signed by .Moody Corona MD, MD on 09/12/2016 17:42 .R/
--- NOTE | 2016-09-12 17:43 | RADRPT ---
PROCEDURE: Ultrasound guidance for placement of needle in right internal jugular vein. CLINICAL INDICATION: Venous access. TECHNIQUE: Prior to the procedure, informed consent was obtained. Risks including bleeding, infection, and pneu mothorax were explained to the patient. The patient understood and was willing to proceed. A procedu ral pause was performed. The patient's name, date of , and procedure to be performed were verif ied. The central line was inserted with all elements of maximal sterile barrier technique. All of th e following were used: head covering, facial mask, sterile gown, sterile gloves, a large sterile she et, hand hygiene, and 2% chlorhexidine for cutaneous antisepsis. The right neck and anterior/super ior chest wall was prepped and draped in usual sterile fashion. Limited sonography of the right neck was then performed. Noted is a patent right internal jugular ve in. Ultrasound images were recorded and stored in the patient's medical record. Following the local injection of Xylocaine, the right internal jugular vein was punctured under sono graphic guidance with a 20-gauge needle through which a 0.018 inch floppy tip guidewire was advanced into the superior vena cava. The patient tolerated the procedure well. The remainder of the proce dure was performed and dictated under separate cover. COMPARISON: None. FINDINGS: The ultrasound images demonstrate a patent right internal jugular vein. The subsequent images demon strate the needle entering the right internal jugular vein. IMPRESSION: 1. Ultrasound guidance for a needle placement in right internal jugular vein. RPTAT: QQ .Moody Corona MD, Date Time Electronically viewed and signed by .Moody Corona MD, on 09/12/2016 17:42 .R/
[2016-09-12] MEDS: ACETAMINOPHEN 325 MG TAB PO PRN (20:36)
[2016-09-12] MEDS: ARIPIPRAZOLE 2 MG TAB PO SCH (20:37)
[2016-09-12] MEDS: MIRTAZAPINE 15 MG TAB PO SCH (20:37)
[2016-09-13] VITALS (16 sets, daily range): BP systolic 127–167; BP diastolic 56–88; PULSE 72–78; RESP 16–18
[2016-09-13] MEDS: ACCUCHECK AT 2AM (Patients on SS coverage) XX SCH (02:00)
[2016-09-13] MEDS: ACETAMINOPHEN 325 MG TAB PO PRN ×2 (05:44→20:32)
[2016-09-13] MEDS: PANTOPRAZOLE (EC) 40 MG TAB PO SCH (05:45)
[2016-09-13 05:53] LABS: ADD SCAN DIFF NO
[2016-09-13 05:59] LABS: BASOPHILS % 0.1 % (0.0-2.0); EOSINOPHILS % 0.1 % (0.0-7.0); HEMATOCRIT 27.9 % (42.0-52.0); HEMOGLOBIN 8.9 g/dl (14.0-18.0); LYMPHOCYTES # 0.6 10^3/ul (0.8-2.9); LYMPHOCYTES % 7.1 % (15.0-51.0); MEAN CORPUSCULAR HEMOGLOBIN 27.1 pg (29.0-33.0); MEAN CORPUSCULAR HGB CONC 31.9 g/dl (32.0-37.0); MEAN CORPUSCULAR VOLUME 84.8 fl (82.0-101.0); MEAN PLATELET VOLUME 9.7 fl (7.4-10.4); MONOCYTE # 0.6 10^3/ul (0.3-0.9); MONOCYTES % 6.7 % (0.0-11.0); NEUTROPHIL # 7.5 10^3/ul (1.6-7.5); NEUTROPHILS % 85.7 % (39.0-77.0); PLATELET COUNT 163 10^3/UL (140-415); RED BLOOD COUNT 3.29 10^6/ul (4.70-6.10); RED CELL DISTRIBUTION WIDTH 17.2 % (11.5-14.5); WHITE BLOOD COUNT 8.7 10^3/ul (4.8-10.8)
[2016-09-13 06:46] LABS: CALCIUM 8.5 mg/dl (8.4-10.2); CREATININE 4.27 mg/dl (0.61-1.24); MAGNESIUM 2.4 mg/dl (1.7-2.5); POTASSIUM 3.6 mmol/L (3.5-5.1)
[2016-09-13] MEDS: INSULIN ASPART [NOVOLOG] 3 ML PEN SC SCH ×4 (08:07→20:34)
[2016-09-13] MEDS: DILTIAZEM (CD) 120 MG CAP PO SCH (08:09)
[2016-09-13] MEDS: AMLODIPINE 5 MG TAB PO SCH ×2 (08:11→20:32)
[2016-09-13] MEDS: MINOXIDIL 2.5 MG TAB PO SCH (08:11)
[2016-09-13] MEDS: LEVOTHYROXINE 25 MCG TAB PO SCH (09:32)
[2016-09-13] MEDS: ARTIFICIAL TEARS 15 ML OPH BOTH EYES SCH ×2 (09:32→20:33)
[2016-09-13] MEDS: MULTIVITAMINS THERAPEUTIC TAB PO SCH (09:32)
[2016-09-13] MEDS: FERROUS SULFATE (EC) 325 MG TAB PO SCH (09:32)
[2016-09-13] MEDS: CYANOCOBALAMIN 500 MCG TAB PO SCH (09:32)
[2016-09-13] MEDS: TAMSULOSIN (SR) 0.4 MG CAP PO SCH ×2 (09:32→20:31)
[2016-09-13] MEDS: CHOLECALCIFEROL 2,000 UNIT CAP PO SCH (09:32)
[2016-09-13] MEDS: LINAGLIPTIN 5 MG TABLET PO SCH (09:32)
[2016-09-13] MEDS: ASPIRIN 81 MG TAB PO SCH (09:34)
--- NOTE | 2016-09-13 09:59 | PN ---
DATE: 09/13/2016 CARDIOLOGY FOLLOWUP SUBJECTIVE: The patient is status post hemodialysis access placement yesterday. No reported chest pain or pressure. MEDICATIONS: Reviewed. PHYSICAL EXAMINATION: VITAL SIGNS: Temperature 98.6, heart rate of 74, blood pressure 127/60, respiratory rate of 18, sat urating 95%. HEENT: Normocephalic, atraumatic. Eyes are closed. CARDIOVASCULAR: Regular rate and rhythm. CHEST: Right-sided hemodialysis access. PULMONARY: With mild rhonchi, mostly on the right. GASTROINTESTINAL: Soft, nontender. EXTREMITIES: With positive lower extremity edema. NEUROLOGIC: Sleeping comfortably. LABORATORY DATA: WBC of 8.7, hemoglobin of 8.9, platelets of 163. Sodium of 143, potassium of 3.4, BUN of 39, creatinine of 4.27 with glucose of 133. ASSESSMENT AND PLAN: 1. Hypertension, currently under better control on the current regimen. 2. Renal failure, currently on dialysis. 3. Encephalopathy. 4. Paroxysmal atrial fibrillation. 5. episode of marked bradycardia, currently appears to be back in sinus rhythm, stable. 6. Anemia. 7. Dementia. RECOMMENDATIONS: Will continue with the current cardiac care. Blood pressure under good control. Dialysis will be deferred to renal recommendations. Dictated By: ISH DICKEY/ALLAN Conf#: [id number] DID#: [id number]
[2016-09-13] MEDS: CEFEPIME 1GM/50 ML (PMX) 50 ML IVPB SCH (11:57)
--- NOTE | 2016-09-13 12:19 | PN ---
DATE: 09/13/2016 SUBJECTIVE: The patient has had urinary retention before and had to be catheterized. Now he has no more catheter and he is in renal failure and has undergone dialysis earlier. The patient himself i s not complaining and he is sleeping. OBJECTIVE: VITAL SIGNS: His temperature is 98.6, pulse is 78, respirations 16, blood pressure 137/65. ABDOMEN: Soft. LABORATORY DATA: His CBC shows a white count of 8.7, hemoglobin 8.9, hematocrit 27.9. The BUN is 3 9, creatinine 4.27, sodium 143, potassium 3.6, chloride 108, CO2 25. IMPRESSION: History of urinary retention in the past. The patient now is on hemodialysis. PLAN: To check his bladder was a bladder scan to make sure that if he still does make some urine th at he does empty his bladder. Dictated By: PAULIE LARIOS/ALLAN Conf#: [id number] DID#: [id number]
--- NOTE | 2016-09-13 13:17 | PN ---
DATE: 09/13/2016 SUBJECTIVE: The patient is stable, no acute events overnight. The patient's confusion is improving . OBJECTIVE: VITAL SIGNS: Blood pressure is 110/76, respiration is 18, temperature 98.6. HEENT: Head is normocephalic. NECK: Supple. HEART: Regular rate. LUNGS: Show diminished breath sounds at the base. ABDOMEN: Soft, nontender to palpation without rebound or guarding. EXTREMITIES: Negative for clubbing, cyanosis, no edema. DERMATOLOGIC: No rashes. MUSCULOSKELETAL: No joint effusions. NEUROLOGIC: No change in exam. MEDICATIONS: Reviewed. LABORATORY DATA: Shows sodium 143, potassium 3.6, chloride 108, BUN 39, creatinine 4.27. White cou nt 8.7, hemoglobin 8.9, hematocrit 37.9, platelet count is 163. ASSESSMENT AND PLAN: 1. Nonoliguric acute kidney injury on top of chronic kidney disease stage IV. The patient has now progressed towards end-stage renal disease. The patient is status post Perm-A-Cath placement, AV fi stula placement. The patient was initiated on hemodialysis yesterday, tolerated well. Plan for milvia lysis again for 3 hours, 4K bath, calcium 2.5, will ultrafiltrate as tolerated. 2. Hypertension. Continue current blood pressure regimen. Continue ultrafiltration dialysis. 3. Anemia. Continue to monitor hemoglobin and hematocrit levels. 4. Mineral bone disorder. Continue to monitor calcium and phosphorus levels. 5. Encephalopathy, in part due to uremia. Continue hemodialysis. 6. Atrial fibrillation, rate controlled. Continue medical management. 7. Diabetes. Continue Accu-Cheks and sliding scale. 8. Benign prostatic hypertrophy. Continue to monitor. 9. Coronary artery disease. 10. Access. The patient is status post AV fistula and Perm-A-Cath placement. Dictated By: TRACE PETE DO NR/ALLAN Conf#: [id number] DID#: [id number]
[2016-09-13] MEDS: EPOETIN 4000 UNITS/ML (NON ESRD/NON ONCOLOGY) SC SCH (17:06)
--- NOTE | 2016-09-13 17:19 | PN ---
DATE: 09/13/2016 SUBJECTIVE: The patient seen status post right chest Perm-A-Cath placement. The patient was dialyz ed yesterday. The patient tolerated the procedure yesterday well but complaining of pain in the lef t recent AV fistula site in the left forearm. Complaining of pain. Planned for dialysis today. OBJECTIVE: VITAL SIGNS: Temperature is 97.6, pulse 68, blood pressure control is 137/65, saturation 98% on 3 l iters. GENERAL: The patient is in no acute distress. The patient is pale. CARDIOVASCULAR: S1, S2, regular rate and rhythm. LUNGS: Clear bilaterally. ABDOMEN: Soft, nontender. UPPER EXTREMITIES: Trace edema. The patient moving all extremities. LABORATORY DATA: White count is 8.3, hemoglobin 8.9, hematocrit 28, platelets 163, neutrophils 66%, lymphocytes 7%. Chemistry: Sodium 142, potassium 3.6, chloride 108, bicarbonate 25, BUN is 39, cr eatinine 4.27, and glucose of 133. Last glucose level was 132. Urine culture shows Providencia teagan artii, Klebsiella pneumoniae, and Proteus mirabilis. MEDICATIONS: 1. Cefepime 1 gram q. 24 hours. 2. Minoxidil 5 mg daily. 3. Norvasc 5 mg b.i.d. 4. Catapres p.r.n. 5. Epogen Sunday, Sunday, and Sunday. 6. Hydralazine p.r.n. 7. Catapres p.r.n. 8. Clonidine patch TTS 1 weekly. 9. Aspirin 81 mg daily. 10. Vitamin D 2000 daily. 11. Vitamin B12 1000 daily. 12. Cardizem-CD 120 daily. 13. Ferrous sulfate 325 daily. 14. Tradjenta 5 mg daily. 15. Multivitamin 1 tab t.i.d. 16. Synthroid 25 mcg daily. 17. Protonix 40 mg daily. 18. Accu-Chek q. a.c. and at bedtime. 19. Hydralazine 100 mg q. 8 hours. 20. Abilify 2 mg at bedtime. 21. Remeron 15 mg at bedtime. 22. Flomax 0.4 b.i.d. 23. Insulin aspart per sliding scale. Hypoglycemia protocol as directed. ASSESSMENT AND PLAN: This is an 86-year-old male with history of diabetes mellitus, hypert ension, dyslipidemia, CVA, atrial fibrillation, osteoarthritis, diabetic neuropathy, anemia, dyslipi demia, hypothyroidism, BPH, and CKD who presented with anemia, worsening kidney function, and also w as diagnosed with possible pneumonia and dysphagia. 1. Respiratory. We will follow up a.m. chest x-ray. The patient remains on Cefepime. Now fluid i s removed by dialysis, so less pulmonary congestion is expected. We will follow with chest x-ray. Continue aspiration precautions. 2. Cardiovascular. The patient with paroxysmal atrial fibrillation, not fully anticoagulated secon jo-ann to significant anemia on aspirin. Blood pressure is controlled with multiple medications which include minoxidil, Norvasc, Hydralazine, and Cardizem. 3. Psychiatric disorder. Continue Abilify. 4. Benign prostatic hypertrophy. Continue Flomax. Bradley was removed. I appreciate luna Reeder input. 5. Depression. Continue Remeron. 6. Physical therapy as tolerated. 7. Diabetes mellitus on Tradjenta. Glucose levels are good in the low 100s. 8. Status post UTI. Remain on cefepime. PLAN: Follow up a.m. chest x-ray. DISPOSITION: When okay with nephrology. Dialysis is arranged for every Sunday, , and . The patient to be discharged to [facility] soon. I spoke with the daughter today in [place] this morning, and she is aware of the patient's plan of care and patient's overall current condi tion. Pain control as the patient is status post left AV fistula placement. We will follow. Dictated By: ERIC PHILLIPS/ALLAN Conf#: [id number] DID#: [id number]
--- NOTE | 2016-09-13 17:26 | PN ---
Date/Time of Note Date/Time of Note DATE: 09/13/16 TIME: 17:24 Assessment/Plan Lines/Catheters IV Catheter Type (from [facility]): permacath Bradley in Place (from [facility]): No Assessment/Plan Chief Complaint/Hosp Course -Chronic kidney disease stage IV, impending end-stage renal disease: S/P LUE brachiocephalic fistula creation, Right IJ perm catheter placement -Appreciate cardiology evaluation. -Optimize vascular status (BP meds, diet, nutrition, exercise, sugar control, antiplatelets). -Discuss findings, plan and management with the patient's skates operator, will schedule a family discussion for further questions -Thank you for allowing us to partake in the care of your patient. Please call with any questions. Problems: Subjective 24 Hr Interval Summary no new vascular events overnight Exam/Review of Systems Vital Signs Vitals Vital Signs Date Time Temp Pulse Resp B/P Pulse Ox O2 Delivery O2 Flow Rate FiO2 09/13/16 14:00 97.6 16 137/65 98 Nasal Cannula 3.0 09/13/16 08:00 78 Intake and Output 09/12/16 09/12/16 09/13/16 15:00 23:00 07:00 Intake Total 50 ml 200 ml 220 ml Output Total 0 ml Balance 50 ml 200 ml 220 ml Exam Free Text/Dictation GENERAL: Patient is awake and alert to questions; however, unable to respond to time and place. CARDIOVASCULAR: S1, S2 present. Irregularly irregular. PULMONARY: Clear to auscultation bilaterally ABDOMEN: Soft, nontender, nondistended. Bowel sounds positive. EXTREMITIES: Left upper extremities: palpable brachial pulse, motor/sensory intact, incision clean and intact, fistula with bruit and thrill Results Result Diagram: 09/13/16 0541 09/13/16 0510 SAMSON MOELLER MD Sep 13, 2016 17:26
[2016-09-13] MEDS: MIRTAZAPINE 15 MG TAB PO SCH (20:31)
[2016-09-13] MEDS: ARIPIPRAZOLE 2 MG TAB PO SCH (20:32)
[2016-09-14] VITALS (10 sets, daily range): BP systolic 105–157; BP diastolic 55–77; PULSE 62–79; RESP 18–20
[2016-09-14] MEDS: ACCUCHECK AT 2AM (Patients on SS coverage) XX SCH (00:56)
[2016-09-14] MEDS: ACETAMINOPHEN 325 MG TAB PO PRN (05:23)
[2016-09-14] MEDS: PANTOPRAZOLE (EC) 40 MG TAB PO SCH (05:24)
[2016-09-14] MEDS: LEVOTHYROXINE 25 MCG TAB PO SCH (05:28)
[2016-09-14 05:46] LABS: ADD SCAN DIFF NO
[2016-09-14 06:03] LABS: BASOPHIL # 0.1 10^3/ul (0.0-0.1); BASOPHILS % 0.9 % (0.0-2.0); EOSINOPHILS # 0.2 10^3/ul (0.0-0.5); EOSINOPHILS % 1.9 % (0.0-7.0); HEMATOCRIT 28.2 % (42.0-52.0); HEMOGLOBIN 8.8 g/dl (14.0-18.0); LYMPHOCYTES % 12.8 % (15.0-51.0); MEAN CORPUSCULAR HEMOGLOBIN 27.2 pg (29.0-33.0); MEAN CORPUSCULAR HGB CONC 31.2 g/dl (32.0-37.0); MEAN CORPUSCULAR VOLUME 87.3 fl (82.0-101.0); MEAN PLATELET VOLUME 9.7 fl (7.4-10.4); MONOCYTE # 0.7 10^3/ul (0.3-0.9); MONOCYTES % 8.7 % (0.0-11.0); NEUTROPHIL # 6.1 10^3/ul (1.6-7.5); NEUTROPHILS % 75.2 % (39.0-77.0); PLATELET COUNT 138 10^3/UL (140-415); RED BLOOD COUNT 3.23 10^6/ul (4.70-6.10); RED CELL DISTRIBUTION WIDTH 17.2 % (11.5-14.5)
[2016-09-14 06:24] LABS: MAGNESIUM 2.2 mg/dl (1.7-2.5); PHOSPHORUS 3.9 mg/dl (2.5-4.9)
[2016-09-14 06:33] LABS: CALCIUM 8.2 mg/dl (8.4-10.2); CREATININE 3.37 mg/dl (0.61-1.24); POTASSIUM 3.6 mmol/L (3.5-5.1)
[2016-09-14] MEDS: INSULIN ASPART [NOVOLOG] 3 ML PEN SC SCH ×4 (08:15→21:00)
[2016-09-14] MEDS: MINOXIDIL 2.5 MG TAB PO SCH (09:00)
[2016-09-14] MEDS: AMLODIPINE 5 MG TAB PO SCH ×2 (09:00→21:10)
[2016-09-14] MEDS: DILTIAZEM (CD) 120 MG CAP PO SCH (09:00)
[2016-09-14] MEDS: ARTIFICIAL TEARS 15 ML OPH BOTH EYES SCH ×2 (09:01→21:09)
[2016-09-14] MEDS: TAMSULOSIN (SR) 0.4 MG CAP PO SCH ×2 (09:01→21:10)
[2016-09-14] MEDS: CHOLECALCIFEROL 2,000 UNIT CAP PO SCH (09:02)
[2016-09-14] MEDS: MULTIVITAMINS THERAPEUTIC TAB PO SCH (09:02)
[2016-09-14] MEDS: CYANOCOBALAMIN 500 MCG TAB PO SCH (09:02)
[2016-09-14] MEDS: LINAGLIPTIN 5 MG TABLET PO SCH (09:03)
[2016-09-14] MEDS: ASPIRIN 81 MG TAB PO SCH (09:03)
[2016-09-14] MEDS: FERROUS SULFATE (EC) 325 MG TAB PO SCH (09:05)
--- NOTE | 2016-09-14 09:19 | PN ---
DATE: 09/14/2016 CARDIOLOGY FOLLOWUP PROGRESS NOTE SUBJECTIVE: Discussed with the staff. Rhythm strip was reviewed. No new cardiac events. The hay ent with no reported chest pain or pressure. MEDICATIONS: Reviewed. PHYSICAL EXAMINATION: VITAL SIGNS: Temperature 98.4, heart rate of 75, blood pressure 130/63, respiratory rate of 18. HEENT: Normocephalic, atraumatic. CARDIOVASCULAR: Regular rate and rhythm. PULMONARY: No wheezes. GASTROINTESTINAL: Soft. EXTREMITIES: No edema. NEUROLOGIC: Sleeping. LABORATORY: WBC of 8, hemoglobin 8.8, platelets of 138. ASSESSMENT AND PLAN: 1. Hypertension, currently better controlled. 2. Acute renal failure, awaiting dialysis. 3. Encephalopathy. 4. History of paroxysmal atrial fibrillation, currently remains in sinus rhythm. RECOMMENDATIONS: We will continue with the current cardiac care. Dialysis as per renal. Dictated By: ISH CARDENAS MD AV/NTS Conf#: [id number] DID#: [id number] CC: ERIC STEVENS MD;*EndCC*
--- NOTE | 2016-09-14 10:45 | PN ---
DATE: 09/14/2016 SUBJECTIVE: The patient is having hemodialysis, tolerated well. No other events noted overnight. OBJECTIVE: VITAL SIGNS: Blood pressure is 133/63, respiration 18, pulse 75, temperature 98.4. HEENT: Head is normocephalic. NECK: Supple. HEART: Regular rate. LUNGS: Show diminished breath sounds at the base, otherwise clear. ABDOMEN: Soft, nontender to palpation without rebound or guarding. EXTREMITIES: Negative for clubbing, cyanosis, no edema. DERMATOLOGIC: No rashes. MUSCULOSKELETAL: No joint effusions. NEUROLOGIC: No change in exam. MEDICATIONS: The patient's medications have been reviewed. LABORATORY DATA: Showed sodium 141, potassium 3.6, hematocrit 24, creatinine 3.37. White count is 8.0, hemoglobin 9.8, hematocrit 28.2, platelet count is 138. ASSESSMENT AND PLAN: 1. End-stage renal disease. The patient is currently on hemodialysis, third session today. Will a nticipate next dialysis on Sunday. The patient's access is Perm-A-Cath as AV fistula is maturing. The patient's outpatient hemodialysis has been arranged at [facility]. 2. Hypertension. Continue current blood pressure regimen. Continue ultrafiltration dialysis. 3. Anemia. Continue to monitor H and H levels. Continue to monitor calcium and phosphorus levels. 4. Encephalopathy, improving. Continue to monitor. 5. Atrial fibrillation. Continue medical management. 6. Diabetes. Continue Accu-Cheks and sliding scale. 7. Benign prostatic hypertrophy. Continue to monitor. 8. Coronary artery disease. Dictated By: TRACE LEVI/ALLAN Conf#: [id number] DID#: [id number]
--- NOTE | 2016-09-14 11:14 | RADRPT ---
PROCEDURE: XR Chest. CLINICAL INDICATION: Pneumonia. TECHNIQUE: Single frontal view of the chest was obtained. COMPARISON: Chest x-ray 12/29/2015 performed at 06:59 a.m. FINDINGS: A large-bore central venous catheter enters from right internal jugular approach with its tip in the right atrium. No pneumothorax is identified. The soft tissues are otherwise unremarkable. . The re are degenerative osteophytes in the thoracic spine. The heart is mildly enlarged. The cardiomed iastinal silhouette and hilar structures are normal. The pulmonary vasculature is increased. There are vascular calcifications aortic arch. There are bilateral perihilar and basilar infiltrates which have worsened as compared to 12/29/2015. There are bilateral pleural effusions. IMPRESSION: 1. Congestive heart failure with interstitial pulmonary edema and bilateral pleural effusions which worsened as compared to 12/29/2015. An underlying pneumonia could coexistent this setting. 2. Atherosclerosis of the aortic arch. 3. Large-bore tunneled catheter entering from right internal jugular approach with its tip in the r ight atrium. 4. Spondylosis of the thoracic spine. RPTAT:AAJJ Physician Anastacio Date Time Electronically viewed and signed by Physician Anastacio on 09/14/2016 11:14 /
[2016-09-14] MEDS: CEFEPIME 1GM/50 ML (PMX) 50 ML IVPB SCH (12:18)
[2016-09-14] MEDS: MIRTAZAPINE 15 MG TAB PO SCH (21:10)
[2016-09-14] MEDS: ARIPIPRAZOLE 2 MG TAB PO SCH (21:10)
[2016-09-15] MEDS: ACCUCHECK AT 2AM (Patients on SS coverage) XX SCH (02:00)
[2016-09-15 05:47] LABS: ADD SCAN DIFF NO
[2016-09-15 06:13] LABS: BASOPHIL # 0.1 10^3/ul (0.0-0.1); BASOPHILS % 1.1 % (0.0-2.0); EOSINOPHILS # 0.2 10^3/ul (0.0-0.5); EOSINOPHILS % 2.1 % (0.0-7.0); HEMATOCRIT 28.4 % (42.0-52.0); HEMOGLOBIN 8.8 g/dl (14.0-18.0); LYMPHOCYTES # 1.1 10^3/ul (0.8-2.9); LYMPHOCYTES % 13.3 % (15.0-51.0); MEAN CORPUSCULAR HEMOGLOBIN 26.9 pg (29.0-33.0); MEAN CORPUSCULAR VOLUME 86.9 fl (82.0-101.0); MEAN PLATELET VOLUME 10.1 fl (7.4-10.4); MONOCYTE # 0.7 10^3/ul (0.3-0.9); MONOCYTES % 8.6 % (0.0-11.0); NEUTROPHIL # 6.3 10^3/ul (1.6-7.5); NEUTROPHILS % 74.5 % (39.0-77.0); PLATELET COUNT 123 10^3/UL (140-415); RED BLOOD COUNT 3.27 10^6/ul (4.70-6.10); RED CELL DISTRIBUTION WIDTH 16.3 % (11.5-14.5); WHITE BLOOD COUNT 8.5 10^3/ul (4.8-10.8)
[2016-09-15 06:15] VITALS: BP 168/70; PULSE 73; RESP 20
[2016-09-15] MEDS: PANTOPRAZOLE (EC) 40 MG TAB PO SCH (06:17)
[2016-09-15] MEDS: ACETAMINOPHEN 325 MG TAB PO PRN (06:18)
[2016-09-15] MEDS: LEVOTHYROXINE 25 MCG TAB PO SCH (06:21)
[2016-09-15 06:52] LABS: PHOSPHORUS 3.1 mg/dl (2.5-4.9)
[2016-09-15 07:00] VITALS: BP 155/67; PULSE 70; RESP 18
[2016-09-15 07:02] LABS: CALCIUM 7.9 mg/dl (8.4-10.2); CREATININE 2.61 mg/dl (0.61-1.24); POTASSIUM 3.5 mmol/L (3.5-5.1)
--- NOTE | 2016-09-15 07:29 | PN ---
DATE: 09/14/2016 SUBJECTIVE: Patient is seen, is alert, in no distress. Case discussed with nursing staff as spencer t ate his breakfast. He is currently undergoing dialysis. Plan to remove 2 liters. Chest x-ray whi ch was done this morning shows CHF with interstitial pulmonary edema and bilateral pleural effusion, which has worsened. The is also a large ____ catheter entering from the right internal jugular arnulfo goode with its tip in the right atrium. There is atherosclerosis of the aortic arch and spondylosis of the thoracic spine. PHYSICAL EXAMINATION: VITAL SIGNS: Patient is afebrile. Temperature 98.4, pulse 75, respirations 18, blood pressure 132/ 63, saturation 100%. GENERAL: The patient is in no acute distress. The patient is frail, pale. CARDIOVASCULAR: S1 and S2. LUNGS: Clear anteriorly. ABDOMEN: Soft, nontender. EXTREMITIES: Trace edema. Left upper extremity had the AV fistula there and then he is complaining of pain at this site. No significant edema is noted. The patient is moving all extremities. NEUROLOGIC: The patient is alert and responsive to me at his baseline. LABORATORY DATA: White count is 8, hemoglobin is 8.8, hematocrit 28, platelet count 138, neutrophil s 75%, lymphocytes 13%. Chemistry: Sodium 141, potassium 3.6, chloride 107, bicarbonate 28, BUN is 24, creatinine 3.37, glucose of 110. Hepatitis A, B and C all negative. Chest x-ray as above. MEDICATIONS: Reviewed include: 1. Cefepime 1 gram q.24h. 2. Minoxidil 5 mg daily. 3. Norvasc 5 mg b.i.d. 4. Catapres 0.1 q.6h. p.r.n. 5. Epogen 8000 every Sunday, Sunday and Sunday. 6. Hydralazine 10 mg IV q.4h. p.r.n. 7. Clonidine 0.1 q.4h. p.r.n. for systolic greater than 160. 8. Clonidine patch TTS 1 q. weekly. 9. Aspirin 81 mg daily. 10. Vitamin D 2000 mg daily. 11. Vitamin B12 1000 daily. 12. Cardizem-CD 120 mg daily. 13. Ferrous sulfate 25 daily. 14. Tradjenta 5 mg daily. 15. Multivitamin 1 tab daily. 16. Synthroid 25 mcg daily. 17. Protonix 40 mg daily. 18. Accu-Chek q.a.c. and at bedtime. 19. Hydralazine 100 mg q.8 hours. 20. Abilify 2 mg at bedtime. 21. Eye lubricants b.i.d. 22. Remeron 15 mg at bedtime. 23. Flomax 0.4 b.i.d. 24. Hypoglycemia protocol p.r.n. 25. Zofran p.r.n. 26. Tylenol p.r.n. 27. Colace p.r.n. 28. Milk of magnesia p.r.n. 29. Colace p.r.n. 30. Ambien p.r.n. ASSESSMENT AND PLAN: This is an 86-year-old male with history of diabetes mellitus, hypert ension, dyslipidemia, CVA, atrial fibrillation, osteoarthritis, diabetic neuropathy, anemia, dyslipi demia, hypothyroidism, BPH and CKD who presented with anemia, worsening kidney function who was diag nosed also with possible pneumonia and fluid overload state manifested by congestive heart failure. 1. Respiratory. Chest x-ray shows he has worsening CHF, despite now being on dialysis. Follow up a .m. chest x-ray. Clinically better. Remains on antibiotics for possible pneumonia as patient does have dysphagia. Further dialysis per Dr. De La Paz. 2. Cardiovascular. The patient with paroxysmal atrial fibrillation. Remains on aspirin. Blood pr essure is better controlled with the above medications currently on hold as the patient is dialyzed. 3. Psychiatric disorder. Continue nighttime Abilify. 4. Benign prostatic hypertrophy on Flomax. Dr. Ramirez is following. Bradley is out. 5. Depression on Remeron. 6. Physical therapy as tolerated. 7. Diabetes mellitus, controlled as patient is on Tradjenta. 8. Will ask physical therapy to follow. Maybe can place in a chair. 9. Pain control as patient has pain in the left AV fistula site, this is normal after surgery. 10. Hypothyroidism. Continue Synthroid 25 mcg daily. 11. Benign prostatic hypertrophy on Flomax. 12. Case discussed with the daughter, her name is Angela. I had a long conversation with her just no w about patient's plan of care and condition. We will follow. Dictated By: ERIC PHILLIPS/ALLAN Conf#: [id number] [facility]#: [id number]
--- NOTE | 2016-09-15 07:40 | RADRPT ---
PROCEDURE: XR Chest. CLINICAL INDICATION: Perma-Cath removal TECHNIQUE: An AP view of the chest was obtained. COMPARISON: Chest x-ray dated 09/14/2016 FINDINGS: There has been interval removal of right chest Perma-Cath. There are diffuse bilateral interstitial opacities with a small left pleural effusion. No pneumothor ax is seen. The cardiomediastinal silhouette is mildly enlarged . Calcifications are seen within t he aortic arch. The osseous structures demonstrate senescent changes. IMPRESSION: 1. Diffuse bilateral interstitial opacities with small left pleural effusion. 2. Mild cardiomegaly and aortic atherosclerosis. RPTAT: HH .Kenyatta Thomas MD, MD Date Time Electronically viewed and signed by .Kenyatta Thomas MD, on 09/15/2016 07:40 .G/
[2016-09-15] MEDS: INSULIN ASPART [NOVOLOG] 3 ML PEN SC SCH ×4 (08:08→20:57)
[2016-09-15 08:15] LABS: ADD SCAN DIFF NO
[2016-09-15 08:28] LABS: BASOPHIL # 0.1 10^3/ul (0.0-0.1); EOSINOPHILS # 0.2 10^3/ul (0.0-0.5); EOSINOPHILS % 1.9 % (0.0-7.0); HEMATOCRIT 30.6 % (42.0-52.0); HEMOGLOBIN 9.5 g/dl (14.0-18.0); LYMPHOCYTES # 1.2 10^3/ul (0.8-2.9); LYMPHOCYTES % 10.3 % (15.0-51.0); MEAN CORPUSCULAR VOLUME 86.9 fl (82.0-101.0); MONOCYTE # 0.9 10^3/ul (0.3-0.9); MONOCYTES % 7.7 % (0.0-11.0); NEUTROPHIL # 8.8 10^3/ul (1.6-7.5); NEUTROPHILS % 78.7 % (39.0-77.0); PLATELET COUNT 139 10^3/UL (140-415); RED BLOOD COUNT 3.52 10^6/ul (4.70-6.10); RED CELL DISTRIBUTION WIDTH 16.7 % (11.5-14.5); WHITE BLOOD COUNT 11.2 10^3/ul (4.8-10.8)
[2016-09-15] MEDS: LINAGLIPTIN 5 MG TABLET PO SCH (09:00)
[2016-09-15 09:13] VITALS: BP 143/65; RESP 16
[2016-09-15] MEDS: MULTIVITAMINS THERAPEUTIC TAB PO SCH (10:08)
[2016-09-15] MEDS: FERROUS SULFATE (EC) 325 MG TAB PO SCH (10:09)
[2016-09-15] MEDS: CYANOCOBALAMIN 500 MCG TAB PO SCH (10:09)
[2016-09-15] MEDS: ASPIRIN 81 MG TAB PO SCH (10:09)
[2016-09-15] MEDS: CHOLECALCIFEROL 2,000 UNIT CAP PO SCH (10:10)
[2016-09-15] MEDS: TAMSULOSIN (SR) 0.4 MG CAP PO SCH ×2 (10:11→20:47)
[2016-09-15] MEDS: DILTIAZEM (CD) 120 MG CAP PO SCH (10:11)
[2016-09-15] MEDS: MINOXIDIL 2.5 MG TAB PO SCH (10:12)
[2016-09-15] MEDS: AMLODIPINE 5 MG TAB PO SCH ×2 (10:12→20:51)
[2016-09-15] MEDS: ARTIFICIAL TEARS 15 ML OPH BOTH EYES SCH ×2 (10:13→20:47)
[2016-09-15] MEDS: CEFEPIME 1GM/50 ML (PMX) 50 ML IVPB SCH (12:23)
--- NOTE | 2016-09-15 13:32 | PN ---
DATE: 09/15/2016 SUBJECTIVE: The patient is stable. Last night the patient pulled out his PermCath. No other acute events noted. No hemoptysis, hematemesis or hematochezia. There is no bleeding from the site. Th patient did receive dialysis yesterday. OBJECTIVE: VITAL SIGNS: Blood pressure 159/69, respirations 18, pulse 78, temperature 97.5. HEENT: Head is normocephalic. NECK: Supple. HEART: Regular rate. LUNGS: Showed diminished breath sounds at the base. ABDOMEN: Soft, nontender to palpation. No rebound or guarding. EXTREMITIES: Negative for clubbing or cyanosis. No edema. DERMATOLOGIC: No rashes. MUSCULOSKELETAL: Have no joint effusion. CHEST EXAM: The patient has a dressing over his PermCath site, clean, dry and intact. MEDICATIONS: The patient's medications were reviewed. LABORATORY DATA: Shows sodium 136, potassium 3.5, BUN 18, creatinine 2.61. White count 11.2, hemog lobin 9.5, hematocrit 38.6, platelet count is 139. IMAGING: The patient's chest x-ray was reviewed. ASSESSMENT AND PLAN: 1. Acute kidney injury on top of chronic kidney disease stage 5, now presumed end-stage renal disea se. The patient is status post PermCath and AV fistula placement. The patient had 3 sessions of he modialysis. The patient pulled out his PermCath yesterday. Will discuss with vascular surgery, Dr. Hannah, about placing a new PermCath. The patient has outpatient hemodialysis arranged at [facility] on a Sunday, , Sunday schedule. At this point, will continue to monitor renal f unction daily. No immediate need for dialysis at this time. 2. Hypertension. Continue the current blood pressure regimen. 3. Anemia. Continue to monitor hemoglobin and hematocrit levels. Will continue Epogen with hemodi alysis. 4. Mineral bone disorder. Will monitor calcium and phosphorus levels. 5. Encephalopathy. No significant change. 6. Atrial fibrillation. Continue the current medical management. 7. Diabetes. Continue Accu-Cheks and insulin sliding scale. 8. Benign prostatic hypertrophy. Continue to monitor. 9. Coronary artery disease. Dictated By: TRACE LEVI/ALLAN Conf#: [id number] [facility]#: [id number]
--- NOTE | 2016-09-15 15:00 | PN ---
DATE: 09/15/2016 SUBJECTIVE: The patient unfortunately pulled his right IJ PermCath out. Bleeding was controlled. Dr. De La Paz and Dr. Hannah, the vascular surgeon, was informed. Likely he will need another PermC ath placement. I just spoke with the patient's daughter, and informed her of the patient's plan of care. PHYSICAL EXAMINATION: VITAL SIGNS: Temperature is 97.8, pulse 73, respirations 16, blood pressure 143/65, oxygen saturati on 97% on room air. GENERAL: The patient is in no acute distress. HEENT: The patient is normocephalic, atraumatic. Pale. CARDIOVASCULAR: S1 and S2, regular rate and rhythm. LUNGS: Clear. ABDOMEN: Soft, nontender. EXTREMITIES: No clubbing, cyanosis, or edema. LABORATORY: White count is slightly high at 11.2. Likely reactive in nature after pulling his Perm Cath line. Hemoglobin 9.5, hematocrit 31, platelet count is 139. Neutrophil count is 79%, lymphocy marciano 10%. A chest x-ray which was done after he pulled his line shows diffuse bilateral interstitial opacities with a small left pleural effusion, mild cardiomegaly and aortic atherosclerosis. MEDICATIONS: 1. Cefepime 1 gram q.24h. 2. Minoxidil 5 mg daily. 3. Norvasc 5 mg b.i.d. 4. Catapres p.r.n. 5. Epogen 8000 every Sunday, Sunday and Sunday. 6. Hydralazine p.r.n. 7. Clonidine p.r.n. 8. Clonidine patch TTS 1 weekly. 9. Aspirin 81 mg daily. 10. Vitamin D 2000 daily. 11. Vitamin B12 1000 daily. 12. Cardizem-CD 120 mg daily. 13. Ferrous sulfate 325 mg daily. 14. Tradjenta 5 mg daily. 15. Multivitamin 1 tablet daily. 16. Synthroid 25 mcg daily. 17. Protonix 40 mg daily. 18. Abilify 2 mg at bedtime. 19. Hydralazine 100 q.8h. 20. Artificial Tears b.i.d. 21. 15 at bedtime. 22. Flomax 0.4 b.i.d. 23. Hypoglycemia protocol. ASSESSMENT AND PLAN: This is an unfortunate 86-year-old male with a history of diabetes me llitus, hypertension, dyslipidemia, CVA, atrial fibrillation, osteoarthritis, diabetic neuropathy, a nemia, dyslipidemia, hypothyroidism, BPH and CKD, who presented with anemia, worsening kidney functi on, and was diagnosed with possible pneumonia, fluid overload state and congestive heart failure exa cerbation. 1. Respiratory. Continue dialysis, as the patient's chest x-ray still shows a fluid overload state and possible infiltrate. Continue antibiotics and dialysis once PermCath is in place. 2. Continue aspiration precautions, as the patient has dysphagia. 3. Cardiovascular. Patient with paroxysmal atrial fibrillation. Remains on aspirin. Blood pressu re is better controlled. 4. Psychiatric disorder. Continue nighttime Abilify. 5. Benign prostatic hypertrophy. On Flomax. 6. Depression. On Remeron. 7. Physical therapy as tolerated. 8. Mild vascular dementia. 9. Diabetes mellitus. On Tradjenta. Accu-Cheks are good. 10. Hypothyroidism. On Synthroid. 11. Access. The patient needs PermCath placement again, as he pulled it out. Dr. Hannah was co nsulted. 12. Renal insufficiency. Again, the patient is now dialysis dependent. Another line is needed. I spoke with the [id number]. She is aware of the plan of care. DISPOSITION: Once a line is placed, we will follow. Dictated By: ERIC PHILLIPS/ALLAN Conf#: [id number] [facility]#: [id number]
--- NOTE | 2016-09-15 18:17 | PN ---
DATE: 09/15/2016 CARDIOLOGY FOLLOWUP SUBJECTIVE: Discussed with the staff. The patient with no reported chest pain or pressure. Still gets confused and agitated. Blood pressure has remained stable. MEDICATIONS: Reviewed. PHYSICAL EXAMINATION: VITAL SIGNS: Temperature 97.8, heart rate of 73, blood pressure 143/65, respiratory rate of 16, sat urating 97%. HEENT: Normocephalic, atraumatic. CARDIOVASCULAR: Regular rate and rhythm. PULMONARY: With no wheezes. CHEST: Status post dialysis access in place. GASTROINTESTINAL: Soft, nontender. EXTREMITIES: No edema. NEUROLOGIC: Awake, oriented to person. PSYCHIATRIC: Appears anxious. LABORATORY DATA: WBC 11.2, hemoglobin 9.5, platelet 139. Sodium 136, potassium 3.5, BUN 18, creati nine 2.61, glucose of 111. ASSESSMENT AND PLAN: 1. Hypertension, currently much better control. 2. Renal failure. 3. Anemia, currently appears to be stable. Plan for Epogen with hemodialysis. 4. Encephalopathy and dementia, he is at baseline. 5. History of paroxysmal atrial fibrillation, currently appears to be in sinus. 6. Diabetes, on insulin. RECOMMENDATIONS: We will continue with the current cardiac care. Dialysis as per renal. Dictated By: ISH CARDENAS MD AV/NTS Conf#: [id number] DID#: [id number] CC: ERIC STEVENS MD;*EndCC*
[2016-09-15] MEDS: EPOETIN 4000 UNITS/ML (NON ESRD/NON ONCOLOGY) SC SCH (18:29)
[2016-09-15 19:42] VITALS: BP 148/67; RESP 20
[2016-09-15] MEDS: ARIPIPRAZOLE 2 MG TAB PO SCH (20:47)
[2016-09-15] MEDS: MIRTAZAPINE 15 MG TAB PO SCH (20:48)
[2016-09-16] VITALS (8 sets, daily range): BP systolic 111–148; BP diastolic 57–67; PULSE 65; RESP 16–18
[2016-09-16] MEDS: ACCUCHECK AT 2AM (Patients on SS coverage) XX SCH (02:00)
[2016-09-16] MEDS: PANTOPRAZOLE (EC) 40 MG TAB PO SCH (05:08)
[2016-09-16 06:06] LABS: ADD SCAN DIFF NO
[2016-09-16] MEDS: LEVOTHYROXINE 25 MCG TAB PO SCH (06:06)
[2016-09-16 06:22] LABS: BASOPHIL # 0.1 10^3/ul (0.0-0.1); BASOPHILS % 0.8 % (0.0-2.0); EOSINOPHILS # 0.1 10^3/ul (0.0-0.5); EOSINOPHILS % 1.4 % (0.0-7.0); HEMATOCRIT 30.4 % (42.0-52.0); HEMOGLOBIN 9.5 g/dl (14.0-18.0); LYMPHOCYTES # 1.1 10^3/ul (0.8-2.9); LYMPHOCYTES % 11.9 % (15.0-51.0); MEAN CORPUSCULAR HEMOGLOBIN 26.9 pg (29.0-33.0); MEAN CORPUSCULAR HGB CONC 31.3 g/dl (32.0-37.0); MEAN CORPUSCULAR VOLUME 86.1 fl (82.0-101.0); MEAN PLATELET VOLUME 9.5 fl (7.4-10.4); MONOCYTE # 0.7 10^3/ul (0.3-0.9); MONOCYTES % 8.1 % (0.0-11.0); NEUTROPHIL # 6.8 10^3/ul (1.6-7.5); NEUTROPHILS % 77.2 % (39.0-77.0); PLATELET COUNT 130 10^3/UL (140-415); RED BLOOD COUNT 3.53 10^6/ul (4.70-6.10); RED CELL DISTRIBUTION WIDTH 16.1 % (11.5-14.5); WHITE BLOOD COUNT 8.8 10^3/ul (4.8-10.8)
[2016-09-16 06:58] LABS: CALCIUM 8.2 mg/dl (8.4-10.2); CREATININE 3.12 mg/dl (0.61-1.24); MAGNESIUM 2.1 mg/dl (1.7-2.5); PHOSPHORUS 2.8 mg/dl (2.5-4.9); POTASSIUM 3.2 mmol/L (3.5-5.1)
[2016-09-16] MEDS: INSULIN ASPART [NOVOLOG] 3 ML PEN SC SCH ×4 (08:15→21:00)
[2016-09-16] MEDS: ARTIFICIAL TEARS 15 ML OPH BOTH EYES SCH ×2 (09:31→21:43)
[2016-09-16] MEDS: LINAGLIPTIN 5 MG TABLET PO SCH (09:33)
[2016-09-16] MEDS: CHOLECALCIFEROL 2,000 UNIT CAP PO SCH (09:33)
[2016-09-16] MEDS: FERROUS SULFATE (EC) 325 MG TAB PO SCH (09:33)
[2016-09-16] MEDS: MULTIVITAMINS THERAPEUTIC TAB PO SCH (09:33)
[2016-09-16] MEDS: CYANOCOBALAMIN 500 MCG TAB PO SCH (09:33)
[2016-09-16] MEDS: ASPIRIN 81 MG TAB PO SCH (09:33)
[2016-09-16] MEDS: TAMSULOSIN (SR) 0.4 MG CAP PO SCH ×2 (09:33→21:44)
[2016-09-16] MEDS: AMLODIPINE 5 MG TAB PO SCH ×2 (09:34→21:44)
[2016-09-16] MEDS: MINOXIDIL 2.5 MG TAB PO SCH (09:35)
[2016-09-16] MEDS: DILTIAZEM (CD) 120 MG CAP PO SCH (09:36)
[2016-09-16] MEDS ORDERED: POTASSIUM CHLORIDE (SR) 20 MEQ TAB PO STA (11:55)
[2016-09-16] MEDS: CEFEPIME 1GM/50 ML (PMX) 50 ML IVPB SCH (12:41)
[2016-09-16] MEDS: MAGNESIUM HYDROXIDE 30ML CUP PO PRN (15:11)
[2016-09-16] MEDS: CLONIDINE 0.1 MG/24 HR PATCH TRANSDERM SCH (15:11)
[2016-09-16] MEDS: ACETAMINOPHEN 325 MG TAB PO PRN (15:14)
[2016-09-16] MEDS: ARIPIPRAZOLE 2 MG TAB PO SCH (21:43)
[2016-09-16] MEDS: MIRTAZAPINE 15 MG TAB PO SCH (21:44)
[2016-09-17] VITALS (11 sets, daily range): BP systolic 105–138; BP diastolic 52–63; PULSE 61–70; RESP 16–20
[2016-09-17] MEDS: ACCUCHECK AT 2AM (Patients on SS coverage) XX SCH (01:10)
[2016-09-17] MEDS: LEVOTHYROXINE 25 MCG TAB PO SCH (06:18)
[2016-09-17] MEDS: PANTOPRAZOLE (EC) 40 MG TAB PO SCH (06:18)
[2016-09-17] MEDS: INSULIN ASPART [NOVOLOG] 3 ML PEN SC SCH ×4 (08:15→23:08)
--- NOTE | 2016-09-17 09:09 | CONS ---
Date/Time of Note Date/Time of Note DATE: 09/16/16 TIME: 09:03 Consult Date/Type/Reason Admit Date/Time Sep 01, 2016 at 17:29 Subjective The patient unfortunately pulled his right IJ PermCath out. Bleeding was controlled. PHYSICAL EXAMINATION: VITAL SIGNS: Temperature is 97.8, pulse 73, respirations 16, blood pressure 143 /65, oxygen saturation 97% on room air. GENERAL: The patient is in no acute distress. HEENT: The patient is normocephalic, atraumatic. Pale. CARDIOVASCULAR: S1 and S2, regular rate and rhythm. LUNGS: Clear. ABDOMEN: Soft, nontender. EXTREMITIES: No clubbing, cyanosis, or edema. hematoma over fistula site but cdi. paul wnl. Objective Vital Signs Date Time Temp Pulse Resp B/P Pulse Ox O2 Delivery O2 Flow Rate FiO2 09/16/16 08:12 97.8 62 18 138/63 95 09/16/16 06:00 Room Air 09/13/16 14:00 3.0 Intake and Output 09/16/16 09/16/16 09/17/16 15:00 23:00 07:00 Intake Total 50 ml 960 ml Balance 50 ml 960 ml Results/Medications Result Diagram: 09/16/16 0519 09/16/16 0519 Results 24 hrs Laboratory Tests Test 09/16/16 12:35 09/16/16 21:39 09/17/16 08:32 Bedside Glucose 151 168 129 Medications Current Medications Ondansetron HCl (Zofran Inj) 4 mg Q6H PRN IV NAUSEA AND/OR VOMITING; Start 09/01 at 18:30 Acetaminophen (Tylenol Tab) 650 mg Q6H PRN PO PAIN LEVEL 1-3 OR FEVER Last administered on 09/16/16 15:14; Admin Dose 650 MG; Start 09/01/16 at 18:30 Docusate Sodium (Colace) 100 mg Q12H PRN PO CONSTIPATION Last administered on 15:10; Admin Dose 100 MG; Start 09/01/16 at 18:30 Magnesium Hydroxide (Milk Of Mag) 30 ml DAILY PRN PO CONSTIPATION Last administered on 09/16/16 15:11; Admin Dose 30 ML; Start 09/01/16 at 18:30 Pantoprazole (Protonix Tab) 40 mg DAILY@06 PO Last administered on 09/17/16 06 :18; Admin Dose 40 MG; Start 09/02/16 at 06:00 Acetaminophen (Tylenol Tab) 650 mg Q6H PRN PO PAIN; Start 09/01/16 at 18:30 Aripiprazole (Abilify) 2 mg QHS PO Last administered on 09/16/16 21:43; Admin Dose 2 MG; Start 09/01/16 at 21:00 Eye Lubricant (Artificial Tears Oph) 1 drop BID BOTH EYES Last administered on 09/16/16 21:43; Admin Dose 1 DROP; Start 09/01/16 at 21:00 Aspirin (Aspirin) 81 mg DAILY PO Last administered on 09/16/16 09:33; Admin Dose 81 MG; Start 09/02/16 at 09:00 Cholecalciferol (Vitamin D) 2,000 unit DAILY PO Last administered on 09/16/16 09:33; Admin Dose 2,000 UNIT; Start 09/02/16 at 09:00 Cyanocobalamin (Vitamin B12) 1,000 mcg DAILY PO Last administered on 09/16/16 09:33; Admin Dose 1,000 MCG; Start 09/02/16 at 09:00 Diltiazem HCl (Cardizem Cd) 120 mg DAILY PO Last administered on 09/16/16 09: 36; Admin Dose 120 MG; Start 09/02/16 at 09:00 Docusate Sodium (Colace) 100 mg Q12H PRN PO CONSTIPATION; Start 09/01/16 at 18: 30 Ferrous Sulfate (Ferrous Sulfate (Ec)) 325 mg DAILY PO Last administered on 09:33; Admin Dose 325 MG; Start 09/02/16 at 09:00 Hydralazine HCl (Apresoline) 100 mg Q8 PO Last administered on 09/17/16 06:18 ; Admin Dose 100 MG; Start 09/01/16 at 22:00 Linagliptin (Tradjenta) 5 mg DAILY PO Last administered on 09/16/16 09:33; Admin Dose 5 MG; Start 09/02/16 at 09:00 Mirtazapine (Remeron) 15 mg HS PO Last administered on 09/16/16 21:44; Admin Dose 15 MG; Start 09/01/16 at 21:00 Multivitamins Therapeutic (Theragran) 1 tab DAILY PO Last administered on 09:33; Admin Dose 1 TAB; Start 09/02/16 at 09:00 Tamsulosin HCl (Flomax) 0.4 mg BID PO Last administered on 09/16/16 21:44; Admin Dose 0.4 MG; Start 09/01/16 at 21:00 Zolpidem Tartrate (Ambien) 5 mg HS PRN PO insomnia Last administered on 22:37; Admin Dose 5 MG; Start 09/01/16 at 18:30 Diagnostic Test (Pha) (Accu-Chek) 1 ea 02 XX Last administered on 09/08/16 02: 55; Admin Dose 1 EA; Start 09/02/16 at 02:00 Miscellaneous Information 1 ea NOTE XX ; Start 09/01/16 at 20:00 Glucose (Glutose) 15 gm Q15M PRN PO DECREASED GLUCOSE; Start 09/01/16 at 20:00 Glucose (Glutose) 22.5 gm Q15M PRN PO DECREASED GLUCOSE; Start 09/01/16 at 20:00 Dextrose (D50w Syringe) 25 ml Q15M PRN IV DECREASED GLUCOSE; Start 09/01/16 at 20:00 Dextrose (D50w Syringe) 50 ml Q15M PRN IV DECREASED GLUCOSE; Start 09/01/16 at 20:00 Glucagon (Glucagen) 1 mg Q15M PRN IM DECREASED GLUCOSE; Start 09/01/16 at 20:00 Glucose (Glutose) 15 gm Q15M PRN BUCCAL DECREASED GLUCOSE; Start 09/01/16 at 20: 00 Epoetin Pierce (Epogen (Non Esrd/Non Oncology)) 8,000 units MoWeFr@17 SC Last administered on 09/15/16 18:29; Admin Dose 8,000 UNITS; Start 09/04/16 at 17:00 Clonidine HCl (Catapres-Tts 1 Patch) 1 patch Q7D TRANSDERM Last administered on 09/16/16 15:11; Admin Dose 1 PATCH; Start 09/02/16 at 15:30 Clonidine (Catapres) 0.1 mg Q4 PRN PO FOR SYSTOLIC BP >160 Last administered on 09/05/16 11:13; Admin Dose 0.1 MG; Start 09/02/16 at 22:00 Hydralazine HCl (Apresoline) 10 mg Q4H PRN IV hypertension Last administered on 09/06/16 01:19; Admin Dose 10 MG; Start 09/03/16 at 12:30 Amlodipine Besylate (Norvasc) 5 mg BID PO Last administered on 09/16/16 21:44 ; Admin Dose 5 MG; Start 09/05/16 at 21:00 Clonidine (Catapres) 0.1 mg Q6H PRN PO sbp > 170; Start 09/05/16 at 12:00 Minoxidil 5 mg 5 mg DAILY PO Last administered on 09/16/16 09:35; Admin Dose 5 MG; Start 09/07/16 at 09:00 Cefepime HCl (Maxipime 1gm/50 ml (Pmx)) 50 ml @ 100 mls/hr Q24H IVPB Last administered on 09/16/16 12:41; Admin Dose 100 MLS/HR; Start 09/10/16 at 12:00 Assessment/Plan Chief Complaint/Hosp Course 85-year-old male with history of diabetes mellitus, hypertension, dyslipidemia, cerebrovascular accident, atherosclerotic cardiovascular disease, atrial fibrillation, osteoarthritis, diabetic neuropathy, anemia, dyslipidemia, hypothyroidism, benign prostatic hypertrophy, chronic kidney disease who presented with anemia, acute on chronic renal insufficiency and atrial fibrillation with slow ventricular rate. Progressed to what appears to be end stage renal disease. pulled out his permcath. 1. End-stage renal disease. The patient is currently on hemodialysis, third session yesterday. Will anticipate next dialysis once permcath reestablished. The patient's access was Perm-A-Cath while AV fistula is maturing. The patient' s outpatient hemodialysis has been arranged at [facility]. will need to have new permcath maybe tomorrow or next day. 2. Hypertension. Continue current blood pressure regimen. Continue ultrafiltration dialysis. 3. Anemia. Continue to monitor H and H levels. Continue to monitor calcium and phosphorus levels. 4. Encephalopathy, improving. Continue to monitor. 5. Atrial fibrillation. Continue medical management. 6. Diabetes. Continue Accu-Cheks and sliding scale. 7. Benign prostatic hypertrophy. Continue to monitor. 8. Coronary artery disease. Problems: KAMARI JACOB MD Sep 17, 2016 09:09
[2016-09-17] MEDS: CYANOCOBALAMIN 500 MCG TAB PO SCH (09:11)
[2016-09-17] MEDS: LINAGLIPTIN 5 MG TABLET PO SCH (09:11)
[2016-09-17] MEDS: CHOLECALCIFEROL 2,000 UNIT CAP PO SCH (09:11)
[2016-09-17] MEDS: TAMSULOSIN (SR) 0.4 MG CAP PO SCH ×2 (09:11→23:08)
[2016-09-17] MEDS: MULTIVITAMINS THERAPEUTIC TAB PO SCH (09:11)
[2016-09-17] MEDS: FERROUS SULFATE (EC) 325 MG TAB PO SCH (09:12)
[2016-09-17] MEDS: ASPIRIN 81 MG TAB PO SCH (09:12)
[2016-09-17] MEDS: ARTIFICIAL TEARS 15 ML OPH BOTH EYES SCH ×2 (09:12→23:09)
[2016-09-17] MEDS: DILTIAZEM (CD) 120 MG CAP PO SCH (09:12)
--- NOTE | 2016-09-17 09:12 | CONS ---
Date/Time of Note Date/Time of Note DATE: 09/17/16 TIME: 09:09 Consult Date/Type/Reason Admit Date/Time Sep 01, 2016 at 17:29 Subjective The patient unfortunately pulled his right IJ PermCath out. Bleeding was controlled. no new events. currently calm. poc reviewed with dr. reed. PHYSICAL EXAMINATION: GENERAL: The patient is in no acute distress. HEENT: The patient is normocephalic, atraumatic. Pale. CARDIOVASCULAR: S1 and S2, regular rate and rhythm. LUNGS: Clear. ABDOMEN: Soft, nontender. EXTREMITIES: No clubbing, cyanosis, or edema. hematoma around fistula site but cdi. paul wnl. Objective Vital Signs Date Time Temp Pulse Resp B/P Pulse Ox O2 Delivery O2 Flow Rate FiO2 09/17/16 08:12 97.8 62 18 138/63 95 09/17/16 06:00 Room Air 09/13/16 14:00 3.0 Intake and Output 09/16/16 09/16/16 09/17/16 15:00 23:00 07:00 Intake Total 50 ml 960 ml Balance 50 ml 960 ml Results/Medications Result Diagram: 09/16/16 0519 09/16/16 0519 Results 24 hrs Laboratory Tests Test 09/16/16 12:35 09/16/16 21:39 09/17/16 08:32 Bedside Glucose 151 168 129 Medications Current Medications Ondansetron HCl (Zofran Inj) 4 mg Q6H PRN IV NAUSEA AND/OR VOMITING; Start 09/01 at 18:30 Acetaminophen (Tylenol Tab) 650 mg Q6H PRN PO PAIN LEVEL 1-3 OR FEVER Last administered on 09/16/16 15:14; Admin Dose 650 MG; Start 09/01/16 at 18:30 Docusate Sodium (Colace) 100 mg Q12H PRN PO CONSTIPATION Last administered on 15:10; Admin Dose 100 MG; Start 09/01/16 at 18:30 Magnesium Hydroxide (Milk Of Mag) 30 ml DAILY PRN PO CONSTIPATION Last administered on 09/16/16 15:11; Admin Dose 30 ML; Start 09/01/16 at 18:30 Pantoprazole (Protonix Tab) 40 mg DAILY@06 PO Last administered on 09/17/16 06 :18; Admin Dose 40 MG; Start 09/02/16 at 06:00 Acetaminophen (Tylenol Tab) 650 mg Q6H PRN PO PAIN; Start 09/01/16 at 18:30 Aripiprazole (Abilify) 2 mg QHS PO Last administered on 09/16/16 21:43; Admin Dose 2 MG; Start 09/01/16 at 21:00 Eye Lubricant (Artificial Tears Oph) 1 drop BID BOTH EYES Last administered on 09/16/16 21:43; Admin Dose 1 DROP; Start 09/01/16 at 21:00 Aspirin (Aspirin) 81 mg DAILY PO Last administered on 09/16/16 09:33; Admin Dose 81 MG; Start 09/02/16 at 09:00 Cholecalciferol (Vitamin D) 2,000 unit DAILY PO Last administered on 09/16/16 09:33; Admin Dose 2,000 UNIT; Start 09/02/16 at 09:00 Cyanocobalamin (Vitamin B12) 1,000 mcg DAILY PO Last administered on 09/16/16 09:33; Admin Dose 1,000 MCG; Start 09/02/16 at 09:00 Diltiazem HCl (Cardizem Cd) 120 mg DAILY PO Last administered on 09/16/16 09: 36; Admin Dose 120 MG; Start 09/02/16 at 09:00 Docusate Sodium (Colace) 100 mg Q12H PRN PO CONSTIPATION; Start 09/01/16 at 18: 30 Ferrous Sulfate (Ferrous Sulfate (Ec)) 325 mg DAILY PO Last administered on 09:33; Admin Dose 325 MG; Start 09/02/16 at 09:00 Hydralazine HCl (Apresoline) 100 mg Q8 PO Last administered on 09/17/16 06:18 ; Admin Dose 100 MG; Start 09/01/16 at 22:00 Linagliptin (Tradjenta) 5 mg DAILY PO Last administered on 09/16/16 09:33; Admin Dose 5 MG; Start 09/02/16 at 09:00 Mirtazapine (Remeron) 15 mg HS PO Last administered on 09/16/16 21:44; Admin Dose 15 MG; Start 09/01/16 at 21:00 Multivitamins Therapeutic (Theragran) 1 tab DAILY PO Last administered on 09:33; Admin Dose 1 TAB; Start 09/02/16 at 09:00 Tamsulosin HCl (Flomax) 0.4 mg BID PO Last administered on 09/16/16 21:44; Admin Dose 0.4 MG; Start 09/01/16 at 21:00 Zolpidem Tartrate (Ambien) 5 mg HS PRN PO insomnia Last administered on 22:37; Admin Dose 5 MG; Start 09/01/16 at 18:30 Diagnostic Test (Pha) (Accu-Chek) 1 ea 02 XX Last administered on 09/08/16 02: 55; Admin Dose 1 EA; Start 09/02/16 at 02:00 Miscellaneous Information 1 ea NOTE XX ; Start 09/01/16 at 20:00 Glucose (Glutose) 15 gm Q15M PRN PO DECREASED GLUCOSE; Start 09/01/16 at 20:00 Glucose (Glutose) 22.5 gm Q15M PRN PO DECREASED GLUCOSE; Start 09/01/16 at 20:00 Dextrose (D50w Syringe) 25 ml Q15M PRN IV DECREASED GLUCOSE; Start 09/01/16 at 20:00 Dextrose (D50w Syringe) 50 ml Q15M PRN IV DECREASED GLUCOSE; Start 09/01/16 at 20:00 Glucagon (Glucagen) 1 mg Q15M PRN IM DECREASED GLUCOSE; Start 09/01/16 at 20:00 Glucose (Glutose) 15 gm Q15M PRN BUCCAL DECREASED GLUCOSE; Start 09/01/16 at 20: 00 Epoetin Pierce (Epogen (Non Esrd/Non Oncology)) 8,000 units MoWeFr@17 SC Last administered on 09/15/16 18:29; Admin Dose 8,000 UNITS; Start 09/04/16 at 17:00 Clonidine HCl (Catapres-Tts 1 Patch) 1 patch Q7D TRANSDERM Last administered on 09/16/16 15:11; Admin Dose 1 PATCH; Start 09/02/16 at 15:30 Clonidine (Catapres) 0.1 mg Q4 PRN PO FOR SYSTOLIC BP >160 Last administered on 09/05/16 11:13; Admin Dose 0.1 MG; Start 09/02/16 at 22:00 Hydralazine HCl (Apresoline) 10 mg Q4H PRN IV hypertension Last administered on 09/06/16 01:19; Admin Dose 10 MG; Start 09/03/16 at 12:30 Amlodipine Besylate (Norvasc) 5 mg BID PO Last administered on 09/16/16 21:44 ; Admin Dose 5 MG; Start 09/05/16 at 21:00 Clonidine (Catapres) 0.1 mg Q6H PRN PO sbp > 170; Start 09/05/16 at 12:00 Minoxidil 5 mg 5 mg DAILY PO Last administered on 09/16/16 09:35; Admin Dose 5 MG; Start 09/07/16 at 09:00 Cefepime HCl (Maxipime 1gm/50 ml (Pmx)) 50 ml @ 100 mls/hr Q24H IVPB Last administered on 09/16/16 12:41; Admin Dose 100 MLS/HR; Start 09/10/16 at 12:00 Assessment/Plan Chief Complaint/Hosp Course 85-year-old male with history of diabetes mellitus, hypertension, dyslipidemia, cerebrovascular accident, atherosclerotic cardiovascular disease, atrial fibrillation, osteoarthritis, diabetic neuropathy, anemia, dyslipidemia, hypothyroidism, benign prostatic hypertrophy, chronic kidney disease who presented with anemia, acute on chronic renal insufficiency and atrial fibrillation with slow ventricular rate. Progressed to what appears to be end stage renal disease. pulled out his permcath. 1. End-stage renal disease. The patient is currently on hemodialysis, three sessions. Will anticipate next dialysis once permcath reestablished. check labs today. The patient's access was Perm-A-Cath while AV fistula is maturing. The patient's outpatient hemodialysis has been arranged at [facility]. will need to have new permcath maybe tomorrow. 2. Hypertension. Continue current blood pressure regimen. Continue ultrafiltration dialysis. 3. Anemia. Continue to monitor H and H levels. Continue to monitor calcium and phosphorus levels. 4. Encephalopathy, improving. Continue to monitor. 5. Atrial fibrillation. Continue medical management. 6. Diabetes. Continue Accu-Cheks and sliding scale. 7. Benign prostatic hypertrophy. Continue to monitor. 8. Coronary artery disease. Problems: KAMARI JACOB MD Sep 17, 2016 09:12
[2016-09-17] MEDS: MINOXIDIL 2.5 MG TAB PO SCH (09:13)
[2016-09-17] MEDS: AMLODIPINE 5 MG TAB PO SCH ×2 (09:13→23:08)
[2016-09-17 12:19] LABS: ADD SCAN DIFF NO
[2016-09-17 12:22] LABS: BASOPHIL # 0.1 10^3/ul (0.0-0.1); BASOPHILS % 0.7 % (0.0-2.0); EOSINOPHILS # 0.2 10^3/ul (0.0-0.5); HEMATOCRIT 28.2 % (42.0-52.0); HEMOGLOBIN 8.9 g/dl (14.0-18.0); MEAN CORPUSCULAR HEMOGLOBIN 27.4 pg (29.0-33.0); MEAN CORPUSCULAR HGB CONC 31.6 g/dl (32.0-37.0); MEAN CORPUSCULAR VOLUME 86.8 fl (82.0-101.0); MEAN PLATELET VOLUME 10.4 fl (7.4-10.4); MONOCYTE # 0.6 10^3/ul (0.3-0.9); MONOCYTES % 7.5 % (0.0-11.0); NEUTROPHIL # 5.6 10^3/ul (1.6-7.5); NEUTROPHILS % 75.5 % (39.0-77.0); PLATELET COUNT 126 10^3/UL (140-415); RED BLOOD COUNT 3.25 10^6/ul (4.70-6.10); WHITE BLOOD COUNT 7.4 10^3/ul (4.8-10.8)
[2016-09-17] MEDS: CEFEPIME 1GM/50 ML (PMX) 50 ML IVPB SCH (12:40)
[2016-09-17 12:50] LABS: ALBUMIN/GLOBULIN RATIO 1.07; CALCIUM 7.9 mg/dl (8.4-10.2); CREATININE 3.95 mg/dl (0.61-1.24); POTASSIUM 3.8 mmol/L (3.5-5.1); TOTAL PROTEIN 5.8 g/dl (6.1-8.1)
--- NOTE | 2016-09-17 13:21 | PN ---
DATE: 09/17/2016 SUBJECTIVE: The patient is resting comfortably, no acute events. Awaiting Perm-A-Cath placement. PHYSICAL EXAMINATION: VITAL SIGNS: Temperature 97.8, pulse 62, respirations 18, blood pressure 130/63, saturation 95% on room air. GENERAL: The patient is in no acute distress. The patient is pale. CARDIOVASCULAR: Positive S1 and S2. Distant heart sounds. LUNGS: Mild expiratory rhonchi. ABDOMEN: Soft, nontender. EXTREMITIES: Upper trace to +1 edema; lower extremity, no edema. LABORATORY DATA: No new labs today, actually pending. Last glucose levels 129, 168 to 151. MEDICATIONS: 1. Cefepime 1 gram q.24h. 2. Minoxidil 5 mg daily. 3. Norvasc 5 mg b.i.d. 4. Clonidine 0.1 q.6h. p.r.n. 5. Epogen 8000 units q. Sunday, Sunday and Sunday. 6. Hydralazine p.r.n. 7. Clonidine p.r.n. 8. Clonidine patch TTS 1 weekly. 9. Aspirin 81 mg daily. 10. Vitamin D 2000 units daily. 11. Vitamin B12 1000 daily. 12. Cardizem-CD 120 daily. 13. Ferrous sulfate 325 daily. 14. Tradjenta 5 mg daily. 15. Multivitamin 1 tablet daily. 16. Synthroid 25 mcg daily. 17. Protonix 40 mg daily. 18. Accu-Chek q.a.c. and at bedtime. 19. Hydralazine 100 mg q.8h. 20. Abilify 2 mg at bedtime. 21. Remeron 15 mg at bedtime. 22. Flomax 0.4 b.i.d. 23. Insulin aspart per sliding scale. Hypoglycemia protocol as directed; p.r.n. medications all re viewed. ASSESSMENT AND PLAN: This is an 86-year-old male with history of diabetes mellitus, hypert ension, dyslipidemia, CVA, atrial fib, osteoarthritis, diabetic neuropathy, anemia, dyslipidemia, hy pothyroidism, BPH, CKD, who presented with anemia, worsening kidney function, was diagnosed with pos sible pneumonia, fluid overload state and congestive heart failure exacerbation. 1. Respiratory, awaiting dialysis; we are waiting for line placement, no urgent indication for dial ysis currently. Continue cefepime for pneumonia. Continue aspiration precautions. 2. Dysphagia. The patient remains on pureed nectar thickened liquids. The patient unfortunately child s been progressively more weak. 3. Vascular dementia. Continue supportive care. 4. Paroxysmal atrial fibrillation on aspirin, blood pressure is now better controlled with the abov e meds. 5. Psychiatric disorder. Continue Abilify. 6. Benign prostatic hypertrophy, on Flomax. 7. Depression, on Remeron. 8. Appreciate physical therapy attempt. 9. Diabetes mellitus. Continue Tradjenta. Glucose levels are in the mid- 100s. 10. Hypothyroidism, on Synthroid. 11. Awaiting Perm-A-Cath placement. 12. Follow up electrolytes per nephrology. 13. We will follow. Dictated By: ERIC PHILLIPS/ALLAN Conf#: [id number] DID#: [id number]
[2016-09-17] MEDS: ARIPIPRAZOLE 2 MG TAB PO SCH (23:07)
[2016-09-17] MEDS: MIRTAZAPINE 15 MG TAB PO SCH (23:08)
[2016-09-18] VITALS (19 sets, daily range): BP systolic 130–154; BP diastolic 60–79; PULSE 70–81; RESP 12–18
[2016-09-18] MEDS: ACCUCHECK AT 2AM (Patients on SS coverage) XX SCH (01:57)
[2016-09-18] MEDS: LEVOTHYROXINE 25 MCG TAB PO SCH (06:37)
[2016-09-18] MEDS: PANTOPRAZOLE (EC) 40 MG TAB PO SCH (06:38)
[2016-09-18 07:21] LABS: CALCIUM 8.3 mg/dl (8.4-10.2); CREATININE 4.37 mg/dl (0.61-1.24); POTASSIUM 3.6 mmol/L (3.5-5.1)
[2016-09-18 07:24] LABS: MAGNESIUM 2.6 mg/dl (1.7-2.5); PHOSPHORUS 3.1 mg/dl (2.5-4.9)
[2016-09-18] MEDS: INSULIN ASPART [NOVOLOG] 3 ML PEN SC SCH ×5 (08:00→20:57)
[2016-09-18] MEDS: MULTIVITAMINS THERAPEUTIC TAB PO SCH (08:23)
[2016-09-18] MEDS: MINOXIDIL 2.5 MG TAB PO SCH (08:23)
[2016-09-18] MEDS: CHOLECALCIFEROL 2,000 UNIT CAP PO SCH (08:24)
[2016-09-18] MEDS: CYANOCOBALAMIN 500 MCG TAB PO SCH (08:24)
[2016-09-18] MEDS: TAMSULOSIN (SR) 0.4 MG CAP PO SCH ×2 (08:24→20:44)
[2016-09-18] MEDS: LINAGLIPTIN 5 MG TABLET PO SCH (08:24)
[2016-09-18] MEDS: FERROUS SULFATE (EC) 325 MG TAB PO SCH (08:24)
[2016-09-18] MEDS: ASPIRIN 81 MG TAB PO SCH (08:24)
[2016-09-18] MEDS: ARTIFICIAL TEARS 15 ML OPH BOTH EYES SCH ×2 (08:24→20:45)
[2016-09-18] MEDS: DILTIAZEM (CD) 120 MG CAP PO SCH (08:24)
[2016-09-18] MEDS: AMLODIPINE 5 MG TAB PO SCH ×2 (08:24→20:44)
--- NOTE | 2016-09-18 08:49 | PN ---
DATE: 09/16/2016 SUBJECTIVE: The patient seen resting comfortably. The patient is awaiting PermCath placement as peter fabio unfortunately pulled his line 2 days ago. No acute events overnight. The patient unfortunate ly remains on restraints as the patient is in danger to hurting himself as the patient remains confu sed. PHYSICAL EXAMINATION: VITAL SIGNS: Temperature 98.1, pulse 70, respirations 18, blood pressure 148/67, saturation 97%. GENERAL: The patient is in no acute distress, resting comfortably. The patient is pale. CARDIOVASCULAR: S1, S2. LUNGS: Mild rhonchi bilaterally. ABDOMEN: Soft, nontender. EXTREMITIES: Trace edema left upper extremity as he has mid elbow paul from his recent AV fistul a placement. LABORATORY DATA: White count is now normal at 8.8, hemoglobin 9.5, hematocrit 30, platelet count 13 0, neutrophils 77%, lymphocytes 12%. Chemistry: Sodium 133, potassium is low at 3.2, chloride 99, bicarbonate 27, BUN is 23, creatinine 3.12, glucose of 102. Glucose level most recent is 106 with g ood glycemic control. The patient's hepatitis A, B, C negative. Chest x-ray done yesterday revealed diffuse bilateral interstitial opacities with small left pleural effusion. There is mild cardiomegaly and aortic atherosclerosis. MEDICATIONS: Reviewed, include: 1. Cefepime 1 gram daily. 2. Minoxidil 5 mg daily. 3. Norvasc 5 mg b.i.d. 4. Clonidine 0.1 q.6h. p.r.n. 5. Epogen 8000 q. Sunday, Sunday and Sunday. 6. Hydralazine p.r.n. 7. Clonidine 0.1 q.4h. p.r.n. 8. Clonidine patch TTS-1 weekly. 9. Aspirin 81 mg daily. 10. Vitamin D 2000 daily. 11. Vitamin B12 1000 daily. 12. Cardizem-CD 120 daily. 13. Ferrous sulfate 325 daily. 14. Tradjenta 5 mg daily. 15. Multivitamin 1 tab daily. 16. Synthroid 25 mcg daily. 17. Protonix 40 mg daily. 18. Accu-Chek before meals and at bedtime. 19. Hydralazine 100 q.8h. 20. Abilify 2 mg at bedtime. 21. Eye lubricant b.i.d. 22. Remeron 15 mg at bedtime. 23. Flomax 0.4 b.i.d. 24. Insulin aspart per sliding scale. 25. Hypoglycemia protocol as directed. 26. Zofran p.r.n. 27. Tylenol p.r.n. 28. Colace p.r.n. 29. Milk of magnesia p.r.n. 30. Tylenol p.r.n. 31. Ambien p.r.n. ASSESSMENT AND PLAN: This is a very unfortunate 86-year-old male with history of diabetes mellitus, hypertension, dyslipidemia, CVA, atrial fibrillation, osteoarthritis, diabetic neuropathy, asthma, dyslipidemia, hypothyroidism, BPH, CKD, who presented with anemia, worsening kidney functio n and was diagnosed with possible pneumonia, fluid overload state, congestive heart failure exacerba tion. 1. Respiratory. Remains stable. Chest x-ray does show diffuse bilateral infiltrates and fluid ove rload state. Continue antibiotics with cefepime. MRSA of the nares was negative. Continue dialysi s once PermCath line is placed. Clinically stable. 2. Continue aspiration precautions as the patient has dysphagia. 3. The patient with paroxysmal atrial fibrillation, on aspirin. Blood pressure is controlled. 4. Psychiatric disorder. Continue Abilify. 5. Benign prostatic hypertrophy. Continue Flomax. 6. Depression, on Remeron. 7. Diabetes mellitus. Continue Tradjenta. Glucose levels are good. 8. Hypothyroidism. Continue current dose of Synthroid 25 mcg daily. 9. Anemia. Continue iron supplement and Epogen. No need for transfusion. 10. Awaiting PermCath placement by Dr. Hannah as outpatient hemodialysis was already arranged. 11. Monitor patient's p.o. intake. We will follow. Dictated By: ERIC PHILLIPS/ALLAN Conf#: [id number] DID#: [id number]
[2016-09-18] MEDS: CEFEPIME 1GM/50 ML (PMX) 50 ML IVPB SCH ×2 (12:00→13:27)
[2016-09-18] MEDS ORDERED: HEPARIN 1000 UNITS/ML 10 ML INJ ONE (12:09)
--- NOTE | 2016-09-18 12:43 | OPR ---
Date/Time of Note Date/Time of Note DATE: 09/18/16 TIME: 12:42 Operative Report Free Text/Dictation DATE OF OPERATION: 09/18/2016 SURGEON: Tariq Moeller MD PREOPERATIVE DIAGNOSIS: ESRD POSTOPERATIVE DIAGNOSIS: same ANESTHESIA: Local BLOOD LOSS: minimal COMPLICATIONS: None. ACCESS: Right common femoral vein INDICATIONS: This is a 86 year-old female with ESRD requiring dialysis. Patient and family have been informed of the alternatives, risks, and benefits. Risks including but not limited to bleeding, thrombosis, embolization, myocardial infarction, , device malfunction, infection, pneumothorax, nephrotoxicity and patient has agreed to proceed. PROCEDURE: 1. Ultrasound guided access of right common femoral vein 2. Right common femoral vein non-tunneled hemodialysis catheter placement DESCRIPTION: The patient was in supine position in his bed. Bed was placed in slight Trendelenburg position and the groin was prepped and draped with sterile technique. The central catheter was flushed with heparin to ensure function of each port. Landmarks were identified and the skin entry site was chosen using ultrasound guidance. The skin And subcutaneous tissue were anesthetized with 1% lidocaine. The vein was then located with a needle with a 10 mL syringe using ultrasound guidance. The needle was then directed towards the vein and was entered. The needle position was secured and syringe was removed. The hub was occluded to prevent venous air embolus. The guidewire was passed easily and the needle was removed while the wire was held in place. A small incision was then made at the point of the wire entry. The dilator was placed over the wire and the tract gently dilated. The catheter was fed over the wire, ensuring the wire exited from the port before advancing the catheter. The catheter was inserted to the desired depth and the wire removed. Each port was aspirated to ensure adequate blood flow and then flushed with heparinized saline solution. The catheter was secured in place with a 2-0 nylon suture and a sterile dressing was applied. The patient tolerated the procedure well and was in stable condition. All instrument, sponge and needle counts were correct 2. TARIQ MOELLER MD Sep 18, 2016 12:43
--- NOTE | 2016-09-18 13:13 | PN ---
DATE: 09/18/2016 SUBJECTIVE: Patient is stable, no acute events overnight. The patient is pending Perm-A-Cath place ment at this time. OBJECTIVE: VITAL SIGNS: Blood pressure is 143/60, respiration 18, pulse 72, temperature 97.7. HEENT: Head is normocephalic. NECK: Supple. HEART: Regular rate. LUNGS: Show diminished breath sounds at the base. ABDOMEN: Soft, nontender to palpation. No rebound or guarding. EXTREMITIES: Negative for clubbing, cyanosis, edema. DERMATOLOGIC: No rashes. MUSCULOSKELETAL: No joint effusions. NEUROLOGIC: No change in exam. MEDICATIONS: Reviewed. LABORATORY DATA: Showed sodium 133, potassium 3.6, chloride 98, BUN 30, creatinine 4.37. White cou nt 7.4, hemoglobin 8.9, hematocrit 20.2, platelet count is 126. ASSESSMENT AND PLAN: 1. Nonoliguric acute kidney injury on top of chronic kidney disease stage V, now presumed end-stage renal disease. The patient is status post Perm-A-Cath, AV fistula placement. The patient had 3 se ssions of dialysis. The patient's Perm-A-Cath was pulled out by patient. The patient is pending re peat placement of Perm-A-Cath. Plan for dialysis once Perm-A-Cath has been reinserted. The patient 's outpatient hemodialysis been . 2. Access. The patient is pending PermCath placement. 3. Hypertension. Continue current blood pressure regimen. 4. Anemia. Continue to monitor hemoglobin and hematocrit levels. Continue Epogen. 5. Mineral bone disorder. Continue to monitor calcium and phosphorus levels. 6. Encephalopathy. No significant change. Continue to monitor. 7. Atrial fibrillation, continue current medical management. 8. Diabetes. Continue Accu-Cheks, insulin sliding scale. 9. Benign prostatic hypertrophy. Continue to monitor. 10. Coronary artery disease. Dictated By: TRACE LEVI/ALLAN Conf#: [id number] DID#: [id number]
--- NOTE | 2016-09-18 15:37 | PN ---
DATE: 09/18/2016 SUBJECTIVE: Patient seen, status post right common femoral vein Aldo catheter placement. The pa jacquelynnt now undergoing dialysis. The patient appears comfortable in bed, no complaints. PHYSICAL EXAMINATION: VITAL SIGNS: Temperature 97.5, pulse 76, respirations 12 to 18, blood pressure 142/66, saturation 9 7% on 2 liters. GENERAL: The patient is pale. CARDIOVASCULAR: S1, S2, regular rate. LUNGS: Clear. ABDOMEN: Soft, nontender. EXTREMITIES: No clubbing, cyanosis. There is trace edema lower and upper extremities. LABORATORY DATA: White count 7.4, hemoglobin 8.9, hematocrit 28, this was yesterday. Sodium is 133 . CBC today, potassium 3.6, chloride 98, bicarbonate 28, BUN is 30, creatinine 4.37, glucose of 108 . Last glucose levels 120 and 114. MEDICATIONS: Reviewed and include: 1. Cefepime 1 gram q.24h. 2. Minoxidil 5 mg daily. 3. Norvasc 5 mg b.i.d. 4. Clonidine 0.1 q.6h. p.r.n. 5. Epogen 8000 units q. Sunday, Sunday and Sunday. 6. Hydralazine p.r.n. 7. Clonidine p.r.n. 8. TTS 1 patch q. weekly. 9. Aspirin 81 mg daily. 10. Vitamin D 2000 daily. 11. Vitamin B12 1000 daily. 12. Diltiazem CD 120 daily. 13. Ferrous sulfate 325 mg daily 14. Tradjenta 5 mg daily. 15. Multivitamin 1 tablet daily. 16. Synthroid 25 mcg daily. 17. Protonix 40 mg daily. 18. Accu-Chek q.a.c. and at bedtime. 19. Hydralazine 100 q.8h. 20. Abilify 2 mg at bedtime. 21. Eye lubricants b.i.d. 22. Remeron 15 at bedtime. 23. Flomax 0.4 b.i.d. 24. Hypoglycemia protocol as directed. 25. Zofran p.r.n. 26. Tylenol p.r.n. 27. Colace p.r.n. 28. Ambien p.r.n. ASSESSMENT AND PLAN: This is an unfortunate 86-year-old male with history of diabetes jaime itus, hypertension, dyslipidemia, CVA, atrial fibrillation, osteoarthritis, diabetic neuropathy, ast hma, dyslipidemia, hypothyroidism, benign prostatic hypertrophy, chronic kidney disease, who present ed with anemia and worsening kidney function. He was diagnosed with possible pneumonia, fluid over load state and congestive heart failure exacerbation. 1. Respiratory. Chest x-ray suggests fluid overload state and infiltrate. Continue antibiotics, c ontinue aspiration precautions, fluid to be removed now with dialysis. Clinically stable. 2. Infectious disease. Remains on antibiotics for pneumonia. Continue aspiration precautions, pur eed nectar thickened and liquidy diet. 3. Paroxysmal atrial fibrillation. Remains on aspirin and blood pressure is better controlled. 4. Psychiatric disorder. Continue Abilify and Remeron. 5. Benign prostatic hypertrophy on Flomax. 6. Diabetes mellitus, controlled Tradjenta. 7. Hypothyroidism, continue Synthroid. 8. Anemia. Continue iron supplement and Epogen and no need for transfusion. DISPOSITION: Hopefully soon, now that we have hemodialysis access, we will give it some time until the AV fistula matures. Follow up Dr. De La Paz's nephrology recommendations and dialysis schedule an d discharge planning soon. We will follow. Dictated By: ERIC PHILLIPS/ALLAN Conf#: [id number] DID#: [id number]
[2016-09-18] MEDS: EPOETIN 4000 UNITS/ML (NON ESRD/NON ONCOLOGY) SC SCH (17:17)
[2016-09-18] MEDS: ARIPIPRAZOLE 2 MG TAB PO SCH (20:43)
[2016-09-18] MEDS: MIRTAZAPINE 15 MG TAB PO SCH (20:43)
[2016-09-19] VITALS (12 sets, daily range): BP systolic 103–141; BP diastolic 51–65; PULSE 68–84; RESP 18–19
[2016-09-19] MEDS: ACCUCHECK AT 2AM (Patients on SS coverage) XX SCH (02:00)
[2016-09-19 06:04] LABS: ADD SCAN DIFF NO; BASOPHIL # 0.1 10^3/ul (0.0-0.1); BASOPHILS % 0.7 % (0.0-2.0); EOSINOPHILS # 0.1 10^3/ul (0.0-0.5); EOSINOPHILS % 1.1 % (0.0-7.0); HEMATOCRIT 29.5 % (42.0-52.0); LYMPHOCYTES # 0.9 10^3/ul (0.8-2.9); LYMPHOCYTES % 12.2 % (15.0-51.0); MEAN CORPUSCULAR HGB CONC 30.5 g/dl (32.0-37.0); MEAN CORPUSCULAR VOLUME 88.6 fl (82.0-101.0); MEAN PLATELET VOLUME 10.4 fl (7.4-10.4); MONOCYTE # 0.7 10^3/ul (0.3-0.9); NEUTROPHIL # 5.6 10^3/ul (1.6-7.5); NEUTROPHILS % 75.5 % (39.0-77.0); PLATELET COUNT 136 10^3/UL (140-415); RED BLOOD COUNT 3.33 10^6/ul (4.70-6.10); RED CELL DISTRIBUTION WIDTH 16.1 % (11.5-14.5); WHITE BLOOD COUNT 7.4 10^3/ul (4.8-10.8)
[2016-09-19 06:33] LABS: CALCIUM 8.8 mg/dl (8.4-10.2); CREATININE 3.04 mg/dl (0.61-1.24); MAGNESIUM 2.5 mg/dl (1.7-2.5); PHOSPHORUS 2.8 mg/dl (2.5-4.9); POTASSIUM 3.5 mmol/L (3.5-5.1)
[2016-09-19] MEDS: PANTOPRAZOLE (EC) 40 MG TAB PO SCH (06:48)
[2016-09-19] MEDS: LEVOTHYROXINE 25 MCG TAB PO SCH (06:48)
[2016-09-19] MEDS: INSULIN ASPART [NOVOLOG] 3 ML PEN SC SCH ×4 (08:15→20:26)
--- NOTE | 2016-09-19 09:16 | PN ---
DATE: 09/18/2016 CARDIOLOGY FOLLOWUP SUBJECTIVE: No new cardiac event. No reported chest pain or pressure. The patient does answer my questions. MEDICATIONS: Reviewed. PHYSICAL EXAMINATION: VITAL SIGNS: Temperature 98.6, heart rate of 78, blood pressure 143/65, respiratory rate of 18. HEENT: No acute distress. CARDIOVASCULAR: Regular rate and rhythm. PULMONARY: With no wheezes. GASTROINTESTINAL: Soft, nontender. EXTREMITIES: With trivial edema. NEUROLOGIC: Awake, but does not answer my questions. LABORATORY: WBC of 7.4, hemoglobin 8.9, platelet 126, sodium 133, potassium 3.6, BUN of 30, creatin ine 4.37, glucose 108. ASSESSMENT AND PLAN: 1. Renal failure. 2. Hypertension, under good control now. 3. Anemia. 4. Paroxysmal atrial fibrillation, currently appears to be in sinus rhythm. 5. Diabetes 6. Encephalopathy. RECOMMENDATIONS: We will continue with the current cardiac care. dialysis access. Blood pre ssure under good control now. Dictated By: ISH DICKEY/ALLAN Conf#: [id number] DID#: [id number]
--- NOTE | 2016-09-19 11:02 | PN ---
DATE: 09/19/2016 SUBJECTIVE: The patient had hemodialysis yesterday, tolerated it well. No other events noted. OBJECTIVE: VITAL SIGNS: Blood pressure is 120/59, respirations 18, pulse 64, temperature 98.3. I's and O's re viewed. HEENT: Head is normocephalic. NECK: Supple. HEART: Regular rate. LUNGS: Show diminished breath sounds at the bases. ABDOMEN: Soft, nontender to palpation. No rebound or guarding. EXTREMITIES: Negative for clubbing, cyanosis. No edema. DERMATOLOGIC: No rashes. MUSCULOSKELETAL: No joint effusions. NEUROLOGIC: No change in exam. MEDICATIONS: The patient's medications have been reviewed. LABORATORY DATA: Shows sodium 146, potassium 3.5, chloride 109, BUN 17, creatinine 3.04. White cou nt 7.4, hemoglobin 9.0, hematocrit 29.5, platelet count is 136. ASSESSMENT AND PLAN: 1. Nonoliguric acute kidney injury on top of chronic kidney disease stage V, now progressed to end- stage renal disease. The patient is status post arteriovenous fistula placement. A Aldo cathete r was placed yesterday. The patient had hemodialysis, tolerated it well. Anticipate next hemodialy sis tomorrow. We will dialyze for 3 hours, 3 K bath, calcium 2.5. 2. Access. The patient is status post AV fistula placement. The patient is pending PermCath place d. We will follow up with Dr. Hannah. 3. Hypertension. Continue current blood pressure regimen. 4. Anemia. Continue to monitor hemoglobin and hematocrit levels. Continue Epogen. 5. Mineral bone disorder. Continue to monitor calcium and phosphorus levels. 6. Encephalopathy, mildly improved. Continue to monitor. 7. Atrial fibrillation, continue current medical management. 8. Diabetes. Continue Accu-Cheks and insulin sliding scale. 9. Benign prostatic hypertrophy. Continue to monitor. 10. Coronary artery disease. 11. Hypernatremia, mild. We will encourage free water intake. DISPOSITION: The patient has outpatient dialysis arranged at [facility]. Pending PermCath place ment. Dictated By: TRACE LEVI/NTS Conf#: [id number] DID#: [id number]
[2016-09-19] MEDS: ASPIRIN 81 MG TAB PO SCH (11:23)
[2016-09-19] MEDS: LINAGLIPTIN 5 MG TABLET PO SCH (11:24)
[2016-09-19] MEDS: CHOLECALCIFEROL 2,000 UNIT CAP PO SCH (11:24)
[2016-09-19] MEDS: AMLODIPINE 5 MG TAB PO SCH ×2 (11:25→20:30)
[2016-09-19] MEDS: CYANOCOBALAMIN 500 MCG TAB PO SCH (11:25)
[2016-09-19] MEDS: MINOXIDIL 2.5 MG TAB PO SCH (11:26)
[2016-09-19] MEDS: FERROUS SULFATE (EC) 325 MG TAB PO SCH (11:26)
[2016-09-19] MEDS: TAMSULOSIN (SR) 0.4 MG CAP PO SCH ×2 (11:26→20:29)
[2016-09-19] MEDS: MULTIVITAMINS THERAPEUTIC TAB PO SCH (11:26)
[2016-09-19] MEDS: DILTIAZEM (CD) 120 MG CAP PO SCH (11:27)
[2016-09-19] MEDS: ARTIFICIAL TEARS 15 ML OPH BOTH EYES SCH ×2 (11:28→20:30)
[2016-09-19] MEDS: CEFEPIME 1GM/50 ML (PMX) 50 ML IVPB SCH (12:41)
--- NOTE | 2016-09-19 16:51 | PN ---
DATE: 09/19/2016 SUBJECTIVE: The patient is seen with no specific complaints. Remains on restraints. Last dialysis was yesterday through the right femur Aldo. The patient is awaiting PermCath placement to be do ne by Dr. Hannah. OBJECTIVE: VITAL SIGNS: Temperature 97.7, pulse 62, respirations 18, blood pressure 117/59, saturation is 100% . GENERAL: The patient is in no acute distress. HEENT: Normocephalic, atraumatic. The patient is pale. CARDIOVASCULAR: S1, S2, regular rate. LUNGS: Clear. ABDOMEN: Soft, nontender. EXTREMITIES: Trace edema of lower extremities. LABORATORY DATA: White count 7.4, hemoglobin 9, hematocrit 30, platelet count 136 with normal diffe rential. Chemistry: Sodium 146, potassium 3.5, chloride 109, bicarbonate 28, BUN is 17, creatinine 3.04, glucose of 117. MEDICATIONS: 1. Cefepime 1 gram q. 24 hours. 2. Minoxidil 5 mg daily. 3. Amlodipine 5 mg b.i.d. 4. Clonidine p.r.n. 5. Epogen 8000 q. Sunday, Sunday, and Sunday. 6. Hydralazine p.r.n. 7. Clonidine p.r.n. 8. Clonidine patch weekly. 9. Aspirin 81 mg daily. 10. Vitamin D 2000 daily. 11. Vitamin B12 1000 daily. 12. Cardizem-CD 120 daily. 13. Ferrous sulfate 325 daily. 14. Tradjenta 5 mg daily. 15. Multivitamin 1 tablet daily. 16. Synthroid 25 mcg daily. 17. Protonix 40 mg daily. 18. Accu-Chek as directed. 19. Hydralazine 100 q. 8 hours. 20. Abilify 2 mg at bedtime. 21. Remeron 15 mg at bedtime. 22. Flomax 0.4 b.i.d. 23. Hypoglycemia protocol as directed. 24. Zofran p.r.n. 25. Tylenol p.r.n. 26. Colace p.r.n. 27. Milk of magnesia p.r.n. 28. Ambien p.r.n. ASSESSMENT AND PLAN: This is an 86-year-old male with history of diabetes mellitus, hypert ension, dyslipidemia, CVA, atrial fibrillation, osteoarthritis, diabetic neuropathy, asthma, dyslipi demia, hypothyroidism, BPH, and chronic kidney disease who presented with anemia and worsening kidne y function. He was diagnosed with pneumonia, fluid overload status, plus congestive heart failure e xacerbation. 1. Respiratory: Stable. Remain on antibiotics. The patient is having fluid removal by dialysis. 2. Infectious disease: Remains on antibiotics for pneumonia. Continue aspiration precaution. 3. Paroxysmal atrial fibrillation on aspirin. 4. Psychiatric disorder. Continue Abilify and Remeron. 5. Benign prostatic hypertrophy on Flomax. 6. Diabetes mellitus on Tradjenta 7. Hypothyroidism on Synthroid. 8. Anemia. Continue Epogen. Monitor H and H, p.r.n. transfusion. DISPOSITION: PermCath line placed per Dr. De La Paz. The patient remains stable. Observe. We will follow. Dictated By: ERIC PHILLIPS/ALLAN Conf#: [id number] DID#: [id number]
[2016-09-19] MEDS: ARIPIPRAZOLE 2 MG TAB PO SCH (20:29)
[2016-09-19] MEDS: MIRTAZAPINE 15 MG TAB PO SCH (20:30)
[2016-09-20] VITALS (18 sets, daily range): BP systolic 112–167; BP diastolic 54–73; PULSE 60–88; RESP 17–22
[2016-09-20] MEDS: ACCUCHECK AT 2AM (Patients on SS coverage) XX SCH (01:45)
[2016-09-20] MEDS: PANTOPRAZOLE (EC) 40 MG TAB PO SCH (06:12)
[2016-09-20] MEDS: LEVOTHYROXINE 25 MCG TAB PO SCH (06:12)
--- NOTE | 2016-09-20 06:38 | PN ---
DATE: 09/19/2016 CARDIOLOGY FOLLOWUP SUBJECTIVE: Discussed with the staff. The patient remained nonverbal, does not answer my questions . He gets agitated. MEDICATIONS: Reviewed. PHYSICAL EXAMINATION: VITAL SIGNS: Temperature 97.8, heart of 76, blood pressure 120/68, respiratory rate of 18. HEENT: Normocephalic, atraumatic. CARDIOVASCULAR: Regular rate and rhythm, nonsystolic murmur. PULMONARY: With no wheezes. GASTROINTESTINAL: Soft. No rebound. EXTREMITIES: Positive lower extremity edema. NEUROLOGIC: Opens his eyes, does not answer my questions though. LABORATORY: WBC of 7.4, hemoglobin 9, platelets of 136. Sodium 146, potassium 3.5, BUN of 17, creat inine 3.04, glucose 117. ASSESSMENT AND PLAN: 1. Renal failure, end-stage, status post AV fistula placement. Status post dialysis, essential hyp ertension, currently under much better control on multiple medications. 2. Anemia 3. Encephalopathy. 4. History of paroxysmal atrial fibrillation, currently appears to be clinically in sinus. 5. Diabetes. RECOMMENDATIONS: We will continue with the current cardiac care. Blood pressure currently under go od control. Unable to anticoagulate due to severe anemia and concern about the bleeding. Dialysis as per renal will be continued. Dictated By: ISH DICKEY/ALLAN Conf#: [id number] DID#: [id number]
[2016-09-20] MEDS: INSULIN ASPART [NOVOLOG] 3 ML PEN SC SCH ×4 (08:15→20:56)
[2016-09-20] MEDS: DILTIAZEM (CD) 120 MG CAP PO SCH (09:00)
[2016-09-20] MEDS: AMLODIPINE 5 MG TAB PO SCH ×2 (09:00→20:57)
[2016-09-20] MEDS: MINOXIDIL 2.5 MG TAB PO SCH (09:00)
--- NOTE | 2016-09-20 10:04 | PN ---
DATE: 09/20/2016 SUBJECTIVE: The patient is stable. No fevers, chills overnight. No other events noted. OBJECTIVE: VITAL SIGNS: Blood pressure 112/56, respirations 22, pulse 64, temperature 97.9. HEENT: Head is normocephalic. NECK: Supple. HEART: Regular rate. LUNGS: Show diminished breath sounds at the bases. ABDOMEN: Soft, nontender to palpation. No rebound or guarding. EXTREMITIES: Negative for clubbing, cyanosis. No edema. DERMATOLOGIC: No rashes. MUSCULOSKELETAL: No joint effusions. NEUROLOGIC: No change in exam. MEDICATIONS: The patient's medications have been reviewed. LABORATORY DATA: Has been reviewed. No new labs. ASSESSMENT AND PLAN: 1. Nonoliguric acute kidney injury on top of chronic kidney disease stage V, now progressed to end- stage renal disease. The patient is status post arteriovenous fistula placement. The patient has a Aldo catheter. The patient is receiving hemodialysis. Plan for dialysis today for 3 hours, 3 K bath. 2. Access. The patient is status post AV fistula placement, pending PermCath placement. We will f ollow up with Dr. Hannah. 3. Hypertension. Continue current blood pressure regimen. 4. Anemia. Continue to monitor hemoglobin and hematocrit levels. Continue Epogen. 5. Mineral bone disorder. Continue to monitor calcium and phosphorus levels. 6. Encephalopathy, mild. Continue to monitor. 7. Atrial fibrillation, continue current medical management. 8. Diabetes. Continue Accu-Cheks and insulin sliding scale. 9. Benign prostatic hypertrophy. Continue to monitor. 10. Coronary artery disease. 11. Hyponatremia, mild, improved. Dictated By: TRACE LEVI/ALLAN Conf#: [id number] DID#: [id number]
[2016-09-20] MEDS: ASPIRIN 81 MG TAB PO SCH (11:39)
[2016-09-20] MEDS: FERROUS SULFATE (EC) 325 MG TAB PO SCH (11:39)
[2016-09-20] MEDS: ARTIFICIAL TEARS 15 ML OPH BOTH EYES SCH ×2 (11:39→20:55)
[2016-09-20] MEDS: MULTIVITAMINS THERAPEUTIC TAB PO SCH (11:40)
[2016-09-20] MEDS: TAMSULOSIN (SR) 0.4 MG CAP PO SCH ×2 (11:40→20:56)
[2016-09-20] MEDS: CHOLECALCIFEROL 2,000 UNIT CAP PO SCH (11:40)
[2016-09-20] MEDS: LINAGLIPTIN 5 MG TABLET PO SCH (11:40)
[2016-09-20] MEDS: CYANOCOBALAMIN 500 MCG TAB PO SCH (11:40)
[2016-09-20] MEDS: CEFEPIME 1GM/50 ML (PMX) 50 ML IVPB SCH (11:41)
[2016-09-20] MEDS: EPOETIN 4000 UNITS/ML (NON ESRD/NON ONCOLOGY) SC SCH (17:55)
[2016-09-20] MEDS: ARIPIPRAZOLE 2 MG TAB PO SCH (20:56)
[2016-09-20] MEDS: MIRTAZAPINE 15 MG TAB PO SCH (20:56)
[2016-09-21] VITALS (24 sets, daily range): BP systolic 144–175; BP diastolic 48–78; PULSE 64–86; RESP 14–21
[2016-09-21] MEDS: ACCUCHECK AT 2AM (Patients on SS coverage) XX SCH (02:00)
[2016-09-21] MEDS: PANTOPRAZOLE (EC) 40 MG TAB PO SCH (05:32)
[2016-09-21] MEDS: LEVOTHYROXINE 25 MCG TAB PO SCH (06:12)
--- NOTE | 2016-09-21 06:50 | PN ---
DATE: 09/20/2016 CARDIOLOGY FOLLOWUP PROGRESS NOTE SUBJECTIVE: Discussed with the staff. No unusual cardiac event. No reported chest pain or pressur e. The patient still becomes agitated and has to be subdued intermittently. Denies any chest pain or pressure to me ____. MEDICATIONS: Reviewed. PHYSICAL EXAMINATION: VITAL SIGNS: Temperature 98.4, heart rate of 62, blood pressure 112/56, respiratory rate of 18, sat urating 98%. HEENT: Normocephalic, atraumatic. No acute distress. Pupils are equal. CARDIOVASCULAR: Regular rate and rhythm, systolic murmur. PULMONARY: With no wheezes heard. GASTROINTESTINAL: Soft, nontender. EXTREMITIES: With trivial edema. ____. LABORATORY: Shows glucose of 117. ASSESSMENT AND PLAN: 1. Hypertension, under good control and on multiple medications. 2. Renal failure, on dialysis now. 3. Anemia. 4. Encephalopathy and dementia. 5. History of paroxysmal atrial fibrillation, currently remains in sinus rhythm. 6. Sick-sinus syndrome, marked bradycardia, currently has been stable on the adjustment of medicati on. 7. Diabetes, under control. RECOMMENDATIONS: We will continue with the current cardiac care. Dialysis as per renal will be con tinued. Blood pressure medication will be continued and adjusted as needed. Dictated By: ISH DICKEY/ALLAN Conf#: [id number] DID#: [id number]
[2016-09-21] MEDS ORDERED: HEPARIN 1000 UNITS/ML 10 ML INJ ONE (06:54)
[2016-09-21] MEDS ORDERED: LIDOCAINE 1% (MDV) 20 ML INJ ONE (06:54)
--- NOTE | 2016-09-21 07:58 | PN ---
DATE: 09/20/2016 SUBJECTIVE: Patient seen resting comfortably, awaiting PermCath placement. Dialysis is planned for today. Patient resting in bed comfortably PHYSICAL EXAMINATION: VITAL SIGNS: Temperature 97.9, pulse 57, respirations 16, blood pressure 112/56, saturation 96% on 2 liter nasal cannula. GENERAL: No acute distress. HEENT: Normocephalic. The patient is pale. CARDIOVASCULAR: S1, S2, regular rate. LUNGS: Clear. ABDOMEN: Soft, nontender. EXTREMITIES: Upper extremity trace edema. He is status post left upper extremity AV fistula placem ent. LABORATORY DATA: No new labs today. Last glucose level of 151, 117 and 153. Patient's medications reviewed: Include: 1. Cefepime 1 gram q.24h. This is now 10 days of antibiotics and we can probably discontinue it. 2. Minoxidil 5 mg daily. 3. Norvasc 5 mg b.i.d. 4. Catapres 0.1 q.6h. p.r.n. 5. Epogen 8000 every Sunday, Sunday, Sunday. 6. Hydralazine p.r.n. 7. Clonidine p.r.n. 8. Clonidine patch TTS 1 weekly. 9. Aspirin 81 mg daily. 10. Vitamin D 2000 daily. 11. Vitamin B12 1000 daily. 12. Cardizem-CD 120 daily. 13. Ferrous sulfate 325 daily. 14. Tradjenta 5 mg daily. 15. Multivitamin 1 tablet daily. 16. Synthroid 25 mcg daily. 17. Protonix 40 mg daily. 18. Accu-Chek q.a.c. and at bedtime. 19. Hydralazine 100 q.8h. 20. Abilify 2 mg at bedtime. 21. Remeron 15 mg at bedtime. 22. Flomax 0.4 b.i.d. 23. Hypoglycemia protocol as directed. ASSESSMENT AND PLAN: This is an 86-year-old male with history of diabetes mellitus, hypert ension, dyslipidemia, CVA, atrial fibrillation, osteoarthritis, diabetic neuropathy, aspirin, dyslip idemia, hypothyroidism, BPH, CKD, presented with anemia, worsening kidney function was diagnosed wit h pneumonia, fluid overload state. 1. Respiratory. Stable, we may discontinue antibiotics. The patient finished treatment for pneumo noah. Continue fluid removal with dialysis. Clinically better. 2. Infectious disease. Will discontinue above antibiotics. 3. Paroxysmal atrial fibrillation. Continue aspirin. 4. Psychiatric disorder, on Abilify and Remeron. 5. Awaiting Perm-A-Cath line placement. 6. End-stage renal disease. Continue hemodialysis 3 times a week per Dr. De La Paz. 7. Hypothyroidism. Remains on Synthroid. 8. Anemia p.r.n. transfusion. Continue Epogen. DISPOSITION: Soon once Perm-A-Cath is in place with outpatient hemodialysis arranged. We will foll ow. Dictated By: ERIC PHILLIPS/ALLAN Conf#: [id number] DID#: [id number]
[2016-09-21] MEDS: INSULIN ASPART [NOVOLOG] 3 ML PEN SC SCH ×3 (08:15→18:00)
--- NOTE | 2016-09-21 08:35 | RADRPT ---
PROCEDURE: XR Abdomen 1 View. CLINICAL INDICATION: Status post dialysis catheter placement. TECHNIQUE: AP abdomen x-ray. COMPARISON: None. FINDINGS: Dialysis catheter has its tip at the expected location of the junction of the inferior vena cava wit h the right atrium. Large amount of formed stool is seen throughout the colon. No dilated loops of small bowel are observed. No organomegaly is identified. No abnormal calculi are observed. Degener ative changes are identified in the hips and spine. Vascular calcifications are seen in both inguin al regions. IMPRESSION: Dialysis catheter with its tip at the expected location of the junction of the inferior vena cava an d right atrium. Large amount of formed stool throughout the colon, suggesting constipation. If further characterization of the abdomen is needed CT should be considered. RPTAT: AA .Osmin Dumont MD, Date Time Electronically viewed and signed by .Osmin Dumont MD, on 09/21/2016 08:34 .P/
[2016-09-21] MEDS: ASPIRIN 81 MG TAB PO SCH (09:00)
--- NOTE | 2016-09-21 09:44 | PN ---
DATE: 09/21/2016 SUBJECTIVE: The patient is stable, no acute events overnight. The patient had a PermCath placed th is morning. No other events noted. The patient had hemodialysis yesterday. OBJECTIVE: VITAL SIGNS: Blood pressure 167/72, respirations 18, pulse 80, temperature 98.7. HEENT: Head is normocephalic. NECK: Supple. HEART: Regular rate. LUNGS: Show diminished breath sounds at the bases. ABDOMEN: Soft, nontender to palpation. No rebound or guarding. EXTREMITIES: Negative for clubbing, cyanosis. Trace edema. DERMATOLOGIC: No rashes. MUSCULOSKELETAL: No joint effusions. NEUROLOGIC: No change in exam. MEDICATIONS: The patient's medications have been reviewed. LABORATORY DATA: Has been reviewed. No new labs. ASSESSMENT AND PLAN: 1. Nonoliguric acute kidney injury on top of chronic kidney disease stage V, now progressing to end -stage renal disease. The patient is on hemodialysis. We will plan for dialysis tomorrow for 3 pat rs, 3 K bath, calcium 2.5. 2. Access. The patient is status post PermCath placement. The patient is status post arteriovenou s fistula. We will continue to monitor. Follow up with Dr. Hannah. 3. Hypertension. Continue current blood pressure regimen. 4. Anemia. Continue to monitor hemoglobin and hematocrit levels. Continue Epogen. 5. Mineral bone disorder. Continue to monitor calcium and phosphorus levels. 6. Encephalopathy. Continue to monitor. 7. Atrial fibrillation. Continue current medical management. 8. Diabetes. Continue Accu-Cheks and insulin sliding scale. 9. Benign prostatic hypertrophy. Continue to monitor. 10. Coronary artery disease. 11. Mild hyponatremia. Continue to monitor. Dictated By: TRACE LEVI/NTS Conf#: [id number] DID#: [id number]
[2016-09-21] MEDS: DILTIAZEM (CD) 120 MG CAP PO SCH (10:08)
[2016-09-21] MEDS: ARTIFICIAL TEARS 15 ML OPH BOTH EYES SCH (10:08)
[2016-09-21] MEDS: CYANOCOBALAMIN 500 MCG TAB PO SCH (10:09)
[2016-09-21] MEDS: FERROUS SULFATE (EC) 325 MG TAB PO SCH (10:09)
[2016-09-21] MEDS: CHOLECALCIFEROL 2,000 UNIT CAP PO SCH (10:09)
[2016-09-21] MEDS: AMLODIPINE 5 MG TAB PO SCH (10:09)
[2016-09-21] MEDS: MULTIVITAMINS THERAPEUTIC TAB PO SCH (10:09)
[2016-09-21] MEDS: MINOXIDIL 2.5 MG TAB PO SCH (10:09)
[2016-09-21] MEDS: TAMSULOSIN (SR) 0.4 MG CAP PO SCH (10:09)
[2016-09-21] MEDS: LINAGLIPTIN 5 MG TABLET PO SCH (10:10)
--- NOTE | 2016-09-21 11:21 | PDOCDIS ---
Discharge Instructions CONDITION Patient Condition: Stable HOME CARE INSTRUCTIONS: Special Diet: Pureed ACTIVITY: Activity Restrictions: Slowly Increase Activity FOLLOW UP/APPOINTMENTS Follow-up Plan see reconciliation ERIC STEVENS MD Sep 21, 2016 11:21
--- NOTE | 2016-09-21 12:17 | DS ---
DATE OF ADMISSION: 09/01/2016 DATE OF DISCHARGE: 09/21/2016 REASON FOR ADMISSION: Anemia, acute on chronic renal failure, bradycardia. HOSPITAL COURSE: The patient is an 85-year-old male, very well known to me with history of dementia, diabetes mellitus, CKD, hypertension, dyslipidemia, diabetic neuropathy, arteriosclerotic cardiovascular disease, BPH, depression, hypothyroidism, diastolic dysfunction heart failure, who c urrently resides at [facility]. The patient noted to have increasing BUN and creatinine and hemoglobin of 7, I decided to send him to the hospital for evaluation. Upon arrival, hemoglobin was 7.8, BUN and creatinine of 51/4.4. It was decided to admit the patient for further care as patient received a transfusion. I consulted Dr. De La Paz, the turkish line attendant, also Dr. Ramirez, the urologist, secondary to urinary retention. The patient was found to have a urinary tr act infection, organisms Providencia stuartii, Klebsiella pneumoniae and Proteus mirabilis. The pat ient was placed on antibiotic management with cephalosporins with good results, but unfortunately ki dney function did not improve much and there was evidence of acidosis, fluid overload state with alexy ma and congestive heart failure and patient has been confused, suggestive of uremia. The patient wa s initiated on hemodialysis as a right IJ PermCath was placed. Unfortunately, the patient pulled it out and today a new line was placed, a right femoral PermCath. We placed it there as there is less risk of the patient pulling it out, and less risk of causing pneumothorax as patient would move dur ing the procedure. The patient overall improved. He completed a course of antibiotics for both pne umonia and UTI. Currently, breathing comfortably, not coughing. Temperature 98.5, pulse 80, respir ations 16, blood pressure 151/77. He initially had elevated blood pressure, difficult to control bu t once I started him on minoxidil, blood pressure has been much better. The patient is alert, eatin g, he is a feeder. He is on a pureed diet as the patient was seen by both speech therapy and physic al therapy. Overall he is weak, but overall improved after initiation of dialysis, antibiotic manag ement and transfusion. The patient was also seen by Dr. Lainez and Dr. Hannah during this hospitalization. DISCHARGE MEDICATIONS: The patient will be discharged back to the long-term facility with the following medications: 1. Accu-Cheks before meals and at bedtime. 2. Tylenol q.6h. p.r.n. 3. Norvasc 5 mg b.i.d. 4. Abilify 2 mg at bedtime. 5. Artificial Tears as directed. 6. Aspirin 81 mg daily. 7. Vitamin D 2000 units daily. 8. Clonidine patch q. weekly and p.r.n. 9. Vitamin B12 1000 daily. 10. Hypoglycemia protocol. 11. Diltiazem CD 120 daily. 12. Colace 100 q.12h. p.r.n. and routine b.i.d. 13. Epogen 8000 every Sunday, Sunday and Sunday. 14. Ferrous sulfate 325 daily. 15. Hydralazine 100 mg q.8h. 16. NovoLog per sliding scale. 17. Synthroid 25 mcg daily. 18. Tradjenta 5 mg daily. 19. Milk of magnesia as directed. 20. Minoxidil 5 mg daily. 21. Remeron 15 mg at bedtime. 22. Treatment of hypoglycemia 23. Multivitamin 1 tab daily, we can do with Nephro-Celeste. 24. Zofran p.o. q.4h. p.r.n. 25. Protonix 40 mg daily. 26. Flomax 0.4 b.i.d. 27. Ambien 5 mg at bedtime p.r.n. for insomnia. FINAL DIAGNOSES: 1. Anemia. 2. Acute on chronic renal failure. 3. Urinary tract infection. 4. Pneumonia. 5. Congestive heart failure exacerbation, more of diastolic dysfunction, acute on chronic exacerbat ion. 6. Vascular dementia. 7. Anxiety disorder. 8. Hypertension, difficult to control. 9. Hypothyroidism. 10. Diabetes mellitus. 11. Depression. 12. Benign prostatic hypertrophy. 13. Urinary retention. 14. Debilitated state. 15. Generalized weakness. The patient definitely would benefit from physical therapy which we will request. He needs assistance with feeding. We will also put him on fall precautions. 16. Constipation. We will put him on MiraLax 17 grams p.o. daily and senna 1 tab p.o. at bedtime. I have been in touch with the patient's daughter, her name is Angela, phone number [phone]. We discussed his condition on a regular basis. CONDITION: The patient will be discharged in fair condition. PROGNOSIS: Long-term prognosis remains guarded secondary to multiple medical issues and overall barby ilitated state. DIET: Pureed diet, nectar thickened. ACTIVITY: With physical therapy. Dictated By: ERIC PHILLIPS/ALLAN Conf#: [id number] DID#: [id number]
--- NOTE | 2016-09-22 06:35 | PN ---
DATE: 09/21/2016 CARDIOLOGY FOLLOWUP PROGRESS NOTE SUBJECTIVE: Discussed with the staff. The patient denies any chest pain or pressure to me. Still has been very agitated and confused. MEDICATIONS: Reviewed. PHYSICAL EXAMINATION: VITAL SIGNS: Temperature 98.7, heart rate of 80, blood pressure 167/72, respiratory rate of 18. HEENT: Normocephalic, atraumatic. Thin gentleman. Pupils are equal. CARDIOVASCULAR: Regular rate and rhythm. Systolic murmur. PULMONARY: With no wheezes now. GASTROINTESTINAL: Soft, nontender. EXTREMITIES: With positive trivial lower extremity edema. NEUROLOGIC: Awake, does not want to answer my questions, though. PSYCHIATRIC: Appears to be anxious. LABORATORY: Glucose is 107 today. Abdominal x-ray done this morning showed a large amount of forme d stool throughout the colon. ASSESSMENT AND PLAN: 1. Hypertension, currently under better control. 2. Renal failure, on dialysis now. 3. Anemia, appeared to be chronic. 4. Encephalopathy. 5. History of paroxysmal atrial fibrillation, sick-sinus syndrome, and marked bradycardia, currentl y appear to be under control. 6. Diabetes, on insulin. RECOMMENDATIONS: We will continue with the current cardiac care. Dialysis as per renal. Blood pre ssure control will be continued. Dictated By: ISH CARDENAS MD AV/NTS Conf#: [id number] DID#: [id number] CC: ERIC STEVENS MD;*EndCC*
== END 2016-09-21 19:10 | DRG 264 ==
LOC: E/R 13:35 → TEL 17:29 → MS2 09-09 02:01
PROVIDERS: ADMIT Internal Medicine; ATTEND Internal Medicine
PROC: 30233N1 Transfusion of Nonautologous Red Blood Cells into Peripheral Vein, Percutaneous Approach (ICD-10-PCS; 2016-09-01)
PROC: 031809F Bypass Left Brachial Artery to Lower Arm Vein with Autologous Venous Tissue, Open Approach (ICD-10-PCS; principal; 2016-09-11 17:30)
PROC: 05HM33Z Insertion of Infusion Device into Right Internal Jugular Vein, Percutaneous Approach (ICD-10-PCS; 2016-09-12)
PROC: 5A1D60Z (ICD-10-PCS; 2016-09-12)
PROC: 06HM33Z Insertion of Infusion Device into Right Femoral Vein, Percutaneous Approach (ICD-10-PCS; 2016-09-18)
DX: I13.2 Hypertensive heart and chronic kidney disease with heart failure and with stage 5 chronic kidney disease, or end stage renal disease (principal); N17.0 Acute kidney failure with tubular necrosis; J18.9 Pneumonia, unspecified organism; G92 Toxic encephalopathy; G93.40 Encephalopathy, unspecified; K92.2 Gastrointestinal hemorrhage, unspecified; I49.5 Sick sinus syndrome; N18.6 End stage renal disease; E11.40 Type 2 diabetes mellitus with diabetic neuropathy, unspecified; I50.33 Acute on chronic diastolic (congestive) heart failure; N39.0 Urinary tract infection, site not specified; F01.50 Vascular dementia, unspecified severity, without behavioral disturbance, psychotic disturbance, mood disturbance, and anxiety; D63.1 Anemia in chronic kidney disease; D50.9 Iron deficiency anemia, unspecified; Z86.73 Personal history of transient ischemic attack (TIA), and cerebral infarction without residual deficits; E03.9 Hypothyroidism, unspecified; I48.91 Unspecified atrial fibrillation; N40.0 Benign prostatic hyperplasia without lower urinary tract symptoms; F32.9 Major depressive disorder, single episode, unspecified; I25.10 Atherosclerotic heart disease of native coronary artery without angina pectoris; R33.9 Retention of urine, unspecified; B96.4 Proteus (mirabilis) (morganii) as the cause of diseases classified elsewhere; B96.89 Other specified bacterial agents as the cause of diseases classified elsewhere; B96.1 Klebsiella pneumoniae [K. pneumoniae] as the cause of diseases classified elsewhere; Z99.2 Dependence on renal dialysis; Z78.1 Physical restraint status
CPT/HCPCS: 36430; 36558; 71010; 74000; 76775; 76942; 80048; 80053; 80061; 81001; 81003; 82570; 82962; 83036; 83540; 83735; 84100; 84443; 84484; 85025; 85610; 85730; 86704; 86709; 86803; 86850; 86900; 86901; 86920; 87081; 87086; 87340; 90935; 92526; 92610; 93005; 93306; 93923; 93970; A4310; J0360; J0690; J0692; J0696; J0885; J1100; J1335; J1644; J1815; J2250; J2370; J2405; J2795; J3010; J7030; J7040; P9016

== ENCOUNTER 2017-01-02 15:10 | Inpatient (IN) | payer MEDICARE, OTHER ==
[~2017-01-02] VITALS: Ht 167.6 cm; Wt 59.0 kg
[~2017-01-02 15:10] MED LIST changes: -ACET-2047 PO; +ACET325T45 PO; +ARIP2TAB8 PO; +CYAN100080 PO; -CYAN500T46 PO; +DILT120C77 PO; -FURO20TA3 PO; -HYDR-3672 PO; +HYDR100T25 PO; -INSU100V23 SC; -LANT3I SC; +LEVO25TA53 PO; -LEVO25TA59 PO; +LINA5TAB PO; -NIFE30TA60 PO; +OMEP20CA16 PO; -PANT40TA4 PO; -SITA50TA2 PO
[2017-01-02] MEDS ORDERED: ONDANSETRON 4 MG INJ IV STA (15:21)
[2017-01-02] MEDS ORDERED: SODIUM CHLORIDE 0.9% 1L BAG IV* STA (15:32)
[2017-01-02] MEDS ORDERED: CEFEPIME 2GM/50 ML (PMX) 50 ML IVPB STA (15:32)
[2017-01-02] MEDS ORDERED: CYAN500T46 PO (16:01)
[2017-01-02] MEDS ORDERED: AMIN30LI PO (16:03)
[2017-01-02] MEDS ORDERED: CLON-379 PO (16:05)
[2017-01-02] MEDS ORDERED: PANT40TA4 PO (16:06)
[2017-01-02] MEDS ORDERED: CATTTS1 TD (16:06)
[2017-01-02] MEDS ORDERED: SENN-53 PO (16:07)
[2017-01-02 16:13] LABS: ABNORMAL IP MESSAGE 1; BASOPHILS % 0.5 % (0.0-2.0); HEMATOCRIT 35.7 % (42.0-52.0); HEMOGLOBIN 11.9 g/dl (14.0-18.0); LYMPHOCYTES # 0.2 10^3/ul (0.8-2.9); LYMPHOCYTES % 3.2 % (15.0-51.0); MEAN CORPUSCULAR HEMOGLOBIN 27.4 pg (29.0-33.0); MEAN CORPUSCULAR HGB CONC 33.3 g/dl (32.0-37.0); MEAN CORPUSCULAR VOLUME 82.3 fl (82.0-101.0); MEAN PLATELET VOLUME 9.3 fl (7.4-10.4); MONOCYTES % 0.4 % (0.0-11.0); NEUTROPHIL # 5.4 10^3/ul (1.6-7.5); NEUTROPHILS % 95.7 % (39.0-77.0); PLATELET COUNT 83 10^3/UL (140-415); POSITIVE DIFF @See below; RED BLOOD COUNT 4.34 10^6/ul (4.70-6.10); RED CELL DISTRIBUTION WIDTH 14.7 % (11.5-14.5); WHITE BLOOD COUNT 5.6 10^3/ul (4.8-10.8)
--- NOTE | 2017-01-02 16:25 | RADRPT ---
PROCEDURE: XR Chest. CLINICAL INDICATION: Shortness of breath. TECHNIQUE: A single portable view of the chest was obtained. COMPARISON: 09/15/2016 FINDINGS: The aorta is tortuous and atherosclerotic. The cardiomediastinal silhouette is otherwise mildly enl arged and is unchanged. Mild bibasilar atelectasis is seen. No dense consolidation or discrete pleur al effusion is seen. The soft tissues and osseous structures demonstrate benign age related senesce nt changes. IMPRESSION: No acute cardiopulmonary disease. Stable mild cardiomegaly. RPTAT: HPNM Physician Danilo Date Time Electronically viewed and signed by Physician Danilo on 01/02/2017 16:25 /
[2017-01-02 16:28] LABS: INR 1.16; PROTIME 14.9 Sec (12.2-14.2); PT RATIO 1.2
[2017-01-02 16:29] LABS: PARTIAL THROMBOPLASTIN TIME 31.2 Sec (25.0-35.0)
[2017-01-02 16:39] LABS: CALCIUM 8.2 mg/dl (8.4-10.2); CREATININE 2.46 mg/dl (0.61-1.24); POTASSIUM 3.2 mmol/L (3.5-5.1)
[2017-01-02 16:50] LABS: TROPONIN-I 0.063 ng/ml (0.00-0.12)
[2017-01-02 17:00] VITALS: TEMP 101.4
[2017-01-02] MEDS ORDERED: ACETAMINOPHEN 650 MG SUPP PR ONE (17:00)
[2017-01-02 17:42] LABS: ADD UMIC YES; UR ASCORBIC ACID NEGATIVE (NEGATIVE); UR BILIRUBIN (Dip) NEGATIVE (NEGATIVE); UR BLOOD (Dip) 2+ mg/dL (NEGATIVE); UR CLARITY CLEAR (CLEAR); UR COLOR YELLOW (YELLOW); UR GLUCOSE (Dip) 1+ mg/dL (NEGATIVE); UR KETONES (Dip) NEGATIVE (NEGATIVE); UR LEUKOCYTE ESTERASE (Dip) NEGATIVE Leu/ul (NEGATIVE); UR NITRITE (Dip) NEGATIVE (NEGATIVE); UR RBC 65 /HPF (0-5); UR SPECIFIC GRAVITY (Dip) 1.013 (1.003-1.030); UR TOTAL PROTEIN (Dip) 3+ mg/dl (NEGATIVE); UR UROBILINOGEN (Dip) 1+ mg/dL (NEGATIVE)
--- NOTE | 2017-01-02 18:58 | ERA ---
ER Documentation Chief Complaint Date/Time DATE: 01/02/17 TIME: 18:44 Chief Complaint BIB EMS FOR VOMITING PRIOR TO DIALYSIS ENDING. HPI 86-year-old male sent from dialysis for vomiting and transient increase in blood pressure .. Said unfortunate elderly male with multiple comorbidities and severe debility. Is febrile and tachycardic on arrival. Patient is only verbal but says he does make urine. Denies chest pain. He is febrile and tachycardic on triage. ROS All systems reviewed and are negative except as per history of present illness, however patient is unreliable historian as he does not speak very much.. Medications Home Meds Reported Medications Sennosides* (Senna Lax*) 8.6 Mg Tablet, 1 TAB PO QHS Y for CONSTIPATION, TAB 01/02/17 Pantoprazole* (Pantoprazole*) 40 Mg Tablet.dr, 40 MG PO AC BREAKFAST, TAB 01/02/17 Clonidine Patch (CATAPRES PATCH) 0.1 Mg/24 Hr Patch, 1 PATCH TD QFRIDAY, #4 PATCH.WK 01/02/17 Clonidine Hcl* (Clonidine Hcl*) 0.1 Mg Tab, 0.1 MG PO Q4H Y for FOR SBP>160, TAB 01/02/17 Amino Acids/Protein Hydrolys (PRO-STAT LIQUID) 30 Ml Liquid.pkt, 30 ML PO BID SUGAR FREE 01/02/17 Cyanocobalamin* (Vitamin B12*) 500 Mcg Tab, 1000 MCG PO DAILY, TAB 01/02/17 Hydralazine Hcl* (Hydralazine Hcl*) 100 Mg Tablet, 100 MG PO Q8, #90 TAB HOLD FOR SBP<120 09/01/16 Diltiazem Hcl* (Cardizem CD*) 120 Mg Cap.sr.24h, 120 MG PO DAILY, #30 CAP HOLD IF SBP<120 HR<60 09/01/16 Levothyroxine Sodium* (Levothyroxine Sodium*) 25 Mcg Tablet, 25 MCG PO BEFORE BREAKFAST, #30 TAB 09/01/16 Ferrous Sulfate* (Ferrous Sulfate*) 325 Mg Tabec, 325 MG PO DAILY, TAB 09/01/16 Linagliptin (TRADJENTA) 5 Mg Tablet, 5 MG PO DAILY, TAB 09/01/16 Docusate Sodium* (Colace*) 100 Mg Capsule, 100 MG PO Q12H Y for CONSTIPATION, # 30 CAP 09/10/15 Aspirin* (Aspirin* Chew) 81 Mg Tab.chew, 81 MG PO DAILY, TAB.CHEW 09/10/15 Ondansetron Hcl* (Zofran*) 4 Mg Tablet, 4 MG PO Q6H Y for NAUSEA AND OR VOMITING , TAB 04/02/15 Cholecalciferol* (Vitamin D3*) 2,000 Unit Cap, 2000 UNIT PO DAILY, CAP 03/07/14 Zolpidem Tartrate* (Zolpidem Tartrate*) 5 Mg Tablet, 5 MG PO HS Y, TAB 03/07/14 Tamsulosin Hcl* (Tamsulosin Hcl*) 0.4 Mg Cap.er.24h, 0.4 MG PO BID, CAP 03/07/14 Discontinued Reported Medications Acetaminophen* (Acetaminophen*) 325 Mg Tablet, 650 MG PO Q6H Y for PAIN, #30 TAB FOR TEMP>100 DEGREES 09/01/16 Aripiprazole* (Abilify*) 2 Mg Tablet, 2 MG PO QHS, #30 TAB 09/01/16 Metoprolol Tartrate* (Lopressor*) 25 Mg Tab, 25 MG PO BID, #60 TAB HOLD FOR SBP<120 HR<60 09/01/16 Omeprazole* (Omeprazole*) 20 Mg Capsule.dr, 20 MG PO QAM, #30 CAP 09/01/16 Cyanocobalamin* (Vitamin B-12*) 1,000 Mcg Tablet.sa, 1000 MCG PO DAILY, TAB 09/01/16 Mirtazapine* (Mirtazapine*) 15 Mg Tablet, 15 MG PO HS, TAB 09/10/15 Artificial Tears* (Artificial Tears* Ophth) 15 ml Opht, 1 DROP BOTH EYES BID, EA 09/10/15 Multivitamins* (Multivitamin*) 1 Udcap Capsule, 1 TAB PO DAILY, TAB 04/02/15 Allergies Allergies: Coded Allergies: No Known Allergy (Unverified , 01/02/17) PMhx/Soc History of Surgery: Yes (Right Knee) Anesthesia Reaction: No Hx Neurological Disorder: Yes (CVA, occassional confusion) Hx Respiratory Disorders: Yes (pneumonia) Hx Cardiac Disorders: Yes (CHF, HTN) Hx Psychiatric Problems: No Hx Miscellaneous Medical Probl: Yes (ESRD ON HD) Hx Alcohol Use: No Hx Substance Use: No Hx Tobacco Use: No Smoking Status: Never smoker Physical Exam Vitals Vital Signs Date Time Temp Pulse Resp B/P Pulse Ox O2 Delivery O2 Flow Rate FiO2 01/02/17 17:00 101.4 96 16 138/65 98 Room Air 01/02/17 15:27 103.5 109 27 197/74 94 Physical Exam Const: [] Mild distress Head: Atraumatic Eyes: Normal Conjunctiva the EOMI, PRL ENT: Normal External Ears, Nose and Mouth. Neck: Full range of motion..~ No meningismus. Resp: Clear to auscultation bilaterally, tachypnea Cardio: Regular tachycardia no murmurs Abd: Soft, non tender, non distended. Normal bowel sounds Skin: No petechiae or rashes, very warm to the touch Back: No midline or flank tenderness Ext: No cyanosis, or edema, patient holds arms and contractures Neur: Awake and alert, unable to assess for orientation questions, moves all 4 extremities with no apparent deficits Psych: Normal Mood and Affect Result Diagram: 01/02/17 1555 01/02/17 1555 Results 24 hrs Laboratory Tests Test 01/02/17 15:55 01/02/17 17:05 White Blood Count 5.610^3/ul Red Blood Count 4.3410^6/ul Hemoglobin 11.9g/dl Hematocrit 35.7% Mean Corpuscular Volume 82.3fl Mean Corpuscular Hemoglobin 27.4pg Mean Corpuscular Hemoglobin Concent 33.3g/dl Red Cell Distribution Width 14.7% Platelet Count 8310^3/UL Mean Platelet Volume 9.3fl Neutrophils % 95.7% Lymphocytes % 3.2% Monocytes % 0.4% Eosinophils % 0.0% Basophils % 0.5% Nucleated Red Blood Cells % 0.0/100WBC Neutrophils # 5.410^3/ul Lymphocytes # 0.210^3/ul Monocytes # 0.010^3/ul Eosinophils # 0.010^3/ul Basophils # 0.010^3/ul Nucleated Red Blood Cells # 0.010^3/ul Prothrombin Time 14.9Sec Prothrombin Time Ratio 1.2 INR International Normalized Ratio 1.16 Activated Partial Thromboplast Time 31.2Sec Sodium Level 136mmol/L Potassium Level 3.2mmol/L Chloride Level 98mmol/L Carbon Dioxide Level 29mmol/L Anion Gap 12 Blood Urea Nitrogen 21mg/dl Creatinine 2.46mg/dl Glucose Level 89mg/dl Lactic Acid Level 1.3mmol/L Calcium Level 8.2mg/dl Troponin I 0.063ng/ml Urine Color YELLOW Urine Clarity CLEAR Urine pH 7.0 Urine Specific [place] 1.013 Urine Ketones NEGATIVEmg/dL Urine Nitrite NEGATIVEmg/dL Urine Bilirubin NEGATIVEmg/dL Urine Urobilinogen 1+mg/dL Urine Leukocyte Esterase NEGATIVELeu/ul Urine Microscopic RBC 65/HPF Urine Microscopic WBC 5/HPF Urine Hemoglobin 2+mg/dL Urine Glucose 1+mg/dL Urine Total Protein 3+mg/dl Current Medications Medications (Trade) Dose Ordered Sig/Ant Route PRN Reason Start Time Stop Time Status Last Admin Dose Admin Ondansetron HCl (Zofran Inj) 4 mg ONCE STAT IV 01/02/17 15:21 01/02/17 15:24 DC 01/02/17 16:06 Sodium Chloride 1830 ml 1,830 ml BOLUS OVER 2 HOURS STAT IV* 01/02/17 15:32 01/02/17 15:36 DC 01/02/17 16:24 Cefepime HCl (Maxipime 2gm/50 ml (Pmx)) 50 ml @ 100 mls/hr ONCE STAT IVPB 01/02/17 15:32 01/02/17 16:01 DC 01/02/17 16:24 Acetaminophen 650 mg 650 mg ONCE ONCE [place] 01/02/17 17:00 01/02/17 17:01 DC 01/02/17 17:15 Vancomycin HCl (Vancocin) 250 ml @ 125 mls/hr ONCE IVPB 01/02/17 19:00 01/02/17 20:59 Procedures/MDM Elderly male dialysis patient with sepsis without obvious source. UTI is possible other some red blood cells however leukocyte esterase is negative. Patient was given cefepime immediately and given 30 cc/kg gram of IV fluid. Mildly depressed potassium. Thrombocytopenia. No signs of respiratory infection. Stable vital signs corrected with antibiotics fluid administration and Tylenol. Was given rectally. Spoke with Dr. Montes who admitting the patient to med surgical floor. CT abdomen pelvis is pending EKG interpretation: Sinus rhythm rate of 80, normal axis, no ST or T-wave changes concerning for acute ischemia. Rate monitor interpretation: Sinus tachycardia followed by normal sinus rhythm no other arrhythmias Chest x-ray interpretation: See no acute process. I see no infiltrates, no pneumothorax, no pulmonary edema, no fractures Critical care time greater than 35 minutes: This does not include billable procedures but does include treatment of his septic patient with early fluid antibiotic therapy, careful fluid administration, multiple visits the patient's bedside to reassess status, chart review, discussion with admitting doctor. This does not include billable procedures Departure Diagnosis: Primary Impression: Sepsis Additional Impressions: Thrombocytopenia Renal insufficiency Condition: Serious JONAS WORTHINGTON DO Jan 02, 2017 18:55
[2017-01-02] MEDS ORDERED: VANCOMYCIN 1 GM (PMX) 250 ML IVPB SCH (19:00)
[2017-01-02] MEDS ORDERED: ONDANSETRON 4 MG INJ IV PRN ×2 (19:30→20:30)
[2017-01-02] MEDS ORDERED: ACETAMINOPHEN 325 MG TAB PO PRN ×2 (19:30→20:30)
[2017-01-02] MEDS ORDERED: VANCOMYCIN IV PER PHARMACY XX SCH (20:30)
[2017-01-02] MEDS ORDERED: ONDANSETRON 4 MG TAB PO PRN (20:30)
[2017-01-02] MEDS ORDERED: Discontinue current oral sulfonylureas (glyburide, glipizide, and/or glimepiride) prior to XX ONE (20:30)
[2017-01-02] MEDS ORDERED: NACL 0.9% 3 ML SYG IV SCH (20:30)
[2017-01-02] MEDS ORDERED: BISACODYL (EC) 5 MG TAB PO PRN (20:30)
[2017-01-02] MEDS ORDERED: DOCUSATE SODIUM 100 MG CAP PO PRN ×2 (20:30)
[2017-01-02] MEDS ORDERED: SENNA TAB PO PRN (20:30)
[2017-01-02] MEDS ORDERED: HYPOGLYCEMIA PROTOCOL when Glucose is <70 mg/dL or symptomatic <90 mg/dL. XX ONE (20:30)
[2017-01-02] MEDS ORDERED: ZOLPIDEM 5 MG TAB PO PRN (20:30)
[2017-01-02] MEDS ORDERED: HYDROCODONE/APAP (5/325) TAB PO PRN (20:30)
[2017-01-02] MEDS ORDERED: MAGNESIUM HYDROXIDE 30ML CUP PO PRN (20:30)
[2017-01-02 21:00] VITALS: BP 169/76
[2017-01-02] MEDS: TAMSULOSIN (SR) 0.4 MG CAP PO SCH (21:00)
[2017-01-02] MEDS ORDERED: HEPARIN 5,000 UNIT/0.5 ML VIAL SC SCH (21:00)
[2017-01-02] MEDS: INSULIN ASPART [NOVOLOG] 3 ML PEN SC SCH (21:00)
[2017-01-02] MEDS ORDERED: DEXTROSE 50% 50 ML SYRINGE IV PRN ×2 (21:00)
[2017-01-02] MEDS ORDERED: GLUCOSE GEL 15 GRAM TUBE PO PRN ×2 (21:00)
[2017-01-02] MEDS ORDERED: GLUCAGON 1 MG INJ IM PRN (21:00)
[2017-01-02] MEDS ORDERED: GLUCOSE GEL 15 GRAM TUBE BUCCAL PRN (21:00)
--- NOTE | 2017-01-02 21:14 | HP ---
DATE OF ADMISSION: 01/02/2017 REASON FOR ADMISSION: Sepsis, high-grade fever, rule out line sepsis. HISTORY OF PRESENT ILLNESS: Patient is an unfortunate 86 years old male, very well known to me who has a history of end- stage renal disease on dialysis, history of diabetes mellitus, hypertension, dyslipidemia, anemia, diabetic neuropathy, osteoarthritis, atherosclerotic cardiovascular disease, BPH, depression, hypothyroidism, and diastolic dysfunction heart failure. Patient is dialyzed three times a week. Previously admitted to the hospital secondary to ESBL UTI bacteremia. Patient was in usual state of health up until today when he went to the dialysis center. He was noted to have hypertension and fevers. Upon presentation to the ER, patient had a high-grade temperature up to 103.5. Patient underwent extensive workup. He was deleon cultured and started on cefepime and vancomycin. Patient underwent a CT scan of the abdomen and pelvis as well, results are pending. Chest x-ray shows no acute cardiopulmonary disease. Urinalysis was overall unremarkable. I am concerned about possible line sepsis as patient has right femur PermCath for dialysis access. Upon evaluation, patient is encephalopathic but responsive, weak looking likely from his sepsis. Patient is admitted for further care. PAST MEDICAL HISTORY: Includes diabetes mellitus, CVA, hypertension, dyslipidemia, anemia, end-stage renal disease, diabetic neuropathy, osteoarthritis, atherosclerotic cardiovascular disease, BPH, depression, hypothyroidism, diastolic dysfunction, heart failure. ALLERGIES: NO DRUG ALLERGIES. SOCIAL HISTORY: Patient denies tobacco, alcohol, IV drug use. Patient is . He is originally from [place]. Patient is nonambulatory. FAMILY HISTORY: Noncontributory. REVIEW OF SYSTEMS: Per HPI. MEDICATIONS: Reviewed and include the followin. Flomax 0.4 b.i.d., ferrous sulfate 325 mg daily, clonidine 0.1 every 4 p.r.n., Catapres patch every Sunday TTS-1, Cardizem CD 120 daily, hydralazine 100 every 8, aspirin 81 daily, zolpidem 5 mg at bedtime p.r.n., Colace p.r.n., , Protonix 40 mg daily, senna as directed, Synthroid 25 mcg daily, Tradjenta 5 mg daily, vitamin D3 2000 units daily, vitamin B12 1000 daily. PHYSICAL EXAMINATION: VITAL SIGNS: Temperature 101.4, pulse 96, respirations 16, blood pressure 138/65, saturation 98 percent on room air. GENERAL: Patient in no acute distress. Patient is encephalopathic, keeps his eyes closed, does respond to verbal stimuli. HEART: S1 and S2, regular rate. LUNGS: Clear. ABDOMEN: Soft, nontender. EXTREMITIES: No clubbing, cyanosis, or edema. Patient has a right femoral hemodialysis catheter. No evidence of erythema or pain. LABORATORY DATA: White count is 5.6, hemoglobin 11.9, hematocrit 36, platelet count is 83,000, low. Neutrophil count of 96 percent, lymphocytes 3 percent. Sodium 136, potassium 3.2, chloride 98, bicarb 29, BUN is 21, creatinine 2.46 and glucose of 89. Lactic acid is 1.3 upon presentation. Troponin is 0.063. UA shows nitrites and leukocyte esterase negative. INR 1.16. Again, CT scan of the abdomen and pelvis remains pending. EKG shows normal sinus rhythm at 80 beats per minute. ASSESSMENT AND PLAN: This is an 86 years old male with history of diabetes mellitus, hypertension, dyslipidemia, cerebral vascular accident, atrial fibrillation, osteoarthritis, diabetic neuropathy, dyslipidemia, hypothyroidism, benign prostatic hypertrophy, end-stage renal disease who presented with encephalopathy, fevers, as patient is septic. 1. Sepsis. Etiology likely bacteremia as patient has a right femoral hemodialysis catheter. Will follow blood cultures results. Patient will be started on broad-spectrum antibiotic with vancomycin and imipenem. Previously, patient did have urinary tract infection extended spectrum beta-lactamase Escherichia coli sensitive to imipenem. Will discuss with Nephrology regarding removal of dialysis line. 2. End-stage renal disease, status post dialysis today. Electrolytes are stable. Will monitor closely for fluid overload. Monitor electrolytes. 3. Paroxysmal atrial fibrillation. Patient with risk of fall. Continue aspirin. 4. Psychiatric disorder. Resume all psychiatric medications. 5. Hypothyroidism. Continue Synthroid. Follow up TSH level. 6. Thrombocytopenia. Hold heparin for now. 7. Continue Protonix for gastrointestinal prophylaxis. 8. Benign prostatic hypertrophy. Continue Flomax. 9. Hypertension. Titrate medication up but we are not going to give him all of his medications in the setting of sepsis to prevent hypotension. Patient will be admitted to medical- surgical floor as patient vitals are stable. Will contact family members. 10. Diabetes mellitus on Tradjenta. Follow up hemoglobin A1c. Glucose level appears to be good, may hold all medications, check Accu-Cheks. We will follow. Dictated By: Luis Felipe Montes MD /geo/bharti /Document#: [id number]
--- NOTE | 2017-01-02 21:18 | RADRPT ---
PROCEDURE: CT Abdomen and Pelvis without contrast. CLINICAL INDICATION: Sepsis. Abdominal distension. TECHNIQUE: CT scan of the abdomen and pelvis without contrast was performed on a multidetector hig h-resolution CT scanner. The patient was scanned without intravenous contrast. Coronal and sagittal reformatted images were obtained from the axial source images. Images were reviewed on a high-resol [employer] PACS workstation. The total exam CTDI equals 9.71 mGy and the total exam DLP equals 558.10 mGy -cm. One or more of the following dose reduction techniques were used: Automated exposure control. Adjustment of the mA and/or kV according to patient size. Use of iterative reconstruction technique. COMPARISON: None FINDINGS: CT abdomen: The lung bases are remarkable for bibasilar atelectasis. The heart size is normal, without pericard ial thickening or effusion. The liver is normal in size and density without focal mass or intrahepa tic biliary dilatation. The spleen is normal in size and homogeneous in density. The stomach is pa rtially collapsed, but is grossly unremarkable. The pancreas as visualized is normal. The gallblad pia is unremarkable. There is no evidence for biliary dilatation. There is nodular thickening of th e right adrenal gland. There is approximately 1.3 cm left adrenal adenoma. The kidneys are symmetric ally unremarkable as well. No renal calculus or obstructive uropathy or mass lesion is seen. Right femoral approach dialysis catheter with tip in mid right atrium. The aorta is of normal calibe r. Aortic vascular calcifications are present. There is no retroperitoneal lymphadenopathy. The p christiano hepatis region is clear. The bowel and mesentery, as visualized, are equally unremarkable. The cecum is positioned in the right upper quadrant. There is a normal appendix. CT pelvis: The small bowel loops situated within the pelvis are unremarkable. The pelvic organs are normal. T he pelvic sidewalls and inguinal regions are clear. The sigmoid colon and rectum are unremarkable. No mass, lymphadenopathy, or free fluid is seen. No acute inflammation is seen. The surrounding o sseous structures are remarkable for degenerative spondylosis of the spine. No osteolytic or osteob lastic lesion is detected. IMPRESSION: 1. No mass, lymphadenopathy, or focal acute inflammatory process is identified. 2. Right femoral approach dialysis catheter with tip in mid right atrium. 3. Nodular thickening of the right adrenal gland. Small left adrenal adenoma. 4. Aortoiliac atherosclerosis. RPTAT: HHO .Milka Jalloh MD, MD Date Time Electronically viewed and signed by .Milka Jalloh MD, MD on 01/02/2017 21:18 .O/
[2017-01-02 21:45] VITALS: Ht 167.6 cm; Wt 59.0 kg
[2017-01-02] MEDS: MEROPENEM 500MG/50 ML (PMX) 50 ML IVPB SCH (22:57)
[2017-01-03] MEDS ORDERED: hydrALAzine 20 MG INJ ONE (01:14)
[2017-01-03] MEDS: ACCU-CHEK XX SCH (02:00)
[2017-01-03] MEDS ORDERED: PANTOPRAZOLE (EC) 40 MG TAB PO SCH (06:00)
[2017-01-03] MEDS: LEVOTHYROXINE 25 MCG TAB PO SCH (06:16)
[2017-01-03 06:22] LABS: ABNORMAL IP MESSAGE 1; BASOPHIL # 0.1 10^3/ul (0.0-0.1); BASOPHILS % 0.6 % (0.0-2.0); HEMATOCRIT 34.6 % (42.0-52.0); HEMOGLOBIN 11.2 g/dl (14.0-18.0); LYMPHOCYTES # 0.5 10^3/ul (0.8-2.9); LYMPHOCYTES % 4.6 % (15.0-51.0); MEAN CORPUSCULAR HEMOGLOBIN 27.8 pg (29.0-33.0); MEAN CORPUSCULAR HGB CONC 32.4 g/dl (32.0-37.0); MEAN CORPUSCULAR VOLUME 85.9 fl (82.0-101.0); MEAN PLATELET VOLUME 10.3 fl (7.4-10.4); MONOCYTE # 0.3 10^3/ul (0.3-0.9); NEUTROPHILS % 91.3 % (39.0-77.0); PLATELET COUNT 77 10^3/UL (140-415); POSITIVE DIFF @See below; RED BLOOD COUNT 4.03 10^6/ul (4.70-6.10); RED CELL DISTRIBUTION WIDTH 15.1 % (11.5-14.5); WHITE BLOOD COUNT 10.9 10^3/ul (4.8-10.8)
[2017-01-03 06:55] LABS: ALBUMIN 2.8 g/dl (3.3-4.9); ALBUMIN/GLOBULIN RATIO 0.82; BILIRUBIN,INDIRECT 0.3 mg/dl (0-1.1); BILIRUBIN,TOTAL 0.3 mg/dl (0.2-1.3); CREATININE 3.33 mg/dl (0.61-1.24); POTASSIUM 3.5 mmol/L (3.5-5.1); TOTAL PROTEIN 6.2 g/dl (6.1-8.1)
[2017-01-03 07:24] LABS: THYROID STIMULATING HORMONE 0.832 MIU/L (0.465-4.680)
[2017-01-03] MEDS: INSULIN ASPART [NOVOLOG] 3 ML PEN SC SCH ×4 (07:56→21:00)
[2017-01-03 08:00] VITALS: BP 120/60; RESP 20
[2017-01-03] MEDS ORDERED: LINAGLIPTIN 5 MG TABLET PO SCH (09:00)
[2017-01-03] MEDS: CHOLECALCIFEROL 2,000 UNIT CAP PO SCH (09:02)
[2017-01-03] MEDS: PANTOPRAZOLE (EC) 40 MG TAB PO SCH (09:02)
[2017-01-03] MEDS: CYANOCOBALAMIN 500 MCG TAB PO SCH (09:02)
[2017-01-03] MEDS: TAMSULOSIN (SR) 0.4 MG CAP PO SCH ×2 (09:03→21:06)
[2017-01-03] MEDS: DILTIAZEM (CD) 120 MG CAP PO SCH (09:03)
[2017-01-03] MEDS: ASPIRIN 81 MG TAB PO SCH (09:04)
--- NOTE | 2017-01-03 13:31 | CONS ---
Date/Time of Note Date/Time of Note DATE: 01/03/17 TIME: 13:23 Assessment/Plan Assessment/Plan Chief Complaint/Hosp Course Sepsis with fever and tachycardia, likely line related DM ESRD==> HD dependent Anemia P Afib BPH R fem cath Abx: Vanco Merrem Plan: Continue abx, f/u cx's, repeat bld cx with next HD from [place] Problems: Consultation Date/Type/Reason Admit Date/Time Jan 02, 2017 at 19:02 Initial Consult Date Type of Consultation: id Referring Provider: ERIC STEVENS MD Exam/Review of Systems Vital Signs Vitals Vital Signs Date Time Temp Pulse Resp B/P Pulse Ox O2 Delivery O2 Flow Rate FiO2 01/03/17 08:00 98.6 78 20 120/60 96 01/02/17 19:00 Room Air Intake and Output 01/02/17 01/02/17 01/03/17 15:00 23:00 07:00 Intake Total 200 ml Balance 200 ml Results Result Diagram: 01/03/17 0557 01/03/17 0558 Results 24 hrs Laboratory Tests Test 01/02/17 15:55 01/02/17 17:05 01/02/17 18:45 01/02/17 20:20 White Blood Count 5.6 # Red Blood Count 4.34 #L Hemoglobin 11.9 #L Hematocrit 35.7 #L Mean Corpuscular Volume 82.3 Mean Corpuscular Hemoglobin 27.4 L Mean Corpuscular Hemoglobin Concent 33.3 Red Cell Distribution Width 14.7 H Platelet Count 83 #L Mean Platelet Volume 9.3 Neutrophils % 95.7 H Lymphocytes % 3.2 L Monocytes % 0.4 Eosinophils % 0.0 Basophils % 0.5 Nucleated Red Blood Cells % 0.0 Neutrophils # 5.4 Lymphocytes # 0.2 L Monocytes # 0.0 L Eosinophils # 0.0 Basophils # 0.0 Nucleated Red Blood Cells # 0.0 Prothrombin Time 14.9 H Prothrombin Time Ratio 1.2 INR International Normalized Ratio 1.16 Activated Partial Thromboplast Time 31.2 Sodium Level 136 Potassium Level 3.2 L Chloride Level 98 Carbon Dioxide Level 29 Anion Gap 12 Blood Urea Nitrogen 21 H Creatinine 2.46 H Glucose Level 89 Lactic Acid Level 1.3 1.1 1.4 Calcium Level 8.2 L Troponin I 0.063 Urine Color YELLOW Urine Clarity CLEAR Urine pH 7.0 Urine Specific [place] 1.013 Urine Ketones NEGATIVE Urine Nitrite NEGATIVE Urine Bilirubin NEGATIVE Urine Urobilinogen 1+ H Urine Leukocyte Esterase NEGATIVE Urine Microscopic RBC 65 H Urine Microscopic WBC 5 Urine Hemoglobin 2+ H Urine Glucose 1+ H Urine Total Protein 3+ H Test 01/02/17 21:50 01/03/17 05:57 01/03/17 05:58 01/03/17 07:51 Bedside Glucose 81 78 White Blood Count 10.9 #H Red Blood Count 4.03 L Hemoglobin 11.2 L Hematocrit 34.6 L Mean Corpuscular Volume 85.9 Mean Corpuscular Hemoglobin 27.8 L Mean Corpuscular Hemoglobin Concent 32.4 Red Cell Distribution Width 15.1 H Platelet Count 77 L Mean Platelet Volume 10.3 Neutrophils % 91.3 H Lymphocytes % 4.6 L Monocytes % 3.0 Eosinophils % 0.0 Basophils % 0.6 Nucleated Red Blood Cells % 0.0 Neutrophils # 10.0 H Lymphocytes # 0.5 L Monocytes # 0.3 Eosinophils # 0.0 Basophils # 0.1 Nucleated Red Blood Cells # 0.0 Hemoglobin A1c 5.8 Sodium Level 137 Potassium Level 3.5 Chloride Level 101 Carbon Dioxide Level 30 Anion Gap 10 Blood Urea Nitrogen 30 H Creatinine 3.33 H Glucose Level 88 Calcium Level 8.0 L Total Bilirubin 0.3 Direct Bilirubin 0.00 Indirect Bilirubin 0.3 Aspartate Amino Transf (AST/SGOT) 92 H Alanine Aminotransferase (ALT/SGPT) 56 Alkaline Phosphatase 181 H Total Protein 6.2 Albumin 2.8 L Globulin 3.40 H Albumin/Globulin Ratio 0.82 Thyroid Stimulating Hormone (TSH) 0.832 Test 01/03/17 12:04 Bedside Glucose 129 Medications Medications Current Medications Ondansetron HCl (Zofran Inj) 4 mg Q6H PRN IV NAUSEA AND/OR VOMITING; Start 01/02/17 at 20:30 Acetaminophen (Tylenol Tab) 650 mg Q6H PRN PO PAIN LEVEL 1-3 OR FEVER; Start 01/02/17 at 20:30 Acetaminophen/ Hydrocodone Bitart ([place] (5/325)) 1 tab Q6H PRN PO MODERATE PAIN LEVEL 4-6; Start 01/02/17 at 20:30 Docusate Sodium (Colace) 100 mg Q12H PRN PO CONSTIPATION; Start 01/02/17 at 20: 30 Magnesium Hydroxide (Milk Of Mag) 30 ml DAILY PRN PO CONSTIPATION; Start at 20:30 Bisacodyl 5 mg 5 mg DAILY PRN PO CONSTIPATION; Start 01/02/17 at 20:30 Meropenem/Sodium Chloride (Merrem 500mg/50 ml(Pmx)) 50 ml @ 100 mls/hr Q24H IVPB Last administered on 01/02/17 22:57; Admin Dose 100 MLS/HR; Start at 22:00 Aspirin (Aspirin) 81 mg DAILY PO Last administered on 01/03/17 09:04; Admin Dose 81 MG; Start 01/03/17 at 09:00 Cholecalciferol (Vitamin D) 2,000 unit DAILY PO Last administered on 01/03/17 09:02; Admin Dose 2,000 UNIT; Start 01/03/17 at 09:00 Cyanocobalamin (Vitamin B12) 1,000 mcg DAILY PO Last administered on 01/03/17 09:02; Admin Dose 1,000 MCG; Start 01/03/17 at 09:00 Diltiazem HCl (Cardizem Cd) 120 mg DAILY PO Last administered on 01/03/17 09: 03; Admin Dose 120 MG; Start 01/03/17 at 09:00 Docusate Sodium (Colace) 100 mg Q12H PRN PO CONSTIPATION; Start 01/02/17 at 20: 30 Ondansetron HCl (Zofran Tab) 4 mg Q6H PRN PO NAUSEA AND/OR VOMITING; Start 01/02/17 at 20:30 Senna (Senokot) 1 tab QHS PRN PO CONSTIPATION; Start 01/02/17 at 20:30 Tamsulosin HCl (Flomax) 0.4 mg BID PO Last administered on 01/03/17 09:03; Admin Dose 0.4 MG; Start 01/02/17 at 21:00 Zolpidem Tartrate (Ambien) 5 mg HS PRN PO insomnia; Start 01/02/17 at 20:30 Diagnostic Test (Pha) (Accu-Chek) 1 ea 02 XX ; Start 01/03/17 at 02:00 Miscellaneous Information 1 ea NOTE XX ; Start 01/02/17 at 21:00 Glucose (Glutose) 15 gm Q15M PRN PO DECREASED GLUCOSE; Start 01/02/17 at 21:00 Glucose (Glutose) 22.5 gm Q15M PRN PO DECREASED GLUCOSE; Start 01/02/17 at 21: 00 Dextrose (D50w Syringe) 25 ml Q15M PRN IV DECREASED GLUCOSE; Start 01/02/17 at 21:00 Dextrose (D50w Syringe) 50 ml Q15M PRN IV DECREASED GLUCOSE; Start 01/02/17 at 21:00 Glucagon (Glucagen) 1 mg Q15M PRN IM DECREASED GLUCOSE; Start 01/02/17 at 21:00 Glucose (Glutose) 15 gm Q15M PRN BUCCAL DECREASED GLUCOSE; Start 01/02/17 at 21 :00 Hydralazine HCl (Apresoline) 10 mg Q4H PRN IV hypertension; Start 01/03/17 at 01:30 Miscellaneous Information (*Rx Drug Level Order Reminder*) RANDOM VANCOMYCIN LEVEL 1... ONCE ONCE XX ; Start 01/04/17 at 05:00; Stop 01/04/17 at 05:01 JESUS HDZ NP Jan 03, 2017 13:31
[2017-01-03 14:00] VITALS: BP 127/60; RESP 18
--- NOTE | 2017-01-03 15:33 | PN ---
DATE: 01/03/2017 SUBJECTIVE: Patient seen and looks better, awake, alert. The patient is afebrile this morning, T-m ax upon presentation 103.5 to the ER at 3:30 p.m. The patient was started on broad-spectrum antibiot ics. The source of infection may be a right femur/thigh PermCath. ID and Nephrology were consulted . PHYSICAL EXAMINATION: VITAL SIGNS: Temperature 98.6, pulse 78, respirations 20, blood pressure normal at 120/60, saturati on 96% on room air. GENERAL: No acute distress. HEENT: Normocephalic, atraumatic. CARDIOVASCULAR: S1 and S2. LUNGS: Mild rhonchi bilaterally. ABDOMEN: Soft, nontender. EXTREMITIES: No clubbing, cyanosis, or edema. The patient has right thigh PermCath. LABORATORY DATA: White count is 10.9, hemoglobin 11.2, hematocrit 35, platelet count low 77, neutro phils 91%, lymphocytes 5%. Chemistry: Sodium 137, potassium 3.5, chloride 101, bicarbonate 30, BUN is 30, creatinine 3.33, glucose 88. Last glucose 129. The patient's AST 92, slightly high, ALT 56 , alkaline phosphatase 181, albumin 2.8. TSH is 0.832. Urinalysis shows +1 urobilinogen and WBC 5, but nitrites and leukocyte esterase negative. INR 1.16. Urine culture negative, awaiting blood cu ltures. CT scan of the abdomen and pelvis which was done in the emergency room shows the following: No mass, lymphadenopathy or focal acute inflammatory processes identified. The right similar post -dialysis catheter with the tip in the mid right atrium noted thickening of the right adrenal gland, small left adrenal adenoma. Aortoiliac atherosclerosis. MEDICATIONS: The patient's meds reviewed include. 1. Aspirin 81 mg daily. 2. Vitamin D 2000 daily. 3. Vitamin B12 1000 daily. 4. Cardizem-CD 120 daily. 5. Synthroid 25 mcg daily. 6. Protonix 40 mg daily. 7. Accu-Chek q.a.c. and at bedtime. 8. Hydralazine 10 mg IV p.r.n. 10. Merrem IV dose per pharmacy. 9. Flomax 0.4 b.i.d. 10. Hypoglycemia protocol as directed. 11. Tylenol and Zofran. 12. [place]. 13. Colace. 14. Milk of magnesia. 15. Dulcolax p.r.n. 16. Vancomycin dose per pharmacy. OTHER MEDICATIONS: Include: 1. Colace. 2. Zofran. 3. Senna. 4. Ambien p.r.n. ASSESSMENT AND PLAN: This is an 86-year-old male with history of diabetes mellitus, contro lled off medications, hypertension, dyslipidemia, CVA, atrial fibrillation, osteoarthritis, diabetic neuropathy, dyslipidemia, hypothyroidism, BPH, vascular dementia, end-stage renal disease, who pres ents encephalopathic with fever, appeared to be septic. 1. Sepsis. Possible line sepsis. We will follow up cultures. We will need likely culture from th e dialysis catheter and nephrology was consulted. ID was consulted as well. The patient is now on broad spectrum antibiotics. The patient is now afebrile, clinically better. 2. End-stage renal disease. Last dialysis yesterday. Further dialysis per nephrology. 3. Paroxysmal atrial fibrillation. The patient is currently on aspirin as the patient has a risk f or fall. 4. Psychiatric disorder. We will resume all psych medications. 5. Hypothyroidism on Synthroid. 6. Thrombocytopenia, off blood thinners as well. That is another reason why he is not on blood thi nners. Continue Protonix for GI prophylaxis. 7. Benign prostatic hypertrophy. Continue Flomax. 8. Hypertension, currently controlled. 9. Diabetes mellitus. Previously on Tradjenta. Follow up hemoglobin A1c. Overall, clinically bet ter. Overall, the patient is nonambulatory, usually in a wheelchair at the [facility] . 10. Anemia. Hemoglobin and hematocrit are stable. The patient has anemia of chronic disease secon jo-ann to chronic kidney disease. 11. Transaminitis, likely related to his above infectious process. 12. Hypoalbuminemia, mild protein malnutrition. Add Nepro shakes. We will follow. Dictated By: ERIC PHILLIPS/ALLAN Conf#: [id number] DID#: [id number]
[2017-01-03 21:15] VITALS: BP 138/64; RESP 18
[2017-01-03] MEDS: MEROPENEM 500MG/50 ML (PMX) 50 ML IVPB SCH (21:57)
[2017-01-04] VITALS (13 sets, daily range): BP systolic 148–192; BP diastolic 71–95; PULSE 72–90; RESP 18–20
[2017-01-04] MEDS: ACCU-CHEK XX SCH (01:52)
--- NOTE | 2017-01-04 02:05 | CONS ---
DATE OF ADMISSION: 01/02/2017 DATE OF CONSULTATION: TYPE OF CONSULTATION: Nephrology. REASON FOR CONSULTATION: End-stage renal disease. REQUESTING PHYSICIAN: Dr. Montes HISTORY OF PRESENT ILLNESS: This is an 86-year-old male with a past medical history of end-stage re nal disease on dialysis Sunday, , Sunday, with access of right Perm-A-Cath, history of di abetes, hypertension, dyslipidemia, CVA, who presents to [facility] with high-grad e fever. The patient was noted to be more altered at his dialysis center. Patient noted to have a temperature of 103.5. The patient, as a result, was admitted to the emergency room. Upon arrival, the patient had a chest x-ray which showed no acute findings. A CT scan of the abdomen and pelvis w as performed, which showed no acute findings. The patient, in the emergency room, was given IV anti biotics, admitted to med/surg. PAST MEDICAL HISTORY: As stated above, history of end-stage renal disease, diabetes, CVA, hypertens ion, dyslipidemia, anemia, CHF. ALLERGIES: NO KNOWN DRUG ALLERGIES. MEDICATIONS: The patient's medications have been reviewed. SOCIAL HISTORY: Does not drink, smoke or do drugs. FAMILY HISTORY: Noncontributory. REVIEW OF SYSTEMS: A 14-point review of systems was conducted. Pertinent positives stated in HPI, otherwise negative. PHYSICAL EXAMINATION: VITAL SIGNS: Blood pressure is currently 127/60, respirations 18, pulse 78, temperature 98.4. HEENT: Head is normocephalic. NECK: Supple. HEART: Regular rate. LUNGS: Show diminished breath sounds at base. ABDOMEN: Soft, nontender to palpation without rebound or guarding. EXTREMITIES: Negative for clubbing, cyanosis, no edema. DERMATOLOGIC: No rashes. MUSCULOSKELETAL: No joint effusions. NEUROLOGIC: Limited exam due to lack of patient cooperation. LABORATORY DATA: Shows a white count of 10.9, hemoglobin 11.2, hematocrit 34.6, platelet count 77. Sodium 137, potassium 3.5, BUN 30, creatinine 3.33. ASSESSMENT AND PLAN: This is an 86-year-old male who presents with: 1. End-stage renal disease. Patient is on dialysis Sunday, , Sunday with access of a ri t Perm-A-Cath. Plan is for hemodialysis tomorrow, will dialyze for 3 hours with 2K bath, calcium 2.5. We will also rule out line infection by checking blood cultures from Perm-A-Cath. Continue cu rrent treatment plan and monitor. 2. Sepsis. Rule out line infection. We will draw peripheral blood cultures and blood cultures fro m Perm-A-Cath. Continue IV antibiotics. We will monitor closely. If there is evidence of systemic inflammatory response syndrome during the course of hemodialysis, would recommend to discontinue Pe rm-A-Cath. 3. Anemia. Monitor hemoglobin and hematocrit levels. We will give Epogen as needed. 4. Mineral bone disorder. Monitor calcium and phosphorous levels. 5. Hypertension. Continue current blood pressure regimen. 6. Diabetes. Continue insulin regimen. 7. Hypothyroidism. Continue Synthroid. 8. Atrial fibrillation. Continue current medical management. 9. Thrombocytopenia. Continue to monitor. 10. Encephalopathy. Etiology is toxic metabolic. Thank you, Dr. Montes, for this interesting consult. It will be a pleasure to follow the patient farrah montoya throughout the hospital course. Dictated By: TRACE LEVI/ALLAN Conf#: [id number] DID#: [id number] CC: ERIC MONTES MD;*EndCC*
[2017-01-04] MEDS: hydrALAzine 20 MG INJ IV PRN (03:41)
[2017-01-04 05:43] LABS: ABNORMAL IP MESSAGE 1; BASOPHIL # 0.1 10^3/ul (0.0-0.1); EOSINOPHILS # 0.1 10^3/ul (0.0-0.5); EOSINOPHILS % 1.3 % (0.0-7.0); HEMATOCRIT 34.1 % (42.0-52.0); LYMPHOCYTES # 1.2 10^3/ul (0.8-2.9); LYMPHOCYTES % 17.1 % (15.0-51.0); MEAN CORPUSCULAR HEMOGLOBIN 27.4 pg (29.0-33.0); MEAN CORPUSCULAR HGB CONC 32.3 g/dl (32.0-37.0); MEAN CORPUSCULAR VOLUME 84.8 fl (82.0-101.0); MEAN PLATELET VOLUME 10.6 fl (7.4-10.4); MONOCYTE # 0.5 10^3/ul (0.3-0.9); MONOCYTES % 7.3 % (0.0-11.0); NEUTROPHIL # 5.2 10^3/ul (1.6-7.5); NEUTROPHILS % 72.9 % (39.0-77.0); PLATELET COUNT 81 10^3/UL (140-415); POSITIVE DIFF @See below; RED BLOOD COUNT 4.02 10^6/ul (4.70-6.10); RED CELL DISTRIBUTION WIDTH 14.9 % (11.5-14.5); WHITE BLOOD COUNT 7.1 10^3/ul (4.8-10.8)
[2017-01-04 06:06] LABS: ALBUMIN 2.9 g/dl (3.3-4.9); BILIRUBIN,INDIRECT 0.2 mg/dl (0-1.1); BILIRUBIN,TOTAL 0.2 mg/dl (0.2-1.3); CALCIUM 8.1 mg/dl (8.4-10.2); CREATININE 3.84 mg/dl (0.61-1.24); POTASSIUM 3.9 mmol/L (3.5-5.1); TOTAL PROTEIN 5.8 g/dl (6.1-8.1)
[2017-01-04] MEDS: LEVOTHYROXINE 25 MCG TAB PO SCH (06:09)
[2017-01-04 06:15] LABS: MAGNESIUM 1.9 mg/dl (1.7-2.5); PHOSPHORUS 3.7 mg/dl (2.5-4.9)
[2017-01-04] MEDS: INSULIN ASPART [NOVOLOG] 3 ML PEN SC SCH ×4 (07:50→20:53)
[2017-01-04] MEDS: DILTIAZEM (CD) 120 MG CAP PO SCH (08:21)
[2017-01-04] MEDS: PANTOPRAZOLE (EC) 40 MG TAB PO SCH (08:23)
[2017-01-04] MEDS: CHOLECALCIFEROL 2,000 UNIT CAP PO SCH (08:23)
[2017-01-04] MEDS: ASPIRIN 81 MG TAB PO SCH (08:23)
[2017-01-04] MEDS: TAMSULOSIN (SR) 0.4 MG CAP PO SCH ×2 (08:23→20:55)
[2017-01-04] MEDS: CYANOCOBALAMIN 500 MCG TAB PO SCH (08:23)
--- NOTE | 2017-01-04 09:04 | CONS ---
DATE OF ADMISSION: 01/02/2017 DATE OF CONSULTATION: INFECTIOUS DISEASE CONSULTATION REQUESTING PHYSICIAN: Dr. Eric Stevens. HISTORY OF PRESENT ILLNESS: The patient is an 86-year-old man who was admitted wit h a chief complaint of sepsis. The patient has end-stage renal disease and diabetes mellitus and wa s finishing dialysis and then began vomiting. His blood pressure reportedly went up and then came d own. He came to the emergency room where he was found to have a temperature of 103.5, pulse 109, re spirations 27, O2 saturation 94%. He had a white count of 5600, hemoglobin 11.9 grams, platelet cou nt 83,000. The patient was noted to have incidentally some scrotal ulceration. In and out catheter ization for a urine culture was essentially negative for infection in the form of a UA, and right no w the urine culture is negative. The patient was begun treatment with meropenem and vancomycin, whi ch apparently made the patient feel much better as at the time of this exam he states that he feels normal. The patient's chest x-ray revealed mild stable mildly enlarged heart. CT scan of the abdom en and pelvis revealed a right femoral catheter extending to the mid right atrium, adrenal adenoma a nd thickness on the right side and a small left adrenal adenoma. He was noted also to have aortoili ac disease. PAST MEDICAL HISTORY: Hypertension, congestive heart failure, paroxysmal atrial fibrillation, end-s tage renal disease, hypothyroidism, benign prostatic hypertrophy, gastroesophageal reflux disease an d hyperlipidemia. He also has had previous episodes of severe sepsis in 09/2015 and also was associ ated with urinary tract infection. MEDICATIONS: Includes: 1. Aspirin 81 mg. 2. Vitamin D 2000 international units. 3. Vitamin B12 at 1000. 4. Diltiazem 120 mg daily. 5. Levothyroxine 25 mcg. 6. Pantoprazole 40 mg daily. 7. Hydralazine 10 mg as needed for high blood pressure every 4 hours. 8. Meropenem and vancomycin, the latter given by the pharmacy. PHYSICAL EXAMINATION GENERAL: Reveals a male pattern baldness; alert elderly male who appears to be normal and vigorous. VITAL SIGNS: His blood pressure is 127/60, pulse 70, respirations 18, O2 saturation on room air is 96%. His temperature is 98.4. HEENT: The pupils are unequal, the right side is dilated, and there is a deformity of the iris. Th e left appears to be normal but somewhat constricted considering the ambient light. The mucous memb ranes of the mouth are moist. NECK: Supple, no jugular venous distention. CHEST: Clear to auscultation. HEART: Regular without gallop, murmur or rub. ABDOMEN: Soft. No palpable organs or masses. EXTREMITIES: Reveal a bandage to right catheter in the right groin area. There is no Bradley cathete r. There is no pedal edema. INITIAL IMPRESSION: 1. Sepsis due to right femoral dialysis catheter present on admission. 2. End-stage renal disease. 3. Diabetes mellitus. 4. Hypertension, high blood pressure. 5. History of congestive heart failure. 6. Benign prostatic hypertrophy. 7. Anemia of chronic renal disease. 8. Thrombocytopenia. 9. Hyperlipidemia. RECOMMENDATIONS: I would continue the present antibiotics of vancomycin and meropenem awaiting the culture results. Dictated By: Taylor TURCIOS MD for MAURICIO RICO MD EC/NTS Conf#: [id number] DID#: [id number] CC: ERIC STEVENS MD;*EndCC*
[2017-01-04] MEDS ORDERED: VANCOMYCIN 1 GM in NS 250 ML IVPB SCH (10:30)
[2017-01-04] MEDS ORDERED: HEPARIN 1000 UNITS/ML 10 ML INJ CATHETER ONE (16:30)
--- NOTE | 2017-01-04 18:07 | PN ---
DATE: 01/04/2017 SUBJECTIVE: No acute changes. The patient is alert, feels good. Denies pain, no fevers. VITAL SIGNS: Temperature 98.6, pulse 77, respirations 20, blood pressure 179/77, saturation 96% on room air. WBC 7.1, H and H 11 and 34.1, platelets 81, neutrophils 72.9. INDWELLINGS: The patient has a femoral Aldo catheter. MICROBIOLOGY: Cultures negative. ANTIMICROBIALS: The patient is on: 1. Vancomycin. 2. Merrem. PHYSICAL EXAMINATION: GENERAL: This is a fragile well-developed elderly man who is awake, in no distress. HEENT: Head atraumatic, normocephalic. Sclerae anicteric. Buccal mucosa dry. NECK: Supple. CHEST: Rise symmetrical. Breath sounds clear. HEART: S1, S2. ABDOMEN: Soft. Bowel tones present. ASSESSMENT: 1. Sepsis with fevers and tachycardia on admission, possibly secondary to infected hemodialysis cat heter. 2. End-stage renal disease. 3. Anemia. 4. Diabetes. 5. Benign prostatic hypertrophy. 6. Paroxysmal atrial fibrillation. PLAN: The patient remains stable. Continue present care, antibiotics. Repeat blood cultures from hemodialysis catheter today with hemodialysis. Repeat chest x-ray in a.m. Dictated By: JESUS HDZ PUBLIC HEALTH REPRESENTATIVE for MAURICIO WHITTAKER/ALLAN Conf#: [id number] DID#: [id number]
[2017-01-04] MEDS: BALSAM PERU/CASTOR OIL 60 GM TUBE TOP SCH (20:54)
[2017-01-04] MEDS: MEROPENEM 500MG/50 ML (PMX) 50 ML IVPB SCH (22:06)
[2017-01-05 02:00] VITALS: BP 138/66; RESP 20
[2017-01-05] MEDS: ACCU-CHEK XX SCH (02:00)
[2017-01-05 05:13] LABS: ABNORMAL IP MESSAGE 1; BASOPHIL # 0.1 10^3/ul (0.0-0.1); BASOPHILS % 0.7 % (0.0-2.0); EOSINOPHILS % 0.3 % (0.0-7.0); HEMATOCRIT 33.6 % (42.0-52.0); LYMPHOCYTES # 1.5 10^3/ul (0.8-2.9); LYMPHOCYTES % 14.7 % (15.0-51.0); MEAN CORPUSCULAR HEMOGLOBIN 27.4 pg (29.0-33.0); MEAN CORPUSCULAR HGB CONC 32.7 g/dl (32.0-37.0); MEAN CORPUSCULAR VOLUME 83.6 fl (82.0-101.0); MEAN PLATELET VOLUME 10.3 fl (7.4-10.4); MONOCYTE # 0.6 10^3/ul (0.3-0.9); NEUTROPHIL # 7.7 10^3/ul (1.6-7.5); PLATELET COUNT 94 10^3/UL (140-415); POSITIVE DIFF @See below; RED BLOOD COUNT 4.02 10^6/ul (4.70-6.10); RED CELL DISTRIBUTION WIDTH 14.8 % (11.5-14.5); WHITE BLOOD COUNT 9.9 10^3/ul (4.8-10.8)
[2017-01-05 05:49] LABS: MAGNESIUM 1.8 mg/dl (1.7-2.5); PHOSPHORUS 3.3 mg/dl (2.5-4.9)
[2017-01-05] MEDS: LEVOTHYROXINE 25 MCG TAB PO SCH (06:13)
[2017-01-05 06:14] LABS: CALCIUM 8.4 mg/dl (8.4-10.2); CREATININE 3.32 mg/dl (0.61-1.24); POTASSIUM 3.7 mmol/L (3.5-5.1)
--- NOTE | 2017-01-05 06:55 | PN ---
DATE: 01/04/2017 SUBJECTIVE: The patient yesterday had noted gram-negative rods growing out of cultures from the milvia lysis unit. The patient is currently on antibiotic therapy. He still remains altered, no other idalia nts noted. The patient is scheduled for hemodialysis today. OBJECTIVE: VITAL SIGNS: Blood pressure 179/77, respiration is 20, pulse 77, temperature 98.6. HEENT: Head is normocephalic. NECK: Supple. HEART: Regular rate. LUNGS: Show diminished breath sounds at base. ABDOMEN: Soft, nontender to palpation without rebound or guarding. EXTREMITIES: Negative for clubbing, cyanosis, edema. DERMATOLOGIC: No rashes. MUSCULOSKELETAL: No joint effusions. NEUROLOGIC: No change in exam. MEDICATIONS: The patient's medications have been reviewed. LABORATORY DATA: Showed sodium 136, potassium 3.9, BUN 42, creatinine 3.84. White count 7.1, hemog lobin 11.0, hematocrit 34.1, platelet count is 91. Patient's cultures are negative to date. ASSESSMENT AND PLAN: 1. End-stage renal disease. The patient is on dialysis Sunday, and Sunday. Scheduled for hemodialysis today. Will dialyze for 3 hours on 3 K bath, calcium 2.5, ultrafiltrate as tolerat ed. 2. Sepsis secondary to line infection. The patient's blood cultures in a dialysis unit grew out gr am-negative rods. Repeat blood cultures have been negative. Continue current antibiotic regimen. Follow up with infectious disease for recommendations. If infection remains unable to be cleared, t he patient will likely have to have a PermCath exchange. 3. Anemia. Continue to monitor changed hemoglobin and hematocrit levels. 4. monitor calcium and phosphorus levels. 4. Hypertension. Continue current blood pressure regimen. 5. Diabetes. Continue current insulin regimen. 6. Hypothyroidism. Continue Synthroid. 7. Atrial fibrillation. Continue medical management. 8. Thrombocytopenia. Continue to monitor. 9. Encephalopathy. toxic metabolic. No change. Continue to monitor. Dictated By: TRACE LEVI/ALLAN Conf#: [id number] DID#: [id number]
[2017-01-05] MEDS: PANTOPRAZOLE (EC) 40 MG TAB PO SCH (06:58)
--- NOTE | 2017-01-05 07:05 | PN ---
DATE: 01/04/2017 SUBJECTIVE: Patient seen. I received information. The patient's blood cultures at the dialysis ce nt shows gram-negative rods. I appreciate Dr. Callahan's ID input and recommendation. I appreciat e Dr. De La Paz, nephrology input. The patient is currently receiving hemodialysis. Appears nontoxic and responding well. The patient is now afebrile. PHYSICAL EXAMINATION: VITAL SIGNS: Temperature is 98.8, pulse 79, respiration is 18, blood pressure 152/71, saturation 94 %. GENERAL: The patient is in no acute distress. The patient is pale. CARDIOVASCULAR: S1 and S2, regular rate. LUNGS: Clear. ABDOMEN: Soft, nontender. EXTREMITIES: No clubbing, cyanosis, or edema throughout. Right femoral permanent catheter. LABORATORY DATA: White count is 7.1, normal, hemoglobin 11, hematocrit 34, platelet count low at 81 , neutrophils 72%, lymphocytes 17%. Chemistry: Sodium 136, potassium 3.9, chloride 101, bicarbonat e 27, BUN is 42, creatinine 3.87, glucose 118, alkaline phosphatase 298. Albumin 2.9. Urinalysis + 1 urobilinogen, leukocytes negative. MEDICATIONS: Patient's meds reviewed, include the followin. Vancomycin IV dose per pharmacy. 2. Aspirin 81 daily. 3. Vitamin D 2000 daily. 4. Vitamin B12 1000 daily. 5. Cardizem-CD 120 daily. 6. Synthroid 25 mcg daily. 7. Protonix 40 mg daily. 8. Hydralazine p.r.n. 9. Merrem 1 gram IV q.24h. 10. Flomax 0.4 b.i.d. 11. Hypoglycemia protocol as directed. 12. Zofran. 13. Tylenol. 14. [place]. 15. Colace. 16. Milk of magnesia. 17. Dulcolax. 18. Vancomycin. 19. Senna 20. Ambien p.r.n. Blood cultures so far all negative and urine cultures are negative. ASSESSMENT AND PLAN: This is an unfortunate 86-year-old male with history of diabetes jaime itus, hypertension, dyslipidemia, CVA, atrial fibrillation, osteoarthritis, diabetic neuropathy, dys lipidemia, hypothyroidism, BPH, vascular dementia, end-stage renal disease on dialysis, who presente d with encephalopathy and fevers, was found to be septic, most likely from line sepsis from his hemo dialysis catheter. 1. Sepsis, likely line sepsis, responding well to antibiotic management. ID is following. May not need to remove the catheter, but further decision will be made by the above staff. 2. End-stage renal disease. Currently being dialyzed, monitor electrolytes. 3. Paroxysmal atrial fibrillation. The patient is on aspirin for anticoagulation. Blood pressure is under control. 4. Hypothyroidism, on Synthroid. 5. Psychiatric disorder. Resume all psych medications. 6. Thrombocytopenia. Observe off blood thinners. 7. Benign prostatic hypertrophy on Flomax. 8. Hypertension is controlled. 9. Diabetes mellitus, previously on Tradjenta resume upon discharge. 10. Anemia. H and H is stable. 11. Transaminitis, likely related to above infectious process. 12. Hypoalbuminemia. 13. t.i.d. 14. Disposition soon back to [facility] until further decisions are made regarding an tibiotic management. Dictated By: ERIC PHILLIPS/ALLAN Conf#: [id number] DID#: [id number]
[2017-01-05 08:00] VITALS: BP 114/54; RESP 20
[2017-01-05] MEDS: INSULIN ASPART [NOVOLOG] 3 ML PEN SC SCH ×4 (08:00→21:22)
[2017-01-05] MEDS: TAMSULOSIN (SR) 0.4 MG CAP PO SCH ×2 (08:16→21:13)
[2017-01-05] MEDS: BALSAM PERU/CASTOR OIL 60 GM TUBE TOP SCH ×2 (08:16→21:27)
[2017-01-05] MEDS: DILTIAZEM (CD) 120 MG CAP PO SCH (08:16)
[2017-01-05] MEDS: CHOLECALCIFEROL 2,000 UNIT CAP PO SCH (08:16)
[2017-01-05] MEDS: CYANOCOBALAMIN 500 MCG TAB PO SCH (08:16)
[2017-01-05] MEDS: ASPIRIN 81 MG TAB PO SCH (08:16)
--- NOTE | 2017-01-05 12:22 | CONS ---
Date/Time of Note Date/Time of Note DATE: 01/05/17 TIME: 12:19 Assessment/Plan Assessment/Plan Chief Complaint/Hosp Course SUBJECTIVE: No acute changes. The patient is sleeping, candelaria low grade temps last night, currently afebrile INDWELLINGS: The patient has a femoral Aldo catheter. MICROBIOLOGY: Cultures negative. ANTIMICROBIALS: The patient is on: 1. Vancomycin. 2. Merrem. PHYSICAL EXAMINATION: GENERAL: This is a fragile well-developed elderly man who is awake, in no distress. HEENT: Head atraumatic, normocephalic. Sclerae anicteric. Buccal mucosa dry. NECK: Supple. CHEST: Rise symmetrical. Breath sounds clear. HEART: S1, S2. ABDOMEN: Soft. Bowel tones present. ASSESSMENT: 1. Sepsis with fevers and tachycardia on admission, possibly secondary to infected hemodialysis catheter, so far bld cx negative. 2. End-stage renal disease. 3. Anemia. 4. Diabetes. 5. Benign prostatic hypertrophy. 6. Paroxysmal atrial fibrillation. PLAN: The patient remains stable. Continue present care, antibiotics. Repeat cxr, await for bld cx drawn from [facility] staff Problems: Consultation Date/Type/Reason Admit Date/Time Jan 02, 2017 at 19:02 Type of Consultation: id Referring Provider: ERIC STEVENS MD Exam/Review of Systems Vital Signs Vitals Vital Signs Date Time Temp Pulse Resp B/P Pulse Ox O2 Delivery O2 Flow Rate FiO2 01/05/17 08:00 98.8 74 20 114/54 96 01/02/17 19:00 Room Air Intake and Output 01/04/17 01/04/17 01/05/17 15:00 23:00 07:00 Intake Total 250 ml 1050 ml 850 ml Output Total 3300 ml Balance 250 ml -2250 ml 850 ml Results Result Diagram: 01/05/17 0415 01/05/17 0415 Results 24 hrs Laboratory Tests Test 01/04/17 17:02 01/04/17 20:52 01/05/17 04:15 01/05/17 08:07 Bedside Glucose 123 177 117 White Blood Count 9.9 # Red Blood Count 4.02 L Hemoglobin 11.0 L Hematocrit 33.6 L Mean Corpuscular Volume 83.6 Mean Corpuscular Hemoglobin 27.4 L Mean Corpuscular Hemoglobin Concent 32.7 Red Cell Distribution Width 14.8 H Platelet Count 94 L Mean Platelet Volume 10.3 Neutrophils % 78.0 H Lymphocytes % 14.7 L Monocytes % 6.0 Eosinophils % 0.3 Basophils % 0.7 Nucleated Red Blood Cells % 0.0 Neutrophils # 7.7 H Lymphocytes # 1.5 Monocytes # 0.6 Eosinophils # 0.0 Basophils # 0.1 Nucleated Red Blood Cells # 0.0 Sodium Level 134 L Potassium Level 3.7 Chloride Level 102 Carbon Dioxide Level 27 Anion Gap 9 Blood Urea Nitrogen 31 #H Creatinine 3.32 H Glucose Level 117 Calcium Level 8.4 Phosphorus Level 3.3 Magnesium Level 1.8 Test 01/05/17 11:52 Bedside Glucose 185 Medications Medications Current Medications Ondansetron HCl (Zofran Inj) 4 mg Q6H PRN IV NAUSEA AND/OR VOMITING; Start 01/02/17 at 20:30 Acetaminophen (Tylenol Tab) 650 mg Q6H PRN PO PAIN LEVEL 1-3 OR FEVER Last administered on 01/05/17 03:08; Admin Dose 650 MG; Start 01/02/17 at 20:30 Acetaminophen/ Hydrocodone Bitart ([place] (5/325)) 1 tab Q6H PRN PO MODERATE PAIN LEVEL 4-6; Start 01/02/17 at 20:30 Docusate Sodium (Colace) 100 mg Q12H PRN PO CONSTIPATION; Start 01/02/17 at 20: 30 Magnesium Hydroxide (Milk Of Mag) 30 ml DAILY PRN PO CONSTIPATION; Start at 20:30 Bisacodyl 5 mg 5 mg DAILY PRN PO CONSTIPATION; Start 01/02/17 at 20:30 Meropenem/Sodium Chloride (Merrem 500mg/50 ml(Pmx)) 50 ml @ 100 mls/hr Q24H IVPB Last administered on 01/04/17 22:06; Admin Dose 100 MLS/HR; Start at 22:00 Aspirin (Aspirin) 81 mg DAILY PO Last administered on 01/05/17 08:16; Admin Dose 81 MG; Start 01/03/17 at 09:00 Cholecalciferol (Vitamin D) 2,000 unit DAILY PO Last administered on 01/05/17 08:16; Admin Dose 2,000 UNIT; Start 01/03/17 at 09:00 Cyanocobalamin (Vitamin B12) 1,000 mcg DAILY PO Last administered on 01/05/17 08:16; Admin Dose 1,000 MCG; Start 01/03/17 at 09:00 Diltiazem HCl (Cardizem Cd) 120 mg DAILY PO Last administered on 01/05/17 08: 16; Admin Dose 120 MG; Start 01/03/17 at 09:00 Docusate Sodium (Colace) 100 mg Q12H PRN PO CONSTIPATION; Start 01/02/17 at 20: 30 Ondansetron HCl (Zofran Tab) 4 mg Q6H PRN PO NAUSEA AND/OR VOMITING; Start 01/02/17 at 20:30 Senna (Senokot) 1 tab QHS PRN PO CONSTIPATION; Start 01/02/17 at 20:30 Tamsulosin HCl (Flomax) 0.4 mg BID PO Last administered on 01/05/17 08:16; Admin Dose 0.4 MG; Start 01/02/17 at 21:00 Zolpidem Tartrate (Ambien) 5 mg HS PRN PO insomnia; Start 01/02/17 at 20:30 Diagnostic Test (Pha) (Accu-Chek) 1 ea 02 XX ; Start 01/03/17 at 02:00 Miscellaneous Information 1 ea NOTE XX ; Start 01/02/17 at 21:00 Glucose (Glutose) 15 gm Q15M PRN PO DECREASED GLUCOSE; Start 01/02/17 at 21:00 Glucose (Glutose) 22.5 gm Q15M PRN PO DECREASED GLUCOSE; Start 01/02/17 at 21: 00 Dextrose (D50w Syringe) 25 ml Q15M PRN IV DECREASED GLUCOSE; Start 01/02/17 at 21:00 Dextrose (D50w Syringe) 50 ml Q15M PRN IV DECREASED GLUCOSE; Start 01/02/17 at 21:00 Glucagon (Glucagen) 1 mg Q15M PRN IM DECREASED GLUCOSE; Start 01/02/17 at 21:00 Glucose (Glutose) 15 gm Q15M PRN BUCCAL DECREASED GLUCOSE; Start 01/02/17 at 21 :00 Hydralazine HCl (Apresoline) 10 mg Q4H PRN IV hypertension Last administered on 01/04/17 03:41; Admin Dose 10 MG; Start 01/03/17 at 01:30 JESUS HDZ NP Jan 05, 2017 12:22
[2017-01-05 14:00] VITALS: BP 128/86; RESP 18
--- NOTE | 2017-01-05 18:19 | RADRPT ---
PROCEDURE: XR Chest. CLINICAL INDICATION: Shortness of breath. TECHNIQUE: Single frontal view. COMPARISON: 01/02/2017. FINDINGS: There is mild interstitial disease bilaterally consistent with pulmonary edema. There is no focal ai rspace disease to suggest pneumonia. The heart is mildly enlarged. There is calcification in the aorta consistent with atherosclerosis. There is no pleural effusion. There is no pneumothorax. IMPRESSION: 1. Mild pulmonary edema. 2. Cardiomegaly and atherosclerosis. RPTAT: QQ .Moody Corona MD, MD Date Time Electronically viewed and signed by .Moody Corona MD, on 01/05/2017 18:19 .R/
[2017-01-05] MEDS: MEROPENEM 500MG/50 ML (PMX) 50 ML IVPB SCH (22:22)
[2017-01-05 22:25] VITALS: BP 174/79; RESP 16
[2017-01-06] VITALS (11 sets, daily range): BP systolic 123–191; BP diastolic 57–86; PULSE 53–70; RESP 16–20
[2017-01-06] MEDS: ACCU-CHEK XX SCH (02:00)
[2017-01-06] MEDS: hydrALAzine 20 MG INJ IV PRN ×2 (02:21→19:46)
[2017-01-06] MEDS: PANTOPRAZOLE (EC) 40 MG TAB PO SCH (06:38)
[2017-01-06] MEDS: LEVOTHYROXINE 25 MCG TAB PO SCH (06:38)
[2017-01-06] MEDS: INSULIN ASPART [NOVOLOG] 3 ML PEN SC SCH ×4 (07:55→21:00)
--- NOTE | 2017-01-06 07:59 | PN ---
DATE: 01/05/2017 SUBJECTIVE: The patient is stable. The patient had hemodialysis yesterday, tolerated well. No oth er events noted. No hemoptysis, hemetemesis or hematochezia. OBJECTIVE: VITAL SIGNS: Blood pressure is 114/54, temperature 98.8, pulse 74, respirations 20. HEENT: Head is normocephalic. NECK: Supple. HEART: Regular rate. LUNGS: Show diminished breath sounds at base. ABDOMEN: Soft, nontender to palpation. No rebound or guarding. EXTREMITIES: Negative for clubbing, cyanosis, no edema. DERMATOLOGIC: No rashes. MUSCULOSKELETAL: No joint effusions. NEUROLOGIC: No change and examined. MEDICATIONS: Reviewed. LABORATORY DATA: Has been reviewed. ASSESSMENT AND PLAN: 1. End-stage renal disease. Plan for hemodialysis tomorrow. 2. Sepsis secondary to line infection. The patient's repeat cultures have been negative. Continue to monitor. Continue antibiotic therapy. 3. Anemia. Monitor hemoglobin and hematocrit levels. 4. Mineral bone disorder, monitor calcium and phosphorus levels. 5. Hypertension. Continue current blood pressure regimen. 6. Diabetes. Continue Accu-Cheks, insulin sliding scale. 7. Hypothyroidism. Continue Synthroid. 8. Atrial fibrillation, continue current medical management. 9. Thrombocytopenia. Continue to monitor. 10. Encephalopathy. Etiology is toxic metabolic. No change. Dictated By: TRACE LEVI/ALLAN Conf#: [id number] DID#: [id number]
[2017-01-06] MEDS: DILTIAZEM (CD) 120 MG CAP PO SCH (09:00)
[2017-01-06] MEDS: ASPIRIN 81 MG TAB PO SCH (11:49)
[2017-01-06] MEDS: CYANOCOBALAMIN 500 MCG TAB PO SCH (11:51)
[2017-01-06] MEDS: CHOLECALCIFEROL 2,000 UNIT CAP PO SCH (11:51)
[2017-01-06] MEDS: TAMSULOSIN (SR) 0.4 MG CAP PO SCH ×2 (11:51→21:02)
[2017-01-06] MEDS: BALSAM PERU/CASTOR OIL 60 GM TUBE TOP SCH ×2 (11:58→21:06)
--- NOTE | 2017-01-06 12:02 | PN ---
Date/Time of Note Date/Time of Note DATE: 01/06/17 TIME: 12:01 Assessment/Plan VTE Prophylaxis VTE Prophylaxis Intervention: other Lines/Catheters IV C[facility]ter Type (from [facility] Saline Lock Urinary Cath still in place: No Subjective 24 Hr Interval Summary Free Text/Dictation SUBJECTIVE: The patient is stable. The patient had hemodialysis yesterday, tolerated well. No other events noted. No hemoptysis, hemetemesis or hematochezia. OBJECTIVE: VITAL SIGNS: Blood pressure is 114/54, temperature 98.8, pulse 74, respirations 20. HEENT: Head is normocephalic. NECK: Supple. HEART: Regular rate. LUNGS: Show diminished breath sounds at base. ABDOMEN: Soft, nontender to palpation. No rebound or guarding. EXTREMITIES: Negative for clubbing, cyanosis, no edema. DERMATOLOGIC: No rashes. MUSCULOSKELETAL: No joint effusions. NEUROLOGIC: No change and examined. MEDICATIONS: Reviewed. LABORATORY DATA: Has been reviewed. ASSESSMENT AND PLAN: 1. End-stage renal disease. Plan for hemodialysis today 2. Sepsis secondary to line infection. Initial cultures drawn in HD unit prior to admission are growing GNR (I don't have ID or sensitivities yet). The patient's repeat cultures have been negative. Continue antibiotic therapy. will remove line if febrile or + BC 3. Anemia. Monitor hemoglobin and hematocrit levels. 4. Mineral bone disorder, monitor calcium and phosphorus levels. 5. Hypertension. Continue current blood pressure regimen. 6. Diabetes. Continue Accu-Cheks, insulin sliding scale. 7. Hypothyroidism. Continue Synthroid. 8. Atrial fibrillation, continue current medical management. 9. Thrombocytopenia. Continue to monitor. 10. Encephalopathy. Etiology is toxic metabolic. No change. Exam/Review of Systems Vital Signs Vitals Vital Signs Date Time Temp Pulse Resp B/P Pulse Ox O2 Delivery O2 Flow Rate FiO2 01/06/17 10:45 69 01/06/17 09:02 98.4 20 170/79 97 01/02/17 19:00 Room Air Intake and Output 01/05/17 01/05/17 01/06/17 15:00 23:00 07:00 Intake Total 920 ml 530 ml Balance 920 ml 530 ml Results Result Diagram: 01/05/17 0415 01/05/17 0415 Results 24 hrs Laboratory Tests Test 01/05/17 17:48 01/05/17 21:14 01/06/17 02:10 01/06/17 07:54 Bedside Glucose 158 194 159 111 Test 01/06/17 11:46 Bedside Glucose 120 Medications Medications Current Medications Ondansetron HCl (Zofran Inj) 4 mg Q6H PRN IV NAUSEA AND/OR VOMITING; Start 01/02/17 at 20:30 Acetaminophen (Tylenol Tab) 650 mg Q6H PRN PO PAIN LEVEL 1-3 OR FEVER Last administered on 01/05/17 03:08; Admin Dose 650 MG; Start 01/02/17 at 20:30 Acetaminophen/ Hydrocodone Bitart ([place] (5/325)) 1 tab Q6H PRN PO MODERATE PAIN LEVEL 4-6; Start 01/02/17 at 20:30 Docusate Sodium (Colace) 100 mg Q12H PRN PO CONSTIPATION; Start 01/02/17 at 20: 30 Magnesium Hydroxide (Milk Of Mag) 30 ml DAILY PRN PO CONSTIPATION; Start at 20:30 Bisacodyl 5 mg 5 mg DAILY PRN PO CONSTIPATION; Start 01/02/17 at 20:30 Meropenem/Sodium Chloride (Merrem 500mg/50 ml(Pmx)) 50 ml @ 100 mls/hr Q24H IVPB Last administered on 01/05/17 22:22; Admin Dose 100 MLS/HR; Start at 22:00 Aspirin (Aspirin) 81 mg DAILY PO Last administered on 01/06/17 11:49; Admin Dose 81 MG; Start 01/03/17 at 09:00 Cholecalciferol (Vitamin D) 2,000 unit DAILY PO Last administered on 01/06/17 11:51; Admin Dose 2,000 UNIT; Start 01/03/17 at 09:00 Cyanocobalamin (Vitamin B12) 1,000 mcg DAILY PO Last administered on 01/06/17 11:51; Admin Dose 1,000 MCG; Start 01/03/17 at 09:00 Diltiazem HCl (Cardizem Cd) 120 mg DAILY PO Last administered on 01/05/17 08: 16; Admin Dose 120 MG; Start 01/03/17 at 09:00 Docusate Sodium (Colace) 100 mg Q12H PRN PO CONSTIPATION; Start 01/02/17 at 20: 30 Ondansetron HCl (Zofran Tab) 4 mg Q6H PRN PO NAUSEA AND/OR VOMITING; Start 01/02/17 at 20:30 Senna (Senokot) 1 tab QHS PRN PO CONSTIPATION; Start 01/02/17 at 20:30 Tamsulosin HCl (Flomax) 0.4 mg BID PO Last administered on 01/06/17 11:51; Admin Dose 0.4 MG; Start 01/02/17 at 21:00 Zolpidem Tartrate (Ambien) 5 mg HS PRN PO insomnia; Start 01/02/17 at 20:30 Diagnostic Test (Pha) (Accu-Chek) 1 ea 02 XX ; Start 01/03/17 at 02:00 Miscellaneous Information 1 ea NOTE XX ; Start 01/02/17 at 21:00 Glucose (Glutose) 15 gm Q15M PRN PO DECREASED GLUCOSE; Start 01/02/17 at 21:00 Glucose (Glutose) 22.5 gm Q15M PRN PO DECREASED GLUCOSE; Start 01/02/17 at 21: 00 Dextrose (D50w Syringe) 25 ml Q15M PRN IV DECREASED GLUCOSE; Start 01/02/17 at 21:00 Dextrose (D50w Syringe) 50 ml Q15M PRN IV DECREASED GLUCOSE; Start 01/02/17 at 21:00 Glucagon (Glucagen) 1 mg Q15M PRN IM DECREASED GLUCOSE; Start 01/02/17 at 21:00 Glucose (Glutose) 15 gm Q15M PRN BUCCAL DECREASED GLUCOSE; Start 01/02/17 at 21 :00 Hydralazine HCl (Apresoline) 10 mg Q4H PRN IV hypertension Last administered on 01/06/17 02:21; Admin Dose 10 MG; Start 01/03/17 at 01:30 ROSA M JOHNSON DO Jan 06, 2017 12:02
--- NOTE | 2017-01-06 14:18 | CONS ---
Date/Time of Note Date/Time of Note DATE: 01/06/17 TIME: 14:16 Assessment/Plan Assessment/Plan Chief Complaint/Hosp Course SUBJECTIVE: No acute changes. The patient is awake, looks comfortable, no fevers INDWELLINGS: The patient has a femoral Aldo catheter. MICROBIOLOGY: Cultures negative. ANTIMICROBIALS: The patient is on: 1. Vancomycin. 2. Merrem. PHYSICAL EXAMINATION: GENERAL: This is a fragile well-developed elderly man who is awake, in no distress. HEENT: Head atraumatic, normocephalic. Sclerae anicteric. Buccal mucosa dry. NECK: Supple. CHEST: Rise symmetrical. Breath sounds clear. HEART: S1, S2. ABDOMEN: Soft. Bowel tones present. ASSESSMENT: 1. Sepsis with fevers and tachycardia on admission, possibly secondary to infected hemodialysis catheter, so far bld cx negative. 2. End-stage renal disease. 3. Anemia. 4. Diabetes. 5. Benign prostatic hypertrophy. 6. Paroxysmal atrial fibrillation. PLAN: The patient remains stable. Bld cx remain negative, cxr negative, will keep on abx for couple more days DW staff Problems: Consultation Date/Type/Reason Admit Date/Time Jan 02, 2017 at 19:02 Type of Consultation: id Referring Provider: ERIC STEVENS MD Exam/Review of Systems Vital Signs Vitals Vital Signs Date Time Temp Pulse Resp B/P Pulse Ox O2 Delivery O2 Flow Rate FiO2 01/06/17 11:15 70 20 01/06/17 09:02 98.4 170/79 97 01/02/17 19:00 Room Air Intake and Output 01/05/17 01/05/17 01/06/17 15:00 23:00 07:00 Intake Total 920 ml 530 ml Balance 920 ml 530 ml Results Result Diagram: 01/05/17 0415 01/05/17 0415 Results 24 hrs Laboratory Tests Test 01/05/17 17:48 01/05/17 21:14 01/06/17 02:10 01/06/17 07:54 Bedside Glucose 158 194 159 111 Test 01/06/17 11:46 Bedside Glucose 120 Medications Medications Current Medications Ondansetron HCl (Zofran Inj) 4 mg Q6H PRN IV NAUSEA AND/OR VOMITING; Start 01/02/17 at 20:30 Acetaminophen (Tylenol Tab) 650 mg Q6H PRN PO PAIN LEVEL 1-3 OR FEVER Last administered on 01/05/17 03:08; Admin Dose 650 MG; Start 01/02/17 at 20:30 Acetaminophen/ Hydrocodone Bitart ([place] (5/325)) 1 tab Q6H PRN PO MODERATE PAIN LEVEL 4-6; Start 01/02/17 at 20:30 Docusate Sodium (Colace) 100 mg Q12H PRN PO CONSTIPATION; Start 01/02/17 at 20: 30 Magnesium Hydroxide (Milk Of Mag) 30 ml DAILY PRN PO CONSTIPATION; Start at 20:30 Bisacodyl 5 mg 5 mg DAILY PRN PO CONSTIPATION; Start 01/02/17 at 20:30 Meropenem/Sodium Chloride (Merrem 500mg/50 ml(Pmx)) 50 ml @ 100 mls/hr Q24H IVPB Last administered on 01/05/17 22:22; Admin Dose 100 MLS/HR; Start at 22:00 Aspirin (Aspirin) 81 mg DAILY PO Last administered on 01/06/17 11:49; Admin Dose 81 MG; Start 01/03/17 at 09:00 Cholecalciferol (Vitamin D) 2,000 unit DAILY PO Last administered on 01/06/17 11:51; Admin Dose 2,000 UNIT; Start 01/03/17 at 09:00 Cyanocobalamin (Vitamin B12) 1,000 mcg DAILY PO Last administered on 01/06/17 11:51; Admin Dose 1,000 MCG; Start 01/03/17 at 09:00 Diltiazem HCl (Cardizem Cd) 120 mg DAILY PO Last administered on 01/05/17 08: 16; Admin Dose 120 MG; Start 01/03/17 at 09:00 Docusate Sodium (Colace) 100 mg Q12H PRN PO CONSTIPATION; Start 01/02/17 at 20: 30 Ondansetron HCl (Zofran Tab) 4 mg Q6H PRN PO NAUSEA AND/OR VOMITING; Start 01/02/17 at 20:30 Senna (Senokot) 1 tab QHS PRN PO CONSTIPATION; Start 01/02/17 at 20:30 Tamsulosin HCl (Flomax) 0.4 mg BID PO Last administered on 01/06/17 11:51; Admin Dose 0.4 MG; Start 01/02/17 at 21:00 Zolpidem Tartrate (Ambien) 5 mg HS PRN PO insomnia; Start 01/02/17 at 20:30 Diagnostic Test (Pha) (Accu-Chek) 1 ea 02 XX ; Start 01/03/17 at 02:00 Miscellaneous Information 1 ea NOTE XX ; Start 01/02/17 at 21:00 Glucose (Glutose) 15 gm Q15M PRN PO DECREASED GLUCOSE; Start 01/02/17 at 21:00 Glucose (Glutose) 22.5 gm Q15M PRN PO DECREASED GLUCOSE; Start 01/02/17 at 21: 00 Dextrose (D50w Syringe) 25 ml Q15M PRN IV DECREASED GLUCOSE; Start 01/02/17 at 21:00 Dextrose (D50w Syringe) 50 ml Q15M PRN IV DECREASED GLUCOSE; Start 01/02/17 at 21:00 Glucagon (Glucagen) 1 mg Q15M PRN IM DECREASED GLUCOSE; Start 01/02/17 at 21:00 Glucose (Glutose) 15 gm Q15M PRN BUCCAL DECREASED GLUCOSE; Start 01/02/17 at 21 :00 Hydralazine HCl (Apresoline) 10 mg Q4H PRN IV hypertension Last administered on 01/06/17t 02:21; Admin Dose 10 MG; Start 01/03/17 at 01:30 JESUS HDZ NP Jan 06, 2017 14:18
[2017-01-06] MEDS: AMLODIPINE 5 MG TAB PO SCH (23:51)
[2017-01-06] MEDS: MEROPENEM 500MG/50 ML (PMX) 50 ML IVPB SCH (23:51)
[2017-01-07] MEDS: ACCU-CHEK XX SCH (02:00)
[2017-01-07 02:03] VITALS: BP 159/69; RESP 18
[2017-01-07] MEDS: hydrALAzine 20 MG INJ IV PRN (02:07)
[2017-01-07 05:21] LABS: BASOPHIL # 0.1 10^3/ul (0.0-0.1); BASOPHILS % 1.2 % (0.0-2.0); EOSINOPHILS # 0.1 10^3/ul (0.0-0.5); EOSINOPHILS % 1.6 % (0.0-7.0); HEMATOCRIT 35.6 % (42.0-52.0); HEMOGLOBIN 11.7 g/dl (14.0-18.0); LYMPHOCYTES # 1.4 10^3/ul (0.8-2.9); LYMPHOCYTES % 20.3 % (15.0-51.0); MEAN CORPUSCULAR HEMOGLOBIN 27.1 pg (29.0-33.0); MEAN CORPUSCULAR HGB CONC 32.9 g/dl (32.0-37.0); MEAN CORPUSCULAR VOLUME 82.6 fl (82.0-101.0); MEAN PLATELET VOLUME 10.8 fl (7.4-10.4); MONOCYTE # 0.5 10^3/ul (0.3-0.9); MONOCYTES % 7.4 % (0.0-11.0); NEUTROPHIL # 4.8 10^3/ul (1.6-7.5); NEUTROPHILS % 68.9 % (39.0-77.0); PLATELET COUNT 128 10^3/UL (140-415); RED BLOOD COUNT 4.31 10^6/ul (4.70-6.10); RED CELL DISTRIBUTION WIDTH 14.8 % (11.5-14.5); WHITE BLOOD COUNT 6.9 10^3/ul (4.8-10.8)
[2017-01-07 05:47] LABS: MAGNESIUM 1.9 mg/dl (1.7-2.5); PHOSPHORUS 3.2 mg/dl (2.5-4.9)
[2017-01-07 05:50] LABS: CALCIUM 8.2 mg/dl (8.4-10.2); CREATININE 3.24 mg/dl (0.61-1.24); POTASSIUM 3.7 mmol/L (3.5-5.1)
[2017-01-07 06:13] VITALS: BP 131/63
[2017-01-07] MEDS: PANTOPRAZOLE (EC) 40 MG TAB PO SCH (07:28)
[2017-01-07] MEDS: LEVOTHYROXINE 25 MCG TAB PO SCH (07:28)
[2017-01-07] MEDS: INSULIN ASPART [NOVOLOG] 3 ML PEN SC SCH ×4 (08:00→20:19)
[2017-01-07 08:20] VITALS: BP 158/67; RESP 18
[2017-01-07] MEDS: CHOLECALCIFEROL 2,000 UNIT CAP PO SCH (08:42)
[2017-01-07] MEDS: AMLODIPINE 5 MG TAB PO SCH (08:42)
[2017-01-07] MEDS: DILTIAZEM (CD) 120 MG CAP PO SCH (08:42)
[2017-01-07] MEDS: ASPIRIN 81 MG TAB PO SCH (08:42)
[2017-01-07] MEDS: BALSAM PERU/CASTOR OIL 60 GM TUBE TOP SCH ×2 (08:42→20:20)
[2017-01-07] MEDS: CYANOCOBALAMIN 500 MCG TAB PO SCH (08:42)
[2017-01-07] MEDS: TAMSULOSIN (SR) 0.4 MG CAP PO SCH ×2 (08:43→20:19)
[2017-01-07] MEDS ORDERED: VANCOMYCIN 1 GM in NS 250 ML IVPB SCH (09:00)
--- NOTE | 2017-01-07 11:54 | PN ---
Date/Time of Note Date/Time of Note DATE: 01/07/17 TIME: 11:53 Assessment/Plan VTE Prophylaxis VTE Prophylaxis Intervention: other Lines/Catheters IV C[facility]ter Type (from [facility]): Saline Lock Urinary Cath still in place: No Assessment/Plan Chief Complaint/Hosp Course SUBJECTIVE: The patient is stable. The patient had hemodialysis yesterday, tolerated well. No other events noted. No hemoptysis, hemetemesis or hematochezia. OBJECTIVE: VITAL SIGNS: Blood pressure is 114/54, temperature 98.8, pulse 74, respirations 20. HEENT: Head is normocephalic. NECK: Supple. HEART: Regular rate. LUNGS: Show diminished breath sounds at base. ABDOMEN: Soft, nontender to palpation. No rebound or guarding. EXTREMITIES: Negative for clubbing, cyanosis, no edema. DERMATOLOGIC: No rashes. MUSCULOSKELETAL: No joint effusions. NEUROLOGIC: No change and examined. MEDICATIONS: Reviewed. LABORATORY DATA: Has been reviewed. ASSESSMENT AND PLAN: 1. End-stage renal disease. Plan for hemodialysis on sunday 2. Sepsis secondary to line infection. Initial cultures drawn in HD unit prior to admission are growing GNR (I don't have ID or sensitivities yet). The patient's repeat cultures have been negative. Continue antibiotic therapy. will remove line if febrile or + BC. will need at least 2 weeks of iv abx 3. Anemia. Monitor hemoglobin and hematocrit levels. 4. Mineral bone disorder, monitor calcium and phosphorus levels. 5. Hypertension. Continue current blood pressure regimen. 6. Diabetes. Continue Accu-Cheks, insulin sliding scale. 7. Hypothyroidism. Continue Synthroid. 8. Atrial fibrillation, continue current medical management. 9. Thrombocytopenia. Continue to monitor. 10. Encephalopathy. Etiology is toxic metabolic. No change. Problems: Exam/Review of Systems Vital Signs Vitals Vital Signs Date Time Temp Pulse Resp B/P Pulse Ox O2 Delivery O2 Flow Rate FiO2 01/07/17 08:20 97.0 64 18 158/67 97 Intake and Output 01/06/17 01/06/17 01/07/17 15:00 23:00 07:00 Intake Total 300 ml 640 ml 90 ml Output Total 2800 ml Balance -2500 ml 640 ml 90 ml Results Result Diagram: 01/07/17 0431 01/07/17 0431 Results 24 hrs Laboratory Tests Test 01/06/17 17:24 10/7/17 21:03 01/07/17 04:31 01/07/17 08:02 Bedside Glucose 133 159 117 White Blood Count 6.9 # Red Blood Count 4.31 L Hemoglobin 11.7 L Hematocrit 35.6 L Mean Corpuscular Volume 82.6 Mean Corpuscular Hemoglobin 27.1 L Mean Corpuscular Hemoglobin Concent 32.9 Red Cell Distribution Width 14.8 H Platelet Count 128 #L Mean Platelet Volume 10.8 H Neutrophils % 68.9 Lymphocytes % 20.3 Monocytes % 7.4 Eosinophils % 1.6 Basophils % 1.2 Nucleated Red Blood Cells % 0.0 Neutrophils # 4.8 Lymphocytes # 1.4 Monocytes # 0.5 Eosinophils # 0.1 Basophils # 0.1 Nucleated Red Blood Cells # 0.0 Sodium Level 135 Potassium Level 3.7 Chloride Level 100 Carbon Dioxide Level 28 Anion Gap 11 Blood Urea Nitrogen 35 H Creatinine 3.24 H Glucose Level 120 Calcium Level 8.2 L Phosphorus Level 3.2 Magnesium Level 1.9 Random Vancomycin Level 10.2 Medications Medications Current Medications Ondansetron HCl (Zofran Inj) 4 mg Q6H PRN IV NAUSEA AND/OR VOMITING; Start 01/02/17 at 20:30 Acetaminophen (Tylenol Tab) 650 mg Q6H PRN PO PAIN LEVEL 1-3 OR FEVER Last administered on 01/05/17 03:08; Admin Dose 650 MG; Start 01/02/17 at 20:30 Acetaminophen/ Hydrocodone Bitart ([place] (5/325)) 1 tab Q6H PRN PO MODERATE PAIN LEVEL 4-6; Start 01/02/17 at 20:30 Docusate Sodium (Colace) 100 mg Q12H PRN PO CONSTIPATION; Start 01/02/17 at 20: 30 Magnesium Hydroxide (Milk Of Mag) 30 ml DAILY PRN PO CONSTIPATION; Start at 20:30 Bisacodyl 5 mg 5 mg DAILY PRN PO CONSTIPATION; Start 01/02/17 at 20:30 Meropenem/Sodium Chloride (Merrem 500mg/50 ml(Pmx)) 50 ml @ 100 mls/hr Q24H IVPB Last administered on 01/06/17 23:51; Admin Dose 100 MLS/HR; Start at 22:00 Aspirin (Aspirin) 81 mg DAILY PO Last administered on 01/07/17 08:42; Admin Dose 81 MG; Start 01/03/17 at 09:00 Cholecalciferol (Vitamin D) 2,000 unit DAILY PO Last administered on 01/07/17 08:42; Admin Dose 2,000 UNIT; Start 01/03/17 at 09:00 Cyanocobalamin (Vitamin B12) 1,000 mcg DAILY PO Last administered on 01/07/17 08:42; Admin Dose 1,000 MCG; Start 01/03/17 at 09:00 Diltiazem HCl (Cardizem Cd) 120 mg DAILY PO Last administered on 01/07/17 08: 42; Admin Dose 120 MG; Start 01/03/17 at 09:00 Docusate Sodium (Colace) 100 mg Q12H PRN PO CONSTIPATION; Start 01/02/17 at 20: 30 Ondansetron HCl (Zofran Tab) 4 mg Q6H PRN PO NAUSEA AND/OR VOMITING; Start 01/02/17 at 20:30 Senna (Senokot) 1 tab QHS PRN PO CONSTIPATION; Start 01/02/17 at 20:30 Tamsulosin HCl (Flomax) 0.4 mg BID PO Last administered on 01/07/17 08:43; Admin Dose 0.4 MG; Start 01/02/17 at 21:00 Zolpidem Tartrate (Ambien) 5 mg HS PRN PO insomnia; Start 01/02/17 at 20:30 Diagnostic Test (Pha) (Accu-Chek) 1 ea 02 XX ; Start 01/03/17 at 02:00 Miscellaneous Information 1 ea NOTE XX ; Start 01/02/17 at 21:00 Glucose (Glutose) 15 gm Q15M PRN PO DECREASED GLUCOSE; Start 01/02/17 at 21:00 Glucose (Glutose) 22.5 gm Q15M PRN PO DECREASED GLUCOSE; Start 01/02/17 at 21: 00 Dextrose (D50w Syringe) 25 ml Q15M PRN IV DECREASED GLUCOSE; Start 01/02/17 at 21:00 Dextrose (D50w Syringe) 50 ml Q15M PRN IV DECREASED GLUCOSE; Start 01/02/17 at 21:00 Glucagon (Glucagen) 1 mg Q15M PRN IM DECREASED GLUCOSE; Start 01/02/17 at 21:00 Glucose (Glutose) 15 gm Q15M PRN BUCCAL DECREASED GLUCOSE; Start 01/02/17 at 21 :00 Amlodipine Besylate (Norvasc) 5 mg DAILY PO Last administered on 01/07/17 08: 42; Admin Dose 5 MG; Start 01/06/17 at 23:00 Hydralazine HCl 10 mg 10 mg Q4H PRN IV ELEVATED SYSTOLIC BP Last administered on 01/07/17 02:07; Admin Dose 10 MG; Start 01/06/17 at 23:00 Vancomycin HCl (Vancocin) 250 ml @ 125 mls/hr Q96H IVPB Last administered on 01/07/17 08:42; Admin Dose 125 MLS/HR; Start 01/07/17 at 09:00 ROSA M JOHNSON DO Jan 07, 2017 11:54
[2017-01-07 15:05] VITALS: BP 143/63; RESP 18
--- NOTE | 2017-01-07 15:25 | CONS ---
Date/Time of Note Date/Time of Note DATE: 01/07/17 TIME: 15:23 Assessment/Plan Assessment/Plan Chief Complaint/Hosp Course SUBJECTIVE: No acute changes. The patient is awake, looks comfortable, no fevers INDWELLINGS: femoral Aldo catheter. MICROBIOLOGY: Blood cultures at hemodialysis unit growing gram-negative rods per discussion with nephrology ANTIMICROBIALS: The patient is on: 1. Vancomycin. 2. Merrem. PHYSICAL EXAMINATION: GENERAL: This is a fragile well-developed elderly man who is awake, in no distress. HEENT: Head atraumatic, normocephalic. Sclerae anicteric. Buccal mucosa dry. NECK: Supple. CHEST: Rise symmetrical. Breath sounds clear. HEART: S1, S2. ABDOMEN: Soft. Bowel tones present. ASSESSMENT: 1. Sepsis with fevers and tachycardia on admission secondary to infected hemodialysis catheter 2. End-stage renal disease. 3. Anemia. 4. Diabetes. 5. Benign prostatic hypertrophy. 6. Paroxysmal atrial fibrillation. PLAN: The patient remains stable. Repeated blood cultures negative, continue antibiotics, obtain final blood cultures from hemodialysis unit, will discuss further plan of care with nephrology DW staff Discussed with Dr. Weiss Problems: Consultation Date/Type/Reason Admit Date/Time Jan 02, 2017 at 19:02 Type of Consultation: id Referring Provider: ERIC STEVENS MD Exam/Review of Systems Vital Signs Vitals Vital Signs Date Time Temp Pulse Resp B/P Pulse Ox O2 Delivery O2 Flow Rate FiO2 01/07/17 15:05 97.3 64 18 143/63 97 Intake and Output 01/06/17 01/06/17 01/07/17 15:00 23:00 07:00 Intake Total 300 ml 640 ml 90 ml Output Total 2800 ml Balance -2500 ml 640 ml 90 ml Results Result Diagram: 01/07/17 0431 01/07/17 0431 Results 24 hrs Laboratory Tests Test 01/06/17 17:24 01/06/17 21:03 01/07/17 04:31 01/07/17 08:02 Bedside Glucose 133 159 117 White Blood Count 6.9 # Red Blood Count 4.31 L Hemoglobin 11.7 L Hematocrit 35.6 L Mean Corpuscular Volume 82.6 Mean Corpuscular Hemoglobin 27.1 L Mean Corpuscular Hemoglobin Concent 32.9 Red Cell Distribution Width 14.8 H Platelet Count 128 #L Mean Platelet Volume 10.8 H Neutrophils % 68.9 Lymphocytes % 20.3 Monocytes % 7.4 Eosinophils % 1.6 Basophils % 1.2 Nucleated Red Blood Cells % 0.0 Neutrophils # 4.8 Lymphocytes # 1.4 Monocytes # 0.5 Eosinophils # 0.1 Basophils # 0.1 Nucleated Red Blood Cells # 0.0 Sodium Level 135 Potassium Level 3.7 Chloride Level 100 Carbon Dioxide Level 28 Anion Gap 11 Blood Urea Nitrogen 35 H Creatinine 3.24 H Glucose Level 120 Calcium Level 8.2 L Phosphorus Level 3.2 Magnesium Level 1.9 Random Vancomycin Level 10.2 Test 01/07/17 12:03 Bedside Glucose 118 Medications Medications Current Medications Ondansetron HCl (Zofran Inj) 4 mg Q6H PRN IV NAUSEA AND/OR VOMITING; Start 01/02/17 at 20:30 Acetaminophen (Tylenol Tab) 650 mg Q6H PRN PO PAIN LEVEL 1-3 OR FEVER Last administered on 01/05/17 03:08; Admin Dose 650 MG; Start 01/02/17 at 20:30 Acetaminophen/ Hydrocodone Bitart ([place] (5/325)) 1 tab Q6H PRN PO MODERATE PAIN LEVEL 4-6; Start 01/02/17 at 20:30 Docusate Sodium (Colace) 100 mg Q12H PRN PO CONSTIPATION; Start 01/02/17 at 20: 30 Magnesium Hydroxide (Milk Of Mag) 30 ml DAILY PRN PO CONSTIPATION; Start at 20:30 Bisacodyl 5 mg 5 mg DAILY PRN PO CONSTIPATION; Start 01/02/17 at 20:30 Meropenem/Sodium Chloride (Merrem 500mg/50 ml(Pmx)) 50 ml @ 100 mls/hr Q24H IVPB Last administered on 01/06/17 23:51; Admin Dose 100 MLS/HR; Start at 22:00 Aspirin (Aspirin) 81 mg DAILY PO Last administered on 01/07/17 08:42; Admin Dose 81 MG; Start 01/03/17 at 09:00 Cholecalciferol (Vitamin D) 2,000 unit DAILY PO Last administered on 01/07/17 08:42; Admin Dose 2,000 UNIT; Start 01/03/17 at 09:00 Cyanocobalamin (Vitamin B12) 1,000 mcg DAILY PO Last administered on 01/07/17 08:42; Admin Dose 1,000 MCG; Start 01/03/17 at 09:00 Diltiazem HCl (Cardizem Cd) 120 mg DAILY PO Last administered on 01/07/17 08: 42; Admin Dose 120 MG; Start 01/03/17 at 09:00 Docusate Sodium (Colace) 100 mg Q12H PRN PO CONSTIPATION; Start 01/02/17 at 20: 30 Ondansetron HCl (Zofran Tab) 4 mg Q6H PRN PO NAUSEA AND/OR VOMITING; Start 01/02/17 at 20:30 Senna (Senokot) 1 tab QHS PRN PO CONSTIPATION; Start 01/02/17 at 20:30 Tamsulosin HCl (Flomax) 0.4 mg BID PO Last administered on 01/07/17 08:43; Admin Dose 0.4 MG; Start 01/02/17 at 21:00 Zolpidem Tartrate (Ambien) 5 mg HS PRN PO insomnia; Start 01/02/17 at 20:30 Diagnostic Test (Pha) (Accu-Chek) 1 ea 02 XX ; Start 01/03/17 at 02:00 Miscellaneous Information 1 ea NOTE XX ; Start 01/02/17 at 21:00 Glucose (Glutose) 15 gm Q15M PRN PO DECREASED GLUCOSE; Start 01/02/17 at 21:00 Glucose (Glutose) 22.5 gm Q15M PRN PO DECREASED GLUCOSE; Start 01/02/17 at 21: 00 Dextrose (D50w Syringe) 25 ml Q15M PRN IV DECREASED GLUCOSE; Start 01/02/17 at 21:00 Dextrose (D50w Syringe) 50 ml Q15M PRN IV DECREASED GLUCOSE; Start 01/02/17 at 21:00 Glucagon (Glucagen) 1 mg Q15M PRN IM DECREASED GLUCOSE; Start 01/02/17 at 21:00 Glucose (Glutose) 15 gm Q15M PRN BUCCAL DECREASED GLUCOSE; Start 01/02/17 at 21 :00 Amlodipine Besylate (Norvasc) 5 mg DAILY PO Last administered on 01/07/17 08: 42; Admin Dose 5 MG; Start 01/06/17 at 23:00 Hydralazine HCl 10 mg 10 mg Q4H PRN IV ELEVATED SYSTOLIC BP Last administered on 01/07/17 02:07; Admin Dose 10 MG; Start 01/06/17 at 23:00 Vancomycin HCl (Vancocin) 250 ml @ 125 mls/hr Q96H IVPB Last administered on 01/07/17 08:42; Admin Dose 125 MLS/HR; Start 01/07/17 at 09:00 JESUS HDZ NP Jan 07, 2017 15:24
[2017-01-07 20:03] VITALS: BP 177/73; RESP 18
[2017-01-07] MEDS: MEROPENEM 500MG/50 ML (PMX) 50 ML IVPB SCH (23:06)
[2017-01-08] VITALS (7 sets, daily range): BP systolic 148–178; BP diastolic 70–81; PULSE 60; RESP 18–19
[2017-01-08] MEDS: ACCU-CHEK XX SCH (02:00)
--- NOTE | 2017-01-08 02:27 | PN ---
DATE: 01/06/2017 . Patient seen. Patient is currently receiving hemodialysis, overall comfortable with no comp laints. Patient has been afebrile since yesterday morning. Blood pressure has been on the high cely e. Currently receiving dialysis. We will continue to monitor. Patient again has no complaints. PHYSICAL EXAMINATION: VITAL SIGNS: Temperature 98.4, pulse 53, respirations 20, blood pressure 170/79, saturation 97%. GENERAL: Patient no acute distress. The patient is pale. CARDIOVASCULAR: S1, S2, regular rate. LUNGS: Clear. ABDOMEN: Soft, nontender. EXTREMITIES: There is no clubbing, cyanosis or edema. The patient overall appears very comfortable . LABORATORY DATA: Actually no labs today. Last glucose level, 111, 159, good glycemic control. MEDICATIONS: 1. Aspirin 81 mg. 2. Vitamin D 2000 daily. 3. Vitamin B12 1000 daily. 4. Cardizem-CD 120 daily. 5. Synthroid 25 mcg daily. 6. Protonix 40 mg daily. 7. Accu-Chek q.a.c. and at bedtime. 8. Hydralazine p.r.n. 9. Merrem 1 gram q.24 hours. 10. Flomax 0.4 b.i.d. 11. Hypoglycemia protocol p.r.n. 12. Zofran p.r.n. 13. Tylenol p.r.n. 14. [place] p.r.n. 15. . 16. Vancomycin dose per pharmacy. 17. Colace p.r.n. 18. Zofran p.r.n. 19. Senna p.r.n. 20. Ambien p.r.n. ASSESSMENT AND PLAN: This is an 86-year-old male with history of diabetes mellitus, hypert ension, dyslipidemia, cerebrovascular accident, atrial fibrillation, osteoarthritis, diabetic neurop athy, dyslipidemia, hypothyroidism, BPH, vascular dementia, end-stage renal disease on dialysis 3 ti mes a week, who presented with encephalopathy and fever, was found to be septic, most likely from li ne sepsis as he has a right femoral hemodialysis Perm-A-Cath. 1. Sepsis, likely line sepsis, but now is afebrile for more than 24 hours. Continue above antibiot ics. Follow up cultures. He had positive cultures at the dialysis center, may follow. Responding well to current treatment plan, would continue with current treatment plan. We will ask ID regardin g duration and type of antibiotics. 2. End-stage renal disease, currently receiving dialysis. Monitor electrolytes in the a.m. 3. Paroxysmal atrial fibrillation on aspirin as patient is risk for fall. 4. Hypothyroidism, on Synthroid. 5. Psychiatric disorder, on multiple psych medications. 6. Thrombocytopenia. This is also another reason why he is not on anticoagulation for his atrial f ibrillation. 7. BPH. Continue Flomax. 8. Hypertension. Titrate medication up. Currently on dialysis. 9. Diabetes mellitus, controlled, but on Tradjenta. 10. Anemia. Monitor hemoglobin and hematocrit. No need for transfusion. 11. Transaminitis, better, we will follow. 12. Dysphagia. Continue current diet. 13. Disposition: Soon to custodial facility. We will follow. Dictated By: ERIC PHILLIPS/ALLAN Conf#: [id number] DID#: [id number]
--- NOTE | 2017-01-08 06:55 | PN ---
DATE: 01/05/2017 SUBJECTIVE: Patient seen. The patient appears comfortable, alert and nontoxic. I appreciate ID an d nephrology followup. The patient unfortunately had a T-max of 100.5 at 2:00 a.m. Cultures remain negative here in the hospital. If fever continues, he may have to have his hemodialysis catheter r emoved. Infectious disease is following. PHYSICAL EXAMINATION: VITAL SIGNS: 98.6, pulse 84, respirations 18, blood pressure 128/86, saturation 94% on room air. GENERAL: No acute distress. The patient is pale, frail. CARDIOVASCULAR: S1 and S2, regular rate. LUNGS: Intact. ABDOMEN: Soft, nontender. EXTREMITIES: No clubbing, cyanosis, or edema. LABORATORY DATA: White count is 9.9, hemoglobin 11, hematocrit 24, platelets 94, neutrophils 78%, l ymphocytes 15%. Chemistry: Sodium 134, potassium 3.7, chloride 102, bicarbonate 27, BUN is 31, cre atinine 3.32, glucose 117. Last glucose levels 150 and 185 and 117. Blood cultures, urine culture all negative. MEDICATIONS: Reviewed and include: 1. Aspirin 81 mg daily. 2. Vitamin D 2000 daily. 3. Vitamin B12 1000 daily. 4. Cardizem-CD 120 daily. 5. Synthroid 25 mcg daily. 6. Protonix 40 mg daily. 7. Accu-Chek q.a.c. and at bedtime. 8. Merrem 1 gram IV q.24h. 9. Flomax 0.4 b.i.d. 10. Insulin per sliding scale hypoglycemia protocol. 11. Zofran p.r.n. 12. Tylenol p.r.n. 13. [place] p.r.n. 14. Colace p.r.n. 15. Milk of magnesia p.r.n. 16. p.r.n. 17. Vancomycin IV dose per pharmacy. 18. Colace p.r.n. 19. Senna 20. Ambien p.r.n. ASSESSMENT AND PLAN: This is an 86-year-old male with history of diabetes mellitus, hypert ension, dyslipidemia, CVA, atrial fibrillation, osteoarthritis, diabetic neuropathy, dyslipidemia, h ypothyroidism, BPH, vascular dementia, end-stage renal disease on dialysis, who presented with encep halopathy and fevers. The patient was septic, most likely from hemodialysis line. 1. Sepsis, continues to have fevers. Continue above antibiotics and monitor. If continues to have fever, may need to have his hemodialysis catheter removed. We will follow. ID is following closel y. 2. End-stage renal disease, dialysis per nephrology. 3. Paroxysmal atrial fibrillation on aspirin for anticoagulation. 4. Hypothyroidism, on Synthroid. 5. Psychiatric disorder. Resume all psych medications. 6. Thrombocytopenia, stable off blood thinners. 7. Benign prostatic hypertrophy on Flomax. 8. Hypertension, controlled. 9. Diabetes mellitus. Glucose levels in the low to mid 100s, observe. 10. Dysphagia, on pureed diet, may consider advancing diet to soft diet. 11. We will follow. Dictated By: ERIC PHILLIPS/ALLAN Conf#: [id number] DID#: [id number]
[2017-01-08] MEDS: INSULIN ASPART [NOVOLOG] 3 ML PEN SC SCH ×4 (07:47→20:28)
[2017-01-08] MEDS: PANTOPRAZOLE (EC) 40 MG TAB PO SCH (07:53)
[2017-01-08] MEDS: LEVOTHYROXINE 25 MCG TAB PO SCH (07:53)
[2017-01-08] MEDS: CHOLECALCIFEROL 2,000 UNIT CAP PO SCH (08:37)
[2017-01-08] MEDS: CYANOCOBALAMIN 500 MCG TAB PO SCH (08:38)
[2017-01-08] MEDS: DILTIAZEM (CD) 120 MG CAP PO SCH (08:38)
[2017-01-08] MEDS: AMLODIPINE 5 MG TAB PO SCH (08:39)
[2017-01-08] MEDS: TAMSULOSIN (SR) 0.4 MG CAP PO SCH ×2 (08:39→20:27)
[2017-01-08] MEDS: ASPIRIN 81 MG TAB PO SCH (08:41)
[2017-01-08] MEDS: BALSAM PERU/CASTOR OIL 60 GM TUBE TOP SCH ×2 (08:42→20:32)
--- NOTE | 2017-01-08 10:44 | PN ---
DATE: 01/07/2017 SUBJECTIVE: The patient seen with no complaints. Family is at bedside. The patient is afebrile. Noted ID recommendations. PHYSICAL EXAMINATION: VITAL SIGNS: Temperature 97.3, pulse 64, respirations 18, blood pressure 142/632, saturation 97%. GENERAL: No acute distress. The patient is frail, pale. CARDIOVASCULAR: S1, S2, regular rate. LUNGS: Clear. ABDOMEN: Soft, nontender. EXTREMITIES: No clubbing, cyanosis, or edema. Right femoral catheter in place. LABORATORY DATA: White count 6.9, hemoglobin 11.7, hematocrit 36, platelet count 128 now normal. C hemistry: Sodium 135, potassium 3.7, chloride 100, bicarbonate 28, BUN is 35, creatinine 3.24, gluc ose of 120. Last glucose level slightly high at 200. MEDICATIONS: Reviewed. 1. Vancomycin IV dose per pharmacy. 2. Norvasc 5 mg daily. 3. Hydralazine p.r.n. 4. Aspirin 81 mg daily. 5. Vitamin D 2000 daily. 6. Vitamin B12 1000 daily. 7. Cardizem-CD 120 daily. 8. Synthroid 25 mcg daily. 9. Protonix 40 mg daily. 10. Accu-Chek q.a.c. and at bedtime. 11. Merrem IV dose per pharmacy. 12. Flomax 0.4 b.i.d. 13. Hypoglycemia protocol as directed. 14. [place]. 15. Colace. 16. Dulcolax. 17. Senna. 18. Ambien p.r.n. ASSESSMENT AND PLAN: This is an 86-year-old male with history of diabetes mellitus, hypert ension, dyslipidemia, CVA, atrial fibrillation, osteoarthritis, diabetic neuropathy, dyslipidemia, h ypothyroidism, BPH, , dementia, end-stage renal disease on dialysis, who presented with encepha lopathy and fever, was found to be septic, likely from right femoral dialysis catheter. 1. Sepsis. Cultures at dialysis center were positive. Follow up with those culture results and fu rther decision regarding line removal and antibiotics will be made. 2. End-stage renal disease. Dialysis per nephrology. 3. Paroxysmal atrial fibrillation on aspirin for anticoagulation. Continue current blood pressure medication as it is controlled. 4. Hypothyroidism, on Synthroid. 5. Psychiatric disorder. Resume all psych medications. 6. Thrombocytopenia, improved. 7. Benign prostatic hypertrophy on Flomax. 8. Diabetes mellitus. Glucose levels slightly higher today. He has been on Tradjenta before. We will resume it upon discharge. 9. Anemia. H and H is stable. No need for transfusion. 10. Hypoalbuminemia. Encourage him to eat. 11. Dysphagia, remain on pureed diet. Will ask speech therapy to see if diet can be advanced. The patient does not like pureed diet. We will follow. DISPOSITION: When okayed by ID. Dictated By: ERIC PHILLIPS/ALLAN Conf#: [id number] DID#: [id number]
--- NOTE | 2017-01-08 12:52 | CONS ---
Date/Time of Note Date/Time of Note DATE: 01/08/17 TIME: 12:51 Assessment/Plan Assessment/Plan Chief Complaint/Hosp Course SUBJECTIVE: No acute changes. No fevers, looks comfortable INDWELLINGS: femoral Aldo catheter. MICROBIOLOGY: Blood cultures at hemodialysis unit growing gram-negative rods per discussion with nephrology ANTIMICROBIALS: The patient is on: 1. Vancomycin. 2. Merrem. PHYSICAL EXAMINATION: GENERAL: This is a fragile well-developed elderly man who is awake, in no distress. HEENT: Head atraumatic, normocephalic. Sclerae anicteric. Buccal mucosa dry. NECK: Supple. CHEST: Rise symmetrical. Breath sounds clear. HEART: S1, S2. ABDOMEN: Soft. Bowel tones present. ASSESSMENT: 1. Sepsis with fevers and tachycardia on admission secondary to infected hemodialysis catheter 2. End-stage renal disease. 3. Anemia. 4. Diabetes. 5. Benign prostatic hypertrophy. 6. Paroxysmal atrial fibrillation. PLAN: The patient remains stable. Repeated blood cultures negative, continue antibiotics, obtain final blood cultures from hemodialysis unit, will discuss further plan of care with nephrology, pt may require HD cath removal vs longterm abx for line salvage DW staff Discussed with Dr. Weiss Problems: Consultation Date/Type/Reason Admit Date/Time Jan 02, 2017 at 19:02 Type of Consultation: id Referring Provider: ERIC STEVENS MD Exam/Review of Systems Vital Signs Vitals Vital Signs Date Time Temp Pulse Resp B/P Pulse Ox O2 Delivery O2 Flow Rate FiO2 01/08/17 10:42 60 156/70 01/08/17 07:20 97.4 18 96 01/08/17 01:40 Room Air Intake and Output 01/07/17 01/07/17 01/08/17 15:00 23:00 07:00 Intake Total 250 ml 360 ml 150 ml Balance 250 ml 360 ml 150 ml Results Result Diagram: 01/07/17 0431 01/07/17 0431 Results 24 hrs Laboratory Tests Test 01/07/17 17:12 01/07/17 20:15 01/08/17 01:45 01/08/17 07:46 Bedside Glucose 200 182 132 118 Test 01/08/17 12:12 Bedside Glucose 195 Medications Medications Current Medications Ondansetron HCl (Zofran Inj) 4 mg Q6H PRN IV NAUSEA AND/OR VOMITING; Start 01/02/17 at 20:30 Acetaminophen (Tylenol Tab) 650 mg Q6H PRN PO PAIN LEVEL 1-3 OR FEVER Last administered on 01/05/17 03:08; Admin Dose 650 MG; Start 01/02/17 at 20:30 Acetaminophen/ Hydrocodone Bitart ([place] (5/325)) 1 tab Q6H PRN PO MODERATE PAIN LEVEL 4-6; Start 01/02/17 at 20:30 Docusate Sodium (Colace) 100 mg Q12H PRN PO CONSTIPATION; Start 01/02/17 at 20: 30 Magnesium Hydroxide (Milk Of Mag) 30 ml DAILY PRN PO CONSTIPATION; Start at 20:30 Bisacodyl 5 mg 5 mg DAILY PRN PO CONSTIPATION; Start 01/02/17 at 20:30 Meropenem/Sodium Chloride (Merrem 500mg/50 ml(Pmx)) 50 ml @ 100 mls/hr Q24H IVPB Last administered on 01/07/17 23:06; Admin Dose 100 MLS/HR; Start at 22:00 Aspirin (Aspirin) 81 mg DAILY PO Last administered on 01/08/17 08:41; Admin Dose 81 MG; Start 01/03/17 at 09:00 Cholecalciferol (Vitamin D) 2,000 unit DAILY PO Last administered on 01/08/17 08:37; Admin Dose 2,000 UNIT; Start 01/03/17 at 09:00 Cyanocobalamin (Vitamin B12) 1,000 mcg DAILY PO Last administered on 01/08/17 08:38; Admin Dose 1,000 MCG; Start 01/03/17 at 09:00 Diltiazem HCl (Cardizem Cd) 120 mg DAILY PO Last administered on 01/08/17 08: 38; Admin Dose 120 MG; Start 01/03/17 at 09:00 Docusate Sodium (Colace) 100 mg Q12H PRN PO CONSTIPATION; Start 01/02/17 at 20: 30 Ondansetron HCl (Zofran Tab) 4 mg Q6H PRN PO NAUSEA AND/OR VOMITING; Start 01/02/17 at 20:30 Senna (Senokot) 1 tab QHS PRN PO CONSTIPATION; Start 01/02/17 at 20:30 Tamsulosin HCl (Flomax) 0.4 mg BID PO Last administered on 01/08/17 08:39; Admin Dose 0.4 MG; Start 01/02/17 at 21:00 Zolpidem Tartrate (Ambien) 5 mg HS PRN PO insomnia; Start 01/02/17 at 20:30 Diagnostic Test (Pha) (Accu-Chek) 1 ea 02 XX ; Start 01/03/17 at 02:00 Miscellaneous Information 1 ea NOTE XX ; Start 01/02/17 at 21:00 Glucose (Glutose) 15 gm Q15M PRN PO DECREASED GLUCOSE; Start 01/02/17 at 21:00 Glucose (Glutose) 22.5 gm Q15M PRN PO DECREASED GLUCOSE; Start 01/02/17 at 21: 00 Dextrose (D50w Syringe) 25 ml Q15M PRN IV DECREASED GLUCOSE; Start 01/02/17 at 21:00 Dextrose (D50w Syringe) 50 ml Q15M PRN IV DECREASED GLUCOSE; Start 01/02/17 at 21:00 Glucagon (Glucagen) 1 mg Q15M PRN IM DECREASED GLUCOSE; Start 01/02/17 at 21:00 Glucose (Glutose) 15 gm Q15M PRN BUCCAL DECREASED GLUCOSE; Start 01/02/17 at 21 :00 Amlodipine Besylate (Norvasc) 5 mg DAILY PO Last administered on 01/08/17 08: 39; Admin Dose 5 MG; Start 01/06/17 at 23:00 Hydralazine HCl 10 mg 10 mg Q4H PRN IV ELEVATED SYSTOLIC BP Last administered on 01/07/17 02:07; Admin Dose 10 MG; Start 01/06/17 at 23:00 Vancomycin HCl (Vancocin) 250 ml @ 125 mls/hr Q96H IVPB Last administered on 01/07/17 08:42; Admin Dose 125 MLS/HR; Start 01/07/17 at 09:00 JESUS HDZ NP Jan 08, 2017 12:52
--- NOTE | 2017-01-08 15:52 | PN ---
Date/Time of Note Date/Time of Note DATE: 01/08/17 TIME: 15:48 Assessment/Plan VTE Prophylaxis VTE Prophylaxis Intervention: other Lines/Catheters IV [facility] [place] Urinary Cath still in place: No Assessment/Plan Chief Complaint/Hosp Course SUBJECTIVE: The patient is stable. The patient had hemodialysis 2 days ago, tolerated well. No other events noted. No hemoptysis, hemetemesis or hematochezia. OBJECTIVE: HEENT: Head is normocephalic. NECK: Supple. HEART: Regular rate. LUNGS: Show diminished breath sounds at base. ABDOMEN: Soft, nontender to palpation. No rebound or guarding. EXTREMITIES: Negative for clubbing, cyanosis, no edema. DERMATOLOGIC: No rashes. MUSCULOSKELETAL: No joint effusions. NEUROLOGIC: No change and examined. MEDICATIONS: Reviewed. LABORATORY DATA: Has been reviewed. ASSESSMENT AND PLAN: 1. End-stage renal disease. Plan for hemodialysis on sunday 2. Sepsis secondary to line infection. Initial cultures drawn in HD unit prior to admission grew Klebsiella but no sensitivities were done. The patient' s repeat cultures have been negative after abx were started. Continue antibiotic therapy. no indication to remove line. will need at least 2 weeks of iv abx 3. Anemia. epogen with hd 4. Mineral bone disorder, monitor calcium and phosphorus levels. 5. Hypertension. Continue current blood pressure regimen. 6. Diabetes. Continue Accu-Cheks, insulin sliding scale. 7. Hypothyroidism. Continue Synthroid. 8. Atrial fibrillation, continue current medical management. 9. Thrombocytopenia. Continue to monitor. 10. Encephalopathy. Etiology is toxic metabolic. No change. Problems: Exam/Review of Systems Vital Signs Vitals Vital Signs Date Time Temp Pulse Resp B/P Pulse Ox O2 Delivery O2 Flow Rate FiO2 01/08/17 15:15 97.5 58 18 167/71 96 01/08/17 01:40 Room Air Intake and Output 01/07/17 01/07/17 01/08/17 15:00 23:00 07:00 Intake Total 250 ml 360 ml 150 ml Balance 250 ml 360 ml 150 ml Results Result Diagram: 01/07/17 0431 01/07/17 0431 Results 24 hrs Laboratory Tests Test 01/07/17 17:12 01/07/17 20:15 01/08/17 01:45 01/08/17 07:46 Bedside Glucose 200 182 132 118 Test 01/08/17 12:12 Bedside Glucose 195 Medications Medications Current Medications Ondansetron HCl (Zofran Inj) 4 mg Q6H PRN IV NAUSEA AND/OR VOMITING; Start 01/02/17 at 20:30 Acetaminophen (Tylenol Tab) 650 mg Q6H PRN PO PAIN LEVEL 1-3 OR FEVER Last administered on 01/05/17 03:08; Admin Dose 650 MG; Start 01/02/17 at 20:30 Acetaminophen/ Hydrocodone Bitart ([place] (5/325)) 1 tab Q6H PRN PO MODERATE PAIN LEVEL 4-6; Start 01/02/17 at 20:30 Docusate Sodium (Colace) 100 mg Q12H PRN PO CONSTIPATION; Start 01/02/17 at 20: 30 Magnesium Hydroxide (Milk Of Mag) 30 ml DAILY PRN PO CONSTIPATION; Start at 20:30 Bisacodyl 5 mg 5 mg DAILY PRN PO CONSTIPATION; Start 01/02/17 at 20:30 Meropenem/Sodium Chloride (Merrem 500mg/50 ml(Pmx)) 50 ml @ 100 mls/hr Q24H IVPB Last administered on 01/07/17 23:06; Admin Dose 100 MLS/HR; Start at 22:00 Aspirin (Aspirin) 81 mg DAILY PO Last administered on 01/08/17 08:41; Admin Dose 81 MG; Start 01/03/17 at 09:00 Cholecalciferol (Vitamin D) 2,000 unit DAILY PO Last administered on 01/08/17 08:37; Admin Dose 2,000 UNIT; Start 01/03/17 at 09:00 Cyanocobalamin (Vitamin B12) 1,000 mcg DAILY PO Last administered on 01/08/17 08:38; Admin Dose 1,000 MCG; Start 01/03/17 at 09:00 Diltiazem HCl (Cardizem Cd) 120 mg DAILY PO Last administered on 01/08/17 08: 38; Admin Dose 120 MG; Start 01/03/17 at 09:00 Docusate Sodium (Colace) 100 mg Q12H PRN PO CONSTIPATION; Start 01/02/17 at 20: 30 Ondansetron HCl (Zofran Tab) 4 mg Q6H PRN PO NAUSEA AND/OR VOMITING; Start 01/02/17 at 20:30 Senna (Senokot) 1 tab QHS PRN PO CONSTIPATION; Start 01/02/17 at 20:30 Tamsulosin HCl (Flomax) 0.4 mg BID PO Last administered on 01/08/17 08:39; Admin Dose 0.4 MG; Start 01/02/17 at 21:00 Zolpidem Tartrate (Ambien) 5 mg HS PRN PO insomnia; Start 01/02/17 at 20:30 Diagnostic Test (Pha) (Accu-Chek) 1 ea 02 XX ; Start 01/03/17 at 02:00 Miscellaneous Information 1 ea NOTE XX ; Start 01/02/17 at 21:00 Glucose (Glutose) 15 gm Q15M PRN PO DECREASED GLUCOSE; Start 01/02/17 at 21:00 Glucose (Glutose) 22.5 gm Q15M PRN PO DECREASED GLUCOSE; Start 01/02/17 at 21: 00 Dextrose (D50w Syringe) 25 ml Q15M PRN IV DECREASED GLUCOSE; Start 01/02/17 at 21:00 Dextrose (D50w Syringe) 50 ml Q15M PRN IV DECREASED GLUCOSE; Start 01/02/17 at 21:00 Glucagon (Glucagen) 1 mg Q15M PRN IM DECREASED GLUCOSE; Start 01/02/17 at 21:00 Glucose (Glutose) 15 gm Q15M PRN BUCCAL DECREASED GLUCOSE; Start 01/02/17 at 21 :00 Amlodipine Besylate (Norvasc) 5 mg DAILY PO Last administered on 01/08/17 08: 39; Admin Dose 5 MG; Start 01/06/17 at 23:00 Hydralazine HCl 10 mg 10 mg Q4H PRN IV ELEVATED SYSTOLIC BP Last administered on 01/07/17 02:07; Admin Dose 10 MG; Start 01/06/17 at 23:00 Vancomycin HCl (Vancocin) 250 ml @ 125 mls/hr Q96H IVPB Last administered on 01/07/17 08:42; Admin Dose 125 MLS/HR; Start 01/07/17 at 09:00 ROSA M JOHNSON DO Jan 08, 2017 15:52
[2017-01-08] MEDS: hydrALAzine 20 MG INJ IV PRN (20:29)
[2017-01-08] MEDS: MEROPENEM 500MG/50 ML (PMX) 50 ML IVPB SCH (21:32)
[2017-01-09] VITALS (12 sets, daily range): BP systolic 110–190; BP diastolic 59–87; PULSE 60–77; RESP 16–18
[2017-01-09] MEDS: ACCU-CHEK XX SCH (02:00)
[2017-01-09] MEDS: hydrALAzine 20 MG INJ IV PRN (02:29)
[2017-01-09] MEDS: LEVOTHYROXINE 25 MCG TAB PO SCH (06:08)
--- NOTE | 2017-01-09 07:17 | PN ---
DATE: 01/08/2017 SUBJECTIVE: Patient seen, awaiting final recommendation by infectious disease regarding antibiotic management as the patient most likely presented with line sepsis as blood cultures at the dialysis c enter were positive. Patient overall doing well. PHYSICAL EXAMINATION: VITAL SIGNS: Temperature 97.4, pulse 60, respirations 18, blood pressure 156/70, saturation 96% on room air. GENERAL: No acute distress. HEENT: Normocephalic, atraumatic. The patient is pale. CARDIOVASCULAR: S1, S2, regular rate. LUNGS: Clear. ABDOMEN: Soft, nontender. EXTREMITIES: No clubbing, cyanosis, or edema. He has a right Perm-A-Cath in the right femoral groi n area. LABORATORY DATA: White count is 6.9, hemoglobin 11.7, hematocrit 36, platelets 128, now normal, chris trophils 69%, lymphocytes 20%. Chemistry: Sodium is 135, potassium 3.7, chloride 100, bicarbonate 28, BUN is 35, creatinine 3.24 and glucose of 120. Blood cultures and urine culture all negative du ring his stay here. CURRENT MEDICATIONS: Include: 1. Vancomycin dose per pharmacy. 2. Norvasc 5 mg daily. 3. Hydralazine 10 mg q.4h. p.r.n. 4. Aspirin 81 mg daily. 5. Vitamin D 2000 daily. 6. Vitamin B12 1000 daily. 7. Cardizem-CD 120 daily. 8. Synthroid 25 mcg daily. 9. Protonix 40 mg daily. 10. Accu-Cheks as directed. 11. Flomax 0.4 b.i.d. 12. Hypoglycemia protocol as directed. 13. Zofran p.r.n. 14. Tylenol p.r.n. 15. [place]. 16. Milk of magnesia. 17. Colace. 18. Senna. 19. Ambien p.r.n. ASSESSMENT AND PLAN: This is an 86-year-old male with history of diabetes mellitus, hypert ension, dyslipidemia, CVA, atrial fibrillation, osteoarthritis, diabetic neuropathy, dyslipidemia, h ypothyroidism, BPH, dementia, end-stage renal disease on dialysis, who presented with encephalopathy and fever, was found to be septic, likely from right femoral dialysis catheter. 1. Sepsis and now doing better with antibiotics. Further recommendation regarding antibiotics and line removal will be made. 2. End-stage renal disease. Further dialysis per Nephrology. Monitor electrolytes. 3. Peripheral atrial fibrillation on aspirin. Continue titrating blood pressure medications up as needed. 4. Hypothyroidism, on Synthroid. 5. Psychiatric disorder. Resume all psych medications. 6. Thrombocytopenia, continues to improve. 7. Benign prostatic hypertrophy, on Flomax. 8. Diabetes mellitus. Glucose levels are as follows 195, 118 and 132. Previously on Tradjenta. 9. Hypoalbuminemia. Encourage him to eat. 10. Dysphagia. Speech therapy to follow as patient may undergo another video swallow to see if t can be advanced further. DISPOSITION: Soon to halfway facility. We will follow. Dictated By: ERIC PHILLIPS/ALLAN Conf#: [id number] DID#: [id number]
[2017-01-09] MEDS: PANTOPRAZOLE (EC) 40 MG TAB PO SCH (07:54)
[2017-01-09] MEDS: INSULIN ASPART [NOVOLOG] 3 ML PEN SC SCH ×3 (07:55→17:39)
[2017-01-09] MEDS: AMLODIPINE 5 MG TAB PO SCH (08:53)
[2017-01-09] MEDS: TAMSULOSIN (SR) 0.4 MG CAP PO SCH (08:53)
[2017-01-09] MEDS: DILTIAZEM (CD) 120 MG CAP PO SCH (08:53)
[2017-01-09] MEDS: CHOLECALCIFEROL 2,000 UNIT CAP PO SCH (08:53)
[2017-01-09] MEDS: CYANOCOBALAMIN 500 MCG TAB PO SCH (08:53)
[2017-01-09] MEDS: ASPIRIN 81 MG TAB PO SCH (08:55)
[2017-01-09] MEDS: BALSAM PERU/CASTOR OIL 60 GM TUBE TOP SCH (08:55)
--- NOTE | 2017-01-09 10:14 | PDOCDIS ---
Discharge Instructions CONDITION Patient Condition: Stable HOME CARE INSTRUCTIONS: Special Diet: 2g Na Pureed ACTIVITY: Activity Restrictions: Slowly Increase Activity FOLLOW UP/APPOINTMENTS Follow-up Plan discharge to [facility], see reconciliation, continue HD at outside center ERIC STEVENS MD Jan 09, 2017 10:14
--- NOTE | 2017-01-09 14:49 | CONS ---
Date/Time of Note Date/Time of Note DATE: 01/09/17 TIME: 14:48 Assessment/Plan Assessment/Plan Chief Complaint/Hosp Course SUBJECTIVE: No acute changes. No fevers, looks comfortable INDWELLINGS: femoral Aldo catheter. MICROBIOLOGY: Blood cultures at hemodialysis unit grew Klebsiella, no sensitivities available ANTIMICROBIALS: Merrem. PHYSICAL EXAMINATION: GENERAL: This is a fragile well-developed elderly man who is awake, in no distress. HEENT: Head atraumatic, normocephalic. Sclerae anicteric. Buccal mucosa dry. NECK: Supple. CHEST: Rise symmetrical. Breath sounds clear. HEART: S1, S2. ABDOMEN: Soft. Bowel tones present. ASSESSMENT: 1. Sepsis with fevers and tachycardia on admission secondary to infected hemodialysis catheter 2. End-stage renal disease. 3. Anemia. 4. Diabetes. 5. Benign prostatic hypertrophy. 6. Paroxysmal atrial fibrillation. PLAN: The patient remains stable. Repeated blood cultures negative, will keep on Merrem to complete 2 weeks, if pt develops similar episode will need line change Problems: Consultation Date/Type/Reason Admit Date/Time Jan 02, 2017 at 19:02 Type of Consultation: id Referring Provider: ERIC STEVENS MD Exam/Review of Systems Vital Signs Vitals Vital Signs Date Time Temp Pulse Resp B/P Pulse Ox O2 Delivery O2 Flow Rate FiO2 01/09/17 10:39 60 148/70 01/09/17 08:00 96.9 16 97 Room Air Intake and Output 01/08/17 01/08/17 01/09/17 15:00 23:00 07:00 Intake Total 850 ml 200 ml Balance 850 ml 200 ml Results Result Diagram: 01/07/17 0431 01/07/17 0431 Results 24 hrs Laboratory Tests Test 01/08/17 17:32 01/08/17 20:26 01/09/17 07:53 01/09/17 12:27 Bedside Glucose 139 146 126 160 Medications Medications Current Medications Ondansetron HCl (Zofran Inj) 4 mg Q6H PRN IV NAUSEA AND/OR VOMITING; Start 01/02/17 at 20:30 Acetaminophen (Tylenol Tab) 650 mg Q6H PRN PO PAIN LEVEL 1-3 OR FEVER Last administered on 01/05/17t 03:08; Admin Dose 650 MG; Start 01/02/17 at 20:30 Acetaminophen/ Hydrocodone Bitart ([place] (5/325)) 1 tab Q6H PRN PO MODERATE PAIN LEVEL 4-6; Start 01/02/17 at 20:30 Docusate Sodium (Colace) 100 mg Q12H PRN PO CONSTIPATION; Start 01/02/17 at 20: 30 Magnesium Hydroxide (Milk Of Mag) 30 ml DAILY PRN PO CONSTIPATION; Start at 20:30 Bisacodyl 5 mg 5 mg DAILY PRN PO CONSTIPATION; Start 01/02/17 at 20:30 Meropenem/Sodium Chloride (Merrem 500mg/50 ml(Pmx)) 50 ml @ 100 mls/hr Q24H IVPB Last administered on 01/08/17 21:32; Admin Dose 100 MLS/HR; Start at 22:00 Aspirin (Aspirin) 81 mg DAILY PO Last administered on 01/09/17 08:55; Admin Dose 81 MG; Start 01/03/17 at 09:00 Cholecalciferol (Vitamin D) 2,000 unit DAILY PO Last administered on 08:53; Admin Dose 2,000 UNIT; Start 01/03/17 at 09:00 Cyanocobalamin (Vitamin B12) 1,000 mcg DAILY PO Last administered on 08:53; Admin Dose 1,000 MCG; Start 01/03/17 at 09:00 Diltiazem HCl (Cardizem Cd) 120 mg DAILY PO Last administered on 01/09/17 08: 53; Admin Dose 120 MG; Start 01/03/17 at 09:00 Docusate Sodium (Colace) 100 mg Q12H PRN PO CONSTIPATION; Start 01/02/17 at 20: 30 Ondansetron HCl (Zofran Tab) 4 mg Q6H PRN PO NAUSEA AND/OR VOMITING; Start 01/02/17 at 20:30 Senna (Senokot) 1 tab QHS PRN PO CONSTIPATION; Start 01/02/17 at 20:30 Tamsulosin HCl (Flomax) 0.4 mg BID PO Last administered on 01/09/17 08:53; Admin Dose 0.4 MG; Start 01/02/17 at 21:00 Zolpidem Tartrate (Ambien) 5 mg HS PRN PO insomnia; Start 01/02/17 at 20:30 Diagnostic Test (Pha) (Accu-Chek) 1 ea 02 XX ; Start 01/03/17 at 02:00 Miscellaneous Information 1 ea NOTE XX ; Start 01/02/17 at 21:00 Glucose (Glutose) 15 gm Q15M PRN PO DECREASED GLUCOSE; Start 01/02/17 at 21:00 Glucose (Glutose) 22.5 gm Q15M PRN PO DECREASED GLUCOSE; Start 01/02/17 at 21: 00 Dextrose (D50w Syringe) 25 ml Q15M PRN IV DECREASED GLUCOSE; Start 01/02/17 at 21:00 Dextrose (D50w Syringe) 50 ml Q15M PRN IV DECREASED GLUCOSE; Start 01/02/17 at 21:00 Glucagon (Glucagen) 1 mg Q15M PRN IM DECREASED GLUCOSE; Start 01/02/17 at 21:00 Glucose (Glutose) 15 gm Q15M PRN BUCCAL DECREASED GLUCOSE; Start 01/02/17 at 21 :00 Amlodipine Besylate (Norvasc) 5 mg DAILY PO Last administered on 01/09/17 08: 53; Admin Dose 5 MG; Start 01/06/17 at 23:00 Hydralazine HCl (Apresoline) 10 mg Q4H PRN IV ELEVATED SYSTOLIC BP Last administered on 01/09/17 02:29; Admin Dose 10 MG; Start 01/06/17 at 23:00 Hydralazine HCl (Apresoline) 100 mg TID NGT Last administered on 01/09/17 13: 54; Admin Dose 100 MG; Start 01/09/17 at 13:00 JESUS HDZ NP Jan 09, 2017 14:49
[2017-01-09] MEDS: MEROPENEM 500MG/50 ML (PMX) 50 ML IVPB SCH (18:44)
--- NOTE | 2017-01-10 05:01 | DS ---
DATE OF ADMISSION: 01/02/2017 DATE OF DISCHARGE: 01/09/2017 REASON FOR ADMISSION: Sepsis, high-grade fever, rule out line sepsis. HOSPITAL COURSE: The patient is an 86-year-old male, very well known to me with history of endstage renal disease, diabetes mellitus, hypertension, dyslipidemia, anemia, diabetic neuropathy, osteoarthritis, arteriosclerotic cardiovascular disease, BPH, depression, hypothyroidism, diastolic dysfunction heart failure and vascular dementia who is on dialysis 3 times a week. He has a right femoral catheter. Previously admitted to the hospital with UTI bacteremia, ESBL. The patient was b rought to the dialysis center to have high-grade fever up to 103.5. He was brought into [facility]. We were concerned as all the workup including chest x-ray, UA were negative, so we were concerned that he may have line sepsis. Patient was started on broad-spectrum antibiotic wi th vancomycin and imipenem. Multiple physicians were consulted including Dr. Neo De La Paz, the neph rologist, Dr. Viramontes, the infectious disease specialist. Ultimately, the culture that was drawn at the dialysis center did reveal Klebsiella and sensitivity was not done. As patient has been respond ing very well to the above antibiotics, it was decided not to remove the line. The patient in [facility] has a very poor vein access. He has been stable. We will titrate his blood pressure medication up further as temperature 97.7, pulse 64, respiration 18, blood pressure 154/67, saturation is 100%. DISCHARGE MEDICATIONS: The patient will be discharged today with the following medications: 1. Accu-Chek before meals and at bedtime. 2. Tylenol p.r.n. 3. Aspirin 81 daily. 4. . 5. Dulcolax p.r.n. 6. Vitamin B12 1000 daily. 7. Cardizem-CD 120 mg daily. 8. Colace 100 mg q. 12. 9. Hypoglycemia protocol as directed. 10. Hydralazine 100 mg q. 8 hours. 11. Synthroid 25 mcg daily. 12. Milk of magnesia daily p.r.n. 13. Merrem 500 IV daily for 8 more days. 14. Treatment of hypoglycemia as directed. 15. Zofran 4 mg q. 4 p.r.n. for nausea and vomiting. 16. Protonix 40 mg daily. 17. Senna 1 tab at bedtime. 18. Flomax 0.4 b.i.d. 19. Ambien 5 mg at bedtime p.r.n. insomnia. 20. Clonidine patch TTS 1 q. weekly. 21. Ferrous sulfate daily. 22. Tradjenta 5 mg daily. FINAL DIAGNOSES: 1. Sepsis. 2. Right femoral hemodialysis catheter line sepsis. 3. Hypertension. 4. Vascular dementia. 5. Endstage renal disease. 6. Hypothyroidism. 7. Anemia of chronic disease. 8. Debilitated state. 9. Diabetes mellitus. 10. Benign prostatic hypertrophy. 11. Paroxysmal atrial fibrillation on aspirin, currently in sinus. CONDITION: Patient will be discharged in fair condition. DIET: Currently on a pureed diet. That diet may be advanced at the [facility]. DISPOSITION: Patient is stable for discharge, afebrile. Again, we are titrating his blood pressure medications up. We will follow him closely at [facility]. Dictated By: ERIC PHILLIPS/ALLAN Conf#: [id number] DID#: [id number]
== END 2017-01-09 19:30 | DRG 314 ==
LOC: E/R 15:10 → PP2 19:02
PROVIDERS: ADMIT Internal Medicine; ATTEND Internal Medicine
PROC: 5A1D70Z Performance of Urinary Filtration, Intermittent, Less than 6 Hours Per Day (ICD-10-PCS; principal; 2017-01-03)
DX: T82.7XXA Infection and inflammatory reaction due to other cardiac and vascular devices, implants and grafts, initial encounter (principal); N18.6 End stage renal disease; A41.59 Other Gram-negative sepsis; G92 Toxic encephalopathy; I13.2 Hypertensive heart and chronic kidney disease with heart failure and with stage 5 chronic kidney disease, or end stage renal disease; E11.22 Type 2 diabetes mellitus with diabetic chronic kidney disease; D69.6 Thrombocytopenia, unspecified; E11.40 Type 2 diabetes mellitus with diabetic neuropathy, unspecified; R13.10 Dysphagia, unspecified; I50.30 Unspecified diastolic (congestive) heart failure; E44.1 Mild protein-calorie malnutrition; I48.0 Paroxysmal atrial fibrillation; E78.5 Hyperlipidemia, unspecified; I25.10 Atherosclerotic heart disease of native coronary artery without angina pectoris; N40.0 Benign prostatic hyperplasia without lower urinary tract symptoms; R53.81 Other malaise; E03.9 Hypothyroidism, unspecified; F99 Mental disorder, not otherwise specified; D63.1 Anemia in chronic kidney disease; Z68.21 Body mass index [BMI] 21.0-21.9, adult; R74.0 Nonspecific elevation of levels of transaminase and lactic acid dehydrogenase [LDH]; F01.50 Vascular dementia, unspecified severity, without behavioral disturbance, psychotic disturbance, mood disturbance, and anxiety; Z79.82 Long term (current) use of aspirin; Z86.73 Personal history of transient ischemic attack (TIA), and cerebral infarction without residual deficits; Z99.2 Dependence on renal dialysis
CPT/HCPCS: 36415; 71010; 74176; 80048; 80053; 80202; 81001; 82962; 83036; 83605; 83735; 84100; 84443; 84484; 85025; 85610; 85730; 87040; 87086; 90935; 92610; 93005; 96374; 96375; J0360; J0692; J1644; J1815; J2185; J2405; J3370; J7030; P9612

== ENCOUNTER → 2017-02-21 | Outpatient (CLI) | payer MEDICARE, OTHER ==
[~2017-02-21] MED LIST changes: -ACET325T45 PO; +AMIN30LI PO; -ARIP2TAB8 PO; +BARIUM SULFATE 135 ML (E-Z HD) PO ONE; +CATTTS1 TD; +CLON-379 PO; -CYAN100080 PO; +CYAN500T46 PO; -METO-448 PO; -MIRT15TA5 PO; -MULT1CAP20 PO; -OMEP20CA16 PO; +PANT40TA4 PO; -POLY15DR42 BOTH EYES; +SENN-53 PO
--- NOTE | 2017-02-22 09:26 | RADRPT ---
PROCEDURE: Video speech swallow evaluation CLINICAL INDICATION: Dysphagia. COMPARISON: None relevant listed. TECHNIQUE: Fluoroscopic speech swallow evaluation was performed by speech therapy. Images were ac quired by a technologist under the supervision of a radiologist. Fluoroscopy time: 2.1 minutes # images / sequences: [id number] Estimated Dose: 6.3 mGy cm FINDINGS: Transient penetration with nectar thick liquids. Aspiration with cup nectar which cleared after coug rosal[place]. No aspiration with a soft foods. Aspiration of liquids where an a mixed consistency of food an d liquids were administered together. IMPRESSION: Aspiration is present. Please also refer to the speech pathology report for additional details. RPTAT: PP Physician Anna Date Time Electronically viewed and signed by Physician Anna on 02/22/2017 09:25 LG/
== END | disposition home or self-care (01) ==
LOC: RAD 12:05
PROVIDERS: ATTEND Internal Medicine
DX: R13.12 Dysphagia, oropharyngeal phase (principal); R13.14 Dysphagia, pharyngoesophageal phase
CPT/HCPCS: 74230; 92611; G8996; G8997; G8998

== ENCOUNTER 2017-03-25 03:08 | Inpatient (IN) | END 2017-04-03 18:35 | DRG 919 ==

== ENCOUNTER 2017-04-18 09:39 | Day surgery (SDC) | END 2017-04-18 16:10 | disposition home or self-care (01) ==

== ENCOUNTER 2017-05-02 15:18 | Inpatient (IN) | END 2017-05-04 20:55 | disposition home health service (06) | DRG 853 ==

== ENCOUNTER 2017-09-11 08:52 | Day surgery (SDC) | END 2017-09-11 12:12 | disposition home or self-care (01) ==